=== PATIENT | male | born 1940 | race Caucasian/White ===

== ENCOUNTER 2024-01-03 07:26 | Inpatient (IN) | payer MEDICARE, OTHER, SELFPAY ==
[2024-01-02] VITALS (15 sets, daily range): BP systolic 120–155; BP diastolic 79–99; BMI 30.2; BMI 29.8
[2024-01-02 05:42] LABS: Hematocrit 48.1 % (39.0-52.0); Hemoglobin 16.1 g/dL (13.0-18.0); Mean Corp Hgb Conc. 33.5 g/dL (33.0-37.0); Mean Corpuscular Hgb 28.3 pg (27.0-31.0); Mean Corpuscular Volume 84.5 fL (80.0-94.0); Mean Platelet Volume 10.2 fL (7.4-10.4); Platelet Count 222 10^3/uL (130-400); Red Blood Cell Count 5.69 10^6/uL (4.70-6.10); Red Cell Dist. Width 14.3 % (11.5-14.5); White Blood Cell Count 17.3 10^3/uL (4.8-10.8)
[2024-01-02 06:02] LABS: ALT (SGPT) 19 U/L (0-50); AST (SGOT) 22 U/L (17-59); Albumin 3.6 g/dl (3.5-5.0); Alkaline Phosphatase 69 U/L (38-126); Blood Urea Nitrogen 47 mg/dl (9-20); Calcium 9.1 mg/dl (8.4-10.2); Carbon Dioxide 27 mmol/L (22-30); Chloride 101 mmol/L (98-107); Estimated Creatinine Clearance 63 ml/min; Glucose 153 mg/dl (70-99); Sodium 137 mmol/L (135-145); Total Bilirubin 1.1 mg/dl (0.2-1.3); eGFR > 60.00
--- NOTE | 2024-01-02 06:26 | ED.GENMED ---
History of Present Illness
General
Chief Complaint: Vomiting Blood
Source: patient and records
Exam Limitations: none
Time Seen by Provider: 01/02/24 06:01
Nursing documentation reviewed up to this point in time: agreed with
Travel History
Have you had any contact with someone who has COVID-19?: No
Do you have any symptoms of coronavirus? Fever > 100 degrees, chills, cough, shortness of breath, sore throat, loss of taste or smell, muscle aches, or headache?: No
History of Present Illness
History of Present Illness:
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 Patient states for the last 4 to 5 days he has not been feeling well and has had digestive issues. Patient has mild nausea
with decreased appetite and has noted black stools. Patient denies feeling weak or lightheaded. Patient denies chest pain or shortness of breath. Patient denies any palpitations. Patient denies any abdominal pain. Patient denies any leg
swelling or edema. Patient denies any history of peptic ulcer disease or previous GI bleeds.
Past History
Past History
ED Past Medical History: Cancer (Renal clear-cell, CLL), Hypercholesterolemia and LA
Social History
Tobacco: Former smoker
Review of Systems
Review of Systems
All Other Systems: ROS reviewed and negative except as documented in HPI and ROS
Constitutional: Reports fatigue; Denies fever or chills
EENT: Reports no symptoms
Respiratory: Reports no symptoms
Cardiac: Reports no symptoms
ABD/GI: Reports nausea, vomiting, black stools and anorexia; Denies abdominal pain, diarrhea or constipated
: Reports no symptoms
Musculoskeletal: Reports no symptoms
Skin: Reports no symptoms
Neurological: Reports no symptoms
Hematologic/Lymphatic: Denies bruising
Phy Exam
Physical Exam
Physical Exam:
Physical Exam
General: No apparent distress, alert and appropriate, well nourished, well hydrated
HENT: Normocephalic, supple with no lymphadenopathy, no thyromegaly
Eyes: Clear sclera, conjuctiva without injection
Heart: Regular rhythm and rate. No S3, S4. No murmur. No NVD
Lungs: No respiratory distress, no stridor, lung sounds clear and equal bilaterally
Abdomen: Soft, nontender, no organomegaly, no CVA tenderness, BS good. Rectal shows good sphincter tone and no prostatic hypertrophy. Stool is brown and Hemoccult negative
Neuro: Alert and usual mental status, CN II - XII intact, no motor focality
Skin: no rash
Psychiatric: well kept. interactive and cooperative
Extremities: No edema, cyanosis, tenderness, Good and equal peripheral pulses.
Scores
Heart Failure Risk
Heart Failure Risk Score: Not Applicable
Heart Score for Chest Pain Patients
STEMI patient?: Not applicable
Withdrawal Assessment of Alcohol
Withdrawal Assessment Completed?: Not applicable
Course
Orders/Labs/Results
Orders:
Orders
01/02/24 05:34
Type+Screen Urgent
Complete Blood Count/With Diff Urgent
Comprehensive Metabolic Panel Urgent
Manual Differential Urgent
01/02/24 06:24
0.9% Sodium Chloride 500 ml [Nss] 500 ml IV BOLUS
Ondansetron Injectable [Zofran] 4 mg IV NOW STA
Pantoprazole 80 mg/100 ml Nss [Protonix] 80 mg in 100 ml IV NOW
Pantoprazole [Protonix IV] 80 mg IV NOW STA
01/02/24 06:25
Electrocardiogram (*1) Urgent
Reason for Study: Tachycardia
EKG- Treatment ONCE
01/02/24 07:18
PTT Urgent
Prothrombin Time Urgent
Abnormal Lab Results
01/02/24
05:34
WBC 17.3 H 10^3/uL
(4.8-10.8)
Abs Neuts (Manual) 10.7 H 10^3/uL
(1.4-6.5)
Band Neutrophils 10 H %
(0-3)
Lymphocytes (Manual) 8 L %
(20-51)
BUN 47 H mg/dl
(9-20)
Glucose 153 H mg/dl
(70-99)
Total Protein 6.0 L g/dl
(6.3-8.2)
01/02/24 05:34
01/02/24 05:34
Vital Signs
Initial and Last Documented VS:
Initial Vital Signs
Temp Pulse Resp Pulse Ox
98.4 F 103 24 95
01/02/24 05:21 01/02/24 05:21 01/02/24 05:21 01/02/24 05:21
Last Documented Vital Signs
Temp Pulse Resp BP Pulse Ox
98.4 F 93 22 138/85 94
01/02/24 05:21 01/02/24 07:00 01/02/24 07:00 01/02/24 07:00 01/02/24 07:00
*Radiology
Radiology exam reviewed: other (na)
*Pulse Oximetry
Patient hypoxic: no
*EKG
Interpreted by ED Provider?: Yes
EKG Intrepretation Date: 01/02/24
EKG Intrepretation Time: 07:23
Interpretation: abnormal
Comparison EKG: no comparison EKG present
Heart Rate: 90
Rate: normal
Rhythm: sinus
[place]: left axis deviation
Interval: normal interval
QRS Pattern: normal QRS (old Q inferiorly)
Ischemia: no ischemia
*Online Merchandising Manager Interpretation
Rate: tachycardiac
Interpretation: abnormal
Heart Rate: 110
Rhythm: sinus
*Critical Care Note
Total Time (30-74mins, 75-104mins- exclusive of procedures): Not Applicable
Update Note
Update Note:
Patient's hemoglobin is stable. However patient's BUN in the span of 8 months is gone from 18 or 19 to 47 with a normal creatinine. From all description patient appears to have an upper GI bleed. Patient has a mild tachycardia of just over 100.
Patient does probably require upper endoscopy but will discuss with GI given the patient's history and findings and whether they will do an outpatient workup or inpatient. Given the patient's age and underlying medical issues I am leaning towards
inpatient.
ED Attending Note
-
Portions of this chart may have been created with voice recognition software.� Occasional wrong word or��sound alike� substitutions may have occurred due to the inherent limitations of voice recognition software.
Discharge Plan
Departure
Patient Disposition: Admit
Date of Disposition: 01/02/24
Time of Disposition: 07:43
Admit to: Telemetry
Admit to doctor: Hospitalist
Presentation/result/management discussed w/ accepting MD/DO: Hospitalist
Patient with high blood pressure during this ER visit?: No
Condition: Fair
Covid-19: Not Applicable
Discharge Problem:
Upper gastrointestinal bleed
Prescriptions:
No Action
ibuprofen 200 MG tablet
400 mg PO PRN (Reason: pain)
doxazosin 4 MG tablet
8 mg PO HS
finasteride 5 MG tablet
5 mg PO HS
rusyydma-lbw-DF-lycopen-lutein [Centrum Silver] 1 EACH tablet
1 ea PO DAILY
cholecalciferol (vitamin D3) 2,000 UNIT tablet
2,000 unit PO DAILY
Referrals:
Leticia Ortega DO [Family Provider] -
Interventions
Interventions:
*Risk Screen - Suicide Last Done: 01/02/24 05:21
*General Assessment Last Done: 01/02/24 05:21
*Neglect/Abuse Screening Last Done: 01/02/24 05:21
ED- Fall Risk Assessment Last Done: 01/02/24 05:21
*ED COVID-19 Vaccine History Last Done: 01/02/24 05:21
WI-Qsgsyt-Hxlldnboxb Assessment Last Done: 01/02/24 05:45
ED- Cardiac Assessment Last Done: 01/02/24 05:45
ED- Pulmonary Assessment Last Done: 01/02/24 05:45
[2024-01-02] MEDS: PROTONIX 100 IV (07:01)
[2024-01-02] MEDS: PROTONIX IV 80 MG IV (07:01)
[2024-01-02] MEDS: ZOFRAN 4 MG IV ×2 (07:02→12:34)
[2024-01-02 07:07] LABS: Absolute Neutrophils -Man Diff 10.7 10^3/uL (1.4-6.5); Atypical Lymphocytes 24 %; Band Neutrophils 10 % (0-3); Lymphocytes 8 % (20-51); Metamyelocytes 1 % (-); Monocytes 5 % (2-9); Normal RBC Morphology Yes; Platelets Checked Yes; Segmented Neutrophils 52 % (42-75); Total Cells Counted 100
[2024-01-02] MEDS: NSS 500 IV (07:08)
[2024-01-02 08:13] LABS: APTT 27.8 Sec (23.4-35.0); INR 1.09; PT 14.1 Sec (11.4-14.6)
--- NOTE | 2024-01-02 08:27 | CON.GI ---
Addendum entered and electronically signed by Sherry Ozuna Do, MD 01/02/24 15:44:
I saw and examined the patient.
The SHEAR TENDER's note was reviewed and I agree with the note.
Comment: Rajeev is an 83yo M with h/o RCC, HTN and CAD s/p stent 2012 who was admitted with dark emesis and abd distension. He denies prior h/o bowel obstruction but recently more constipated. Denies new meds. He does have chronic LBP on ASA but
no opioids. No abd surgeries. Vitals stable. AF. obese distended abd hypoactive bowel sounds Labs reviewed WBC of 17 Hbg 16. LFTs normal. Imaging: AXR with high grade SBO. CTAP with 1. � High-grade small bowel obstruction within the
distal ileum with more proximal bowel loops measuring up to 4 cm in diameter. Significant gastric distention. Transition point identified within the right lower quadrant.
Impression
- High grade SBO
No prior abd surgeries
No diarrhea preceding
- Gastric distension with N/V
- h/o RCC
- HTN
- CAD s/p stent
- BPH
- Spinal stenosis
Recommendations
- Appreciate surgical recommendations
- NPO, diet per surgery
- NGT pending placement
- Monitor stool output
- PPI IV BID
- IVF
- Given normal H/H and bowel obstruction, EGD is not indicated at this juncture
Will follow with you
Addendum entered and electronically signed by Jennifer Tobar NP 01/02/24 10:39:
XR imaging suggestive of high grade SBO. Surgery consult pending.
Original Note:
Consultation
-
Date/Time Consultation Requested: 01/02/24 @07:35
Date/Time Consultation Performed: 01/02/24 @ 08:30
Requesting Provider: Dr. Frederick
Performing Provider: MILES Giron; Dr. Sherry Degroot
Reason for Consultation: GI bleed
Medical History
Chief Complaint / HPI
Chief Complaint: vomiting blood
History of Present Illness:
The pt is an 83 yo male with a PMH significant for ?CLL, RCC (2008 per outpatient records), HLD, HTN, CAD with prior cardiac stenting in 2012, BPH, spinal stenosis, who presented to ER with complaints of dark emesis and black stool. We are being
asked to evaluate for the presenting symptoms. The patient reports that he started noticing some of dark stool on Sunday. He notes there was a small amount of bright red blood as well but had been having normal BM prior to this. He denies any
significant constipation or diarrhea, and his typically bowel pattern is daily to every other day of formed/semi-formed stool. He notes that he progressively started feeling unwell on Sunday with a decreased appetite and subsequent nausea and
vomiting. He reports 6 episodes of vomiting since the weekend which appeared very dark in color. He denies any bright red blood with vomiting. He does admit also to increased heartburn symptoms with burning and some regurgitation into his throat
over the past few days as well. He does not take any antacids on a regular basis. He denies any chest pain, lightheadedness, dizziness, fevers, chills, syncope, abdominal pain, lower extremity edema, dysphagia, odynophagia, or unintentional weight
loss. He denies any history of GI bleeding or peptic ulcer disease. He denies any recent steroids, antibiotics, surgeries, or hospitalizations. He has remote history of colonoscopy and endoscopy but does not recall the results. He admits to
infrequent alcohol use with 3-4 drinks monthly. He does admit to daily use of Excedrin for chronic arthritic/back pain. He denies use of blood thinners aside from 81 mg of aspirin. He denies any family history of colon cancer, stomach cancer, or
other GI cancers or disorders. Of note his 's states that he is seeing oncology for workup of CLL. upon emergency room evaluation, he was noted to have brown heme-negative stool per ER workup. Pertinent lab findings clued WBC 17.3, hemoglobin
16.1, platelets 222,000, 10% bands, INR 1.09, BUN 47, creatinine 0.9, sodium 137, potassium 4.0. No imaging for review. He was made n.p.o., started on IV fluids, PPI drip, admitted for further evaluation by GI.
Past Medical History
Past Medical History: CAD
Past Surgical History: Cardiac (Cardiac stent x 2 in 2013) and Orthopedic (Hip replacement)
Social History
Tobacco: Former Smoker (Quit in the 1960s)
Alcohol: Occasional (Very infrequent 3-4 drinks monthly)
Drug: None
Personal:
Living: With Family
Family History
Family History: Reviewed & Not Pertinent
Allergies / Home Medications
Allergy/AdvReac Type Severity Reaction Status Date / Time
walnuts Allergy Itching Uncoded 01/02/24 05:20
Medication Instructions Recorded
cholecalciferol (vitamin D3) 50 2,000 unit PO DAILY 09/01/12
mcg (2,000 unit) tablet
doxazosin 4 mg tablet 8 mg PO HS 09/01/12
finasteride 5 mg tablet 5 mg PO HS 09/01/12
ibuprofen 200 mg tablet 400 mg PO PRN pain 09/01/12
lkktmpon-zem-skrrk acid 0.4 1 ea PO DAILY 09/01/12
mg-lycopene 300 mcg-lutein 250 mcg
tablet (Centrum Silver)
Review of Systems
-
History Source: Patient and Family
Constitutional: Reports No Symptoms
EENT: Reports No Symptoms
Respiratory: Reports No Symptoms
Cardiac: Reports No Symptoms
Abdomen/GI: Reports Nausea, Vomiting and Black Stools
: Reports No Symptoms
Musculoskeletal: Reports Other (Chronic back pain)
Skin: Reports No Symptoms
Neurological: Reports No Symptoms
Vital Signs
Temp Pulse Resp BP Pulse Ox
98.4 F 93 22 138/85 94
01/02/24 05:21 01/02/24 07:00 01/02/24 07:00 01/02/24 07:00 01/02/24 07:00
Physical Exam
Exam
General: Well Developed, Well Nourished, No Apparent Distress and Other (elderly appearing male)
HEENT: Normocephalic, Anicteric and Atraumatic
Respiratory: Clear (diminished bibasilarly)
Cardiac: S1/S2 and Regular Rhythm
Breast: Deferred by me
GI: Soft, Tender, Distended and Other (hypoactive bowel sounds, +tymphany upon percussion)
Rectal: Other (brown heme negative per ER)
Musculoskeletal: No Edema
Skin: Warm and Dry
Neuro: Awake, Alert and Oriented
Psych: Calm
Results
WBC 17.3 10^3/uL (4.8-10.8) H 01/02/24 05:34
Hgb 16.1 g/dL (13.0-18.0) 01/02/24 05:34
Hct 48.1 % (39.0-52.0) 01/02/24 05:34
MCV 84.5 fL (80.0-94.0) 01/02/24 05:34
Plt Count 222 10^3/uL (130-400) 01/02/24 05:34
PT 14.1 Sec (11.4-14.6) 01/02/24 07:18
INR 1.09 01/02/24 07:18
APTT 27.8 Sec (23.4-35.0) 01/02/24 07:18
Sodium 137 mmol/L (135-145) 01/02/24 05:34
Potassium 4.0 mmol/L (3.5-5.1) 01/02/24 05:34
Chloride 101 mmol/L (98-107) 01/02/24 05:34
Carbon Dioxide 27 mmol/L (22-30) 01/02/24 05:34
BUN 47 mg/dl (9-20) H 01/02/24 05:34
Creatinine 0.9 mg/dL (0.7-1.3) 01/02/24 05:34
Calcium 9.1 mg/dl (8.4-10.2) 01/02/24 05:34
Total Bilirubin 1.1 mg/dl (0.2-1.3) 01/02/24 05:34
AST 22 U/L (17-59) 01/02/24 05:34
ALT 19 U/L (0-50) 01/02/24 05:34
Alkaline Phosphatase 69 U/L (38-126) 01/02/24 05:34
Prior GI Procedures:
EGD: remote hx with no abnormal findings per pt (record not available for review)
Colonoscopy: remote hx with no abnormal findings per pt (record not available for review)
Assessment / Plan
-
The pt is an 83 yo male with a PMH significant for ?CLL, RCC (2008 per outpatient records), HLD, HTN, CAD with prior cardiac stenting in 2012, BPH, spinal stenosis, who presented to ER with complaints of dark emesis and black stool. We are being
asked to evaluate for the presenting symptoms. He notes acute onset of dark stool Sunday with subsequent nausea, vomiting of dark emesis (no bright red blood). He has had loss of appetite along with abdominal bloating/distention. No significant
anemia hgb 16.1 but elevated BUN 47 with a normal Cr and previously normal BUN. Daily Excedrin use reported for spinal stenosis. No blood thinners. No alcohol use. No hx GI bleed or anemia, but undergoing work-up for CLL per the pt's .
Problem list:
-coffee ground emesis
-elevated BUN
-?CLL (undergoing work-up)
-leukocytosis with bandemia
-piotr Excedrin use
Other pertinent medical hx:
-CAD with prior stenting 2012
-HLD
-HTN
-Hx RCC 2008
-spinal stenosis
-BPH
Recommendations:
-Etiology of current symptoms possibly 2/2 obstructive process v constipation v gastroenteritis v UGI bleed with daily Excedrin use (PUD v AVM v other) v other. Currently with stable hgb with heme negative stool per ER but concern with elevated BUN
and coffee ground emesis.
-Will check an XR of the abdomen to rule out obstructive process v constipation which could be contributing
-To consider EGD today pending above with concern for possible ulcer with daily Excedrin use. The pt is agreeable. Risks of the procedure reviewed with him.
-Keep NPO
-PPI gtt
-Trend H/H
-IV fluids per hospitalist
-PRN antiemetics
-No obvious signs of infection, leukocytosis possibly 2/2 hemoconcentration v CLL but also with bandemia (undergoing work-up per pt's ). Defer to hosptialist
-Will follow
-
-
Thank you for consultation and allowing me to participate in the patient's care. Please call the caisson worker GI physician during the after hours with any questions or concerns.
--- NOTE | 2024-01-02 09:06 | HPS.HSE ---
Addendum entered and electronically signed by Rohith Alicea DO 01/02/24 14:00:
Abdominal x-ray reviewed, suspicious for high-grade distal SBO. Await CT of abdomen & pelvis. General surgery consulted. Continue NPO.
Original Note:
Family Physician
-
Family Physician: Leticia Ortega
Chief Complaint
-
Vomiting, anorexia, melena
History of Present Illness
83-year-old male here with complaints of anorexia, melena, nausea and vomiting for the past 4 days. Had hematochezia on Sunday night but since then has had some melena. Denies similar occurrences in the past. Does have a history of hemorrhoids.
Uses Excedrin on a daily basis. Denies history of peptic ulcer disease. Last colonoscopy was 18 years ago. Not on anticoagulation.
Medical History
Past Medical History
Past Medical History: Reports Other
Additional Past Medical History:
CAD/stenting 2011
BPH
CLL
Hyperlipidemia
Spinal stenosis
Essential hypertension
Renal cell cancer -2008
Past Surgical History: Reports Orthopedic
Additional Past Surgical History:
Lumbar laminectomy
Cervical laminectomy
Hip replacement
Social History
Tobacco: Former Smoker
Alcohol: Occasional
Drug: None
Personal:
Living: With Family
Family History
Family History: Not pertinent
Allergies / Home Medications
Allergies reflects when Allergies were last updated in [facility].
Home Medications with original date entered in [facility]
Allergy/Medication List:
Allergies
Allergy/AdvReac Type Severity Reaction Status Date / Time
walnuts Allergy Itching Uncoded 01/02/24 05:20
Home Medications
finasteride 5 mg tablet 5 mg PO HS 09/01/12
gisyfyji-evs-rdqkk acid 0.4 mg-lycopene 300 mcg-lutein 250 mcg tablet (Centrum Silver) 1 ea PO DAILY 09/01/12
aspirin 81 mg tablet,delayed release 162 mg PO QPM 01/02/24
kykclks-vunqscywdbbzp-zhnzrhzr 250 mg-250 mg-65 mg tablet (Excedrin Extra Strength) 2 tab PO DAILY 01/02/24
doxazosin 8 mg tablet 8 mg PO HS 01/02/24
turmeric 400 mg capsule 400 mg PO DAILY 01/02/24
Review of Systems
-
History Source: Patient and Family
A 12 point ROS was completed and negative except as noted: Yes
Abdomen/GI: Reports Nausea, Vomiting, Black Stools and Anorexia
Physical Exam
Vital Signs
Vital Signs
Temp Pulse Resp BP Pulse Ox
98.4 F 88 20 145/90 93
01/02/24 05:21 01/02/24 08:30 01/02/24 08:30 01/02/24 08:30 01/02/24 08:30
Physical Exam
General: Well Developed, Well Nourished, No Apparent Distress and Comfortable
HEENT: NormoCephalic, Anicteric and Moist mucous membranes
Respiratory: Clear
Cardiac: S1/S2 and Regular Rhythm
GI: Soft, Non Tender and Distended
Genito-urinary: Deferred by me
Musculoskeletal: No Clubbing, No Cyanosis and No Edema
Skin: Warm and Dry
Neuro: AO x 3
Hematologic/Lymphatic: No Lymphadenopathy
Psych: Calm
Laboratory Results
-
01/02/24 05:34
01/02/24 05:34
Laboratory Results
PT 14.1 Sec (11.4-14.6) 01/02/24 07:18
INR 1.09 01/02/24 07:18
APTT 27.8 Sec (23.4-35.0) 01/02/24 07:18
Total Bilirubin 1.1 mg/dl (0.2-1.3) 02/21/24 05:34
AST 22 U/L (17-59) 01/02/24 05:34
ALT 19 U/L (0-50) 01/02/24 05:34
Alkaline Phosphatase 69 U/L (38-126) 01/02/24 05:34
Impression/Plan
-
Intractable vomiting -with associated melena, high BUN. Rule out GI bleed. Admit to telemetry. Consult GI. N.p.o., IV Protonix, antiemetics. IV fluids. Stop NSAIDs.
Hemoglobin normal, will monitor. Heme-negative stool in the emergency room.
CAD -history of stenting. Continue low-dose aspirin.
Essential hypertension -stable.
BPH
Spinal stenosis
History of renal cell cancer
Obesity due to excess calories
DNR -confirmed with patient.
[2024-01-02] MEDS: OMNIPAQUE 50 ML PO ×2 (10:55)
[2024-01-02] MEDS: 0.45%NACL 1000 IV (12:16)
--- NOTE | 2024-01-02 13:00 | PTCARENOTE ---
Pt admitted to rm 317-1. AAOx3, forgetful? Tele box #7 placed, SR on monitor. Protonix gtt infusing, fluids started as ordered. Orietned to room and call prabhakar. POC explained to patient and , verbalized understanding.
--- NOTE | 2024-01-02 14:35 | CON.GS ---
Consultation
-
Requesting Provider: aileen
Performing Provider: neli
Reason for Consultation: sbo
Medical History
-
Chief Complaint: vomiting
History of Present Illness:
83M with 3 days of n/v that caleb after eating brunch at a restaurant. Reportedly emesis has been dark black and possibly bloody as well. Had a BM with blood about 4 days ago per his . The patient is a poor historian and talks about difficulty
walking when asked why he is here. He does endorse passing flatus throughout this episode. He denies abd pain at any point during this episode. Denies prior abd surgery. Per his , he is not current on c-scopes.
Past Medical History
Past Medical History: Hypercholesterolemia, MT and Other (RCC, CLL)
Past Surgical History: None
Social History
Tobacco: Former Smoker
Drug: None
Personal:
Living: With Family
Family History
Family History: Reviewed & Noncontributory
Allergies / Home Medications
Allergy/AdvReac Type Severity Reaction Status Date / Time
walnuts Allergy Itching Uncoded 01/02/24 05:20
Medication Instructions Recorded Confirmed Type
finasteride 5 mg tablet 5 mg PO HS Urinary Issue 09/01/12 01/02/24 History
mrkgkeqj-nao-kpneu acid 0.4 1 ea PO DAILY Supplement 09/01/12 01/02/24 History
mg-lycopene 300 mcg-lutein 250 mcg
tablet (Centrum Silver)
aspirin 81 mg tablet,delayed 162 mg PO QPM Blood Clot 01/02/24 01/02/24 History
release Prevention/Tx
vuazymd-yxgqhkpfmoohp-argrzbjo 250 2 tab PO DAILY headache 01/02/24 01/02/24 History
mg-250 mg-65 mg tablet (Excedrin
Extra Strength)
doxazosin 8 mg tablet 8 mg PO HS Urinary Issue 01/02/24 01/02/24 History
turmeric 400 mg capsule 400 mg PO DAILY Supplement 01/02/24 01/02/24 History
Review of Systems
-
A 10 point review of systems was completed, and was negative except as per HPI.
Physical Exam
Vital Signs
Temp Pulse Resp BP Pulse Ox
98.2 F 92 18 132/79 94
01/02/24 11:00 01/02/24 11:00 01/02/24 11:00 01/02/24 11:00 01/02/24 11:00
01/01/24 01/02/24 01/03/24
06:59 06:59 06:59
Actual Weight 86.2 kg 85.003 kg
Body Mass Index (BMI) 29.8
Lab Results
01/02/24 05:34
01/02/24 05:34
WBC 17.3 10^3/uL (4.8-10.8) H 01/02/24 05:34
Hgb 16.1 g/dL (13.0-18.0) 01/02/24 05:34
Hct 48.1 % (39.0-52.0) 01/02/24 05:34
Plt Count 222 10^3/uL (130-400) 01/02/24 05:34
Physical Exam
General: No Apparent Distress
HEENT: Normocephalic and Anicteric
GI: Soft, Non Tender and Distended (moderate soft gaseous distention with tympany)
Skin: Warm and Dry
Neuro: AO x 3
Psych: Calm
Data Reviewed
-
Radiology: Image Personally Visualized and interpreted, Report Reviewed by me, Discussed with Physician, Discussed with Patient and Discussed with Family
CT Scan: Image Personally Visualized and interpreted, Report Reviewed by me, Discussed with Physician, Discussed with Patient and Discussed with Family
Labs: Labs Reviewed by me, Discussed with Patient and Discussed with Family
Assessment / Plan
-
83M with concern for SBO
AFVSS, no abd pain, exam with distention but soft and otherwise benign, endorses flatus though hx not reliable
WBC 17K, BUN 47
KUB with diffusely dilated sb loops
CT A/P with dilated stomach and proximal sb, apparent transition point in RUQ with distal ileum decompressed. Colon decompressed though there is some stool/gas present in the lumen; oral contrast is dilute and not adding much to diagnostic picture
at this time
Plan:
Place NGT to LIWS
IVF/NPO
F/U KUB tomorrow am
PRN anti-emetics
Ambulate
DVT ppx
[2024-01-02] MEDS: TYLENOL 650 MG PO (19:20)
[2024-01-02] MEDS: CHLORASEPTIC/SORE THROAT SPRAY 1 SPRAY PO (19:21)
--- NOTE | 2024-01-03 00:37 | PTCARENOTE ---
Addendum entered by Pilar Perea RN 01/03/24 03:00:
senior energy consultant GI doctor Do notified at time of event
Original Note:
pt c/o pain in his throat and nose d/t NGT placed 01/02 for SBO, putting out coffee ground emesis. MILES Foster notified and IV tylenol ordered. upon entering pts room approx. 0031 found pt with NGT out of his nose. pt is aaox3. RN asked why pt did
that and when. pt stated 'just right now, i couldn't take it anymore. i couldn't take it. my nose and throat'. pt was ordered throat spray earlier in shift and has been using it. RN educated pt on the importance of needing NGT. pt refusing, stating
'maybe later, i just can't right now'. will continue to monitor.
[2024-01-03] MEDS: OFIRMEV 100 IV (01:06)
[2024-01-03] MEDS: 0.45%NACL 1000 IV (01:06)
[2024-01-03 03:00] VITALS: BP 130/94
[2024-01-03 06:52] LABS: % Basophils 0.2 % (0-2); % Eosinophils 0.4 % (0-6); % Immature Granulocytes 0.2 % (0-0.5); % Lymphocytes 54.4 % (20.5-51.1); % Monocytes 5.9 % (1.7-9.3); % Neutrophils 38.9 % (42.2-75.2); Absolute Eosinophils 0.1 10^3/uL (0-0.7); Absolute Lymphocytes 6.9 10^3/uL (1.2-3.4); Absolute Monocytes 0.8 10^3/uL (0.1-0.6); Absolute Neutrophils 4.9 10^3/uL (1.4-6.5); Hematocrit 47.4 % (39.0-52.0); Hemoglobin 15.6 g/dL (13.0-18.0); Mean Corp Hgb Conc. 32.9 g/dL (33.0-37.0); Mean Corpuscular Volume 88.1 fL (80.0-94.0); Mean Platelet Volume 10.4 fL (7.4-10.4); Nucleated Red Blood Cells % 0 % (-); Platelet Count 214 10^3/uL (130-400); Red Blood Cell Count 5.38 10^6/uL (4.70-6.10); Red Cell Dist. Width 14.2 % (11.5-14.5); White Blood Cell Count 12.6 10^3/uL (4.8-10.8)
[2024-01-03 07:00] VITALS: BP 127/84
[2024-01-03 07:15] LABS: Blood Urea Nitrogen 40 mg/dl (9-20); Calcium 8.1 mg/dl (8.4-10.2); Carbon Dioxide 24 mmol/L (22-30); Chloride 100 mmol/L (98-107); Estimated Creatinine Clearance 63 ml/min; Glucose 111 mg/dl (70-99); Potassium 4.2 mmol/L (3.5-5.1); Sodium 133 mmol/L (135-145); eGFR > 60.00
[2024-01-03] MEDS: ZOFRAN 4 MG IV ×2 (08:17→21:51)
[2024-01-03] MEDS: PROTONIX IV 40 MG IV (08:17)
[2024-01-03] MEDS: NSS (PRESERVATIVE FREE) 10 ML IV (08:17)
[2024-01-03] MEDS: LOW STRENGTH ASPIRIN 81 MG PO (08:18)
--- NOTE | 2024-01-03 10:04 | W.PN.GS2 ---
Addendum entered and electronically signed by Live Fitzgerald MD 01/03/24 10:33:
pt now agreeable - NGT placed with 500mL feculent output
son now at bedside. reviewed tx and impression as outlined below. any of his questions addressed
Original Note:
Today's Communication / Plan
-
`
Assessment / Plan
-
Assessment: 83 y/o male with persistent high grade SBO - uncertain cause, no prior abdominal surgeries, no mass seen on CT imaging
AFVSS
pt states he is unsure if he wants treatment for his SBO - meaning no NGT or surgery at the moment; he was talking about allowing himself to pass away from the obstruction rather than tx
spoke with patients as well with a phone call. she will be coming in to talk over with him
Plan: NGT decompression if patient is agree able
IVF hydration
supportive care
probable need for OR but taking first steps with decompression as there is no clinical signs of immediate bowel threat or compromise already and pt unsure of treatment wishes
Subjective Data
-
Date of Service: January 03, 2024
pt seen and examined
NGT was removed overnight
nausea with active vomiting, worsening distention, no pain however
he is refusing NGT placement or intervention
Objective Data
-
Intake and Output
01/02/24 01/03/24 01/04/24
06:59 06:59 06:59
Intake Total 0 / 0
Balance 0 / 0
Intake:
Oral fluids 0 / 0
IV fluids (Total) 0 / 0
IV piggybacks 0 / 0
Other:
How many times incontinent 1
SATURATED amount urine
Vital Signs
Temp Pulse Resp BP Pulse Ox
98.5 F 90 18 127/84 95
01/03/24 07:00 01/03/24 07:00 01/03/24 07:00 01/03/24 07:00 01/03/24 07:00
Lab Results
01/03/24 06:24
01/03/24 06:24
Calcium 8.1 mg/dl (8.4-10.2) L 01/03/24 06:24
Total Bilirubin 1.1 mg/dl (0.2-1.3) 01/02/24 05:34
AST 22 U/L (17-59) 01/02/24 05:34
ALT 19 U/L (0-50) 01/02/24 05:34
Alkaline Phosphatase 69 U/L (38-126) 01/02/24 05:34
Total Protein 6.0 g/dl (6.3-8.2) L 01/02/24 05:34
Albumin 3.6 g/dl (3.5-5.0) 01/02/24 05:34
Physical Exam
-
uncomfortable appearing, vomited on gown
abd distended, nontender
--- NOTE | 2024-01-03 10:16 | W.PN.HOSP.TC ---
Today's Communication/Plan
-
Reinsert NG tube
Psychiatry consult
Assessment / Plan
Assessment / Plan
Gen-AAOx3, NAD
HEENT-NC, AT, anicteric, clear oral mm
Neck-supple
CV-reg, no M, +S1/S2
Lungs-clear B/L
Abd-soft, distended, tender
Ext-no edema
Musculoskeletal-no cyanosis, clubbing
Skin-warm and dry
Neuro-grossly non-focal
Psych-calm, cooperative
Small bowel obstruction -noted on CT scan as a high-grade obstruction within the distal ileum. Continue NPO. Reinsert NG tube. Patient agreeable. Discussed with Dr. Fitzgerald.
Depression - consult psychiatry. Patient told surgical team that he just wants to .
Hyponatremia -133. Suspect due to hypovolemia. Continue normal saline.
CAD/stenting 2011
BPH
CLL -followed by hematology. Not on treatment.
Hyperlipidemia
Spinal stenosis
Essential hypertension
Renal cell cancer -2008
Obesity due to excess calories
DNR
Anticipated Discharge: > 48 hours
Subjective/Interval History
-
Date of Service: January 03, 2024
Patient seen and examined. He pulled out his NG tube last night. Complaining of nausea and vomiting. Feeling depressed.
Objective Data
-
Labs:
Laboratory Results
01/03/24
06:24
WBC 12.6 H
Hgb 15.6
Hct 47.4
Plt Count 214
Sodium 133 L
Potassium 4.2
Chloride 100
Carbon Dioxide 24
BUN 40 H
Creatinine 0.9
Glucose 111 H
Calcium 8.1 L
Vital Signs:
Vital Signs
Temp Pulse Resp BP Pulse Ox
98.5 F 90 18 127/84 95
01/03/24 07:00 01/03/24 07:00 01/03/24 07:00 01/03/24 07:00 01/03/24 07:00
I&O
01/02/24 01/03/24 01/04/24
06:59 06:59 06:59
Intake Total 0 / 0
Balance 0 / 0
Review of Systems
-
History Source: Patient
All other systems: Reviewed and negative
[2024-01-03] MEDS: NSS 1000 IV ×4 (10:42→23:25)
[2024-01-03 11:00] VITALS: BP 143/89
[2024-01-03] MEDS: DILAUDID 0.25 MG IV ×4 (11:26→21:51)
--- NOTE | 2024-01-03 12:03 | CON.MD ---
Consultation - Medical
-
patient seen chart reviewed. son at bedside. spoke with nursing. 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 he has had a host of serious medical issues over the years most recently he is here for small bowel obstruction. he is in a
significant amount of pain currently. he reports that his health has declined in the past several years and with this decline came depression. he apparently told a staff member here that he wishes he were . he does not deny that currently. he
has had thoughts of stopping eating as a way to achieve his demise but has not any other plan or intent at this time. he reports prior to this illness he was sleeping okay. appetite has been down. there is nothing to suggest psychosis. he could
still enjoy some aspects of life although illness has cut into his ability to concentrate on his hobbies...studying the [employer] and learning japanese. energy level poor
past psych hx denied son interjected here that he has felt for a long time that his father was depressed and could benefit from antidep but mr wolf refused
medical hx here for small bowel obstruction ascvd w hx mi and stent placement hld lumbar and cervical stenosis clear cell carcinoma kidney htn cll bph qtc 455 very mild hyponatremia (was normal yesterday and thought secondary to
dehydration patient currently is npo)
fh patient initially denied but son reports his sister now suffered from depression and received mh rx. son reports whole family is on the depressive side
substance abuse denied
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
mse alert ox3 cooperative clearly in some pain but offered a few humorous comments. speech soft and rather labored at times. goal oriented no psychosis mood is depressed affect normal. some si but no intent or plan at this point above aver
intelligence memory seems adequate insight judgment okay
dx unspecified depression
plan discussed w patient use of an antidepressant. serum sodium was normal yesterday will need to be monitored. remeron and wellbutrin might be a little less likely to cause dec sodium but remeron can cause weight gain and sedation and he seems a
bit lacking in energy. wellbutrin could be a consideration but some concern it may increase anxiety. would try zoloft initially in small doses 25 mg to start. if sodium falls would resort to one of the aforementioned antidepressants . check tsh
b12 folate vit d which can contribute to depression if not done will follow
--- NOTE | 2024-01-03 12:19 | W.PN.GI.CBS2 ---
Today's Communication / Plan
-
NGT
Diet per surgery
No further GI recs will sign off please call for questions
Assessment / Plan
-
The pt is an 83 yo male with a PMH significant for ?CLL, RCC (2008 per outpatient records), HLD, HTN, CAD with prior cardiac stenting in 2012, BPH, spinal stenosis, who presented to ER with complaints of dark emesis and black stool. We are being
asked to evaluate for the presenting symptoms. He notes acute onset of dark stool Sunday with subsequent nausea, vomiting of dark emesis (no bright red blood). He has had loss of appetite along with abdominal bloating/distention. No significant
anemia hgb 16.1 but elevated BUN 47 with a normal Cr and previously normal BUN. Daily Excedrin use reported for spinal stenosis. No blood thinners. No alcohol use. No hx GI bleed or anemia, but undergoing work-up for CLL per the pt's .
Impression
- High grade SBO
No prior abd surgeries
No diarrhea preceding
- Gastric distension with N/V
- h/o RCC
- HTN
- CAD s/p stent
- BPH
- Spinal stenosis
Recommendations
- Appreciate surgical recommendations
- NGT placed again today with copious output
- NPO, diet per surgery
- Monitor stool output
- PPI IV BID
- IVF
- Given normal H/H and bowel obstruction, EGD is not indicated at this juncture
GI will sign off please call for questions
Subjective
Subjective
Date of Service: January 03, 2024
Expressed some depressed thoughts. Son bedside. NGT put back in this AM. Copious output to wall suction. Hbg stable
Objective
Data Reviewed
Laboratory Data:
Laboratory Results
01/03/24 06:24
01/03/24 06:24
Laboratory Results
PT 14.1 Sec (11.4-14.6) 01/02/24 07:18
INR 1.09 01/02/24 07:18
APTT 27.8 Sec (23.4-35.0) 01/02/24 07:18
Total Bilirubin 1.1 mg/dl (0.2-1.3) 01/02/24 05:34
AST 22 U/L (17-59) 01/02/24 05:34
ALT 19 U/L (0-50) 01/02/24 05:34
Alkaline Phosphatase 69 U/L (38-126) 01/02/24 05:34
Vital Signs and I&O:
Vital Signs
Temp Pulse Resp BP Pulse Ox
98.6 F 89 18 143/89 96
01/03/24 11:00 01/03/24 11:00 01/03/24 11:00 01/03/24 11:00 01/03/24 11:00
I&O
01/02/24 01/03/24 01/04/24
06:59 06:59 06:59
Intake Total 0 / 0
Balance 0 / 0
Physical Exam
Physical Exam
GEN: No acute distress, conversant, pleasant
HEENT: anicteric, extraocular movements intact, clear oropharynx without exudates, NGT with bilious output
GI: soft, distended, hypoactive BS, tender to palpation, normal active bowel sounds, no hepatosplenomegaly
EXT: warm, well perfused, no edema bilaterally
NEURO: AAOx3, non-focal
--- NOTE | 2024-01-03 15:39 | W.PN.SURGUPD ---
Surgical Update
Surgical Update
pt seen in followup. at bedside
NGT with >1L output today; remains dark/bilious
abd softer but still distended, nontender but recently got dilaudid
d/w patient and his
advised of probable recommendation for surgery tomorrow if persistent obstructive symptoms
alternatively if some improvement could consider SBFT but on CT this appears to be a fairly high grade SBO with transition point
increase IVF rate given NGT loses
record i/o's
follow Abd xray in AM
possible OR tomorrow if persistent obstruction
[2024-01-03 16:18] VITALS: BP 149/90
[2024-01-03] MEDS: CHLORASEPTIC/SORE THROAT SPRAY 1 SPRAY PO ×2 (18:25→21:52)
[2024-01-03 19:50] VITALS: BP 121/87
[2024-01-03] MEDS: FLUSH (NSS) 2 FLUSH IV (21:52)
[2024-01-03 23:47] VITALS: BP 121/78
[2024-01-04] VITALS (15 sets, daily range): BP systolic 109–142; BP diastolic 63–87
[2024-01-04] MEDS: DILAUDID 0.25 MG IV ×2 (01:34→05:24)
--- NOTE | 2024-01-04 01:50 | PTCARENOTE ---
Upon hourly rounds, pt removed NG tube from L nare. [place] sump reinserted with additional RN at bedside. DIE TURNER made aware. Medsitter will be obtained and initiated.
--- NOTE | 2024-01-04 02:30 | PTCARENOTE ---
SEED LABORATORY ASSISTANT instructed this RN to connect NG tube to low intermittent suction as ordered.
--- NOTE | 2024-01-04 02:33 | PTCARENOTE ---
In anticipation of possible OR today, gown and linens changed, CHG wipes provided, and complete bed bath provided.
[2024-01-04] MEDS: CHLORASEPTIC/SORE THROAT SPRAY 1 SPRAY PO ×2 (05:22→09:26)
[2024-01-04] MEDS: ZOFRAN 4 MG IV (05:24)
[2024-01-04 06:50] LABS: % Basophils 0.1 % (0-2); % Eosinophils 1.1 % (0-6); % Immature Granulocytes 0.3 % (0-0.5); % Lymphocytes 56.4 % (20.5-51.1); % Monocytes 5.9 % (1.7-9.3); % Neutrophils 36.2 % (42.2-75.2); Absolute Eosinophils 0.1 10^3/uL (0-0.7); Absolute Lymphocytes 5.9 10^3/uL (1.2-3.4); Absolute Monocytes 0.6 10^3/uL (0.1-0.6); Absolute Neutrophils 3.8 10^3/uL (1.4-6.5); Hemoglobin 14.9 g/dL (13.0-18.0); Mean Corp Hgb Conc. 33.1 g/dL (33.0-37.0); Mean Corpuscular Hgb 28.9 pg (27.0-31.0); Mean Corpuscular Volume 87.4 fL (80.0-94.0); Mean Platelet Volume 10.4 fL (7.4-10.4); Nucleated Red Blood Cells % 0 % (-); Platelet Count 202 10^3/uL (130-400); Red Blood Cell Count 5.15 10^6/uL (4.70-6.10); Red Cell Dist. Width 14.2 % (11.5-14.5); White Blood Cell Count 10.4 10^3/uL (4.8-10.8)
[2024-01-04 07:13] LABS: Blood Urea Nitrogen 29 mg/dl (9-20); Calcium 7.5 mg/dl (8.4-10.2); Carbon Dioxide 24 mmol/L (22-30); Chloride 105 mmol/L (98-107); Estimated Creatinine Clearance 63 ml/min; Glucose 90 mg/dl (70-99); Potassium 4.2 mmol/L (3.5-5.1); Sodium 134 mmol/L (135-145); eGFR > 60.00
--- NOTE | 2024-01-04 07:19 | W.PN.GS2 ---
Today's Communication / Plan
-
OR today dx lap, possible open, SUSIE possible bowel resection
Assessment / Plan
-
Assessment: 83 y/o male with persistent high grade SBO - uncertain cause, no prior abdominal surgeries, no mass seen on CT imaging
AFVSS
NGT with >3L since placement yesterday and 2L overnight - remains bilious
Plan: Reviewed with patient and phone call with his this a.m. Recommended surgical intervention due to persistent high-grade small bowel obstruction. They were both in agreement to proceed with surgery.
Laparoscopic lysis of adhesions, possible laparotomy, possible bowel resection was reviewed in detail including the operative technique, potential operative findings and their management, benefits and risks such as but not limited to bleeding
requiring transfusion, infectious or wound related complications, iatrogenic injury to surrounding viscera, anastomotic related complications if bowel resection or enterotomy. We discussed the typical postoperative recovery pending operative
findings and procedure. Any of the patient's or his 's questions were fully addressed.
Patient is on the OR schedule today for the above procedure
Continue aggressive IV fluid hydration
Continue NG tube decompression
Invanz on-call to the OR
Protonix for GI prophylaxis
Subjective Data
-
Date of Service: January 04, 2024
pt seen and examined
no new abdominal pain
no fl/BMs
NGT remains in place
Objective Data
-
Intake and Output
01/03/24 01/04/24 01/05/24
06:59 06:59 06:59
Intake Total 0 / 0 1670 / 1670
Output Total 3350 / 3350
Balance 0 / 0 -1680 / -1680
Intake:
Oral fluids 0 / 0 50 / 50
IV fluids (Total) 0 / 0 1500 / 1500
IV piggybacks 0 / 0
Amount instilled into GI Tube ( 120 / 120
Total)
[place] Sump 120 / 120
Output:
Gastrointestinal tube output ( 3350 / 3350
Total)
[place] Sump 3350 / 3350
Other:
How many times incontinent 1
MODERATE amount urine
How many times incontinent 1 1
SATURATED amount urine
Vital Signs
Temp Pulse Resp BP Pulse Ox
98.3 F 87 20 141/85 94
01/04/24 03:06 01/04/24 03:06 01/04/24 03:06 01/04/24 03:06 01/04/24 03:06
Lab Results
01/04/24 06:20
01/04/24 06:20
Calcium 7.5 mg/dl (8.4-10.2) L 01/04/24 06:20
Total Bilirubin 1.1 mg/dl (0.2-1.3) 01/02/24 05:34
AST 22 U/L (17-59) 01/02/24 05:34
ALT 19 U/L (0-50) 01/02/24 05:34
Alkaline Phosphatase 69 U/L (38-126) 01/02/24 05:34
Total Protein 6.0 g/dl (6.3-8.2) L 01/02/24 05:34
Albumin 3.6 g/dl (3.5-5.0) 01/02/24 05:34
Physical Exam
-
NAD AAOx3
ABD: much less distended with NGT decompression, no tenderness, no R/R/G
[2024-01-04 07:32] LABS: Vitamin D, 25-OH*** 26.3 ng/mL (30-80)
[2024-01-04 07:49] LABS: TSH Reflex To Free T4 1.41 uIU/ml (0.47-4.68)
[2024-01-04] MEDS: NSS (PRESERVATIVE FREE) 10 ML IV (08:00)
[2024-01-04] MEDS: PROTONIX IV 40 MG IV (08:00)
[2024-01-04] MEDS: NSS 1000 IV ×2 (08:00→17:31)
[2024-01-04 08:21] LABS: Folate > 20.0 ng/ml (2.76-20); Vitamin B12 459 pg/ml (239-931)
--- NOTE | 2024-01-04 09:05 | W.PN.UPDATE ---
Update Note
Progress Note Update
patient seen chart reviewed. dr wolf is waiting for possible surgery for bowel obstruction later today. he i am told pulled out ng tube. not clear if at that time he was in a delirious state but at the present time he is with it cognitively and
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 he was started on
antidepressants this am....of course too soon for a response....will follow
[2024-01-04] MEDS: ZOLOFT PO (10:30)
--- NOTE | 2024-01-04 11:10 | W.PN.HOSP.TC ---
Addendum entered and electronically signed by Rohith Alicea DO 01/04/24 14:11:
SIRS due to small bowel obstruction -present on admission.
Original Note:
Today's Communication/Plan
-
Await OR today
Assessment / Plan
Assessment / Plan
Gen-AAOx3, NAD
HEENT-NC, AT, anicteric, clear oral mm, NG tube in place
Neck-supple
CV-reg, no M, +S1/S2
Lungs-clear B/L
Abd-soft, distended, tender
Ext-no edema
Musculoskeletal-no cyanosis, clubbing
Skin-warm and dry
Neuro-grossly non-focal
Psych-calm, cooperative
Small bowel obstruction -noted on CT scan as a high-grade obstruction within the distal ileum. Continue NPO, NG tube. Awaiting surgery today.
Depression -appreciate psychiatry input. To begin antidepressants when able.
Hyponatremia -134. Suspect due to hypovolemia. Continue normal saline.
CAD/stenting 2011
BPH
CLL -followed by hematology. Not on treatment.
Hyperlipidemia
Spinal stenosis
Essential hypertension
Renal cell cancer -2008
Obesity due to excess calories
DNR
Anticipated Discharge: > 48 hours
Subjective/Interval History
-
Date of Service: January 04, 2024
Patient seen and examined. No new complaints today.
Objective Data
-
Labs:
Laboratory Results
01/04/24
06:20
WBC 10.4
Hgb 14.9
Hct 45.0
Plt Count 202
Sodium 134 L
Potassium 4.2
Chloride 105
Carbon Dioxide 24
BUN 29 H
Creatinine 0.9
Glucose 90
Calcium 7.5 L
Vital Signs:
Vital Signs
Temp Pulse Resp BP Pulse Ox
98.0 F 89 19 132/80 98
01/04/24 11:06 01/04/24 11:06 01/04/24 11:06 01/04/24 11:06 01/04/24 11:06
I&O
01/03/24 01/04/24 01/05/24
06:59 06:59 06:59
Intake Total 0 / 0 1670 / 1670
Output Total 3350 / 3350
Balance 0 / 0 -1680 / -1680
Review of Systems
-
History Source: Patient
All other systems: Reviewed and negative
--- NOTE | 2024-01-04 12:44 | CM ---
Reviewed chart, met with patient to obtain information for assessment. Patient stated that he lives at [facility] with his . He described himself as independent with his ADLs, personal care, dressing and bathing. 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 He uses a walker to assist with his ambulation.
Patient has a prescription plan and PCP. He goes to [facility] on [address] for all of his medications. His PCP is Dr. Leticia Ortega.
Patient is for the OR this afternoon. He is unable to predict how he will feel. Rehab was discussed and if need, patient would like to go to the [facility]. Will know more after sx.
He has never had VN services in the past. He has not been to a SNF.
Plan: Case management will continue to follow and assist with discharge planning. SNF Vrs. Home.
--- NOTE | 2024-01-04 13:44 | PN.CDI ---
CDI
- -
CDI:
Physician Documentation Request
Admit Date: 01/03/24 07:26
Dear Doctor Deanne,
Please review the following and provide your response in the progress notes.
Clinical Indicators:
ER, 01/02
#Patient has a mild tachycardia of just over 100.
H+P, 01/02
#Intractable vomiting -with associated melena, high BUN.
#...Rule out GI bleed.
PN, 01/03
#Small bowel obstruction
#...-noted on CT scan as a high-grade obstruction within the distal ileum.
Initial VS, 01/02
98.4 103 24 138/85 94%
Laboratory Tests
01/02/24 01/03/24 01/04/24
05:34 06:24 06:20
WBC 17.3 H 12.6 H 10.4
Band Neutrophils 10 H
Based on the above and your clinical assessment, please clarify which of the following most accurately describes the condition/diagnosis, POA:
Sepsis
- Systemic manifestations of infection, with 2 or more SIRS criteria which include:
- Fever >100.4 degrees F or hypothermia < 96.8 degrees F
- Leukocytosis - WBC > 12,000 or leukopenia - WBC < 4,000 or > 10% bands
- Tachycardia > 90 beats per minute
- Tachypnea - RR > 20 breaths per minute or PaCO2 , 32mmHg
Source: Merck Manual 2013
- Indicate the known or suspected underlying infection, such as UTI, pneumonia or cellulitis
- Indicate if a suspected bacterial infection of unknown source
SIRS due to a non-infectious source
-Indicate the known or suspected etiology
-Indicate if there is associated organ dysfunction, such as renal or respiratory failure
Localized Infection Only, Without Systemic Illness
- indicate the site/source, such as UTI, pneumonia etc.
Other (please specify)
Use of terms such as suspected, likely, concern for, or probable (associated with a specific diagnosis that is being evaluated, monitored, or treated as if it exists) are acceptable and can be coded in the inpatient setting, when documented at the
time of discharge.
Thank you,
Cassidy Lyles RN BSN CCDS
CDI Specialist
please contact via tiger text
Please use your independent medical judgment in providing your response.
--- NOTE | 2024-01-04 14:03 | PN.CDI ---
CDI
- -
CDI:
Physician Documentation Request
Admit Date: 01/03/24 07:26
Dear Doctor Deanne,
Please review the following and provide your response in the progress notes.
Clinical Indicators:
ER, 01/02
#Patient has a mild tachycardia of just over 100.
H+P, 01/02
#Intractable vomiting -with associated melena, high BUN.
#...Rule out GI bleed.
GI consult, 01/02
#-Etiology of current symptoms possibly 2/2 obstructive process v constipation v gastroenteritis v UGI bleed with daily Excedrin use (PUD v AVM v other) v other.
#-No obvious signs of infection, leukocytosis possibly 2/2 hemoconcentration v CLL
#...but also with bandemia (undergoing work-up per pt's ).
#Defer to hosptialist
PN, 01/03
#Small bowel obstruction
#...-noted on CT scan as a high-grade obstruction within the distal ileum.
Initial VS, 01/02
98.4 103 24 138/85 94%
Laboratory Tests
01/02/24 01/03/24 01/04/24
05:34 06:24 06:20
WBC 17.3 H 12.6 H 10.4
Band Neutrophils 10 H
Based on the above and your clinical assessment, please clarify which of the following most accurately describes the appropriate diagnosis, that supports the above abnormalities and additional evaluation, monitoring and/or treatment rendered:
Sepsis
- Systemic manifestations of infection, with 2 or more SIRS criteria which include:
- Fever >100.4 degrees F or hypothermia < 96.8 degrees F
- Leukocytosis - WBC > 12,000 or leukopenia - WBC < 4,000 or > 10% bands
- Tachycardia > 90 beats per minute
- Tachypnea - RR > 20 breaths per minute or PaCO2 , 32mmHg
Source: Merck Manual 2013
- Indicate the known or suspected underlying infection, such as UTI, pneumonia or cellulitis
- Indicate if a suspected bacterial infection of unknown source
SIRS due to a non-infectious source
-Indicate the known or suspected etiology
-Indicate if there is associated organ dysfunction, such as renal or respiratory failure
Localized Infection Only, Without Systemic Illness
- indicate the site/source, such as UTI, pneumonia etc.
Other (please specify)
Use of terms such as suspected, likely, concern for, or probable (associated with a specific diagnosis that is being evaluated, monitored, or treated as if it exists) are acceptable and can be coded in the inpatient setting, when documented at the
time of discharge.
Thank you,
Cassidy Lyles RN BSN CCDS
CDI Specialist
please contact via tiger text
Please use your independent medical judgment in providing your response.
--- NOTE | 2024-01-04 14:22 | W.SUR.PREOP ---
Pre-Operative Surgical Note
-
I have examined this patient prior to the performance of the scheduled procedure.
The patient's condition is unchanged from the time of the current History and
Physical and the patient is able to undergo the scheduled procedure.
[2024-01-04] MEDS: INVANZ 60 MG IV (14:59)
--- NOTE | 2024-01-04 15:38 | W.IMMPOSTOP ---
Addendum entered and electronically signed by Live Fitzgerald MD 01/04/24 16:45:
#[id number]
Original Note:
Surgical Immed Post Op Note
-
Primary Surgeon: Lia
Assisting Surgeon: Melvin MURDOCK
Pre-op Diagnosis: SBO
Post-op Diagnosis: high grade SBO
Procedure Performed: Laparoscopic Lysis of adhesions
Anesthesia Type: GETA + 0.25% Marcaine
Specimen / Cultures: none
Estimated Blood Loss: 2mL
Complications: none immediate
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 SB reduced - viable, no strictures, no enterotomy or serosal injury. b/l inguinal hernias, incidental, no contents.
Plan: NGT decompression overnight but optimistic bowel function may return promptly given minimal lysis needed although has been obstructed for a few days. Toto post op to follow i/o's. okay to removed POD1 if pain controlled, ambulating and AM
labs stable.
--- NOTE | 2024-01-04 18:15 | PTCARENOTE ---
Pt received from the PACU via bed. Transport was w/o incident. Pt with NGT to Left Nare draining clear brown fluid. Pt denies pain or nausea at this time. Pt with 3 Lap sites to abd well approximated with surgi glue. Otto cath intact draining sada
urine. VSS, Pt is afebrile. NSR on Monitor. Pt and family instructed on plan of care. Pt and family verbalized understanding of instructions. Call prabhakar is within reach.
[2024-01-05] VITALS (7 sets, daily range): BP systolic 117–136; BP diastolic 58–78; PULSE 83; O2SAT 98
[2024-01-05] MEDS: NSS 1000 IV ×4 (01:08→21:49)
[2024-01-05 06:46] LABS: Hematocrit 41.2 % (39.0-52.0); Hemoglobin 13.5 g/dL (13.0-18.0); Mean Corp Hgb Conc. 32.8 g/dL (33.0-37.0); Mean Corpuscular Hgb 29.2 pg (27.0-31.0); Mean Corpuscular Volume 89.2 fL (80.0-94.0); Platelet Count 220 10^3/uL (130-400); Red Blood Cell Count 4.62 10^6/uL (4.70-6.10); Red Cell Dist. Width 14.2 % (11.5-14.5); White Blood Cell Count 11.3 10^3/uL (4.8-10.8)
[2024-01-05 07:16] LABS: Blood Urea Nitrogen 25 mg/dl (9-20); Calcium 7.2 mg/dl (8.4-10.2); Carbon Dioxide 23 mmol/L (22-30); Chloride 106 mmol/L (98-107); Estimated Creatinine Clearance 81 ml/min; Glucose 92 mg/dl (70-99); Sodium 138 mmol/L (135-145); eGFR > 60.00
[2024-01-05] MEDS: ZOLOFT PO (08:15)
[2024-01-05] MEDS: NSS (PRESERVATIVE FREE) 10 ML IV (08:16)
[2024-01-05] MEDS: PROTONIX IV 40 MG IV (08:16)
--- NOTE | 2024-01-05 10:30 | W.PN.GS2 ---
Today's Communication / Plan
-
NGT clamp trial
OOB/Ambulate
Assessment / Plan
-
Assessment: 83 y/o male presenting with high grade SBO with no h/o of prior abdominal surgeries. 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 Bowel viable without stricture or injury.
AFVSS
Labs stable
Now passing flatus post op
NGT watery from ice chip/po intake
Plan:
NGT clamp trial today, clear liquid diet if low residual
OOB/Ambulate
Pain management
Continue IVF
Otto out today vs tomorrow pending patient course
IS while awake, wean O2 as able
VTE ppx with SCD's and Lovenox
medical care as per primary team
Subjective Data
-
Date of Service: January 05, 2024
Patient seen and examined at bedside. Notes he is passing flatus. Denies n/v. Pain to abdomen with movement.
Objective Data
-
Intake and Output
01/04/24 01/05/24 01/06/24
06:59 06:59 06:59
Intake Total 1670 / 1670 510 / 510
Output Total 3350 / 3350 1225 / 1225
Balance -1680 / -1680 -715 / -715
Intake:
Oral fluids 50 / 50
IV fluids (Total) 1500 / 1500 300 / 300
Normosal 300 / 300
Amount instilled into GI Tube ( 120 / 120 210 / 210
Total)
[place] Sump 120 / 120 210 / 210
Output:
Gastrointestinal tube output ( 3350 / 3350 600 / 600
Total)
[place] Sump 3350 / 3350 600 / 600
Urine, Otto 625 / 625
Other:
How many times incontinent 1
MODERATE amount urine
How many times incontinent 1
SATURATED amount urine
Vital Signs
Temp Pulse Resp BP Pulse Ox
99.2 F 75 18 117/58 98
01/05/24 07:00 01/05/24 07:00 01/05/24 07:00 01/05/24 07:00 01/05/24 07:00
Lab Results
01/05/24 05:58
01/05/24 05:58
Calcium 7.2 mg/dl (8.4-10.2) L 01/05/24 05:58
Total Bilirubin 1.1 mg/dl (0.2-1.3) 01/02/24 05:34
AST 22 U/L (17-59) 01/02/24 05:34
ALT 19 U/L (0-50) 01/02/24 05:34
Alkaline Phosphatase 69 U/L (38-126) 01/02/24 05:34
Total Protein 6.0 g/dl (6.3-8.2) L 01/02/24 05:34
Albumin 3.6 g/dl (3.5-5.0) 01/02/24 05:34
Physical Exam
-
NAD AAOx3
ABD: NT, incisional tenderness, no R/R/G
--- NOTE | 2024-01-05 10:55 | W.PN.HOSP.TC ---
Today's Communication/Plan
-
Out of bed to chair
PT consult
Assessment / Plan
Assessment / Plan
Gen-AAOx3, NAD
HEENT-NC, AT, anicteric, clear oral mm, NG tube in place
Neck-supple
CV-reg, no M, +S1/S2
Lungs-clear B/L
Abd-soft, distended, tender
Ext-no edema
Musculoskeletal-no cyanosis, clubbing
Skin-warm and dry
Neuro-grossly non-focal
Psych-calm, cooperative
Small bowel obstruction -noted on CT scan as a high-grade obstruction within the distal ileum. Continue NPO, NG tube. Underwent successful laparoscopic lysis of adhesions on 01/04. NG tube clamping per surgery.
Out of bed to chair today. Discussed with nursing.
Depression -appreciate psychiatry input. To begin antidepressants when able.
Hyponatremia - resolved.
CAD/stenting 2011
BPH
CLL -followed by hematology. Not on treatment.
Hyperlipidemia
Spinal stenosis
Essential hypertension
Renal cell cancer -2008
Obesity due to excess calories
DNR
PT consult
Anticipated Discharge: > 48 hours
Subjective/Interval History
-
Date of Service: January 05, 2024
Patient seen and examined. Complaining of lower back pain from the bed. Dry mouth. Denies abdominal pain or nausea.
Objective Data
-
Labs:
Laboratory Results
01/05/24
05:58
WBC 11.3 H
Hgb 13.5
Hct 41.2
Plt Count 220
Sodium 138
Potassium 4.0
Chloride 106
Carbon Dioxide 23
BUN 25 H
Creatinine 0.7
Glucose 92
Calcium 7.2 L
Vital Signs:
Vital Signs
Temp Pulse Resp BP Pulse Ox
99.2 F 75 18 117/58 98
01/05/24 07:00 01/05/24 07:00 01/05/24 07:00 01/05/24 07:00 01/05/24 07:00
I&O
01/04/24 01/05/24 01/06/24
06:59 06:59 06:59
Intake Total 1670 / 1670 510 / 510
Output Total 3350 / 3350 1225 / 1225
Balance -1680 / -1680 -715 / -715
Review of Systems
-
History Source: Patient
All other systems: Reviewed and negative
--- NOTE | 2024-01-05 11:21 | W.PN.UPDATE ---
Update Note
Progress Note Update
Pt seen, chart reviewed. Pt resting in bed after surgery yesterday for SBO. No acute distress, states he is not having significant pain. Pt was not able to start trial of Zoloft yet due to being npo. Pt alert, oriented, making good eye contact,
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 Pt appears to enjoy social contact. Affect/mood mildly dysphoric, related to his medical problems. Pt does not express
any SI. Speech/thought coherent/clear- no signs of psychosis.
Imp: Unspecified depressive d/o, situational, mild
Rec: could continue with plan to try Zoloft, starting when pt able to take po med; will take several weeks to see clinical benefit
will follow
[2024-01-05] MEDS: DILAUDID 0.5 MG IV (14:56)
[2024-01-05] MEDS: LOVENOX 40 MG SC (17:07)
--- NOTE | 2024-01-05 17:49 | PTCARENOTE ---
NG tube clamped per MD order for 6 hrs. reconnected to low suction. output reported to GIS ANALYST DEVELOPER and was <200 ml. NG tube discontinued. patient started on clears. currently awake, drinking. denies N/V/abd pain. earlier was OOB in a recliner with 2+ assist.
medicated with PRN Dilaudid for severe back pain.
[2024-01-05] MEDS: DILAUDID 0.25 MG IV (19:13)
[2024-01-05] MEDS: CARDURA 8 MG PO (21:54)
[2024-01-06] VITALS (8 sets, daily range): BP systolic 109–134; BP diastolic 63–84; PULSE 83; O2SAT 98
[2024-01-06] MEDS: DILAUDID 0.5 MG IV (01:17)
[2024-01-06 05:36] LABS: Blood Urea Nitrogen 17 mg/dl (9-20); Calcium 7.3 mg/dl (8.4-10.2); Carbon Dioxide 27 mmol/L (22-30); Chloride 103 mmol/L (98-107); Estimated Creatinine Clearance 71 ml/min; Glucose 105 mg/dl (70-99); Potassium 3.5 mmol/L (3.5-5.1); Sodium 135 mmol/L (135-145); eGFR > 60.00
[2024-01-06] MEDS: ZOLOFT 25 MG PO (07:57)
[2024-01-06] MEDS: NSS 1000 IV (08:03)
[2024-01-06] MEDS: PROTONIX IV 40 MG IV (08:04)
[2024-01-06] MEDS: NSS (PRESERVATIVE FREE) 10 ML IV (08:04)
--- NOTE | 2024-01-06 09:14 | W.PN.GS2 ---
Addendum entered and electronically signed by Cuauhtemoc Banuelos MD 01/06/24 17:18:
I saw and examined the patient.
The SEO ASSISTANT's note was reviewed and I agree with the note.
Comment:
No overnight events, tolerating clears, passing some flatus
AFVSS, abdomen soft,mildly distended, appropriately tender
� Advance to full liquids
� Follow-up void trial
�Okay for DVT PPx with Lovenox
� Pain control with Tylenol, Toradol and Dilaudid as needed
� Appreciate hospitalist, continue home meds
Original Note:
Today's Communication / Plan
-
OOB/Ambulate
Void trial
FLD
Assessment / Plan
-
Assessment: 83 y/o male presenting with high grade SBO with no h/o of prior abdominal surgeries. 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 Bowel viable without stricture or injury.
AFVSS
Labs stable
+flatus, no n/v. ABD pain resolved.
NGT out and tolerating clears
Otto out today for voiding trial
Back pain/Scrotal edema today
Plan:
start full liquids
OOB/Ambulate/PT consult placed
Pain management; minimize narcotics. Tylenol/Toradol/Dilaudid
IVF as per medicine team
IS while awake, wean O2 as able
VTE ppx with SCD's and Lovenox
medical care as per primary team
Subjective Data
-
Date of Service: January 06, 2024
Patient seen and examined at bedside. Sleepy s/p IV dilaudid. Notes that he is no longer having any abdominal pain and that all the pain he is having is now in his low back. Denies n/v. Poor appetite. Passed a lot of flatus yesterday but notes it
has slowed down today although he is still passing gas. No BM as of yet.
Objective Data
-
Intake and Output
01/05/24 01/06/24 01/07/24
06:59 06:59 06:59
Intake Total 510 / 510 400 / 400
Output Total 1225 / 1225 1150 / 1150
Balance -715 / -715 -750 / -750
Intake:
Oral fluids 400 / 400
IV fluids (Total) 300 / 300
Normosal 300 / 300
Amount instilled into GI Tube ( 210 / 210
Total)
[place] Sump 210 / 210
Output:
Gastrointestinal tube output ( 600 / 600
Total)
[place] Sump 600 / 600
Urine, Otto 625 / 625 1150 / 1150
Vital Signs
Temp Pulse Resp BP Pulse Ox
98.3 F 83 14 123/73 99
01/06/24 07:09 01/06/24 07:09 01/06/24 07:09 01/06/24 07:09 01/06/24 07:09
Lab Results
01/05/24 05:58
01/06/24 04:31
Calcium 7.3 mg/dl (8.4-10.2) L 01/06/24 04:31
Total Bilirubin 1.1 mg/dl (0.2-1.3) 01/02/24 05:34
AST 22 U/L (17-59) 01/02/24 05:34
ALT 19 U/L (0-50) 01/02/24 05:34
Alkaline Phosphatase 69 U/L (38-126) 01/02/24 05:34
Total Protein 6.0 g/dl (6.3-8.2) L 01/02/24 05:34
Albumin 3.6 g/dl (3.5-5.0) 01/02/24 05:34
Physical Exam
-
NAD AAOx3
ABD: NT, mild distention, no R/R/G
4+ scrotal edema
[2024-01-06] MEDS: TORADOL 10 MG IV ×2 (10:21→22:46)
--- NOTE | 2024-01-06 12:22 | W.PN.HOSP.TC ---
Today's Communication/Plan
-
Continue current care
Assessment / Plan
Assessment / Plan
Gen-AAOx3, NAD
HEENT-NC, AT, anicteric, clear oral mm, NG tube in place
Neck-supple
CV-reg, no M, +S1/S2
Lungs-clear B/L
Abd-soft, distended, tender
Ext-no edema
Musculoskeletal-no cyanosis, clubbing
Skin-warm and dry
Neuro-grossly non-focal
Psych-calm, cooperative
Small bowel obstruction -noted on CT scan as a high-grade obstruction within the distal ileum. Underwent successful laparoscopic lysis of adhesions on 01/04. Diet advanced to full liquids.
Depression -appreciate psychiatry input. Sertraline started.
Hyponatremia - resolved.
CAD/stenting 2011
BPH
CLL -followed by hematology. Not on treatment.
Hyperlipidemia
Spinal stenosis/chronic lower back pain
Essential hypertension
Renal cell cancer -2008
Obesity due to excess calories
DNR
Dispo -anticipate discharge to SNF when stable.
Anticipated Discharge: 24 - 48 hours
Subjective/Interval History
-
Date of Service: January 06, 2024
Patient seen and examined. Denies abdominal pain or symptoms. Complaining of chronic lower back pain.
Objective Data
-
Labs:
Laboratory Results
01/06/24
04:31
Sodium 135
Potassium 3.5
Chloride 103
Carbon Dioxide 27
BUN 17
Creatinine 0.8
Glucose 105 H
Calcium 7.3 L
Vital Signs:
Vital Signs
Temp Pulse Resp BP Pulse Ox
99.1 F 87 14 118/74 95
01/06/24 12:01 01/06/24 12:01 01/06/24 12:01 01/06/24 12:01 01/06/24 12:01
I&O
01/05/24 01/06/24 01/07/24
06:59 06:59 06:59
Intake Total 510 / 510 400 / 400
Output Total 1225 / 1225 1150 / 1150
Balance -715 / -715 -750 / -750
Review of Systems
-
History Source: Patient
All other systems: Reviewed and negative
[2024-01-06] MEDS: DILAUDID 0.25 MG IV (12:54)
[2024-01-06] MEDS: TYLENOL 650 MG PO ×3 (12:56→21:19)
--- NOTE | 2024-01-06 16:22 | PTCARENOTE ---
Due to void by 12:20 s/p pringle removal. No void, bladder scanned @ ~13:00, okotid=[id number]. Encouraged intake per bladder scan algorithm. Reassessed bladder scan @ ~16:00, still had not voided, result='>225ml.' Dr. Alicea aware. Additionally, patient
has continued complaints of severe back pain, crying out at times. Medicated w/ PRN tylenol, toradol, Dilaudid, see MAR for details. Relief acheived w/ Dilaudid. Dr. Alicea aware.
[2024-01-06] MEDS: LOVENOX 40 MG SC (16:45)
[2024-01-06] MEDS: CARDURA 8 MG PO (21:19)
[2024-01-06] MEDS: TYLENOL PO (23:05)
[2024-01-07] VITALS (7 sets, daily range): BP systolic 111–134; BP diastolic 58–79; PULSE 84; O2SAT 98
[2024-01-07 05:17] LABS: Hematocrit 35.8 % (39.0-52.0); Hemoglobin 11.8 g/dL (13.0-18.0); Mean Corpuscular Hgb 28.9 pg (27.0-31.0); Mean Corpuscular Volume 87.5 fL (80.0-94.0); Mean Platelet Volume 10.7 fL (7.4-10.4); Platelet Count 197 10^3/uL (130-400); Red Blood Cell Count 4.09 10^6/uL (4.70-6.10); Red Cell Dist. Width 13.7 % (11.5-14.5); White Blood Cell Count 15.6 10^3/uL (4.8-10.8)
[2024-01-07] MEDS: TYLENOL PO ×2 (05:19→18:10)
[2024-01-07 05:23] LABS: Blood Urea Nitrogen 15 mg/dl (9-20); Calcium 7.4 mg/dl (8.4-10.2); Carbon Dioxide 26 mmol/L (22-30); Chloride 102 mmol/L (98-107); Estimated Creatinine Clearance 95 ml/min; Glucose 115 mg/dl (70-99); Potassium 3.7 mmol/L (3.5-5.1); Sodium 132 mmol/L (135-145); eGFR > 60.00
[2024-01-07] MEDS: PROTONIX IV 40 MG IV (08:00)
[2024-01-07] MEDS: NSS (PRESERVATIVE FREE) 10 ML IV (08:00)
[2024-01-07] MEDS: TYLENOL 650 MG PO ×3 (08:00→21:10)
[2024-01-07] MEDS: ZOLOFT 25 MG PO (08:00)
--- NOTE | 2024-01-07 08:41 | W.PN.GS2 ---
Today's Communication / Plan
-
Check UA and CXR
Follow voiding pattern
Increase activity
Assessment / Plan
-
Assessment: 83 y/o male presenting with high grade SBO with no h/o of prior abdominal surgeries. 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 Bowel viable without stricture or injury.
AFVSS
Rising wbc counts
+flatus, no n/v. ABD pain resolved.
Tolerating FLD
Incontinent of urine since pringle removed. Bladder scans have been 200-380ml
Back pain/Scrotal edema
Plan:
Advance to LRD
Check UA/Cx, may need pringle. Continue finasteride/doxazosin
Check CXR
OOB/Ambulate. PT evaluated and may need skilled rehab. OT consulted to follow as well
Pain management; minimize narcotics. Tylenol/Toradol/Tramadol
IVF as per medicine team
IS while awake
VTE ppx with SCD's and Lovenox
medical care as per primary team/psych following with initiation of zoloft
Subjective Data
-
Date of Service: January 07, 2024
Patient seen and examined at bedside. Notes he has been incontinent of urine since pringle removed, has not voided with any control. Passing flatus. No BM as of yet. Low back pain has made ambulating difficult for him.
Objective Data
-
Intake and Output
01/06/24 01/07/24 01/08/24
06:59 06:59 06:59
Intake Total 400 / 400 990 / 990
Output Total 1150 / 1150
Balance -750 / -750 990 / 990
Intake:
Oral fluids 400 / 400 990 / 990
Output:
Urine, P[place]le 1150 / 1150
Other:
How many times incontinent 1
MODERATE amount urine
How many times incontinent 1
SATURATED amount urine
Vital Signs
Temp Pulse Resp BP Pulse Ox
98 F 79 24 115/75 95
01/07/24 07:56 01/07/24 07:56 01/07/24 07:56 01/07/24 07:56 01/07/24 07:56
Lab Results
01/07/24 04:36
01/07/24 04:36
Calcium 7.4 mg/dl (8.4-10.2) L 01/07/24 04:36
Total Bilirubin 1.1 mg/dl (0.2-1.3) 01/02/24 05:34
AST 22 U/L (17-59) 01/02/24 05:34
ALT 19 U/L (0-50) 01/02/24 05:34
Alkaline Phosphatase 69 U/L (38-126) 01/02/24 05:34
Total Protein 6.0 g/dl (6.3-8.2) L 01/02/24 05:34
Albumin 3.6 g/dl (3.5-5.0) 01/02/24 05:34
Physical Exam
-
NAD AAOx3, a little forgetful
ABD: NT, mild distention, no R/R/G
Skin: Incisions well approximated, intact glue, no erythema
--- NOTE | 2024-01-07 09:44 | CM ---
Reviewed the chart notes. PT recommending SNF prior to transitioning back to home. Referral sent to [facility]. Patient lives in [facility] independent apartment. CM continues to be available to patient/family and is monitoring medical plan
for needs at discharge.
Plan: Discharge to SNF when bed found. No precert required.
--- NOTE | 2024-01-07 11:01 | W.PN.HOSP.TC ---
Today's Communication/Plan
-
trend cbc
await UA
GS recs
start dispo placement efforts
OOB/PT/OT
Assessment / Plan
Assessment / Plan
Gen-AAOx3, NAD
HEENT-NC, AT, anicteric, clear oral mm, NG tube in place
Neck-supple
CV-reg, no M, +S1/S2
Lungs-clear B/L
Abd-soft, mild distention, nontender
Ext-no edema
Musculoskeletal-no cyanosis, clubbing
Skin-warm and dry
Neuro-grossly non-focal
Psych-calm, cooperative
Small bowel obstruction -noted on CT scan as a high-grade obstruction within the distal ileum. Underwent successful laparoscopic lysis of adhesions on 01/04. Diet advanced to LR.
Leukocytosis likely /2 post op reactive-No cough. Afebrile. Otto was removed. CXR noted. Trend cbc for now.
Depression -appreciate psychiatry input. Sertraline started.
Hyponatremia - resolved.
CAD/stenting 2011
BPH-cont doxazosin.
CLL -followed by hematology. Not on treatment.
Hyperlipidemia
Spinal stenosis/chronic lower back pain-PT/OT-
Essential hypertension
Renal cell cancer -2008
Obesity due to excess calories
DNR
Dispo -anticipate discharge to SNF when stable.
Anticipated Discharge: > 48 hours
Subjective/Interval History
-
Date of Service: January 07, 2024
Eating breakfast/toast
Passing flatulence
Denies abdominal pain or nausea or vomiting
Denies cough
Denies dysuria
Remains afebrile
On room air
Objective Data
-
Labs:
Laboratory Results
01/07/24
04:36
WBC 15.6 H
Hgb 11.8 L
Hct 35.8 L
Plt Count 197
Sodium 132 L
Potassium 3.7
Chloride 102
Carbon Dioxide 26
BUN 15
Creatinine 0.6 L
Glucose 115 H
Calcium 7.4 L
Vital Signs:
Vital Signs
Temp Pulse Resp BP Pulse Ox
98 F 79 24 115/75 95
01/07/24 07:56 01/07/24 07:56 01/07/24 07:56 01/07/24 07:56 01/07/24 07:56
I&O
01/06/24 01/07/24 01/08/24
06:59 06:59 06:59
Intake Total 400 / 400 990 / 990
Output Total 1150 / 1150
Balance -750 / -750 990 / 990
[2024-01-07 11:40] LABS: Urine Albumin 1+ (Neg - Trace); Urine Bilirubin 1+ (Negative); Urine Character Slightly Cloudy (Clear); Urine Color Yellow; Urine Glucose Negative (Negative); Urine Ketone Trace (Negative); Urine Leukocyte Trace (Negative); Urine Nitrite Negative (Negative); Urine Occult Blood 4+ (Negative); Urine Specific Gravity 1.015 (<1.030); Urine Urobilinogen 1+ (Neg - 1+)
[2024-01-07 11:58] LABS: Urine Mucus Many
[2024-01-07 11:59] LABS: Urine Amorphous Seen; Urine Squamous Cell >30 /LPF (Few)
[2024-01-07 12:00] LABS: Urine Bacteria Few (Negative); Urine Red Blood Cell >100 /HPF (0-2)
[2024-01-07] MEDS: ULTRAM 25 MG PO (18:36)
[2024-01-07] MEDS: LOVENOX 40 MG SC (18:37)
[2024-01-07] MEDS: CARDURA 8 MG PO (21:11)
[2024-01-08] VITALS (8 sets, daily range): BP systolic 118–150; BP diastolic 70–84; PULSE 80–81; O2SAT 97–98
[2024-01-08] MEDS: TYLENOL PO (01:04)
[2024-01-08] MEDS: TYLENOL 650 MG PO ×5 (04:00→21:23)
[2024-01-08 06:44] LABS: Hematocrit 34.6 % (39.0-52.0); Hemoglobin 11.5 g/dL (13.0-18.0); Mean Corp Hgb Conc. 33.2 g/dL (33.0-37.0); Mean Corpuscular Hgb 28.8 pg (27.0-31.0); Mean Corpuscular Volume 86.5 fL (80.0-94.0); Mean Platelet Volume 10.9 fL (7.4-10.4); Platelet Count 218 10^3/uL (130-400); White Blood Cell Count 18.2 10^3/uL (4.8-10.8)
[2024-01-08 07:14] LABS: Blood Urea Nitrogen 14 mg/dl (9-20); Calcium 7.4 mg/dl (8.4-10.2); Carbon Dioxide 28 mmol/L (22-30); Chloride 100 mmol/L (98-107); Estimated Creatinine Clearance 81 ml/min; Glucose 95 mg/dl (70-99); Potassium 3.7 mmol/L (3.5-5.1); Sodium 130 mmol/L (135-145); eGFR > 60.00
--- NOTE | 2024-01-08 07:34 | W.PN.GS2 ---
Today's Communication / Plan
-
`
Assessment / Plan
-
Assessment: 83 y/o male presenting with high grade SBO with no h/o of prior abdominal surgeries. 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 Bowel viable without stricture or injury.
AFVSS
+BM and higinio diet advacement
leukocytosis- afebrile, UA negative, CXR unremarkable, abdominal exam benign with returning GI function make abd source unlikely
hyponatremia
Plan: LR diet
colace for bowel regiment
requested differential on the AM CBC from lab
continue PT/ OOBTC and increasing activity levels as tolerated
Subjective Data
-
Date of Service: January 08, 2024
pt seen and examined
denies abdominal pain
offers no additional complaints
higinio LR diet
BM x 2 over last 24hrs
Objective Data
-
Intake and Output
01/07/24 01/08/24 01/09/24
06:59 06:59 06:59
Intake Total 990 / 990 360 / 360 480 / 480
Balance 990 / 990 360 / 360 480 / 480
Intake:
Oral fluids 990 / 990 360 / 360 480 / 480
Other:
Number of approximated MODERATE 3
amounts of urine
How many times incontinent 1
SMALL amount urine
How many times incontinent 1
MODERATE amount urine
How many times incontinent 1 2
SATURATED amount urine
Vital Signs
Temp Pulse Resp BP Pulse Ox
97.8 F 76 18 138/80 98
01/08/24 03:55 01/08/24 03:55 01/08/24 03:55 01/08/24 03:55 01/08/24 03:55
Lab Results
01/08/24 05:28
02/27/24 05:28
Calcium 7.4 mg/dl (8.4-10.2) L 01/08/24 05:28
Total Bilirubin 1.1 mg/dl (0.2-1.3) 01/02/24 05:34
AST 22 U/L (17-59) 01/02/24 05:34
ALT 19 U/L (0-50) 01/02/24 05:34
Alkaline Phosphatase 69 U/L (38-126) 01/02/24 05:34
Total Protein 6.0 g/dl (6.3-8.2) L 01/02/24 05:34
Albumin 3.6 g/dl (3.5-5.0) 01/02/24 05:34
Physical Exam
-
NAD AAOx3, forgetful bur resting comfortably
ABD: soft, obese, nondistended, and no tenderness on palpation, no R/R/G
incisions with glue dressing
[2024-01-08 08:14] LABS: Osmolality Serum 278 mOsm/kg (275-300)
[2024-01-08] MEDS: NSS (PRESERVATIVE FREE) 10 ML IV (08:19)
[2024-01-08] MEDS: VITAMIN D3 (cholecalciferol) 125 MCG PO (08:19)
[2024-01-08] MEDS: COLACE 100 MG PO ×2 (08:19→21:23)
[2024-01-08] MEDS: PROTONIX IV 40 MG IV (08:20)
[2024-01-08] MEDS: FLUSH (NSS) 2 FLUSH IV ×2 (08:22→15:53)
[2024-01-08 08:25] LABS: Segmented Neutrophils 44 % (42-75)
[2024-01-08 08:26] LABS: Absolute Neutrophils -Man Diff 8.3 10^3/uL (1.4-6.5); Band Neutrophils 2 % (0-3); Eosinophils 1 % (0-6); Lymphocytes 48 % (20-51); Metamyelocytes 2 % (-); Monocytes 3 % (2-9); Platelets Checked Yes
[2024-01-08 08:27] LABS: Normal RBC Morphology Yes; Total Cells Counted 100
--- NOTE | 2024-01-08 10:36 | W.PN.HOSP.TC ---
Today's Communication/Plan
-
trend cbc
OOB
Hold zoloft
check urine studies
Assessment / Plan
Assessment / Plan
Gen-AAOx3, NAD
HEENT-NC, AT, anicteric, clear oral mm,
Neck-supple
CV-reg, no M, +S1/S2
Lungs-clear B/L
Abd-soft, mild distention, nontender
Ext-no edema
Musculoskeletal-no cyanosis, clubbing
Skin-warm and dry
Neuro-grossly non-focal
Psych-calm, cooperative
Small bowel obstruction -noted on CT scan as a high-grade obstruction within the distal ileum. Underwent successful laparoscopic lysis of adhesions on 01/04. Diet advanced to LR.
Leukocytosis likely 2/2 post op reactive-No cough. Afebrile. Otto was removed. CXR noted. Trend cbc for now. If persistent uptrending will need repeat imaging.
Depression -appreciate psychiatry input. Sertraline started but hold with low sodium.
Hyponatremia -worsening. Hold SSRI. Check urine studies and serum osm. ?SIADH due to chronic low back pain.
CAD/stenting 2011
BPH with urge incontinence-cont doxazosin.
Hyperlipidemia
Spinal stenosis/chronic lower back pain-PT/OT-
Essential hypertension
Renal cell cancer -2008
Obesity due to excess calories
DNR
Dispo -anticipate discharge to SNF when stable.
Anticipated Discharge: > 48 hours
Subjective/Interval History
-
Date of Service: January 08, 2024
tolerating diet
no nausea or vomiting
passing flatulence
states of lower back pain-chronic
Objective Data
-
Labs:
Laboratory Results
01/07/24 01/08/24
04:36 05:28
WBC 15.6 H 18.2 H
Hgb 11.8 L 11.5 L
Hct 35.8 L 34.6 L
Plt Count 197 218
Sodium 130 L
Potassium 3.7
Chloride 100
Carbon Dioxide 28
BUN 14
Creatinine 0.7
Glucose 95
Calcium 7.4 L
Vital Signs:
Vital Signs
Temp Pulse Resp BP Pulse Ox
97.5 F 78 14 128/84 98
01/08/24 07:36 01/08/24 07:36 01/08/24 07:36 01/08/24 07:36 01/08/24 07:36
I&O
01/07/24 01/08/24 01/09/24
06:59 06:59 06:59
Intake Total 990 / 990 360 / 360 480 / 480
Balance 990 / 990 360 / 360 480 / 480
Data Reviewed
-
Total Time Spent with Patient (in minutes): 54
--- NOTE | 2024-01-08 10:38 | CM ---
Addendum entered by Lexy Childers 01/08/24 14:39:
Per [facility], [facility] can accept patient, [facility] can accept for . Patient and seen bedside, discussed no bed availability at [facility], patient and upset. requesting a facility closest to [place], patient
and would like to think about facilities before accepting. CM will continue to follow for discharge planning needs.
Plan; SNF pending patient choosing facility, accepting facilities include [facility] and [facility].
Original Note:
CM reviewed chart. Per Hospitalist, likely discharge tomorrow. CM spoke with Leslye from [facility], no bed availability at [facility], shared facilities including [facility], [place], [facility], [facility], and [facility]. Referrals sent
in [facility]. CM will discuss with patient, will continue to follow for discharge planning needs.
Plan; SNF pending bed availability.
--- NOTE | 2024-01-08 10:55 | W.PN.UPDATE ---
Update Note
Progress Note Update
Patient seen at bedside, chart reviewed, discussed with staff. Mr. Baxter tells me he is doing well today. His son joins us. We talk about the initiation of Zoloft and the fact his sodium is now low and it will be held. He tells me he does not want
to take it any further. While he admits he is down, he states 'you would be down too if you had to deal with all this stuff and be in the hospital'. We spend a good deal of time discussing the state of the world, politics, and climate change and his
worries for the world. 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 He denies any feelings of hopelessness or helplessness. He admits to worry, generalized for the most part but particular worry for his health
and the well being of his family. I have suggested a therapist may be helpful and gave him information for [facility].
Impression/Plan:� Unspecified depressive disorder, situational, mild - stop Zoloft with noted hyponatremia and patient does not feel this is what he needs. Therapy recommended as OP.
Psych will sign off, call or reconsult with any new or immediate needs.
--- NOTE | 2024-01-08 12:06 | PTCARENOTE ---
I attempted to straight cath the patient to obtain the urine specimens needed but I was barely into the urinary meatus and the patient began to have bleeding so I immediately stopped.Even though the patient is grossly incontinent will continue to
try to obtain a specimen if he can tell me when he has to void.
[2024-01-08 15:37] LABS: Osmolality Urine 296 mOsm/kg (300-900)
[2024-01-08 15:46] LABS: Urine Sodium 42 mmol/L (30-90)
[2024-01-08] MEDS: TORADOL 10 MG IV (15:52)
[2024-01-08] MEDS: LOVENOX 40 MG SC (17:39)
[2024-01-08] MEDS: CARDURA 8 MG PO (21:23)
[2024-01-08] MEDS: ULTRAM 25 MG PO (23:46)
[2024-01-09] MEDS: TYLENOL 650 MG PO ×5 (01:28→21:09)
[2024-01-09] MEDS: TYLENOL PO (05:26)
[2024-01-09 05:31] LABS: Blood Urea Nitrogen 16 mg/dl (9-20); Calcium 7.5 mg/dl (8.4-10.2); Carbon Dioxide 28 mmol/L (22-30); Chloride 103 mmol/L (98-107); Estimated Creatinine Clearance 44 ml/min; Glucose 95 mg/dl (70-99); Sodium 131 mmol/L (135-145); eGFR 54.17
--- NOTE | 2024-01-09 07:30 | W.PN.GS2 ---
Today's Communication / Plan
-
`
Assessment / Plan
-
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
AFVSS
+BM and higinio diet advacement
leukocytosis- afebrile, UA negative, CXR unremarkable, abdominal exam benign with returning GI function make abd source unlikely
hyponatremia
Plan: LR diet
colace for bowel regiment
AM CBC pending, if stable or improved okay for d/c from surgical standpoint
Subjective Data
-
Date of Service: January 09, 2024
pt seen and examined
higinio low residue diet
no abd pain, no nausea/vomiting
+fl and BMs
Objective Data
-
Intake and Output
01/08/24 01/09/24 01/10/24
06:59 06:59 06:59
Intake Total 360 / 360 1200 / 1200
Output Total 750 / 750
Balance 360 / 360 450 / 450
Intake:
Oral fluids 360 / 360 1200 / 1200
Output:
Straight cath output 750 / 750
Other:
Number of approximated MODERATE 3
amounts of urine
How many times incontinent 1
SMALL amount urine
How many times incontinent 4
SATURATED amount urine
Vital Signs
Temp Pulse Resp BP Pulse Ox
98.2 F 84 20 131/79 96
01/08/24 23:54 01/08/24 23:54 01/08/24 23:54 01/08/24 23:54 01/08/24 23:54
Lab Results
01/09/24 04:34
Calcium 7.5 mg/dl (8.4-10.2) L 01/09/24 04:34
Total Bilirubin 1.1 mg/dl (0.2-1.3) 01/02/24 05:34
AST 22 U/L (17-59) 01/02/24 05:34
ALT 19 U/L (0-50) 01/02/24 05:34
Alkaline Phosphatase 69 U/L (38-126) 01/02/24 05:34
Total Protein 6.0 g/dl (6.3-8.2) L 01/02/24 05:34
Albumin 3.6 g/dl (3.5-5.0) 01/02/24 05:34
Physical Exam
-
NAD AAOx3
ABD: soft, ND, no tenderness on palpation
[2024-01-09 08:05] VITALS: BP 131/77
[2024-01-09 08:31] LABS: Mean Corp Hgb Conc. 33.3 g/dL (33.0-37.0); Mean Corpuscular Hgb 28.3 pg (27.0-31.0); Mean Corpuscular Volume 84.9 fL (80.0-94.0); Mean Platelet Volume 10.6 fL (7.4-10.4); Platelet Count 261 10^3/uL (130-400); Red Blood Cell Count 4.24 10^6/uL (4.70-6.10); White Blood Cell Count 17.6 10^3/uL (4.8-10.8)
[2024-01-09] MEDS: PROTONIX IV 40 MG IV (08:33)
[2024-01-09] MEDS: NSS (PRESERVATIVE FREE) 10 ML IV (08:33)
[2024-01-09] MEDS: PROSCAR 5 MG PO (08:34)
[2024-01-09] MEDS: COLACE 100 MG PO ×2 (08:34→21:09)
[2024-01-09] MEDS: VITAMIN D3 (cholecalciferol) 125 MCG PO (08:35)
--- NOTE | 2024-01-09 10:15 | W.PN.HOSP.TC ---
Today's Communication/Plan
-
await SNF placement
WBC downtrending
tolerating LR
OOB
Assessment / Plan
Assessment / Plan
Gen-AAOx3, NAD
HEENT-NC, AT, anicteric, clear oral mm,
Neck-supple
CV-reg, no M, +S1/S2
Lungs-clear B/L
Abd-soft, mild distention, nontender
Ext-no edema
Musculoskeletal-no cyanosis, clubbing
Skin-warm and dry
Neuro-grossly non-focal
Psych-calm, cooperative
Small bowel obstruction -noted on CT scan as a high-grade obstruction within the distal ileum. Underwent successful laparoscopic lysis of adhesions on 01/04. Diet advanced to LR.
Leukocytosis likely 12/14 post op reactive-No cough. Afebrile. Otto was removed. CXR noted. CBC downtrending.
Depression -appreciate psychiatry input. Sertraline started but hold with low sodium. Pt wants to hold off on restarting it.
Hyponatremia -improved. Na at 131. ?SIADH due to chronic low back pain. Fluid restrict.
CAD/stenting 2011
BPH with urge incontinence-cont doxazosin.
Hyperlipidemia
Spinal stenosis/chronic lower back pain-PT/OT-
Essential hypertension
Renal cell cancer -2008
Obesity due to excess calories
DNR
Dispo -anticipate discharge to SNF when stable.
Anticipated Discharge: Within 24 hours
Subjective/Interval History
-
Date of Service: January 09, 2024
Remains afebrile
states didnt get much sleep
Objective Data
-
Labs:
Laboratory Results
01/09/24 01/09/24
04:34 07:50
WBC 17.6 H
Hgb 12.0 L
Hct 36.0 L
Plt Count 261
Sodium 131 L
Potassium 4.0
Chloride 103
Carbon Dioxide 28
BUN 16
Creatinine 1.3
Glucose 95
Calcium 7.5 L
Vital Signs:
Vital Signs
Temp Pulse Resp BP Pulse Ox
97.7 F 71 18 131/77 97
01/09/24 08:05 01/09/24 08:05 01/09/24 08:05 01/09/24 08:05 01/09/24 08:05
I&O
01/08/24 01/09/24 01/10/24
06:59 06:59 06:59
Intake Total 360 / 360 1200 / 1200
Output Total 750 / 750
Balance 360 / 360 450 / 450
Data Reviewed
-
Total Time Spent with Patient (in minutes): 54
[2024-01-09 10:40] VITALS: BP 118/75; PULSE 78; O2SAT 96
[2024-01-09 10:50] VITALS: BP 118/75; PULSE 75; O2SAT 98
[2024-01-09 15:10] VITALS: BP 120/71
--- NOTE | 2024-01-09 15:15 | CM ---
Discharge plan of care remains SNF at [facility] on 01/10/24.
[2024-01-09] MEDS: LOVENOX 40 MG SC (17:00)
[2024-01-09 17:29] LABS: COVID-19 Antigen Negative (Negative)
[2024-01-09] MEDS: CARDURA 8 MG PO (21:09)
[2024-01-09 22:43] VITALS: BP 136/92
[2024-01-10] MEDS: TYLENOL PO ×3 (04:00→23:52)
[2024-01-10 06:37] LABS: Blood Urea Nitrogen 13 mg/dl (9-20); Calcium 7.6 mg/dl (8.4-10.2); Carbon Dioxide 29 mmol/L (22-30); Chloride 102 mmol/L (98-107); Estimated Creatinine Clearance 71 ml/min; Glucose 77 mg/dl (70-99); Potassium 4.2 mmol/L (3.5-5.1); Sodium 132 mmol/L (135-145); eGFR > 60.00
[2024-01-10 07:00] VITALS: BP 138/83
--- NOTE | 2024-01-10 07:52 | W.PN.GS2 ---
Today's Communication / Plan
-
`
Assessment / Plan
-
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
AFVSS
leukocytosis- stable improved a bit yesterday - infectious work up negative
hyponatremia
worsening urinary retention symptoms
Plan: check bladder scan, if residual >500mL place pringle for retention and would likely need to maintain until more mobile
LR diet
colace/miralax for bowel regiment
Subjective Data
-
Date of Service: January 10, 2024
pt seen and examined
only complaint is difficulty voiding, no dysuria but complains unable to empty and start stream
no abdominal/incisional pains
no nausea
last BM 01/08
Objective Data
-
Intake and Output
01/09/24 01/10/24 01/11/24
06:59 06:59 06:59
Intake Total 1200 / 1200 960 / 960
Output Total 750 / 750
Balance 450 / 450 960 / 960
Intake:
Oral fluids 1200 / 1200 960 / 960
Output:
Straight cath output 750 / 750
Other:
Number of approximated MODERATE 2
amounts of urine
How many times incontinent 1
SMALL amount urine
How many times incontinent 4 4
SATURATED amount urine
Vital Signs
Temp Pulse Resp BP Pulse Ox
98.1 F 73 20 136/92 97
01/09/24 22:43 01/09/24 22:43 01/09/24 22:43 01/09/24 22:43 01/09/24 22:43
Lab Results
01/09/24 07:50
01/10/24 04:10
Calcium 7.6 mg/dl (8.4-10.2) L 01/10/24 04:10
Total Bilirubin 1.1 mg/dl (0.2-1.3) 01/02/24 05:34
AST 22 U/L (17-59) 01/02/24 05:34
ALT 19 U/L (0-50) 01/02/24 05:34
Alkaline Phosphatase 69 U/L (38-126) 01/02/24 05:34
Total Protein 6.0 g/dl (6.3-8.2) L 01/02/24 05:34
Albumin 3.6 g/dl (3.5-5.0) 01/02/24 05:34
Physical Exam
-
NAD AAOx3 lying in bed
ABD: soft, ND, NTTP
incisions with glue
suprapubic fullness on palpation
[2024-01-10] MEDS: PROSCAR 5 MG PO (08:10)
[2024-01-10] MEDS: NSS (PRESERVATIVE FREE) 10 ML IV (08:10)
[2024-01-10] MEDS: VITAMIN D3 (cholecalciferol) 125 MCG PO (08:10)
[2024-01-10] MEDS: COLACE 100 MG PO ×2 (08:10→21:00)
[2024-01-10] MEDS: TYLENOL 650 MG PO ×4 (08:10→21:00)
[2024-01-10] MEDS: FLUSH (NSS) 1 FLUSH IV (08:11)
[2024-01-10] MEDS: PROTONIX IV 40 MG IV (08:11)
[2024-01-10] MEDS: MIRALAX 17 GRAMS PO (08:16)
--- NOTE | 2024-01-10 10:32 | W.PN.HOSP.TC ---
Today's Communication/Plan
-
await placement
Assessment / Plan
Assessment / Plan
Gen-AAOx3, NAD
HEENT-NC, AT, anicteric, clear oral mm,
Neck-supple
CV-reg, no M, +S1/S2
Lungs-clear B/L
Abd-soft, mild distention, nontender
Ext-no edema
Musculoskeletal-no cyanosis, clubbing
Skin-warm and dry
Neuro-grossly non-focal
Psych-calm, cooperative
Small bowel obstruction -noted on CT scan as a high-grade obstruction within the distal ileum. Underwent successful laparoscopic lysis of adhesions on 01/04. Diet advanced to LR.
Leukocytosis likely 2/ post op reactive-No cough. Afebrile. Otto was removed. CXR noted. CBC downtrending.
Depression -appreciate psychiatry input. Sertraline started but hold with low sodium. Pt wants to hold off on restarting it. Na 132
Hyponatremia -improved. Na at 131. ?SIADH due to chronic low back pain. Fluid restrict.
CAD/stenting 2011
BPH with urge incontinence-cont doxazosin.
Hyperlipidemia
Spinal stenosis/chronic lower back pain-PT/OT-
Essential hypertension
Renal cell cancer -2008
Obesity due to excess calories
DNR
Dispo -anticipate discharge to SNF when stable. Per CM PASSR triggered Level II assessment. Await clearance.
Anticipated Discharge: > 48 hours
Subjective/Interval History
-
Date of Service: January 10, 2024
States feeling better
awaiting breakfast
Objective Data
-
Labs:
Laboratory Results
01/10/24
04:10
Sodium 132 L
Potassium 4.2
Chloride 102
Carbon Dioxide 29
BUN 13
Creatinine 0.8
Glucose 77
Calcium 7.6 L
Vital Signs:
Vital Signs
Temp Pulse Resp BP Pulse Ox
98.1 F 78 17 138/83 97
01/10/24 07:00 01/10/24 07:00 01/10/24 07:00 01/10/24 07:00 01/10/24 07:00
I&O
01/09/24 01/10/24 01/11/24
06:59 06:59 06:59
Intake Total 1200 / 1200 960 / 960
Output Total 750 / 750
Balance 450 / 450 960 / 960
[2024-01-10 15:21] VITALS: BP 127/84
--- NOTE | 2024-01-10 17:04 | CM ---
Patient is a resident of [facility] independent living. He was scheduled to discharge today to [facility] for senior care and rehab services. Early this AM, this case folder received calll from Leslye Bautista "Stacey"who put a hold on the discharge. Facility SW reviewed PASRR level I which was forwarded with referral in [facility]. Based on the information, the level I did not trigger a level II. Unbeknownst to DH team, patient had a suicide attempt with Scotch
and Oxy in January of 2023. This would trigger a level II and require review by Department of Aging. Liaison forwarded [employer]FETER[employer] TABLE ATTENDANT report summarizing the event and treatment rendered in January 2023, which was only psychotherapy. PASRR level II initiated.
KESHIA, [id number], Consent to Release Information, Consent for Functional Eligibility Determination (FED) and required documentation have been completed and signed by patient. MD will sign in AM on 01/11/24. Documents will be faxed to [facility] Agency
on Aging in AM.
This BERNICE spoke with patient and son and explained process. Leslye spoke with patient's . MD and team notified.
[2024-01-10] MEDS: LOVENOX 40 MG SC (17:10)
[2024-01-10] MEDS: CARDURA 8 MG PO (21:19)
[2024-01-10 21:34] VITALS: BP 137/77
[2024-01-10 22:53] VITALS: BP 152/80
[2024-01-11] MEDS: TYLENOL PO ×3 (04:42→23:34)
[2024-01-11 06:43] LABS: Blood Urea Nitrogen 10 mg/dl (9-20); Calcium 7.9 mg/dl (8.4-10.2); Carbon Dioxide 29 mmol/L (22-30); Chloride 103 mmol/L (98-107); Estimated Creatinine Clearance 81 ml/min; Glucose 94 mg/dl (70-99); Potassium 4.2 mmol/L (3.5-5.1); Sodium 132 mmol/L (135-145); eGFR > 60.00
[2024-01-11 07:44] VITALS: BP 154/98
[2024-01-11] MEDS: NSS (PRESERVATIVE FREE) 10 ML IV (09:02)
[2024-01-11] MEDS: TYLENOL 650 MG PO ×3 (09:02→21:12)
[2024-01-11] MEDS: MIRALAX 17 GRAMS PO (09:02)
[2024-01-11] MEDS: VITAMIN D3 (cholecalciferol) 125 MCG PO (09:03)
[2024-01-11] MEDS: PROTONIX IV 40 MG IV (09:03)
[2024-01-11] MEDS: COLACE 100 MG PO (09:03)
[2024-01-11] MEDS: PROSCAR 5 MG PO (09:03)
--- NOTE | 2024-01-11 11:25 | W.PN.HOSP.TC ---
Today's Communication/Plan
-
await level II
OOB
Assessment / Plan
Assessment / Plan
Gen-AAOx3, NAD
HEENT-NC, AT, anicteric, clear oral mm,
Neck-supple
CV-reg, no M, +S1/S2
Lungs-clear B/L
Abd-soft, mild distention, nontender
Ext-no edema
Musculoskeletal-no cyanosis, clubbing
Skin-warm and dry
Neuro-grossly non-focal
Psych-calm, cooperative
Small bowel obstruction -noted on CT scan as a high-grade obstruction within the distal ileum. Underwent successful laparoscopic lysis of adhesions on 01/04. Diet advanced to LR.
Leukocytosis likely 2/2 post op reactive-No cough. Remains Afebrile. Otto was removed. CXR noted. CBC downtrended.
Depression -appreciate psychiatry input. Sertraline started but hold with low sodium. Pt wants to hold off on restarting it. Na 132
Hyponatremia -improved. Na at 132. ?SIADH due to chronic low back pain. Fluid restrict.
CAD/stenting 2011
BPH with urge incontinence-cont doxazosin.
Hyperlipidemia
Spinal stenosis/chronic lower back pain-PT/OT- SNF.
Essential hypertension
Renal cell cancer -2008
Obesity due to excess calories
DNR
Dispo -anticipate discharge to SNF when stable. Per CM PASSR triggered Level II assessment. Await clearance.
Anticipated Discharge: > 48 hours
Subjective/Interval History
-
Date of Service: January 11, 2024
states wants to get OOB
Objective Data
-
Labs:
Laboratory Results
01/11/24
05:41
Sodium 132 L
Potassium 4.2
Chloride 103
Carbon Dioxide 29
BUN 10
Creatinine 0.7
Glucose 94
Calcium 7.9 L
Vital Signs:
Vital Signs
Temp Pulse Resp BP Pulse Ox
98 F 78 7 154/98 97
01/11/24 07:44 01/11/24 07:44 01/11/24 07:44 01/11/24 07:44 01/11/24 07:44
I&O
01/10/24 01/11/24 01/12/24
06:59 06:59 06:59
Intake Total 960 / 960 1680 / 1680
Balance 960 / 960 1680 / 1680
--- NOTE | 2024-01-11 14:28 | CM ---
[facility] level II faxed to [facility] Agency on Aging for review. Patient accepted at [facility]. Son's phone # [phone].
[2024-01-11 15:09] VITALS: BP 125/74
[2024-01-11] MEDS: LOVENOX 40 MG SC (17:42)
[2024-01-11] MEDS: COLACE PO (21:12)
[2024-01-11] MEDS: CARDURA 8 MG PO (21:12)
[2024-01-11 23:23] VITALS: BP 140/91
[2024-01-12] MEDS: TYLENOL 650 MG PO ×5 (03:13→19:48)
[2024-01-12 07:00] VITALS: BP 134/88
[2024-01-12 07:52] LABS: Blood Urea Nitrogen 12 mg/dl (9-20); Calcium 7.9 mg/dl (8.4-10.2); Carbon Dioxide 31 mmol/L (22-30); Chloride 99 mmol/L (98-107); Estimated Creatinine Clearance 95 ml/min; Glucose 95 mg/dl (70-99); Potassium 4.3 mmol/L (3.5-5.1); Sodium 133 mmol/L (135-145); eGFR > 60.00
[2024-01-12] MEDS: VITAMIN D3 (cholecalciferol) 125 MCG PO (08:13)
[2024-01-12] MEDS: PROTONIX IV 40 MG IV (08:13)
[2024-01-12] MEDS: PROSCAR 5 MG PO (08:13)
[2024-01-12] MEDS: NSS (PRESERVATIVE FREE) 10 ML IV (08:13)
[2024-01-12] MEDS: MIRALAX PO (08:16)
[2024-01-12] MEDS: COLACE PO (08:16)
--- NOTE | 2024-01-12 10:49 | W.PN.HOSP.TC ---
Today's Communication/Plan
-
await Level II clearance
CM aware
cont with OOB/PT
monitor diet tolerance
Assessment / Plan
Assessment / Plan
Gen-AAOx3, NAD
HEENT-NC, AT, anicteric, clear oral mm,
Neck-supple
CV-reg, no M, +S1/S2
Lungs-clear B/L
Abd-soft, mild distention, nontender
Ext-no edema
Musculoskeletal-no cyanosis, clubbing
Skin-warm and dry
Neuro-grossly non-focal
Psych-calm, cooperative
Small bowel obstruction -noted on CT scan as a high-grade obstruction within the distal ileum. Underwent successful laparoscopic lysis of adhesions on 01/04. Diet advanced to LR.
Leukocytosis likely / post op reactive-No cough. Remains Afebrile. Otto was removed. CXR noted. CBC downtrended.
Depression -appreciate psychiatry input. Sertraline started but hold with low sodium. Pt wants to hold off on restarting it.
Hyponatremia -improved. Na at 133. ?SIADH due to chronic low back pain. Fluid restrict.
CAD/stenting 2011
BPH with urge incontinence-cont doxazosin.
Hyperlipidemia
Spinal stenosis/chronic lower back pain-PT/OT- SNF.
Essential hypertension
Renal cell cancer -2008
Obesity due to excess calories
DNR
Dispo -anticipate discharge to SNF when stable. Per CM PASSR triggered Level II assessment. Await clearance.
Anticipated Discharge: > 48 hours
Subjective/Interval History
-
Date of Service: January 12, 2024
eating breakfast
states back pain improved
Objective Data
-
Labs:
Laboratory Results
01/12/24
06:03
Sodium 133 L
Potassium 4.3
Chloride 99
Carbon Dioxide 31 H
BUN 12
Creatinine 0.6 L
Glucose 95
Calcium 7.9 L
Vital Signs:
Vital Signs
Temp Pulse Resp BP Pulse Ox
97.7 F 73 16 134/88 97
01/12/24 07:00 01/12/24 07:00 01/12/24 07:00 01/12/24 07:00 01/12/24 08:00
I&O
01/11/24 01/12/24 01/13/24
06:59 06:59 06:59
Intake Total 1680 / 1680 1060 / 1060
Balance 1680 / 1680 1060 / 1060
[2024-01-12 15:00] VITALS: BP 120/78
--- NOTE | 2024-01-12 16:14 | CM ---
CM spoke with Kathi Kurtz healthcare coordinator at [facility] [phone]
Advised level II faxed to [facility] and waiting on assessment appointment
Also discussed possibility of pt being admitted as a 30 day exception
She will speak with the medical team on Sunday about 30 day possibility
Discharge Disposition- [facility] 30 day exception vs level II
[2024-01-12] MEDS: LOVENOX 40 MG SC (17:11)
[2024-01-12] MEDS: COLACE 100 MG PO (19:48)
[2024-01-12] MEDS: CARDURA 8 MG PO (22:31)
[2024-01-12 23:08] VITALS: BP 141/78
[2024-01-13] MEDS: TYLENOL PO ×3 (00:44→23:32)
[2024-01-13 07:00] VITALS: BP 151/91
[2024-01-13] MEDS: VITAMIN D3 (cholecalciferol) 125 MCG PO (08:26)
[2024-01-13] MEDS: MIRALAX 17 GRAMS PO (08:26)
[2024-01-13] MEDS: TYLENOL 650 MG PO ×5 (08:26→23:55)
[2024-01-13] MEDS: PROSCAR 5 MG PO (08:26)
[2024-01-13] MEDS: COLACE 100 MG PO ×2 (08:26→19:47)
[2024-01-13] MEDS: PROTONIX IV 40 MG IV (08:26)
[2024-01-13] MEDS: NSS (PRESERVATIVE FREE) 10 ML IV (08:26)
--- NOTE | 2024-01-13 11:06 | W.PN.HOSP.TC ---
Today's Communication/Plan
-
await Level II clearance
PT/OT
monitor diet tolerance
Assessment / Plan
Assessment / Plan
Gen-AAOx3, NAD
HEENT-NC, AT, anicteric, clear oral mm,
Neck-supple
CV-reg, no M, +S1/S2
Lungs-clear B/L
Abd-soft, mild distention, nontender
Ext-no edema
Musculoskeletal-no cyanosis, clubbing
Skin-warm and dry
Neuro-grossly non-focal
Psych-calm, cooperative
Small bowel obstruction -noted on CT scan as a high-grade obstruction within the distal ileum. Underwent successful laparoscopic lysis of adhesions on 01/04. Diet advanced to LR. Tolerating it. Having BM.
Leukocytosis likely 2/2 post op reactive-No cough. Remains Afebrile. Otto was removed. CXR noted. CBC downtrended.
Depression -appreciate psychiatry input. Sertraline started but hold with low sodium. Pt wants to hold off on restarting it.
Hyponatremia -improved. Na at 133. ?SIADH due to chronic low back pain. Fluid restrict.
CAD/stenting 2011
BPH with urge incontinence-cont doxazosin/finasteride
Hyperlipidemia
Spinal stenosis/chronic lower back pain-PT/OT- SNF.
Essential hypertension
Renal cell cancer -2008
Obesity due to excess calories
DNR
Dispo -anticipate discharge to SNF when stable. Per CM PASSR triggered Level II assessment. Await clearance.
Anticipated Discharge: > 48 hours
Subjective/Interval History
-
Date of Service: January 13, 2024
Tolerating diet
afebrile
had bm yesterday
Objective Data
-
Vital Signs:
Vital Signs
Temp Pulse Resp BP Pulse Ox
97.3 F 72 16 151/91 98
01/13/24 07:00 01/13/24 07:00 01/13/24 07:00 01/13/24 07:00 01/13/24 08:00
I&O
01/12/24 01/13/24 01/14/24
06:59 06:59 06:59
Intake Total 1060 / 1060 1260 / 1260
Balance 1060 / 1060 1260 / 1260
[2024-01-13 15:00] VITALS: BP 120/73
[2024-01-13] MEDS: ULTRAM 25 MG PO ×2 (17:28→23:56)
[2024-01-13] MEDS: LOVENOX 40 MG SC (17:28)
[2024-01-13] MEDS: CARDURA 8 MG PO (22:09)
[2024-01-13 23:40] VITALS: BP 130/79
[2024-01-14] MEDS: TYLENOL PO (03:43)
[2024-01-14 06:12] LABS: % Basophils 0.4 % (0-2); % Eosinophils 1.4 % (0-6); % Immature Granulocytes 0.5 % (0-0.5); % Lymphocytes 58.7 % (20.5-51.1); % Monocytes 2.1 % (1.7-9.3); % Neutrophils 36.9 % (42.2-75.2); Absolute Basophils 0.1 10^3/uL (0-0.2); Absolute Eosinophils 0.3 10^3/uL (0-0.7); Absolute Immature Granulocytes 0.1 10^3/uL (0-0.05); Absolute Monocytes 0.4 10^3/uL (0.1-0.6); Absolute Neutrophils 7.5 10^3/uL (1.4-6.5); Hematocrit 36.9 % (39.0-52.0); Mean Corp Hgb Conc. 32.5 g/dL (33.0-37.0); Mean Corpuscular Hgb 28.2 pg (27.0-31.0); Mean Corpuscular Volume 86.8 fL (80.0-94.0); Nucleated Red Blood Cells % 0 % (-); Platelet Count 235 10^3/uL (130-400); Red Blood Cell Count 4.25 10^6/uL (4.70-6.10); Red Cell Dist. Width 13.9 % (11.5-14.5); White Blood Cell Count 20.4 10^3/uL (4.8-10.8)
[2024-01-14 06:43] LABS: Blood Urea Nitrogen 16 mg/dl (9-20); Calcium 7.9 mg/dl (8.4-10.2); Carbon Dioxide 27 mmol/L (22-30); Chloride 103 mmol/L (98-107); Estimated Creatinine Clearance 81 ml/min; Glucose 90 mg/dl (70-99); Potassium 4.4 mmol/L (3.5-5.1); Sodium 132 mmol/L (135-145); eGFR > 60.00
[2024-01-14 07:00] VITALS: BP 125/81
[2024-01-14] MEDS: COLACE 100 MG PO ×2 (08:06→19:42)
[2024-01-14] MEDS: PROTONIX IV 40 MG IV (08:06)
[2024-01-14] MEDS: TYLENOL 650 MG PO ×4 (08:06→19:43)
[2024-01-14] MEDS: VITAMIN D3 (cholecalciferol) 125 MCG PO (08:06)
[2024-01-14] MEDS: NSS (PRESERVATIVE FREE) 10 ML IV (08:06)
[2024-01-14] MEDS: MIRALAX 17 GRAMS PO (08:06)
[2024-01-14] MEDS: PROSCAR 5 MG PO (08:06)
--- NOTE | 2024-01-14 08:35 | W.PN.HOSP.TC ---
Today's Communication/Plan
-
Basically stable medically for discharge to rehab once level 2 assessment clarified for placement
Obtain urinalysis with reflex to culture given leukocytosis this should not hold up his discharge
Assessment / Plan
Assessment / Plan
Gen-AAOx3, NAD
HEENT-NC, AT, anicteric, clear oral mm,
Neck-supple
CV-reg, no M, +S1/S2
Lungs-clear B/L
Abd-soft, mild distention, nontender
Ext-no edema
Musculoskeletal-no cyanosis, clubbing
Skin-warm and dry
Neuro-grossly non-focal
Psych-calm, cooperative
Small bowel obstruction -noted on CT scan as a high-grade obstruction within the distal ileum. Underwent successful laparoscopic lysis of adhesions on 01/04. Diet advanced to LR. Tolerating it. Having BM.
Leukocytosis likely 2/2 post op reactive-No cough. Remains Afebrile. Otto was removed. CXR noted. Up to 20.4 today? Unclear etiology.
-Obtain urinalysis with reflex to culture
Depression -appreciate psychiatry input. Sertraline started but hold with low sodium. Pt wants to hold off on restarting it.
Hyponatremia -improved. Na at 133. ?SIADH due to chronic low back pain. Fluid restrict.
CAD/stenting 2011
BPH with urge incontinence-cont doxazosin/finasteride
Hyperlipidemia
Spinal stenosis/chronic lower back pain-PT/OT- SNF.
Essential hypertension
Renal cell cancer -2008
Obesity due to excess calories
DNR
Dispo -anticipate discharge to SNF when stable. Per CM PASSR triggered Level II assessment. Await clearance.
Anticipated Discharge: Within 24 hours
Subjective/Interval History
-
Date of Service: January 14, 2024
Patient without new complaint has looseness of stools and occasional incontinent of urine/tolerating diet well denies abdominal pain
Objective Data
-
Labs:
Laboratory Results
01/14/24
05:54
WBC 20.4 H
Hgb 12.0 L
Hct 36.9 L
Plt Count 235
Sodium 132 L
Potassium 4.4
Chloride 103
Carbon Dioxide 27
BUN 16
Creatinine 0.7
Glucose 90
Calcium 7.9 L
Vital Signs:
Vital Signs
Temp Pulse Resp BP Pulse Ox
97.8 F 77 16 125/81 98
01/14/24 07:00 01/14/24 07:00 01/14/24 07:00 01/14/24 07:00 01/14/24 08:00
I&O
01/13/24 01/14/24 01/15/24
06:59 06:59 06:59
Intake Total 1260 / 1260 960 / 960
Balance 1260 / 1260 960 / 960
Review of Systems
-
All other systems: Not reviewed unless documented
Physical Exam
-
General: Well Developed
HEENT: Normocephalic
Respiratory: Clear to Auscultation
Cardiac: Regular Rhythm
GI: Soft, Nontender and Nondistended
Neuro: Awake, Alert, Oriented, AO x 3 and No Motor Deficits
Psych: Calm
Data Reviewed
-
Labs: Labs Reviewed by me (White count elevation to 20.4?)
--- NOTE | 2024-01-14 13:39 | CM ---
Addendum entered by Randal Sharma 01/15/24 08:08:
cue worker Shannen Arvizu from [facility] will be out on 01/16 between 11-11:30am to complete the Level II PASRR assessment.
Addendum entered by Randal Sharma 01/14/24 14:36:
After providing detailed information regarding pt's suicide attempt in January of 2023. [facility] has denied a referral. John Sauer and Chris [facility]OSS requested level II PASRR evaluation and declined an offer to accept the pt with
exceptional admissions PASRR.
CM spoke to [facility] nurse outreach case manager Ricarda [phone] and she will assign a nurse outreach case manager start the process of Level II PASRR evaluations.
CM met with pt. Pt's spouse and pt's son Clint at bedside. CM explained the situation, they expressed understanding and they stated they preferred [facility] when level II PASRR evaluation completed.
D/C plan: [facility]. Awaiting for determination on level II PASRR evaluation.
CM will follow to assist pt with discharge to [facility].
Original Note:
CM following re: discharge planning.
Reviewed pt's elva, met with pt and spoke to pt's son Clint a few times today to update on discharge plan progress.
Per CM note, level II PASRR evaluation requested. CM corrected PASRR and with additional pt's clinical faxed to [facility].
BERNICE spoke to [facility] memory care director and she made it very clear that level II PASRR evaluation must be done due to pt's suicidal attempt in January 2023. BERNICE asked memory care director to discuss with [facility] elementary school social worker and asked
to rich out to [facility] to talk to an assigned worker regarding a possibility to accept the pt with exceptional admissions PASRR. BERNICE called later and was told that [facility] sent an E:mail to their career services representative at
[place] and awaiting for tyhe response.
BERNICE spoke to pt's son Clint and he stated he wants to get his father out of the hospital as soon as possible and he requested to send a referral to any SNF closer to [place]. Referrals sent to [facility], [facility], [facility] and
[facility] SNF.
CM spoke to pt's son again and son is aware that [facility] might have a bed available tomorrow, [facility] SNF and [facility] SNF have a bed available today. Pt's son stated he is in patient;s room right now and he will discussed it
with his father.
BERNICE will meet with the pt and his son shortly to confirm a preferred SNF.
D/C plan: preferred SNF.
[2024-01-14 15:00] VITALS: BP 99/63
[2024-01-14] MEDS: LOVENOX 40 MG SC (17:28)
[2024-01-14] MEDS: CARDURA 8 MG PO (21:09)
[2024-01-14 23:00] VITALS: BP 151/80
[2024-01-15] MEDS: TYLENOL PO ×2 (01:00→04:26)
[2024-01-15 04:31] LABS: Urine Albumin Negative (Neg - Trace); Urine Bilirubin Negative (Negative); Urine Character Clear (Clear); Urine Color Yellow; Urine Glucose Negative (Negative); Urine Ketone Negative (Negative); Urine Leukocyte Negative (Negative); Urine Nitrite Negative (Negative); Urine Occult Blood Negative (Negative); Urine Specific Gravity 1.005 (<1.030); Urine Urobilinogen Negative (Neg - 1+)
--- NOTE | 2024-01-15 07:50 | W.PN.HOSP.TC ---
Today's Communication/Plan
-
Medically stable for discharge
Recheck CBC and chemistry intermittently
Awaiting disposition to SNF per case management
Assessment / Plan
Assessment / Plan
Gen-AAOx3, NAD
HEENT-NC, AT, anicteric, clear oral mm,
Neck-supple
CV-reg, no M, +S1/S2
Lungs-clear B/L
Abd-soft, mild distention, nontender
Ext-no edema
Musculoskeletal-no cyanosis, clubbing
Skin-warm and dry
Neuro-grossly non-focal
Psych-calm, cooperative
Small bowel obstruction -noted on CT scan as a high-grade obstruction within the distal ileum. Underwent successful laparoscopic lysis of adhesions on 01/04. Diet advanced to LR. Tolerating it. Having BM.
Leukocytosis likely 2/2 post op reactive-No cough. Remains Afebrile. Otto was removed. CXR noted. Up to 20.4 ? Unclear etiology. Urinalysis yesterday was completely clear
-Recheck CBC
-
Depression -appreciate psychiatry input. Sertraline started but hold with low sodium. Pt wants to hold off on restarting it.
Hyponatremia -improved. Na at 133. ?SIADH due to chronic low back pain. Fluid restrict.
CAD/stenting 2011
BPH with urge incontinence-cont doxazosin/finasteride
Hyperlipidemia
Spinal stenosis/chronic lower back pain-PT/OT- SNF.
Essential hypertension
Renal cell cancer -2008
Obesity due to excess calories
DNR
Dispo -anticipate discharge to SNF when stable. Per CM PASSR triggered Level II assessment. Await clearance.
Anticipated Discharge: 24 - 48 hours
Subjective/Interval History
-
Date of Service: January 15, 2024
Patient without new complaints moves his bowels urinating
Objective Data
-
Vital Signs:
Vital Signs
Temp Pulse Resp BP Pulse Ox
97.7 F 78 18 151/80 98
01/14/24 23:00 01/14/24 23:00 01/14/24 23:00 01/14/24 23:00 01/14/24 23:00
I&O
01/14/24 01/15/24 01/16/24
06:59 06:59 06:59
Intake Total 960 / 960 1320 / 1320
Balance 960 / 960 1320 / 1320
Review of Systems
-
History Source: Patient
All other systems: Reviewed and negative
Physical Exam
-
General: No Apparent Distress
HEENT: Normocephalic
Respiratory: Clear to Auscultation
Cardiac: Regular Rhythm
GI: Soft, Nontender and Nondistended
Data Reviewed
-
Total Time Spent with Patient (in minutes): 45
Labs: Labs Reviewed by me
[2024-01-15 07:59] VITALS: BP 142/87
[2024-01-15] MEDS: COLACE PO ×2 (08:23→21:23)
[2024-01-15] MEDS: MIRALAX PO (08:23)
[2024-01-15] MEDS: FLUSH (NSS) 2 FLUSH IV (09:34)
[2024-01-15] MEDS: NSS (PRESERVATIVE FREE) 10 ML IV (09:34)
[2024-01-15] MEDS: PROTONIX IV 40 MG IV (09:34)
[2024-01-15] MEDS: PROSCAR 5 MG PO (09:35)
[2024-01-15] MEDS: TYLENOL 650 MG PO ×4 (09:36→21:00)
[2024-01-15] MEDS: VITAMIN D3 (cholecalciferol) 125 MCG PO (09:36)
--- NOTE | 2024-01-15 13:49 | CM ---
Patient triggered PASRR level II. Accepted at [facility]. Interview with [facility] is scheduled for , 01/17/24 between 11:00-11:30am. , Son and Leslye, liaison for [facility], have been notified.
[2024-01-15 15:26] VITALS: BP 111/59
[2024-01-15] MEDS: LOVENOX 40 MG SC (17:42)
[2024-01-15] MEDS: CARDURA 8 MG PO (21:27)
--- NOTE | 2024-01-15 21:55 | PTCARENOTE ---
Encouraged pt to ambulate from chair to bed w assist x2 and RW. Pt made poor efforts, stated he felt too weak to get up. X2 staff assist w transfer device to assist pt back to bed. Assessment ongoing.
[2024-01-15 23:35] VITALS: BP 136/79
[2024-01-16] MEDS: TYLENOL PO ×3 (00:24→23:42)
[2024-01-16 07:00] VITALS: BP 141/84
--- NOTE | 2024-01-16 08:02 | W.PN.HOSP.TC ---
Today's Communication/Plan
-
Medically stable for discharge
Await case management and family meeting on and interview with [facility] agency of [facility] and [facility] facility
Assessment / Plan
Assessment / Plan
Gen-AAOx3, NAD
HEENT-NC, AT, anicteric, clear oral mm,
Neck-supple
CV-reg, no M, +S1/S2
Lungs-clear B/L
Abd-soft, mild distention, nontender
Ext-no edema
Musculoskeletal-no cyanosis, clubbing
Skin-warm and dry
Neuro-grossly non-focal
Psych-calm, cooperative
Small bowel obstruction -noted on CT scan as a high-grade obstruction within the distal ileum. Underwent successful laparoscopic lysis of adhesions on 01/04. Diet advanced to LR. Tolerating it. Having BM.
Leukocytosis likely 2/2 post op reactive-No cough. Remains Afebrile. Otto was removed. CXR noted. Up to 20.4 ? Unclear etiology. Urinalysis yesterday was completely clear
-Recheck CBC
-
Depression -appreciate psychiatry input. Sertraline started but hold with low sodium. Pt wants to hold off on restarting it.
Hyponatremia -improved. Na at 133. ?SIADH due to chronic low back pain. Fluid restrict.
CAD/stenting 2011
BPH with urge incontinence-cont doxazosin/finasteride
Hyperlipidemia
Spinal stenosis/chronic lower back pain-PT/OT- SNF.
Essential hypertension
Renal cell cancer -2008
Obesity due to excess calories
DNR
Dispo -anticipate discharge to SNF when stable. Per CM PASSR triggered Level II assessment. Await clearance.
Anticipated Discharge: Within 24 hours
Subjective/Interval History
-
Date of Service: January 16, 2024
No new symptoms or complaints other than being frustrated from still being here awaiting disposition to [facility] and aware of need for meeting with family and case management on
Objective Data
-
Labs:
Laboratory Results
01/16/24
06:28
WBC Pending
Hgb Pending
Hct Pending
Plt Count Pending
Vital Signs:
Vital Signs
Temp Pulse Resp BP Pulse Ox
98 F 82 16 136/79 99
01/15/24 23:35 01/15/24 23:35 01/15/24 23:35 01/15/24 23:35 01/15/24 23:35
I&O
01/15/24 01/16/24 01/17/24
06:59 06:59 06:59
Intake Total 1320 / 1320 600 / 600
Balance 1320 / 1320 600 / 600
Physical Exam
-
General: Well Developed
HEENT: Normocephalic
Respiratory: Clear to Auscultation
Cardiac: Regular Rhythm
GI: Soft, Nontender and Nondistended
Musculoskeletal: No Clubbing and No Edema
Psych: Calm
Data Reviewed
-
Total Time Spent with Patient (in minutes): 45
Labs: Labs Reviewed by me (Await today's labs and CBC)
[2024-01-16] MEDS: MIRALAX PO (08:42)
[2024-01-16] MEDS: COLACE PO ×2 (08:42→21:59)
[2024-01-16] MEDS: PROSCAR 5 MG PO (08:43)
[2024-01-16] MEDS: PROTONIX IV 40 MG IV (08:43)
[2024-01-16] MEDS: NSS (PRESERVATIVE FREE) 10 ML IV (08:43)
[2024-01-16] MEDS: VITAMIN D3 (cholecalciferol) 125 MCG PO (08:43)
[2024-01-16] MEDS: TYLENOL 650 MG PO ×4 (08:43→21:59)
[2024-01-16 08:49] LABS: Hematocrit 37.5 % (39.0-52.0); Hemoglobin 12.5 g/dL (13.0-18.0); Mean Corp Hgb Conc. 33.3 g/dL (33.0-37.0); Mean Corpuscular Hgb 28.7 pg (27.0-31.0); Mean Corpuscular Volume 86.2 fL (80.0-94.0); Mean Platelet Volume 10.3 fL (7.4-10.4); Platelet Count 273 10^3/uL (130-400); Red Blood Cell Count 4.35 10^6/uL (4.70-6.10); Red Cell Dist. Width 14.2 % (11.5-14.5); White Blood Cell Count 18.2 10^3/uL (4.8-10.8)
[2024-01-16 11:00] VITALS: BP 118/69
[2024-01-16 15:00] VITALS: BP 129/81
[2024-01-16] MEDS: LOVENOX 40 MG SC (17:04)
[2024-01-16] MEDS: CARDURA 8 MG PO (22:00)
[2024-01-16 23:00] VITALS: BP 118/69
[2024-01-17] MEDS: TYLENOL PO ×3 (04:13→12:00)
[2024-01-17] MEDS: TYLENOL 650 MG PO ×3 (06:23→21:57)
[2024-01-17 08:00] VITALS: BP 114/63
--- NOTE | 2024-01-17 08:15 | W.PN.HOSP.TC ---
Today's Communication/Plan
-
Awaiting meeting with [facility] nursing facility and case management family this morning
Medically stable for discharge once disposition outlined
Assessment / Plan
Assessment / Plan
Gen-AAOx3, NAD
HEENT-NC, AT, anicteric, clear oral mm,
Neck-supple
CV-reg, no M, +S1/S2
Lungs-clear B/L
Abd-soft, mild distention, nontender
Ext-no edema
Musculoskeletal-no cyanosis, clubbing
Skin-warm and dry
Neuro-grossly non-focal
Psych-calm, cooperative
Small bowel obstruction -noted on CT scan as a high-grade obstruction within the distal ileum. Underwent successful laparoscopic lysis of adhesions on 01/04. Diet advanced to LR. Tolerating it. Having BM.
Leukocytosis likely 2/2 post op reactive-No cough. Remains Afebrile. Otto was removed. CXR noted. Up to 20.4 ? Unclear etiology. Urinalysis yesterday was completely clear
-Recheck CBC
-
Depression -appreciate psychiatry input. Sertraline started but hold with low sodium. Pt wants to hold off on restarting it.
Hyponatremia -improved. Na at 133. ?SIADH due to chronic low back pain. Fluid restrict.
CAD/stenting 2011
BPH with urge incontinence-cont doxazosin/finasteride
Hyperlipidemia
Spinal stenosis/chronic lower back pain-PT/OT- SNF.
Essential hypertension
Renal cell cancer -2008
Obesity due to excess calories
DNR
Dispo -anticipate discharge to SNF when stable. Per CM PASSR triggered Level II assessment. Await clearance. He has never expressed any suicidal ideation to me does not seem to be depressed he is optimistic over the prospects of pursuing rehab and
its potential for him.
Anticipated Discharge: Within 24 hours
Subjective/Interval History
-
Date of Service: January 17, 2024
Couple loose stools and will be holding laxatives as meeting later today with [facility] nursing facility
Objective Data
-
Vital Signs:
Vital Signs
Temp Pulse Resp BP Pulse Ox
97.8 F 87 16 118/69 96
01/16/24 23:00 01/16/24 23:00 01/16/24 23:00 01/16/24 23:00 01/16/24 23:00
I&O
01/16/24 01/17/24 01/18/24
06:59 06:59 06:59
Intake Total 600 / 600 840 / 840
Balance 600 / 600 840 / 840
Review of Systems
-
History Source: Patient
Constitutional: Reports No Symptoms
EENT: Reports No Symptoms Reported
Respiratory: Reports No Symptoms
Cardiac: Reports No Symptoms
Musculoskeletal: Reports Muscle Weakness (Both lower extremity)
Neuro: Reports No Symptoms
Endocrine: Reports No Symptoms
Physical Exam
-
General: Well Developed
HEENT: Normocephalic
Respiratory: Clear to Auscultation
Cardiac: Regular Rhythm
GI: Soft and Nontender
Musculoskeletal: Negative Normal Gait & Station (Does not ambulate)
Psych: Calm; Negative Suicidal (Has never expressed any suicidal ideation to me/not depressed/and seems optimistic to pursue rehab and its potential)
[2024-01-17] MEDS: COLACE PO ×2 (08:48→21:56)
[2024-01-17] MEDS: MIRALAX PO (08:48)
[2024-01-17] MEDS: NSS (PRESERVATIVE FREE) 10 ML IV (08:49)
[2024-01-17] MEDS: PROTONIX IV 40 MG IV (08:49)
[2024-01-17] MEDS: PROSCAR 5 MG PO (08:49)
[2024-01-17] MEDS: VITAMIN D3 (cholecalciferol) 125 MCG PO (08:49)
--- NOTE | 2024-01-17 12:19 | CM ---
Interview with Shannen Arvizu RN from [facility] visited patient and conducted interview on this date. She will complete her report today and submit to the State for review on 01/18/24. Once submitted to [facility] their review may take
several days. and son were in attendance during the interview and are aware of time frames. Upon approval, [facility] notified.
[2024-01-17 15:30] VITALS: BP 134/74
[2024-01-17] MEDS: LOVENOX 40 MG SC (18:29)
[2024-01-17] MEDS: CARDURA 8 MG PO (21:56)
[2024-01-17 23:11] VITALS: BP 124/82
[2024-01-18] MEDS: TYLENOL PO ×2 (00:15→04:56)
[2024-01-18 07:37] VITALS: BP 146/93
--- NOTE | 2024-01-18 07:41 | W.PN.HOSP.TC ---
Today's Communication/Plan
-
Still awaiting disposition through case management and [facility] agency for attempt to get into [facility] hopefully next week
Continue to monitor leukocytosis and chemistries are minimally
Continue to encourage PT progress
Have started on Cymbalta to try to improve his motivation and also address pain
Assessment / Plan
Assessment / Plan
Gen-AAOx3, NAD
HEENT-NC, AT, anicteric, clear oral mm,
Neck-supple
CV-reg, no M, +S1/S2
Lungs-clear B/L
Abd-soft, mild distention, nontender
Ext-no edema
Musculoskeletal-no cyanosis, clubbing
Skin-warm and dry
Neuro-grossly non-focal
Psych-calm, cooperative
Small bowel obstruction -noted on CT scan as a high-grade obstruction within the distal ileum. Underwent successful laparoscopic lysis of adhesions on 01/04. Diet advanced to LR. Tolerating it. Having BM.
Leukocytosis likely 2/2 post op reactive-No cough. Remains Afebrile. Otto was removed. CXR noted. Up to 20.4 >>18 will continue to trend unclear etiology. Urinalysis yesterday was completely clear
-Recheck CBC
-
Depression -appreciate psychiatry input. Sertraline started but hold with low sodium. Restarted yesterday after discussion and wants to think about it further alternative may be better to use something like Cymbalta for his chronic pain however/.
Hyponatremia -improved. Na at 133. ?SIADH due to chronic low back pain. Fluid restrict.
CAD/stenting 2011
BPH with urge incontinence-cont doxazosin/finasteride
Hyperlipidemia
Spinal stenosis/chronic lower back pain-PT/OT- SNF.
Essential hypertension
Renal cell cancer -2008
Obesity due to excess calories
DNR
Dispo -anticipate discharge to SNF when stable. Per CM PASSR triggered Level II assessment. Await clearance. He has never expressed any suicidal ideation /may be some underlying depression/awaiting disposition to extended-care facility after
eating on January 16/report been submitted to [facility] for review/for hopeful discharge to [facility] residential and rehab next week
Anticipated Discharge: 24 - 48 hours
Subjective/Interval History
-
Date of Service: January 18, 2024
No issues or complaints admitting with AA and case management
Objective Data
-
Vital Signs:
Vital Signs
Temp Pulse Resp BP Pulse Ox
98 F 89 16 146/93 97
01/18/24 07:37 01/18/24 07:37 01/18/24 07:37 01/18/24 07:37 01/18/24 07:37
I&O
01/17/24 01/18/24 01/19/24
06:59 06:59 06:59
Intake Total 840 / 840 720 / 720
Balance 840 / 840 720 / 720
Review of Systems
-
History Source: Patient and Family
EENT: Reports No Symptoms Reported
Respiratory: Reports No Symptoms
Cardiac: Reports No Symptoms
Abdomen/GI: Reports Diarrhea
Psych: Reports Depressed (According to nursing not very motivated and is PT performance)
Physical Exam
-
General: Well Developed
HEENT: Normocephalic and PERRLA
Respiratory: Clear to Auscultation
Cardiac: Regular Rhythm
GI: Soft, Nontender and Nondistended
Musculoskeletal: No Edema
Neuro: Awake
Psych: Calm
Data Reviewed
-
Total Time Spent with Patient (in minutes): 45
Labs: Labs Reviewed by me
[2024-01-18] MEDS: TYLENOL 650 MG PO (08:21)
[2024-01-18] MEDS: VITAMIN D3 (cholecalciferol) 125 MCG PO (08:21)
[2024-01-18] MEDS: PROSCAR 5 MG PO (08:21)
[2024-01-18] MEDS: MIRALAX PO (08:23)
[2024-01-18] MEDS: COLACE PO (08:23)
[2024-01-18] MEDS: NSS (PRESERVATIVE FREE) IV (09:19)
[2024-01-18] MEDS: PROTONIX IV IV (09:19)
--- NOTE | 2024-01-18 09:40 | W.DS.TRANS ---
DC Summary - Application Penetration Tester
-
Discharge Instructions:
Discharge Diagnosis/Procedures small bowel obstruction status post laparoscopic
lysis of adhesions
Leukocytosis
Depression
Hyponatremia
Diet As tolerated,Low Residue
Additional Diets Low residue diet 1-2 weeks post op then okay to
resume regular diet as tolerated if no no
abdominal bloating/distention or nausea
Activity No strenuous activity
Additional Activity Do not lift more than 15 pounds for the next 3-4
weeks
Bathing Restrictions OK to Shower
Blood Work CBC and BMP in 1 week with primary doctor
Wound Care glue at surgical sites typically peels off in 2-
3 weeks
Instructions:
Stand-Alone Forms:
Changes to Home Medications: Yes
Discharge Medications:
DC Medications w/original date entered in [employer]
finasteride 5 mg tablet 5 mg PO HS Urinary Issue 09/01/12
mhxnzylx-pmb-zymao acid 0.4 mg-lycopene 300 mcg-lutein 250 mcg tablet (Centrum Silver) 1 ea PO DAILY Supplement 09/01/12
aspirin 81 mg tablet,delayed release 162 mg PO QPM Blood Clot Prevention/Tx 01/02/24
zqritxb-ucsjoftyvfkeb-qvvasqas 250 mg-250 mg-65 mg tablet (Excedrin Extra Strength) 2 tab PO DAILY headache 01/02/24
doxazosin 8 mg tablet 8 mg PO HS Urinary Issue 01/02/24
turmeric 400 mg capsule 400 mg PO DAILY Supplement 01/02/24
pantoprazole 40 mg tablet,delayed release 40 mg PO DAILY #30 tabs 01/18/24
polyethylene glycol 3350 17 gram oral powder packet (HealthyLax) 17 g PO DAILY #30 ea 01/18/24
tramadol 50 mg tablet 25 mg PO Q6HPRN PRN severe pain #20 tabs 01/18/24
Home Medication Changes
pantoprazole 40 mg tablet,delayed release 40 mg PO DAILY #30 tabs 01/18/24
polyethylene glycol 3350 17 gram oral powder packet (HealthyLax) 17 g PO DAILY #30 ea 01/18/24
tramadol 50 mg tablet 25 mg PO Q6HPRN PRN severe pain #20 tabs 01/18/24
Pending Results: No
Total time spent discharging patient (in min): 38
[2024-01-18 10:15] LABS: COVID-19 Antigen Negative (Negative)
--- NOTE | 2024-01-18 10:34 | CM ---
Received notification from the [facility] with OBRA determination letter that patient does not meet mental health criteria warranting a State review.
Patient has been medically cleared for discharge to [facility] for nursing home and rehab services. Transport to be scheduled. [facility] liaison, patient, son, , team notified.
NURSE TO NURSE REPORT # [phone]
FAX # [phone]
--- NOTE | 2024-01-18 12:35 | W.DCSUMMARY ---
Discharge Summary
Discharge Data
Date of Admission: 01/03/24
Date of Discharge: 01/18/24
Total time spent discharging patient (in min): 45
-
Pending Results: No
Hospital Course
83-year-old male here with complaints of anorexia, melena, nausea and vomiting for the past 4 days.� Had hematochezia on Sunday night but since then has had some melena.� Denies similar occurrences in the past.� Does have a history of
hemorrhoids.� Uses Excedrin on a daily basis.� Denies history of peptic ulcer disease.� Last colonoscopy was 18 years ago.� Not on anticoagulation. Additional medical history included CAD with stenting BPH, CLL, hyperlipidemia, spinal stenosis of
which he is basically almost wheelchair-bound at this point all with essential hypertension and renal cell carcinoma. Had prior lumbar laminectomy cervical laminectomy and hip replacement.
Subsequent workup in the ED included imaging that pointed toward abdominal x-ray suspicious for high-grade distal small bowel obstruction/NG tube was placed/CT imaging consistent with a high-grade small bowel obstruction secondary to internal hernia.
Patient underwent after surgical consultation a laparoscopic lysis of adhesions on 04 January 2024 subsequent NG tube suction until unable to take liquids and proper bowel function with increased activity ordered
Initial course of hyponatremia had resolved possibly felt to be in relation to SSRI usage/of note the patient does have a history of suicidal ideation back last year and consultation was placed with the psychiatry service to assess his present
status and felt no longer suicidal with only mild underlying depression thoughts were to instigate SSRI therapy when he was able to take orals but the patient continued to refuse due to fears of recurrence of his hyponatremia
Finally started moving his bowels as of 09 January NG tube removed he was placed on bowel regime and a low residue diet which has been tolerated he was deemed stable for discharge after initiating physical therapy and Occupational Therapy
modalities that were slow and progress as the patient does have significant infirmities from his spinal stenosis and requires to presents this for change in position and will require rehab course at the least. His stay was further complicated and
lengthened due to his considered to be level 2/ PASSR and a meeting with family with [facility] was undertaken on 16 January and he was cleared for discharge to [facility] on 17 January
Discharge Plan
-
Patient Disposition: Long Term/SNF
Discharge Diagnosis/Procedures: small bowel obstruction status post laparoscopic lysis of adhesions
Leukocytosis
Depression
Hyponatremia
Condition: Good
Diet: As tolerated and Low Residue
Additional Diets: Low residue diet 1-2 weeks post op then okay to resume regular diet as tolerated if no no abdominal bloating/distention or nausea
Activity: No strenuous activity
Additional Activity: Do not lift more than 15 pounds for the next 3-4 weeks
Bathing Restrictions: OK to Shower
Blood Work: CBC and BMP in 1 week with primary doctor
Wound Care: glue at surgical sites typically peels off in 2-3 weeks
Referrals:
Leticia Ortega DO [Family Provider] -
Live Fitzgerald MD [Active] - in two to four weeks
Prescriptions:
New
polyethylene glycol 3350 [HealthyLax] 17 gram Powder In Packet
17 g PO DAILY Qty: 30 0RF
tramadol 50 mg Tablet
25 mg PO Q6HPRN PRN (Reason: severe pain) Qty: 20 0RF
pantoprazole 40 mg Tablet,Delayed Release (Dr/Ec)
40 mg PO DAILY Qty: 30 0RF
Continued
finasteride 5 MG tablet
5 mg PO HS
Centrum Silver 1 EACH tablet
1 ea PO DAILY
aspirin 81 mg Tablet,Delayed Release (Dr/Ec)
162 mg PO QPM
doxazosin 8 mg Tablet
8 mg PO HS
Excedrin Extra Strength 250-250-65 mg Tablet
2 tab PO DAILY
turmeric 400 mg Capsule
400 mg PO DAILY
Discharge Orders:
Discharge Patient (As Directed); Ordered 01/18/24
Ordered By: Jesus Simpson
Discharge Date and Time
Discharge Date/Time: 01/18/24 11:37
== END 2024-01-18 11:37 | DRG 336 ==
LOC: 2 SOUTH 07:26
PROVIDERS: Emergency Medicine; Hospitalist; Registered Nurse; Surgery; ADMITTING PHYSICIAN Hospitalist; ATTENDING PHYSICIAN Internal Medicine; CONSULT PHYSICIAN Internal Medicine Gastroenterology; CONSULT PHYSICIAN Surgery; EMERGENCY PHYSICIAN Emergency Medicine; FAMILY PHYSICIAN Internal Medicine; OTHER PHYSICIAN Psychiatry & Neurology Psychiatry
PROC: 0DNW4ZZ Release Peritoneum, Percutaneous Endoscopic Approach (ICD-10-PCS; 2024-01-04)
DX: K45.0 Other specified abdominal hernia with obstruction, without gangrene (principal); C91.10 Chronic lymphocytic leukemia of B-cell type not having achieved remission; E87.1 Hypo-osmolality and hyponatremia; K56.51 Intestinal adhesions [bands], with partial obstruction; K92.1 Melena; R65.10 Systemic inflammatory response syndrome (SIRS) of non-infectious origin without acute organ dysfunction; I25.10 Atherosclerotic heart disease of native coronary artery without angina pectoris; I10 Essential (primary) hypertension; Z66 Do not resuscitate; M48.00 Spinal stenosis, site unspecified; E66.09 Other obesity due to excess calories; E78.00 Pure hypercholesterolemia, unspecified; F32.A Depression, unspecified; K40.20 Bilateral inguinal hernia, without obstruction or gangrene, not specified as recurrent; G89.29 Other chronic pain; M54.50 Low back pain, unspecified; N39.41 Urge incontinence; N40.1 Benign prostatic hyperplasia with lower urinary tract symptoms; I25.2 Old myocardial infarction; Z11.52 Encounter for screening for COVID-19; Z68.29 Body mass index [BMI] 29.0-29.9, adult; Z79.82 Long term (current) use of aspirin; Z79.899 Other long term (current) drug therapy; Z85.528 Personal history of other malignant neoplasm of kidney; Z87.891 Personal history of nicotine dependence; Z95.5 Presence of coronary angioplasty implant and graft; Z99.3 Dependence on wheelchair
CPT/HCPCS: 71046; 74018; 74177; 80048; 80053; 81003; 81015; 82306; 82607; 82746; 83930; 83935; 84300; 84443; 85025; 85027; 85610; 85730; 86850; 86900; 86901; 87811; 93005; 96365; 96366; 96375; 97116; 97163; 97167; 97530; 97535; 99285; J1335; Q9967

== ENCOUNTER 2024-01-21 09:53 | Emergency (ER) | payer MEDICARE, OTHER, SELFPAY ==
[2024-01-21 09:55] VITALS: BP 112/74; BMI 32.8
[2024-01-21 10:00] VITALS: BP 120/72
[2024-01-21 10:32] LABS: Hematocrit 39.6 % (39.0-52.0); Hemoglobin 12.7 g/dL (13.0-18.0); Mean Corp Hgb Conc. 32.1 g/dL (33.0-37.0); Mean Corpuscular Hgb 28.2 pg (27.0-31.0); Mean Corpuscular Volume 87.8 fL (80.0-94.0); Mean Platelet Volume 10.1 fL (7.4-10.4); Platelet Count 396 10^3/uL (130-400); Red Blood Cell Count 4.51 10^6/uL (4.70-6.10); White Blood Cell Count 15.7 10^3/uL (4.8-10.8)
[2024-01-21 10:47] LABS: ALT (SGPT) 46 U/L (0-50); AST (SGOT) 30 U/L (17-59); Albumin 2.9 g/dl (3.5-5.0); Alkaline Phosphatase 266 U/L (38-126); Blood Urea Nitrogen 22 mg/dl (9-20); Calcium 8.6 mg/dl (8.4-10.2); Carbon Dioxide 28 mmol/L (22-30); Chloride 103 mmol/L (98-107); Estimated Creatinine Clearance 61 ml/min; Glucose 100 mg/dl (70-99); Potassium 4.8 mmol/L (3.5-5.1); Sodium 134 mmol/L (135-145); Total Bilirubin 0.8 mg/dl (0.2-1.3); Total Protein 5.6 g/dl (6.3-8.2); eGFR > 60.00
[2024-01-21 11:00] VITALS: BP 98/81
[2024-01-21 11:02] LABS: Troponin I 0.257 ng/ml
[2024-01-21 11:32] LABS: Absolute Neutrophils -Man Diff 9.8 10^3/uL (1.4-6.5); Atypical Lymphocytes 3 %; Band Neutrophils 1 % (0-3); Eosinophils 1 % (0-6); Lymphocytes 27 % (20-51); Monocytes 6 % (2-9); Platelets Checked Yes; Segmented Neutrophils 62 % (42-75)
[2024-01-21 11:33] LABS: Normal RBC Morphology Yes; Total Cells Counted 100
--- NOTE | 2024-01-21 11:49 | CON.NEURO4 ---
Consultation - Neurology 4
-
CONSULTING PHYSICIAN: Antonia Moses
REFERRING PHYSICIAN: ER
DICTATED BY: Antonia Moses
DATE/TIME OF REQUEST: 01/21/24
DATE/TIME OF CONSULTATION: 01/21/24
Reason for Consultation: Facial droop
History of Present Illness:
Patient is a right-handed 83-year-old male with a past medical history of recent GI bleed, coronary artery disease, CLL, renal carcinoma, spinal stenosis who presents to the hospital with right facial weakness observed over the past couple of days.
Patient does state that he has been compliant with aspirin since recent discharge from the hospital. He noticed within about the past 2 to 3 days that he had right facial asymmetry and family and friends had noted this. Patient does not have any
dysphagia, vision change or eye pain, no headache, he does not notice any new weakness of the arms or limbs but notes chronic weakness in the legs bilaterally along with left hand which he attributes to spinal stenosis. No previous history of
stroke. He generally ambulates with a wheelchair at home.
Past Medical History: Renal cell carcinoma, CLL, BPH, hyperlipidemia, spinal stenosis with chronic ambulatory function
Surgical History: Coronary stent 2011, lysis of adhesions December 2023
Family History: Non-contributory
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
Review of Symptoms:
Patient denies any fever, headache, chest pain, shortness of breath, GI or symptoms.
Physical Exam:
Elderly man, no head trauma oropharynx is clear eyes are clear neck with no masses mildly restricted range of motion of the neck, heart rate regular breathing unlabored abdomen soft nontender no lower extremity edema is seen
Neurologic Examination:
Patient is awake and alert, he is mildly depressed, no aphasia, no neglect, praxis is normal, obeys multistep commands.
Cranial nerve shows right lower facial weakness there is no weakness of right eye closure or right forehead raising. Tongue is midline, minimal dysarthria is appreciated. Hearing grossly intact, extraocular movements are full with no ptosis,
visual patel intact confrontation bilaterally.
Motor examination shows 2/5 strength of hip movement in the plane of the bed. Arm flexion is 5/5 bilaterally. Muscle atrophy of the thenar eminence as well as interphalangeal muscles noted.
Sensory examination decreased in a distal symmetric manner light touch pinprick vibration.
Unable to obtain reflexes throughout.
Normal finger-nose testing bilaterally.
Gait exam deferred
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
Impressions
1. Most likely a left-sided acute stroke producing right facial weakness in the past couple of days, risk factors are age hyperlipidemia and history of coronary artery disease.
2. History of spinal stenosis with significant ambulatory dysfunction at baseline
3. Situational depression appears to recent stressors
4. Recent GI bleeding with hematochezia and melena subsequent workup found small bowel obstruction treated with NG tube as well as lysis of adhesions.
5. Coronary artery disease status post stent
6. BPH
7. History of renal cell carcinoma
8. CLL
Patient has the following risk factors for their symptoms: Hyperlipidemia, age, CAD
Recommendations:
1. Goal normotension
2. Neurologic checks and NIH scales
3. Speech, physical, occupational therapy evaluations
4. Check MRI of brain and MRA of the head without contrast, MRA of the neck with contrast
5. Check TTE and monitor on cardiac telemetry
6. Check lipid panel and HbA1c
7. Start Atorvastatin 40 mg daily
8. Continue aspirin at 81 mg daily dose
9. Follow tropinin, monitor for cardiac symptoms
Will follow
Discussed patient care with: Patient, ED
[2024-01-21 12:22] VITALS: BP 121/83
--- NOTE | 2024-01-21 12:22 | ED.CVA ---
History of Present Illness
General
Chief Complaint: CVA/TIA Symptoms
Source: patient
Time Seen by Provider: 01/21/24 10:01
Onset of Stroke Symptoms
Onset of symptoms known: No
Time pt last seen normal is known: Yes
Date last time pt seen normal: 01/20/24
Travel History
Have you had any contact with someone who has COVID-19?: No
Do you have any symptoms of coronavirus? Fever > 100 degrees, chills, cough, shortness of breath, sore throat, loss of taste or smell, muscle aches, or headache?: No
History of Present Illness
History of Present Illness:
73-year-old male from [facility] who presents after it was noticed that he had a right facial droop. The patient actually feels well but did notice that it did not look normal. The patient denies headache or vision changes. Denies any new
symptoms in his extremities. He does have some chronic extremity symptoms such as left upper extremity weakness and arthritic joints. The patient has recently been nonambulatory. Patient denies rash. No chest pain or shortness of breath
Past History
Past History
ED Past Medical History: CAD, Cancer (Renal clear-cell, CLL), Hypercholesterolemia, [place] and Other (BPH, GI bleed, intra-abdominal adhesions with small bowel obstruction)
Social History
Tobacco: Former smoker
Phy Exam
Physical Exam
Physical Exam:
CONSTITUTIONAL Patient alert and oriented to person, place and time. Well-appearing. Vital signs reviewed.
HEAD atraumatic, normocephalic.
EYES eyelids normal to inspection, Extraocular muscles intact, Conjunctiva normal, Sclera normal.
NECK normal range of motion, Trachea midline, no jugular venous distention.
RESPIRATORY CHEST No respiratory distress noted, Chest expansion equal, Bilateral breath sounds clear.
CARDIOVASCULAR regular rate and rhythm
UPPER EXTREMITY no cyanosis, no edema.
LOWER EXTREMITY no cyanosis, no edema.
NEURO question very slight left pronator drift but difficult to assess due to nerve issues in that upper extremity. Unable to lift legs bed related to his chronic joint issues. Memory normal, right facial droop noted that spares the forehead
SKIN skin warm, dry, and normal in color.
Course
Orders/Labs/Results
Orders:
Orders
01/21/24 10:22
CT Head W/o Iv Contrast Urgent
Comment:
Reason For Exam: R facial droop
01/21/24 10:25
Complete Blood Count/With Diff Urgent
Comprehensive Metabolic Panel Urgent
Manual Differential Urgent
Troponin I Urgent
01/21/24 11:04
EKG [Electrocardiogram (*1)] Urgent
Reason for Study: Other
Other Reason for Exam: elevated troponin
EKG- Treatment ONCE
01/21/24 12:33
Code Status As Directed
Resuscitation Status: Do not resuscitate
Reached after discussion with pt or family/Healthcare POA: Yes
01/21/24 12:34
DNR Bracelet Application ONCE
01/21/24 12:37
Echo 2D MMode Color/Doppler Routine
Reason for Study: Thrombotic source for stroke-like sxs
MA [place] Routine
Comment:
Reason For Exam: intracranial stenosis
Recent pill cam endoscopy?: No
MA Neck With & W/o Contrast Routine
Comment:
Reason For Exam: stenosis
Recent pill cam endoscopy?: No
MR Brain Without Contrast Routine
Comment:
Reason For Exam: Right facial droop, likely left sided new stroke
Recent pill cam endoscopy?: No
NIH Stroke Scale As Directed
Directions: Per protocol
Neurological Checks As Directed
Frequency: Per unit guidelines
01/21/24 13:00
Aspirin Chewable [Low Strength Aspirin] 81 mg PO DAILY
01/21/24 13:13
CARDIOLOGY CONSULT Routine
Consulting Provider: Jose Corbin
Was physician already notified: Yes
01/21/24 14:30
Troponin I Q6H
01/21/24 18:00
Atorvastatin [Lipitor] 40 mg PO QPM
01/21/24 20:30
Troponin I Q6H
01/22/24 02:30
Troponin I Q6H
01/24/24 11:00
DC Protocol for Telemetry ONCE
Abnormal Lab Results
01/21/24
10:25
WBC 15.7 H 10^3/uL
(4.8-10.8)
RBC 4.51 L 10^6/uL
(4.70-6.10)
Hgb 12.7 L g/dL
(13.0-18.0)
MCHC 32.1 L g/dL
(33.0-37.0)
Abs Neuts (Manual) 9.8 H 10^3/uL
(1.4-6.5)
Sodium 134 L mmol/L
(135-145)
BUN 22 H mg/dl
(9-20)
Glucose 100 H mg/dl
(70-99)
Alkaline Phosphatase 266 H U/L
(38-126)
Troponin I 0.257 H* ng/ml
Total Protein 5.6 L g/dl
(6.3-8.2)
Albumin 2.9 L g/dl
(3.5-5.0)
01/21/24 10:25
01/21/24 10:25
Vital Signs
Initial and Last Documented VS:
Initial Vital Signs
Temp Pulse Resp BP Pulse Ox
98.5 F 86 17 112/74 95
01/21/24 09:55 01/21/24 09:55 01/21/24 09:55 01/21/24 09:55 01/21/24 09:55
Last Documented Vital Signs
Temp Pulse Resp BP Pulse Ox
98.5 F 85 19 119/76 95
01/21/24 09:55 01/21/24 13:45 01/21/24 13:45 01/21/24 13:00 01/21/24 11:45
MDM/Problems Addressed
MDM/Problems Addressed:
CVA, elevated troponin
*Radiology
Radiology exam reviewed: preliminary read by ED provider (No obvious intracranial hemorrhage) and radiology read reviewed
*Pulse Oximetry
Patient hypoxic: no
*EKG
Interpreted by ED Provider?: Yes
Interpretation: normal
Rate: normal
[place]: left axis deviation
QRS Pattern: normal QRS
Ischemia: non-specific ST changes
*Wireless Field Technician Interpretation
Rate: normal
Interpretation: normal
Rhythm: sinus
*Critical Care Note
Total Time (30-74mins, 75-104mins- exclusive of procedures): 35 minutes
Data Reviewed
Source: patient
Prescriptions/Medications Considered But Not Given:
Consider tPA but patient awoke with symptoms and symptoms are mild
Patient Management
Discussion with other providers: Hospitalist and Manager Culinary (Patient care was discussed with neurologist. Agrees. Advised admission for MRI)
Escalation/DeEscalation of care consider admission/obs:
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 Patient likely had a stroke. Seen by neurology. Patient was seen by hospitalist for admission. Cardiology was to see the patient as well the patient does not want admission. He does
not want any further testing. He wants to go back. I did talk to him about his risks including related to stroke and elevated troponin. Patient understands these risks and fact I did discuss this case with his stepson who is a physician. The
patient again is requesting to go back. He did recently have a GI bleed making [place] a little bit complicated. Continue aspirin. The patient has refused statins...
ED Attending Note
-
Portions of this chart may have been created with voice recognition software.� Occasional wrong word or��sound alike� substitutions may have occurred due to the inherent limitations of voice recognition software.
Discharge Plan
Departure
Patient Disposition: Against Medical Advice
Date of Disposition: 01/21/24
Time of Disposition: 12:22
Admit to: Telemetry
Patient with high blood pressure during this ER visit?: No
Discharge Problem:
Acute CVA (cerebrovascular accident), Elevated troponin
Interventions
Interventions:
*Risk Screen - Suicide Last Done: 01/21/24 09:55
*General Assessment Last Done: 01/21/24 09:55
*Neglect/Abuse Screening Last Done: 01/21/24 09:55
ED- Fall Risk Assessment Last Done: 01/21/24 09:55
*ED COVID-19 Vaccine History Last Done: 01/21/24 09:55
ED- Pulmonary Assessment Last Done: 01/21/24 11:54
ED- Neurological Assessment Last Done: 01/21/24 12:41
ED- Cardiac Assessment Last Done: 01/21/24 09:55
[2024-01-21 13:00] VITALS: BP 119/76
--- NOTE | 2024-01-21 13:28 | CON.HOSP ---
Addendum entered and electronically signed by Cassidy Gibson MD 01/21/24 13:49:
spoke with patient as was called to admit
Pt insistent on NOT staying in the hospital--explained that he would be leaving AMA
Did not examine patient as he is adamantly refusing to stay
pt also disputes the medical information on his medical history
Right Facial Droop, suspect left sided stroke--Recommend resuming aspirin and starting statin
Elevated Troponin - Patient with known CAD s/p prior LAD and RCA stent in 2011--Resume aspirin--Encourage follow-up with Cardiology as outpatient
It is our recommendation to stay in the hospital and do his workup--he refuses to do so
Original Note:
Consultation
-
Date/Time Consultation Requested: January 21, 2024 ar 12:01 PM
Date/Time Consultation Performed: January 21, 2024 at 12:20 PM
Requesting Provider: Dr. Naldo Trujillo
Performing Provider: Chelsie Everett PA-C / Dr. Cassidy Gibson
Reason for Consultation: Right facial droop
Family Physician
-
Family Physician: Leticia Ortega
Chief Complaint
-
Right Facial Droop
History of Present Illness
Patient is an 83 y/o male with PMH of CAD w/ 2 stents, hyperlipidemia, BPH, and recent hospitalization for small bowel obstruction s/p lysis of adhesions presented to the ED today complaining of right-sided facial droop x 2-3 days. Patient
reliability is questionable based on history inconsistency w/ prior documentation. He says he woke up 2-3 days ago and noticed that the right side of his lip felt numb, he then looked in a mirror and noticed the right side of his face did not look
right. He denies dysarthria, vision changes, changes in weakness, dizziness, paresthesia, chest pain, SOB, dyspnea, and fever. Patient is noted to have a new Otto catheter which was placed yesterday at [facility] due to urinary retention. Patient
was previously prescribed aspirin as noted on his discharge instructions from January 17. However no aspirin is listed on his current medication list from [facility].
Medical History
Past Medical History
Additional Past Medical History:
Coronary Artery Disease s/p Stent
Essential Hypertension
Hyperlipidemia
BPH
CLL
Right Renal Cell Cancer
Spinal Stenosis
Additional Past Surgical History:
Right Hip Replacement
Left Hip Surgery
Cervical Spine Laminectomy
Lumbar Laminectomy
Partial Right Nephrectomy
Social History
Tobacco: Former Smoker
Alcohol: Occasional
Personal:
Family History
Family History: Reviewed & Not Pertinent
Allergies / Home Medications
Allergies reflects when Allergies were last updated in [facility].
Home Medications with original date entered in [facility]
Allergy/Medication List:
Allergies
Allergy/AdvReac Type Severity Reaction Status Date / Time
walnut Allergy throat Verified 01/02/24 18:40
itching
Home Medications
finasteride 5 mg tablet 5 mg PO HS Urinary Issue 09/01/12
txicwimy-msh-lnjay acid 0.4 mg-lycopene 300 mcg-lutein 250 mcg tablet (Centrum Silver) 1 ea PO DAILY Supplement 09/01/12
doxazosin 8 mg tablet 8 mg PO QPM Urinary Issue 01/02/24
pantoprazole 40 mg tablet,delayed release 40 mg PO DAILY #30 tabs 01/18/24
polyethylene glycol 3350 17 gram oral powder packet (HealthyLax) 17 g PO DAILY #30 ea 01/18/24
tramadol 50 mg tablet 25 mg PO Q6HPRN PRN severe pain #20 tabs 01/18/24
acetaminophen 500 mg tablet (Tylenol Extra Strength) 1,000 mg PO TID 01/21/24
docusate sodium 100 mg capsule (Colace) 100 mg PO DAILYPRN PRN constipation 01/21/24
sennosides 8.6 mg tablet (senna) 8.6 mg PO DAILY PRN constipation 01/21/24
tramadol 25 mg tablet 25 mg PO NOON 01/21/24
Review of Systems
-
A 12 point Review of Systems was completed except as noted: Yes
Constitutional: Denies Fever or Chills
Respiratory: Denies Cough or Trouble Breathing
Cardiac: Denies Chest Pain or Palpitations
Physical Exam
Vital Signs
Vital Signs
Temp Pulse Resp BP Pulse Ox
98.5 F 83 20 121/83 95
01/21/24 09:55 01/21/24 12:30 01/21/24 12:30 01/21/24 12:22 01/21/24 11:45
Physical Exam
General: Well Developed and Well Nourished
HEENT: Anicteric and Moist Mucous Membranes
Respiratory: Clear and Non Labored Respirations
Cardiac: S1/S2 and Regular Rhythm
GI: Soft and Non Tender
Rectal: Deferred by Provider
Genito-urinary: Otto Catheter
Musculoskeletal: No Clubbing, No Cyanosis and No Edema
Skin: Warm and Dry
Neuro: Awake, Alert, No Motor Deficits and Facial Droop (Right)
Laboratory Results
-
Laboratory Results
01/21/24 10:25
01/21/24 10:25
Total Bilirubin 0.8 mg/dl (0.2-1.3) 01/21/24 10:25
AST 30 U/L (17-59) 01/21/24 10:25
ALT 46 U/L (0-50) 01/21/24 10:25
Alkaline Phosphatase 266 U/L (38-126) H 01/21/24 10:25
Troponin I 0.257 ng/ml H* 01/21/24 10:25
Data Reviewed
-
CT Scan: Report Reviewed by Me
Lab Data: Labs Reviewed
Impression / Plan
-
Patient is insistent that he does not want any further testing or interventions. He does not want to stay in the hospital, and wants to return home as soon as possible. I reviewed with patient the risks of leaving the hospital which include
worsening neurologic symptoms, recurrent stroke, heart attack and . He acknowledges my recommendation to stay in the hospital for additional work-up, and accepts the risks of returning home.
Right Facial Droop, suspect left sided stroke
-Recommend resuming aspirin and starting statin
Elevated Troponin - Patient with known CAD s/p prior LAD and RCA stent in 2012
-Resume aspirin
-Encourage follow-up with Cardiology as outpatient
[2024-01-21] MEDS: LOW STRENGTH ASPIRIN 81 MG PO (13:58)
[2024-01-21 15:37] VITALS: BP 116/71
--- NOTE | 2024-01-21 15:46 | EDRN ---
attempted to call report to ck rodriguez, no answer. medical office gave this rn phone number [phone] to call for report as that is the nurses number for assisted living. this rn attempted and was sent directly to voicemail.
--- NOTE | 2024-01-21 15:48 | EDRN ---
no answer at [facility] x[facility]. [phone] was given to this RN. sent straight to [email or web address].
== END 2024-01-21 15:55 | disposition left against medical advice (07) ==
LOC: EMR 09:53
PROVIDERS: EMERGENCY PHYSICIAN Emergency Medicine; FAMILY PHYSICIAN Internal Medicine; OTHER PHYSICIAN Internal Medicine; OTHER PHYSICIAN Student in an Organized Health Care Education/Training Program
DX: I63.9 Cerebral infarction, unspecified (principal); R79.89 Other specified abnormal findings of blood chemistry; Z53.29 Procedure and treatment not carried out because of patient's decision for other reasons
CPT/HCPCS: 99291; 70450; 80053; 84484; 85025; 93005

== ENCOUNTER 2024-01-23 11:55 | Inpatient (IN) | payer MEDICARE, OTHER, SELFPAY ==
[2024-01-23] VITALS (46 sets, daily range): BP systolic 81–142; BP diastolic 41–109; BMI 30.9
--- NOTE | 2024-01-23 07:34 | ED.GENMED ---
History of Present Illness
<Tawanda Dela Cruz PA-C - Last Filed: 01/23/24 09:14>
General
Chief Complaint: Male Genito-Urinary Symptoms
Source: patient
Exam Limitations: none
Time Seen by Provider: 01/23/24 07:03
Travel History
Have you had any contact with someone who has COVID-19?: No
Do you have any symptoms of coronavirus? Fever > 100 degrees, chills, cough, shortness of breath, sore throat, loss of taste or smell, muscle aches, or headache?: No
History of Present Illness
History of Present Illness:
83-year-old male presents complaining of ongoing left-sided lower back pain with new onset hematuria. Report was that the patient had no alpha at the facility through his catheter so they discontinued his Otto catheter. Since then he has been
bleeding from his urethra. Patient notes lower back pain and lower abdominal pain. He denies nausea. No fevers. He is not anticoagulated. No other complaints at this time
Past History
<Tawanda Dela Cruz PA-C - Last Filed: 01/23/24 09:14>
Past History
ED Past Medical History: CAD, Cancer (Renal clear-cell, CLL), Hypercholesterolemia, [place] and Other (BPH, GI bleed, intra-abdominal adhesions with small bowel obstruction)
Social History
Tobacco: Former smoker
Phy Exam
<Tawanda Dela Cruz PA-C - Last Filed: 01/23/24 09:14>
Physical Exam
Physical Exam:
General: Uncomfortable appearing male no acute respiratory distress
HEENT: Normocephalic atraumatic
Heart: Regular rate and rhythm no murmurs
Lungs: Clear to auscultation bilaterally no wheezing
Abdomen is soft mild suprapubic tenderness nondistended no guarding or rebound normal bowel sounds
exam: Large blood clot noted at the urethra.
Extremities: No cyanosis
Course
<Tawanda Dela Cruz PA-C - Last Filed: 01/23/24 09:14>
Orders/Labs/Results
Orders:
Orders
01/23/24 07:06
Lidocaine 2% [Lidocaine Uro-Jet 2%] 1 syringe .ROUTE .STK-MED ONE
01/23/24 07:15
Complete Blood Count/With Diff Urgent
Comprehensive Metabolic Panel Urgent
01/23/24 07:32
CT Abd/pel Without Iv Or Oral Urgent
Comment:
Reason For Exam: left back pain and hematuria
HYDROmorphone [Dilaudid] 0.5 mg IV NOW STA
01/23/24 07:38
Ondansetron Injectable [Zofran] 4 mg .ROUTE .STK-MED ONE
Ondansetron Injectable [Zofran] 4 mg IV NOW STA
01/23/24 08:14
CBI- Treatment PRN
Solution: saline
Irrigate to Clear?: Yes
01/23/24 08:17
Acetaminophen [Tylenol] 1,000 mg .ROUTE .STK-MED ONE
01/23/24 08:26
CR Chest Portable - 1 View Urgent
Comment:
Reason For Exam: rigors
Reason Study Needs to be Portable: Patient Unstable
01/23/24 08:41
Lactic Acid Q4H
Comment: CANCEL 2nd LACTIC ACID IF 1st LACTIC ACID IS LESS THAN 2
Urinalysis Reflex To Culture Urgent
Date Specimen was Collected: 01/23/24
Time Specimen was Collected: 08:37
Urine Microscopic Reflex Cult Urgent
Blood Culture Q30M
[facility] Source: Blood/Venous
Specimen Description:
Influenza A+B Rapid Molecular Urgent
[facility] Source: Nasal Swab
Specimen Description:
Urine Culture Urgent
[facility] Source: U
Specimen Description:
Date Specimen was Collected: 01/23/24
Time Specimen was Collected: 08:37
01/23/24 08:55
COVID-19 Antigen Urgent
Source: Nasal Swab
Blood Culture Q30M
[facility] Source: Blood/Venous
Specimen Description:
01/23/24 09:08
0.9% Sodium Chloride 1000 ml [Nss] 1,000 ml IV BOLUS
CefTRIAXone [Rocephin] 1,000 mg IV NOW STA
01/23/24 09:24
0.9% Sodium Chloride 1000 ml [Nss] 2,500 ml IV NOW STA
01/23/24 09:30
NORepinephrine INF (STD CONC) CONTINUOUS NORepinephrine 4 MG/250 ML [Levophed] 4 mg in 250 ml IV PER PROTOCOL
Initial dose in mcg/min, then titrate:: 2
Titrate to keep:: SBP > 90 mmHg
Titrate by mcg/min:: 1-2 mcg/min
Frequency of titrations (minutes):: 5
Maximum dose in ICU in mcg/min:: 30
Maximum dose in IMU in mcg/min:: 8
Maximum dose in IVU in mcg/min:: 4
Begin to taper infusion when:: Remained at goal for 4hrs
Taper by mcg/min:: 1-2 mcg/min
Frequency of taper (minutes) if patient maintains goal:: 30
Taper to off?: Yes
If infusion off & no longer maintaining goal:: Contact Provider
01/23/24 12:30
Lactic Acid Q4H
Comment: CANCEL 2nd LACTIC ACID IF 1st LACTIC ACID IS LESS THAN 2
Abnormal Lab Results
01/23/24 01/23/24
07:15 08:41
WBC 15.2 H 10^3/uL
(4.8-10.8)
RBC 4.10 L 10^6/uL
(4.70-6.10)
Hgb 11.5 L g/dL
(13.0-18.0)
Hct 35.2 L %
(39.0-52.0)
MCHC 32.7 L g/dL
(33.0-37.0)
Plt Count 419 H 10^3/uL
(130-400)
Abs Immat Gran (auto) 0.1 H 10^3/uL
(0-0.05)
Absolute Neuts (auto) 7.4 H 10^3/uL
(1.4-6.5)
Absolute Lymphs (auto) 6.8 H 10^3/uL
(1.2-3.4)
Sodium 133 L mmol/L
(135-145)
Glucose 112 H mg/dl
(70-99)
Lactic Acid 6.6 H* mmol/L
(0.7-2.0)
Calcium 8.3 L mg/dl
(8.4-10.2)
Alkaline Phosphatase 242 H U/L
(38-126)
Total Protein 5.3 L g/dl
(6.3-8.2)
Albumin 2.8 L g/dl
(3.5-5.0)
Urine Ketones 1+ A
(Negative)
Ur Occult Blood Reflex 4+ A
(Negative)
Leukocyte Esterase Rfl 1+ A
(Negative)
Urine RBC >100 A /HPF
(0-2)
Urine Bacteria (Reflex) Many A
(Negative)
Urine Albumin (Reflex) 3+ A
(Neg - Trace)
01/23/24 07:15
01/23/24 07:15
Vital Signs
Initial and Last Documented VS:
Initial Vital Signs
Temp Pulse Resp BP Pulse Ox
97.9 F 90 16 122/71 97
01/23/24 07:00 01/23/24 07:00 01/23/24 07:00 01/23/24 07:00 01/23/24 07:00
Last Documented Vital Signs
Temp Pulse Resp BP Pulse Ox
99.7 F 90 16 122/71 97
01/23/24 08:37 01/23/24 07:00 01/23/24 07:00 01/23/24 07:00 01/23/24 07:00
<Stephon Gaston, DO - Last Filed: 01/23/24 09:25>
Orders/Labs/Results
Orders:
Orders
01/23/24 07:06
Lidocaine 2% [Lidocaine Uro-Jet 2%] 1 syringe .ROUTE .STK-MED ONE
01/23/24 07:15
Complete Blood Count/With Diff Urgent
Comprehensive Metabolic Panel Urgent
01/23/24 07:32
CT Abd/pel Without Iv Or Oral Urgent
Comment:
Reason For Exam: left back pain and hematuria
HYDROmorphone [Dilaudid] 0.5 mg IV NOW STA
01/23/24 07:38
Ondansetron Injectable [Zofran] 4 mg .ROUTE .STK-MED ONE
Ondansetron Injectable [Zofran] 4 mg IV NOW STA
01/23/24 08:14
CBI- Treatment PRN
Solution: saline
Irrigate to Clear?: Yes
01/23/24 08:17
Acetaminophen [Tylenol] 1,000 mg .ROUTE .STK-MED ONE
01/23/24 08:26
CR Chest Portable - 1 View Urgent
Comment:
Reason For Exam: rigors
Reason Study Needs to be Portable: Patient Unstable
01/23/24 08:41
Lactic Acid Q4H
Comment: CANCEL 2nd LACTIC ACID IF 1st LACTIC ACID IS LESS THAN 2
Urinalysis Reflex To Culture Urgent
Date Specimen was Collected: 01/23/24
Time Specimen was Collected: 08:37
Urine Microscopic Reflex Cult Urgent
Blood Culture Q30M
[facility] Source: Blood/Venous
Specimen Description:
Influenza A+B Rapid Molecular Urgent
[facility] Source: Nasal Swab
Specimen Description:
Urine Culture Urgent
[facility] Source: U
Specimen Description:
Date Specimen was Collected: 01/23/24
Time Specimen was Collected: 08:37
01/23/24 08:55
COVID-19 Antigen Urgent
Source: Nasal Swab
Blood Culture Q30M
[facility] Source: Blood/Venous
Specimen Description:
01/23/24 09:08
0.9% Sodium Chloride 1000 ml [Nss] 1,000 ml IV BOLUS
CefTRIAXone [Rocephin] 1,000 mg IV NOW STA
01/23/24 09:24
0.9% Sodium Chloride 1000 ml [Nss] 2,500 ml IV NOW STA
01/23/24 09:30
NORepinephrine INF (STD CONC) CONTINUOUS NORepinephrine 4 MG/250 ML [Levophed] 4 mg in 250 ml IV PER PROTOCOL
Initial dose in mcg/min, then titrate:: 2
Titrate to keep:: SBP > 90 mmHg
Titrate by mcg/min:: 1-2 mcg/min
Frequency of titrations (minutes):: 5
Maximum dose in ICU in mcg/min:: 30
Maximum dose in IMU in mcg/min:: 8
Maximum dose in IVU in mcg/min:: 4
Begin to taper infusion when:: Remained at goal for 4hrs
Taper by mcg/min:: 1-2 mcg/min
Frequency of taper (minutes) if patient maintains goal:: 30
Taper to off?: Yes
If infusion off & no longer maintaining goal:: Contact Provider
01/23/24 12:30
Lactic Acid Q4H
Comment: CANCEL 2nd LACTIC ACID IF 1st LACTIC ACID IS LESS THAN 2
Abnormal Lab Results
01/23/24 01/23/24
07:15 08:41
WBC 15.2 H 10^3/uL
(4.8-10.8)
RBC 4.10 L 10^6/uL
(4.70-6.10)
Hgb 11.5 L g/dL
(13.0-18.0)
Hct 35.2 L %
(39.0-52.0)
MCHC 32.7 L g/dL
(33.0-37.0)
Plt Count 419 H 10^3/uL
(130-400)
Abs Immat Gran (auto) 0.1 H 10^3/uL
(0-0.05)
Absolute Neuts (auto) 7.4 H 10^3/uL
(1.4-6.5)
Absolute Lymphs (auto) 6.8 H 10^3/uL
(1.2-3.4)
Sodium 133 L mmol/L
(135-145)
Glucose 112 H mg/dl
(70-99)
Lactic Acid 6.6 H* mmol/L
(0.7-2.0)
Calcium 8.3 L mg/dl
(8.4-10.2)
Alkaline Phosphatase 242 H U/L
(38-126)
Total Protein 5.3 L g/dl
(6.3-8.2)
Albumin 2.8 L g/dl
(3.5-5.0)
Urine Ketones 1+ A
(Negative)
Ur Occult Blood Reflex 4+ A
(Negative)
Leukocyte Esterase Rfl 1+ A
(Negative)
Urine RBC >100 A /HPF
(0-2)
Urine Bacteria (Reflex) Many A
(Negative)
Urine Albumin (Reflex) 3+ A
(Neg - Trace)
01/23/24 07:15
01/23/24 07:15
Vital Signs
Initial and Last Documented VS:
Initial Vital Signs
Temp Pulse Resp BP Pulse Ox
97.9 F 90 16 122/71 97
01/23/24 07:00 01/23/24 07:00 01/23/24 07:00 01/23/24 07:00 01/23/24 07:00
Last Documented Vital Signs
Temp Pulse Resp BP Pulse Ox
99.7 F 90 16 122/71 97
01/23/24 08:37 01/23/24 07:00 01/23/24 07:00 01/23/24 07:00 01/23/24 07:00
<Tawanda Dela Cruz PA-C - Last Filed: 01/23/24 09:14>
MDM/Problems Addressed
Differential Diagnosis Includes:
Hematuria with left lower back pain. Question UTI versus kidney stone versus traumatic Otto catheter removal
Bedside bladder scan shows minimal amount less than 20 mL of urine in the bladder.
<Stephon Gaston DO - Last Filed: 01/23/24 09:25>
MDM/Problems Addressed
Chronic conditions affecting care: Neurological disorder
Acute Exacerbation and/or Progression of Chronic Illness: Neurological disorder
<Stephon Gaston DO - Last Filed: 01/23/24 09:25>
*Radiology
Radiology exam reviewed: radiology read reviewed
*Pulse Oximetry
Patient hypoxic: no
*Pasteurizer Interpretation
Rate: tachycardiac
Interpretation: abnormal
Heart Rate: 110
Rhythm: sinus
*Critical Care Note
Total Time (30-74mins, 75-104mins- exclusive of procedures): 30
<Tawanda Dela Cruz PA-C - Last Filed: 01/23/24 09:14>
Update Note
Update Note:
CT demonstrates significantly distended bladder with blood products and bilateral perinephric stranding to suggest possible UTI. Patient came back from CT with rigors. Rectal temp at that time was 99.4 lactic is over 6 and white blood cell count
is 15 2. Blood pressure has remained stable. We placed 22 [place] three-way Otto catheter initiated CBI. He was given IV fluids and Rocephin. Blood cultures pending. Will admit for sepsis and urinary tract infection
<Stephon Gaston DO - Last Filed: 01/23/24 09:25>
Update Note
Update Note:
CT demonstrates significantly distended bladder with blood products and bilateral perinephric stranding to suggest possible UTI. Patient came back from CT with rigors. Rectal temp at that time was 99.4 lactic is over 6 and white blood cell count
is 15 2. Blood pressure has remained stable. We placed 22 [place] three-way Otto catheter initiated CBI. He was given IV fluids and Rocephin. Blood cultures pending. Will admit for sepsis and urinary tract infection
9:20 AM, lactic acid noted, blood pressure soft will give full 30 cc/kg bolus normal saline bolus consideration for pressors,
ED Attending Note
<Tawanda Dela Cruz PA-C - Last Filed: 01/23/24 09:14>
-
Portions of this chart may have been created with voice recognition software.� Occasional wrong word or��sound alike� substitutions may have occurred due to the inherent limitations of voice recognition software.
<Stephon Gaston DO - Last Filed: 01/23/24 09:25>
ED Attending Note
Patient seen and examined by attending physician: Yes
I performed the substantive portion of visit, reviewed & personally made and approve the management plan that is documented in note by myself or SUNITA.: Yes
ED Attending Note:
Seen with PA examined independently 83-year-old male seen in the ER recently with possible stroke suggested admission apparently has had some issues with his catheter making urine was removed now with hematuria looks like he is in clot retention,
with rigors, CBI will be started, volume resuscitation was started antibiotics was started concern for developing bacteremia
Discharge Plan
Departure
Patient Disposition: Admit
Date of Disposition: 01/23/24
Time of Disposition: 09:13
Admit to: ICU
Presentation/result/management discussed w/ accepting MD/DO: Hospitalist
Condition: Serious
Covid-19: Not Applicable
Discharge Problem:
Sepsis, Acute UTI
Prescriptions:
No Action
finasteride 5 MG tablet
5 mg PO HS
Centrum Silver 1 EACH tablet
1 ea PO DAILY
doxazosin 8 mg Tablet
8 mg PO QPM
polyethylene glycol 3350 [HealthyLax] 17 gram Powder In Packet
17 g PO DAILY Qty: 30 0RF
tramadol 50 mg Tablet
25 mg PO Q6HPRN PRN (Reason: severe pain) Qty: 20 0RF
pantoprazole 40 mg Tablet,Delayed Release (Dr/Ec)
40 mg PO DAILY Qty: 30 0RF
sennosides [senna] 8.6 mg Tablet
8.6 mg PO DAILY PRN (Reason: constipation)
acetaminophen [Tylenol Extra Strength] 500 mg Tablet
1,000 mg PO TID
docusate sodium [Colace] 100 mg Capsule
100 mg PO DAILYPRN PRN (Reason: constipation)
tramadol 25 mg Tablet
25 mg PO NOON
Referrals:
Leticia Ortega DO [Family Provider] -
Interventions
Interventions:
*General Assessment Last Done: 01/23/24 07:45
*ED COVID-19 Vaccine History Last Done: 01/23/24 07:02
ED-Male Genitourinary Assessment Last Done: 01/23/24 07:03
[2024-01-23] MEDS: DILAUDID 0.5 MG IV ×2 (07:37→20:29)
[2024-01-23] MEDS: ZOFRAN 4 MG IV (07:41)
[2024-01-23 07:51] LABS: % Basophils 0.4 % (0-2); % Eosinophils 2.1 % (0-6); % Immature Granulocytes 0.4 % (0-0.5); % Lymphocytes 44.6 % (20.5-51.1); % Neutrophils 48.5 % (42.2-75.2); Absolute Basophils 0.1 10^3/uL (0-0.2); Absolute Eosinophils 0.3 10^3/uL (0-0.7); Absolute Immature Granulocytes 0.1 10^3/uL (0-0.05); Absolute Lymphocytes 6.8 10^3/uL (1.2-3.4); Absolute Monocytes 0.6 10^3/uL (0.1-0.6); Absolute Neutrophils 7.4 10^3/uL (1.4-6.5); Hematocrit 35.2 % (39.0-52.0); Hemoglobin 11.5 g/dL (13.0-18.0); Mean Corp Hgb Conc. 32.7 g/dL (33.0-37.0); Mean Corpuscular Volume 85.9 fL (80.0-94.0); Nucleated Red Blood Cells % 0 % (-); Platelet Count 419 10^3/uL (130-400); Red Cell Dist. Width 13.8 % (11.5-14.5); White Blood Cell Count 15.2 10^3/uL (4.8-10.8)
[2024-01-23 08:03] LABS: ALT (SGPT) 42 U/L (0-50); AST (SGOT) 34 U/L (17-59); Albumin 2.8 g/dl (3.5-5.0); Alkaline Phosphatase 242 U/L (38-126); Blood Urea Nitrogen 20 mg/dl (9-20); Calcium 8.3 mg/dl (8.4-10.2); Carbon Dioxide 26 mmol/L (22-30); Chloride 102 mmol/L (98-107); Glucose 112 mg/dl (70-99); Potassium 4.6 mmol/L (3.5-5.1); Sodium 133 mmol/L (135-145); Total Bilirubin 0.6 mg/dl (0.2-1.3); Total Protein 5.3 g/dl (6.3-8.2); eGFR > 60.00
[2024-01-23 09:01] LABS: Urine Albumin 3+ (Neg - Trace); Urine Bilirubin Negative (Negative); Urine Character Very Cloudy (Clear); Urine Color Red; Urine Glucose Negative (Negative); Urine Ketone 1+ (Negative); Urine Leukocyte 1+ (Negative); Urine Nitrite Negative (Negative); Urine Occult Blood 4+ (Negative); Urine Specific Gravity 1.015 (<1.030); Urine Urobilinogen Negative (Neg - 1+)
[2024-01-23 09:08] LABS: Lactic Acid 6.6 mmol/L (0.7-2.0)
[2024-01-23 09:10] LABS: Urine Bacteria Many (Negative); Urine Red Blood Cell >100 /HPF (0-2)
[2024-01-23] MEDS: ROCEPHIN 1000 MG IV (09:18)
[2024-01-23] MEDS: NSS 1000 IV ×2 (09:18→13:52)
[2024-01-23 09:21] LABS: COVID-19 Antigen Negative (Negative)
[2024-01-23] MEDS: NSS 1500 IV (09:48)
[2024-01-23] MEDS: LEVOPHED 250 IV (11:06)
--- NOTE | 2024-01-23 11:25 | HPS.HSE ---
Family Physician
-
Family Physician: Leticia Ortega
Chief Complaint
-
Hematuria
History of Present Illness
83-year-old male with past medical history of CAD, hyperlipidemia, BPH, GI bleed, bowel obstruction with intra-abdominal adhesions status post recent surgery, spinal stenosis/chronic lower back pain, hypertension, renal cell carcinoma came to the
hospital with left-sided lower back pain with new onset hematuria. The patient facility he had Otto catheter and there was no output yesterday so his catheter was taken out. Patient started noticing bleeding from his urethra along with lower back
pain and lower abdominal pain which prompted him to come to the ED for evaluation. He denies any fever/chills. Denies any chest pain, shortness of breath. In the ED CT scan was consistent with hydronephrosis and blood clots. Otto catheter was
placed and patient was started on CBI.
Medical History
Past Medical History
Past Medical History: Reports CAD, Cancer (Renal cell), HTN, Hypercholesterolemia and Other (BPH, spinal stenosis, CLL)
Past Surgical History: Reports Bowel Resection (Lysis of intra-abdominal adhesions) and Orthopedic (Lumbar laminectomy, cervical laminectomy, hip replacement)
Social History
Tobacco: Former Smoker
Alcohol: Occasional
Drug: None
Family History
Family History: Not pertinent
Allergies / Home Medications
Allergies reflects when Allergies were last updated in [employer].
Home Medications with original date entered in [employer]
Allergy/Medication List:
Allergies
Allergy/AdvReac Type Severity Reaction Status Date / Time
walnut Allergy throat Verified 01/02/24 18:40
itching
Home Medications
finasteride 5 mg tablet 5 mg PO DAILY@1999 Urinary Issue 09/01/12
doxazosin 8 mg tablet 8 mg PO DAILY@1999 Urinary Issue 01/02/24
polyethylene glycol 3350 17 gram oral powder packet (HealthyLax) 17 g PO DAILY #30 ea 01/18/24
tramadol 50 mg tablet 25 mg PO Q6HPRN PRN severe pain #20 tabs 01/18/24
acetaminophen 500 mg tablet (Tylenol Extra Strength) 1,000 mg PO TID@0600,1400,2200 01/21/24
docusate sodium 100 mg capsule (Colace) 100 mg PO DAILYPRN PRN constipation 01/21/24
aspirin 81 mg chewable tablet 81 mg PO DAILY 01/23/24
atorvastatin 10 mg tablet 10 mg PO DAILY@199901/23/24
coenzyme Q10 100 mg capsule (CoQ-10) 200 mg PO DAILY 01/23/24
oavrsbiv-psn-lokcc acid 0.4 mg-lycopene 300 mcg-lutein 250 mcg tablet (Centrum Silver) 1 tab PO DAILY 01/23/24
pantoprazole 40 mg tablet,delayed release 40 mg PO BID@0800,199901/23/24
sennosides 8.6 mg tablet (Senokot) 8.6 mg PO DAILY PRN constipation 01/23/24
Review of Systems
-
History Source: Patient
A 12 point ROS was completed and negative except as noted: Yes
Musculoskeletal: Reports Joint Pain
Physical Exam
Vital Signs
Vital Signs
Temp Pulse Resp BP Pulse Ox
98.6 F 99 14 107/70 98
01/23/24 10:13 01/23/24 10:00 01/23/24 10:00 01/23/24 10:00 01/23/24 10:00
Physical Exam
General: Well Nourished and No Apparent Distress
HEENT: Anicteric and Moist mucous membranes
Respiratory: Clear; No Wheezes
Cardiac: S1/S2 and Regular Rhythm
Breast: Deferred by me
GI: Soft, Non Tender and Non Distended
Rectal: Deferred by Provider
Genito-urinary: Bloody Urine and Otto
Musculoskeletal: No Edema
Neuro: Awake, Alert and Oriented
Psych: Calm
Laboratory Results
-
01/23/24 07:15
01/23/24 07:15
Laboratory Results
Lactic Acid 6.6 mmol/L (0.7-2.0) H* 01/23/24 08:41
Total Bilirubin 0.6 mg/dl (0.2-1.3) 01/23/24 07:15
AST 34 U/L (17-59) 01/23/24 07:15
ALT 42 U/L (0-50) 01/23/24 07:15
Alkaline Phosphatase 242 U/L (38-126) H 01/23/24 07:15
Data Reviewed
-
CT Scan: Report Reviewed by me, Discussed with Patient and Discussed with Family
Lab Data: Labs Reviewed by me, Discussed with Patient and Discussed with Family
Impression/Plan
-
Septic shock secondary to urinary tract infection/cystitis/pyelonephritis
Hematuria secondary to above
Follow urine culture, blood culture
Fluids given in the ED, blood pressure still low so started on Levophed
Lactic acidosis on admission, trend lactate
Continue with fluids
CT scan with mild bilateral hydronephrosis. Urology consulted. No surgery planned at this time per urology
Status post Otto in the ED, started on CBI.
Follows up with Dr. Todd as outpatient
admit to ICU; manager plan notified
Recent ER visit with suspicion of CVA
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 Patient instructed to be admitted however patient refused and left AMA
will restart baby aspirin once ok with urology
currently on o2 however no hypoxia noted
CXR with suspected atelectasis
monitor
wean o2 as tolerated
Mild hyponatremia
Monitor
Recent small bowel obstruction status post laparoscopic lysis of adhesion on 01/04
History of GI bleed
Depression
History of CAD status post stenting in 2011
Hold aspirin at this time, restart if okay with urology
Hyperlipidemia
History of BPH
Continue doxazosin/finasteride
History of spinal stenosis/chronic lower back pain
Lidocaine patch, once blood pressure improved then can start more aggressive pain medication if required
Essential hypertension
Not on any home meds, currently blood pressure low
History of renal cell cancer, 2008
Monitor
DVTppx
SCD's
DNR, discussed with patient and family at bedside
Total Critical Care Time__48___ minutes. I was immediately available to the patient and staff. I personally examined, reviewed labs, diagnostic images/reports, interpretations, treatment plans, discussed patient care with other providers and
family or caregivers (if patient is unable to make decisions), entered orders as appropriate and documented the medical record.
--- NOTE | 2024-01-23 13:33 | CON.INTV ---
Consultation
Consultation Request
Date/Time Consultation Requested: 01/23/2024
Date/Time Consultation Performed: 01/23/2024
Requesting Provider: Dr. Curiel
Performing Provider: Dr. Mauro Henley
Reason for Consultation: Septic shock
Medical History
-
History of Present Illness:
83-year-old male with past medical history significant for coronary artery disease, hyperlipidemia, BPH, prior bowel obstruction with intra-abdominal adhesions recent surgery performed, spinal stenosis with chronic back pain, hypertension, renal
cell carcinoma came to the hospital with hematuria and back pain. Apparently at his facility Otto catheter was removed since there was no output. He reported some hematuria and lower abdominal pain what prompted emergency room evaluation.
Denies any fevers or chills.
He denies any cough, wheezing, shortness of breath or chest pain.
CT of the abdomen in the emergency room showed bilateral hydronephrosis with possible bladder clots.
He was hypotensive not responsive to IV fluids and he was placed on IV antibiotics and pressors were required.
A Otto was placed and continuous bladder irrigation was started.
He was transferred to the critical care unit for vasopressor support.
Past Medical History
Past Medical History: Other (See assessment and plan section)
Social History
Tobacco: Former Smoker
Alcohol: Occasional
Drug: None
Living: [facility]
Family History
Family History: Reviewed & Not Pertinent
Allergies / Home Medications
Allergies
Allergy/AdvReac Type Severity Reaction Status Date / Time
walnut Allergy throat Verified 01/02/24 18:40
itching
Home Medications
Medication Instructions Recorded Confirmed Last Taken Type
finasteride 5 mg tablet 5 mg PO DAILY@1999 Urinary Issue 09/01/12 01/23/24 01/01/24 History
doxazosin 8 mg tablet 8 mg PO DAILY@1999 Urinary Issue 01/02/24 01/23/24 01/01/24 History
polyethylene glycol 3350 17 gram 17 g PO DAILY #30 ea 01/18/24 01/23/24 Unknown Rx
oral powder packet (HealthyLax)
tramadol 50 mg tablet 25 mg PO Q6HPRN PRN severe pain 01/18/24 01/23/24 Unknown Rx
#20 tabs
acetaminophen 500 mg tablet 1,000 mg PO TID@0600,1400,2200 01/21/24 01/23/24 Unknown History
(Tylenol Extra Strength)
docusate sodium 100 mg capsule 100 mg PO DAILYPRN PRN constipation 01/21/24 01/23/24 Unknown History
(Colace)
aspirin 81 mg chewable tablet 81 mg PO DAILY 01/23/24 01/23/24 Unknown History
atorvastatin 10 mg tablet 10 mg PO DAILY@199901/23/24 01/23/24 Unknown History
coenzyme Q10 100 mg capsule 200 mg PO DAILY 01/23/24 01/23/24 Unknown History
(CoQ-10)
iggjwgiw-fsz-spwdh acid 0.4 1 tab PO DAILY 01/23/24 01/23/24 Unknown History
mg-lycopene 300 mcg-lutein 250 mcg
tablet (Centrum Silver)
pantoprazole 40 mg tablet,delayed 40 mg PO BID@0800,199901/23/24 01/23/24 Unknown History
release
sennosides 8.6 mg tablet (Senokot) 8.6 mg PO DAILY PRN constipation 01/23/24 01/23/24 Unknown History
Review of Systems
-
History Source: Patient
All other systems: Negative unless noted
Vitals / Labs / Diagnostic Testing
Vital Signs
Temp Pulse Resp BP Pulse Ox
98.6 F 93 17 87/61 97
01/23/24 10:13 01/23/24 13:00 01/23/24 13:00 01/23/24 13:00 01/23/24 13:00
Lab Data
01/23/24 07:15
01/23/24 07:15
Microbiology
01/23/24 08:41 Nasal Swab Influenza Types A & B (KOFI) - Final
Negative for Influenza A & B, NAAT
Negative results must be combined with clinical observations
and patient history.
Nucleic Acid Amplification test (NAAT)performed on the
[employer] platform.
Diagnostic Testing:
Physical Exam
-
HEENT: Normocephalic
Cardiovascular: S1/S2
Respiratory: Clear and Non-Labored Respirations
GI: Soft, Tender (Lower abdomen, mild) and Other (Otto in place.)
Neurology: Awake, Alert, No Motor Deficits and Other (Currently eating food independently.)
Skin: Warm
General: Respiratory Distress (n)
Assessment
-
83-year-old man with multiple comorbidities, recently was seen in the hospital for possible stroke, he left AMA. Comes back after his Otto catheter was discontinued at his facility due to no output. Subsequently developed hypotension,
unresponsive to IV fluid. Requiring Levophed. Patient was transferred to the critical care unit for further care.
Septic shock
Complicated urinary tract infection/possible pyelonephritis and cystitis.
CT abdomen pelvis reviewed 01/23/2024:
1.� Mild bilateral hydroureteronephrosis, new from prior and likely secondary to relative obstruction at the ureterovesical junctions bilaterally due to large amount of layering blood products/blood clot within the urinary bladder. The left ureter
also partially extends into a left inguinal hernia and there may be an additional component of partial obstruction at this site. Evaluation of the urinary bladder is limited due to streak artifact in the region.
2. Small amount of gas within the urinary bladder may reflect recent instrumentation. There is also bilateral perinephric stranding present and superimposed cystitis/urinary tract infection is not excluded.
Leukocytosis secondary to above
Lactic acidosis
Hematuria: Possibly due to infection/
Bilateral hydronephrosis
Recent ER visit on 01/21/2024 for possible acute CVA: CT shows right cerebellar infarct. Patient left AGAINST MEDICAL ADVICE.
Conditions present prior admission:
Renal cell cancer
Hypertension
Hypercholesterolemia
BPH
Spinal stenosis
CLL
Bowel resection as status post lysis of additions 12/2022
Lumbar laminectomy.
Cervical laminectomy
Prior hip replacement
Former smoker
Plan recommendations:
Patient critically ill, hypotensive not responsive to IV fluids. Not requiring vasopressors.
Severe urinary infection, possible pyelonephritis with subsequent hematuria.
Abnormal urinalysis
-
Patient states that he is feeling better.
-
Continue maintenance IV fluids with close observation of volume status.
Status post IV fluid resuscitation at least 2 L of normal saline
-
Continue vasopressor support with Levophed, maintain mean arterial blood pressure 65 mmHg. Hopefully can wean off in the next few hours.
If not we will need central access, PICC line or central line.
Lactic acid is clearing
Renal function so far normal
-
Otto in place with CBI with pink urine. No clots observed.
Otto urinary output and hematuria clearance
Follow H&H
Avoid pharmacological DVT prophylaxis until hematuria is clear
Urology following the patient. No plans for any intervention at this point
-
Continue antibiotics ceftriaxone
Follow fever curve and leukocytosis
Follow cultures
-
Monitor for stroke symptoms given recent admission to the emergency room, patient left AMA.
On aspirin.
-
Blood sugar monitoring
Insulin sliding scale as necessary
-
DVT prophylaxis-SCDs. No pharmacological prophylaxis until hematuria clears.
-
Critical care statement: A total of 31 minutes of critical care time was provided for this patient today. This includes management of unstable vital signs, evaluation of the patient at bedside, reviewing the patient's pertinent medical records
radiographs, microbiology, laboratory evaluations and discussion with primary team, critical care nursing, and respiratory therapy.
[2024-01-23 13:44] LABS: Lactic Acid 1.2 mmol/L (0.7-2.0)
[2024-01-23] MEDS: LIDOCAINE 4% PATCH 1 PATCH TOPICAL (14:14)
[2024-01-23] MEDS: TYLENOL 1000 MG PO ×2 (14:14→20:28)
[2024-01-23 14:53] LABS: INR 1.21; PT 15.4 Sec (11.4-14.6)
[2024-01-23 14:54] LABS: APTT 33.3 Sec (23.4-35.0)
[2024-01-23 14:57] LABS: Lactic Acid 1.6 mmol/L (0.7-2.0)
--- NOTE | 2024-01-23 15:00 | PTCARENOTE ---
Rec'd pt at 1345 from the ED via stretcher. Rec'd pt awake alert, oriented and talkative. Admits to chronic lower back pain and needs assistance with turning. RIVERO but legs move weakly and has some chronic numbness of his legs. Very sl R facial droop
noted- in ED 01/20 for similar. Speech is clear. Denies dizziness or headache. Skin is pale pink wm and dry. Respirs are unlabored. Initially on 2l- now on RA with sats of 95%. BS are sl decreased at the bases otherwise clear. Monitor SR. + pulses.
DP pulses are sl weak but palp. No edema. VS as documented. Rec'd pt on IV Levophed at 6 mcg. Currently at 5 mcg. Will titrate keeping syst BP >90. Denies chest pain. ABd is round and soft with + BS. Denies nausea and at diet without difficulty in
swallowing since arrival. Pt with 3 abd stab wounds that are approximated and open to air. Pt with 3 way pringle and CBI infusing- draining bloody punch colored drainage. Scrotum is large and swollen. IV Levophed and NSS infusing via L wrist IV site.
Capped int inact R AC. Labs sent as ordered. Will do ECG. Complete CHG bath given. Repositioned. Call prabhakar in reach. Family at the bedside and updated. Will monitor closely
--- NOTE | 2024-01-23 15:30 | PTCARENOTE ---
ECG done. Ate all of lunch. No c/o nausea. Does c/o lower back pain and repositioned. Levophed currently at 4 mcg. VS as documented. Otto draining red punch colored urine.
--- NOTE | 2024-01-23 18:00 | PTCARENOTE ---
Remains resting. Lower back gets uncomfortable at times but eases with repositioning. Weaning Levophed as bP permits- currently at 1 mcg. CBR draining red punch colored urine. Currently ready to eat dinner. at the bedside. Urology updated
earlier on pt. Call prabhakar in reach.
[2024-01-23] MEDS: LIPITOR 10 MG PO (20:28)
[2024-01-23] MEDS: PROSCAR 5 MG PO (20:29)
[2024-01-23] MEDS: PROTONIX 40 MG PO (20:29)
[2024-01-23] MEDS: CARDURA 8 MG PO (20:29)
[2024-01-23] MEDS: VALIUM INJECTION 5 MG IV (21:19)
--- NOTE | 2024-01-23 21:43 | PTCARENOTE ---
Pt received at 19:00. C/O pain 8/10 mid/lower back pain. Dilaudid PRN ordered and given. CBI began running clear and leaking around catheter, manually irrigated for large amount of clots. Changed catheter as per urology--replaced with 24Fr 3way
catheter. At this time catheter draining clear pink to fruit punch colored urine with small blood clots. Pt called son on his cell phone, and asked that I update him--update provided. Pt given x1 order valium, resting comfortably at this time.
--- NOTE | 2024-01-23 21:50 | W.PN.UPDATE ---
Update Note
Progress Note Update
Updated Dr. Goldman, urologist, about CBI clotting and increased difficulty irrigating it. Recommendation were received and Pringle 24 F was replaced and CBI was given generous flushes with pink tinged urine. Valium 5mg IV push given for bladder
spasms and patient's comfort. Dr. Goldman ordered tranexamic acid IVPB now. Plan of care is CBI and IV antibiotics. Continued CBI irrigation 60cc water irrigation q 3-4 hrs thought the drainage port on pringle.
[2024-01-23] MEDS: TRANEXAMIC ACID 110 MG IV (22:36)
[2024-01-24] VITALS (47 sets, daily range): BP systolic 88–141; BP diastolic 49–98; PULSE 92–99; O2SAT 100; BMI 31.0
[2024-01-24] MEDS: NSS 1000 IV ×2 (00:13→08:36)
--- NOTE | 2024-01-24 03:34 | PTCARENOTE ---
Tolerating CBI. BP stable, levophed ordered to keep MAP > 65, MAP goal maintained with levophed gtt off. Pt resting comfortably.
[2024-01-24 04:28] LABS: % Basophils 0.3 % (0-2); % Eosinophils 1.1 % (0-6); % Immature Granulocytes 0.4 % (0-0.5); % Neutrophils 61.2 % (42.2-75.2); Absolute Basophils 0.1 10^3/uL (0-0.2); Absolute Eosinophils 0.2 10^3/uL (0-0.7); Absolute Immature Granulocytes 0.1 10^3/uL (0-0.05); Absolute Lymphocytes 5.8 10^3/uL (1.2-3.4); Absolute Monocytes 0.7 10^3/uL (0.1-0.6); Absolute Neutrophils 10.8 10^3/uL (1.4-6.5); Hematocrit 27.8 % (39.0-52.0); Mean Corpuscular Volume 87.4 fL (80.0-94.0); Mean Platelet Volume 9.8 fL (7.4-10.4); Nucleated Red Blood Cells % 0 % (-); Platelet Count 324 10^3/uL (130-400); Red Blood Cell Count 3.18 10^6/uL (4.70-6.10); Red Cell Dist. Width 13.7 % (11.5-14.5); White Blood Cell Count 17.6 10^3/uL (4.8-10.8)
[2024-01-24 04:50] LABS: ALT (SGPT) 41 U/L (0-50); AST (SGOT) 38 U/L (17-59); Albumin 2.3 g/dl (3.5-5.0); Alkaline Phosphatase 214 U/L (38-126); Blood Urea Nitrogen 22 mg/dl (9-20); Calcium 7.6 mg/dl (8.4-10.2); Carbon Dioxide 25 mmol/L (22-30); Chloride 107 mmol/L (98-107); Estimated Creatinine Clearance 81 ml/min; Glucose 109 mg/dl (70-99); Potassium 4.6 mmol/L (3.5-5.1); Sodium 133 mmol/L (135-145); Total Bilirubin 0.4 mg/dl (0.2-1.3); Total Protein 4.6 g/dl (6.3-8.2); eGFR > 60.00
[2024-01-24 05:28] LABS: Hemoglobin 8.9 g/dL (13.0-18.0)
[2024-01-24] MEDS: TYLENOL PO (06:35)
--- NOTE | 2024-01-24 07:35 | W.PN.URO.CBU ---
Today's Communication / Plan
-
Wean CBI as tolerated through day
Plan to d/c CBI w/n 24 hrs
Maintain Otto catheter on discharge to SNF/rehab
Consider resuming aspirin in 24-48 hrs if urine remains relatively clear
Discussed plan of care w/ patient.
D/w RN.
Assessment / Plan
-
Urosepsis
Urinary retention
Hematuria w/ clot retention - secondary to distended bladder, decompression hematuria, and hemorrhagic cystitis
Mild bilateral hydroureteronephrosis
WBC 17 (from 15)
Cr wnl
UCx pending
BCx x2 - positive
Clinically improving from septic state on admission.
HDS.
Diagnosis
-
Date of Service: January 24, 2024
-
Patient Diagnosis:
Urosepsis
Urinary retention
Hematuria w/ clot retention - secondary to distended bladder, decompression hematuria, and hemorrhagic cystitis
Mild bilateral hydroureteronephrosis
Subjective
-
Sleeping comfortably this AM - awoke for exam.
Denies suprapubic pressure or pain.
Urine clear in outflow on medium drip.
Objective
-
Vital Signs
Temp Pulse Resp BP Pulse Ox
98.9 F 80 17 95/68 95
01/24/24 03:42 01/24/24 07:15 01/24/24 07:15 01/24/24 07:00 01/24/24 07:00
Intake and Output
01/23/24 01/24/24 01/25/24
06:59 06:59 06:59
Intake Total 2620.1 / 2620.1
Output Total 3900 / 3900
Balance -1279.9 / -1279.9
Intake:
Oral fluids 750 / 750
IV fluids (Total) 1770.1 / 1770.1
Levophed 70.1 / 70.1
Nss 1,000 ml @ 100 mls/hr IV . 1700 / 1700
Q10H AGNES Rx#:[id number]
IV piggybacks 100 / 100
Output:
True Urine Output from CBI 3900 / 3900
Laboratory Results
01/24/24 04:19
01/24/24 04:19
Physical Exam
-
General - well developed, well nourished, no acute distress
Abdomen - soft, non-tender
Genitalia - normal, 24Fr 3-way catheter draining clear outflow
Skin - warm & dry with no rash
Neuro - AOx3, mild facial droop (recent CVA 01/2024)
Extremities - no clubbing, no cyanosis, no edema
Care Review
Data Reviewed
Discussed with: Hospitalist and Nursing
CT Scan: Report Pers Reviewed and Image Pers Reviewed
Total Time Spent with Patient (in minutes): 35
--- NOTE | 2024-01-24 08:02 | PTCARENOTE ---
Received pt awake and alert.Speech is appropriate.+RIVERO.Assists with repositioning.SR noted.INF infusing.Appetite good.No BM.# way Otto with CBI is ongoing.Urine is yellow pink.Skin intact.Plan of care discussed.
[2024-01-24] MEDS: MIRALAX 17 GRAMS PO (08:05)
[2024-01-24] MEDS: LIDOCAINE 4% PATCH 1 PATCH TOPICAL (08:05)
[2024-01-24] MEDS: STERILE WATER FOR INJECTION 10 ML IV (08:05)
[2024-01-24] MEDS: THERAGRAN 1 TABLET PO (08:06)
[2024-01-24] MEDS: ROCEPHIN 1000 MG IV (08:06)
[2024-01-24] MEDS: PROTONIX 40 MG PO ×2 (08:06→20:59)
--- NOTE | 2024-01-24 08:49 | CON.ID ---
Consultation
-
Date/Time Consultation Requested: 01/24/24 8:08
Date/Time Consultation Performed: 01/24/24 8:49
Requesting Provider: Dr Curiel
Performing Provider: Dr Steiner
Reason for Consultation: sepsis, UTI
Chief Complaint / Past History
Chief Complaint
hematuria
History of Present Illness
Mr Baxter is an 83 year old male with history of RCC, CLL, BPH with chronic pringle who presented her yesterday for L sided flank pain, new onset hematuria. Symptoms began yesterday when there was no output from the pringle - the device was removed,
he then noticed bleeding from the urethra, new lower back/abdominal pain and presented to the ER. No fevers, chills, chest pain, shortness of breath.
Since arrival here he has been afebril, BP intermittently hypotensive (currently hypotensive) with a pressor requirement, intermittent tachycardia (HR currently normal), wbc 15 then 17, hgb 8.9 down from 11.5, plt initally 419 now 324, eos present
in normal amounts, cr 0.7, lactic acid initially 6.6 now 1.6, t bili 0.4, ast 38, alt 41, alk phos 214, UA with gross hematuria which obsecured evaluation of WBCs, CT scan showed hydronephrosis and blood clots, bilateral perinephric stranding and
cystitis, three way pringle placed and he was started on CBI. Urine culture with 100K E coli, blood cultures x2 also suggestive of E coli, patient is currently on ceftriaxone, he is not known to be colonized with MDROs at this institution,
Past History
Additional Past Medical History:
CAD, Cancer (Renal cell), HTN, Hypercholesterolemia and Other (BPH, spinal stenosis, CLL)
Additional Past Surgical History:
Bowel Resection (Lysis of intra-abdominal adhesions) and Orthopedic (Lumbar laminectomy, cervical laminectomy, hip replacement)
Allergy History:
walnut Allergy (Verified 01/02/24 18:40)
throat itching
Medications Reviewed: Yes
Social History
Tobacco: Former Smoker
Alcohol: Occasional
Drug: None
Review of Systems
Review of Systems
General: Negative Fever or Chills
All systems: All other systems were reviewed and were negative
Vital Signs
Temp Pulse Resp BP Pulse Ox
98.0 F 80 17 95/68 95
01/24/24 07:57 01/24/24 07:15 01/24/24 07:15 01/24/24 07:00 01/24/24 07:00
Physical Exam
Physical Exam
Constitutional: No Acute Distress
Cardiovascular: Regular Rate and S1/S2; Negative Murmur or Rub
Pulmonary: Clear and Symmetric; Negative Wheezes, Rales or Rhonchi
Gastrointestinal: Soft, Non Tender, Non Distended and Normal Bowel Sounds
Genito-Urinary: Negative Suprapubic Tenderness or CVA Tenderness
Skin: Warm and Dry; Negative Rash or Jaundice
Lab / Diagnostic Study Results
01/24/24 04:19
01/24/24 04:19
Abs Immat Gran (auto) 0.1 10^3/uL (0-0.05) H 01/24/24 04:19
Absolute Neuts (auto) 10.8 10^3/uL (1.4-6.5) H 01/24/24 04:19
Absolute Lymphs (auto) 5.8 10^3/uL (1.2-3.4) H 01/24/24 04:19
Absolute Monos (auto) 0.7 10^3/uL (0.1-0.6) H 01/24/24 04:19
Absolute Basos (auto) 0.1 10^3/uL (0-0.2) 01/24/24 04:19
Immature Gran % 0.4 % (0-0.5) 01/24/24 04:19
Neutrophils % 61.2 % (42.2-75.2) 01/24/24 04:19
Lymphocytes % 33.0 % (20.5-51.1) 01/24/24 04:19
Monocytes % 4.0 % (1.7-9.3) 01/24/24 04:19
Eosinophils % 1.1 % (0-6) 01/24/24 04:19
Basophils % 0.3 % (0-2) 01/24/24 04:19
PT 15.4 Sec (11.4-14.6) H 01/23/24 14:32
INR 1.21 01/23/24 14:32
Lactic Acid 1.6 mmol/L (0.7-2.0) 01/23/24 14:32
Microbiology Results
Micro:
01/23/24 08:41 Urine Culture - Preliminary
Urine Escherichia coli
01/23/24 08:55 Blood Culture - Preliminary
Blood/Venous Positive culture in progress
Gram Stain - Final
01/23/24 08:41 Blood Culture - Preliminary
Blood/Venous Positive culture in progress
Gram Stain - Final
01/23/24 14:32 MRSA Screen - Pending
Nose
01/23/24 08:41 Influenza Types A & B (KOFI) - Final
Nasal Swab Negative for Influenza A & B, NAAT
Negative results must be combined with clinical observations
and patient history.
Nucleic Acid Amplification test (NAAT)performed on the
[employer] platform.
Assessment / Plan
Pyelonephritis
Bacteremia
Hematuria
BPH - chronic pringle
CLL
- blood cultures suggestive of E coli
- urine culture 100K E coli
- three way pringle is new this admission
- has responded well to ceftriaxone - would continue for present - deescalation pending sensitivities
- follow clinically
--- NOTE | 2024-01-24 11:12 | CM ---
CM following re: discharge planning.
Discussed in Rounds, reviewed pt's chart, met with pt.
Pt is an 83 year old male, admitted with primary dx of E-coli.
Pt is well known to this CM from previous admission. Pt reports he lives at [facility] with his . He described himself as independent with his ADLs, personal care, dressing and bathing. 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
clean and do laundry. He uses a walker to assist with his ambulation.
Pt is admitted from [facility] om 01/18/24. had ER visit on 01/21/24 and requested to leave and pt returned back to [facility]. CM spoke to [facility] liaison and she stated that as of today, pt is not bed hold and pt will be accepted
back when medically stable based on bed availability on the day of discharge. Per Leslye, she will reach out to pt's spouse regarding bed hold situation.
Pt has completed Level II PASRR evaluation in the beginning of this month.
A referral to [facility] made.
D/C plan: return back to [facility] to continue on a short term rehabilitation treatment.
CM will follow with discharge plan updates as hospitalization progresses
--- NOTE | 2024-01-24 11:44 | W.PN.INTV ---
Today's Communication / Plan
Recommendations
Continue antibiotics
Follow blood cultures
Hopefully can discontinue CBI
Increase activity as able
Monitor renal function
Transfer to [facility]
Sign off
Assessment
-
83-year-old man with multiple comorbidities, recently was seen in the hospital for possible stroke, he left AMA. Comes back after his Otto catheter was discontinued at his facility due to no output. Subsequently developed hypotension,
unresponsive to IV fluid. Requiring Levophed. Patient was transferred to the critical care unit for further care.
Septic shock
Complicated urinary tract infection/possible pyelonephritis and cystitis.
E. coli in the urine and bacteremia.
CT abdomen pelvis reviewed 01/23/2024:
1.� Mild bilateral hydroureteronephrosis, new from prior and likely secondary to relative obstruction at the ureterovesical junctions bilaterally due to large amount of layering blood products/blood clot within the urinary bladder. The left ureter
also partially extends into a left inguinal hernia and there may be an additional component of partial obstruction at this site. Evaluation of the urinary bladder is limited due to streak artifact in the region.
2. Small amount of gas within the urinary bladder may reflect recent instrumentation. There is also bilateral perinephric stranding present and superimposed cystitis/urinary tract infection is not excluded.
Leukocytosis secondary to above
Lactic acidosis
Hematuria: Possibly due to infection/
Bilateral hydronephrosis
Recent ER visit on 01/21/2024 for possible acute CVA: CT shows right cerebellar infarct. Patient left AGAINST MEDICAL ADVICE.
Conditions present prior admission:
Renal cell cancer
Hypertension
Hypercholesterolemia
BPH
Spinal stenosis
CLL
Bowel resection as status post lysis of additions 12/2022
Lumbar laminectomy.
Cervical laminectomy
Prior hip replacement
Former smoker
Plan recommendations:
Clinically improved, vasopressor has been discontinued.
Patient states that he is feeling better.
-
Discontinue maintenance IV fluids.
Encourage oral intake.
-
Otto in place with CBI with clear urine. Per urology. Hopefully can be discontinued later today.
Acute blood loss anemia. Monitor. Transfuse for hemoglobin less than 7.
-
Avoid pharmacological DVT prophylaxis until hematuria is clear
-
E. coli UTI/pyelonephritis. Bacteremia.
Follow blood cultures.
Continue antibiotics ceftriaxone, infectious disease has been consulted.
Follow fever curve and leukocytosis
-
Monitor for stroke symptoms given recent admission to the emergency room, patient left AMA.
On aspirin.
Neurological exam today stable 01/24/2024.
-
Blood sugar monitoring
Insulin sliding scale as necessary
-
DVT prophylaxis-SCDs. No pharmacological prophylaxis until hematuria clears.
-
Okay to transfer to [facility]. Critical care team will sign off.
Please call pulmonary if any respiratory issues arise.
Subjective Dataa
Subjective Data
Date of Service:
Date of Service: January 24, 2024
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
Subjective:
Patient states that he feels better
Denies abdominal pain nausea or vomiting.
Denies shortness of breath
Otto in place with CBI.
Review of Systems
General: Fever (n)
Cardiopulmonary: Dyspnea (none at rest), Cough (n), Sputum Production (n) and Lower Extremity Pain (n)
GI: Abdominal Pain (n) and Nausea (n)
Objective Data
Data Reviewed
Vital Signs / I&O / Oxygen:
Vital Signs
Temp Pulse Resp BP Pulse Ox
98.2 F 94 23 96/64 100
01/24/24 11:30 01/24/24 11:15 01/24/24 11:15 01/24/24 11:00 01/24/24 11:15
Intake and Output
01/23/24 01/24/24 01/25/24
06:59 06:59 06:59
Intake Total 2620.1 / 2720.1 860 / 860
Output Total 3900 / 3900 3000 / 3000
Balance -1279.9 / -1179.9 -2140 / -2140
SaO2 100
Physical Exam
General: Respiratory Distress (n) and Comfortable
HEENT: Normocephalic
Cardiovascular: S1-S2 and Regular Rhythm
Respiratory: Clear and Non-Labored Respirations
GI: Soft and Other (Otto in place with CBI, clear urine.)
Neurology: Awake, Alert and Oriented
Skin: Warm
Labs/Micro/Reports
Lab Data
01/24/24 04:19
01/24/24 04:19
Laboratory Results
01/23/24
14:32
PT 15.4 H
INR 1.21
APTT 33.3
Microbiology
01/23/24 08:55 Blood/Venous Blood Culture - Preliminary
Escherichia coli
01/23/24 08:55 Blood/Venous Gram Stain - Final
01/23/24 08:41 Blood/Venous Blood Culture - Preliminary
Escherichia coli
01/23/24 08:41 Blood/Venous Gram Stain - Final
01/23/24 08:41 Urine Urine Culture - Preliminary
Escherichia coli
01/23/24 08:41 Nasal Swab Influenza Types A & B (KOFI) - Final
Negative for Influenza A & B, NAAT
Negative results must be combined with clinical observations
and patient history.
Nucleic Acid Amplification test (NAAT)performed on the
[employer] platform.
--- NOTE | 2024-01-24 12:35 | W.PN.HOSP.TC ---
Today's Communication/Plan
-
Monitor vital signs and see plan
Continue with antibiotics
Check new sets of blood culture
PT/OT, speech therapy
Okay to transfer to the floors if blood pressure stable
Now off pressors
Son updated at bedside
Aspirin and DVT prophylaxis when okay with urology
Continue with CBI per urology
monitor hgb
Assessment / Plan
Assessment / Plan
General: Well Nourished and No Apparent Distress
HEENT: Anicteric and Moist mucous membranes
Respiratory: Clear; No Wheezes
Cardiac: S1/S2 and Regular Rhythm
Breast: Deferred by me
GI: Soft, Non Tender and Non Distended
Rectal: Deferred by Provider
Genito-urinary: Bloody Urine and Otto
Musculoskeletal: No Edema
Neuro: Awake, Alert and Oriented
Psych: Calm
Septic shock secondary to urinary tract infection/cystitis/pyelonephritis
Mild TME on admission secondary to above, now improving
Hematuria secondary to above
Follow urine culture, blood culture. Blood culture and urine culture both positive for E. coli. ID consulted. Continue with ceftriaxone. Check new set of blood culture /
now off levophed
Lactic acidosis on admission, resolved
CT scan with mild bilateral hydronephrosis.� Urology following.� No surgery planned at this time per urology
Status post Otto in the ED, started on CBI. hopeful to wean CBI
Follows up with Dr. Todd as outpatient
Recent ER visit with suspicion of CVA
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
will restart baby aspirin once ok with urology
speech to see
PT/OT
Acute blood loss anemia likely secondary to hematuria
some is also hemodilutional
Monitor
Transfuse hemoglobin less than 7
currently on o2 however no hypoxia noted
CXR with suspected atelectasis
monitor
wean o2 as tolerated
Mild hyponatremia
Monitor
Recent small bowel obstruction status post laparoscopic lysis of adhesion on 01/04
History of GI bleed
Depression
History of CAD status post stenting in 2011
Hold aspirin at this time, restart if okay with urology
Hyperlipidemia
History of BPH
Continue doxazosin/finasteride
History of spinal stenosis/chronic lower back pain
Lidocaine patch
Dilaudid as needed, hold for sedation
Essential hypertension
Not on any home meds, currently blood pressure low
History of renal cell cancer, 2008
Monitor
DVTppx
SCD's; heparin or lovenox when ok with urology
DNR, discussed with patient and family at bedside on admission
I spent a total of 53 minutes with the patient or on the floor. More than 50% of this time involved counseling and coordination of care.
Anticipated Discharge: > 48 hours
Subjective/Interval History
-
Date of Service: January 24, 2024
denies pain
Objective Data
-
Labs:
Laboratory Results
01/24/24
04:19
WBC 17.6 H
Hgb 8.9 L D
Hct 27.8 L
Plt Count 324 D
Sodium 133 L
Potassium 4.6
Chloride 107
Carbon Dioxide 25
BUN 22 H
Creatinine 0.7
Glucose 109 H
Calcium 7.6 L
Total Bilirubin 0.4
AST 38
ALT 41
Alkaline Phosphatase 214 H
Vital Signs:
Vital Signs
Temp Pulse Resp BP Pulse Ox
98.2 F 94 23 96/64 100
01/24/24 11:30 01/24/24 11:15 01/24/24 11:15 01/24/24 11:00 01/24/24 11:15
I&O
01/23/24 01/24/24 01/25/24
06:59 06:59 06:59
Intake Total 2620.1 / 2720.1 860 / 860
Output Total 3900 / 3900 3000 / 3000
Balance -1279.9 / -1179.9 -2140 / -2140
--- NOTE | 2024-01-24 12:49 | PTCARENOTE ---
Pt assessed.No change in assessment noted.Pt's son at bedside.PT/OT at bedside.
--- NOTE | 2024-01-24 13:44 | PTCARENOTE ---
Pt OOB to chair via lift device.
[2024-01-24] MEDS: TYLENOL 1000 MG PO ×2 (16:12→21:56)
--- NOTE | 2024-01-24 16:18 | PTOTSP ---
Dysphagia Evaluation
Oral and pharyngeal stages of swallowing suspected to be grossly WFL. No overt s/s of aspiration observed. Patient with right sided facial weakness and should place utensil/PO on left side of oral cavity when eating/drinking. Continue regular,
thin liquid diet. No dysphagia therapy warranted.
Patient reported acute on chronic cognitive linguistic changes. He is admitted with UTI which can acutely impact cognition but also was recently found to have a right sided stroke per CT of Head 01/21/2024. Consider cognitive linguistic screener
if/when acute medical issues and TME have resolved. Per chart review, plan is for D/C back to SNF for rehab.
--- NOTE | 2024-01-24 16:34 | PTCARENOTE ---
Pt assessed.No change in assessment.[id number] to chair via Yuniel lift.
[2024-01-24] MEDS: LIPITOR 10 MG PO (20:59)
[2024-01-24] MEDS: CARDURA 8 MG PO (20:59)
[2024-01-24] MEDS: PROSCAR 5 MG PO (20:59)
[2024-01-24] MEDS: FLUSH (NSS) 1 FLUSH IV ×2 (21:01→21:02)
[2024-01-24 21:44] LABS: Hemoglobin 9.7 g/dL (13.0-18.0)
[2024-01-25] VITALS (18 sets, daily range): BP systolic 99–153; BP diastolic 69–90; BMI 30.6
[2024-01-25 04:22] LABS: % Basophils 0.4 % (0-2); % Eosinophils 1.6 % (0-6); % Immature Granulocytes 0.5 % (0-0.5); % Lymphocytes 38.8 % (20.5-51.1); % Monocytes 4.4 % (1.7-9.3); % Neutrophils 54.3 % (42.2-75.2); Absolute Basophils 0.1 10^3/uL (0-0.2); Absolute Eosinophils 0.3 10^3/uL (0-0.7); Absolute Immature Granulocytes 0.1 10^3/uL (0-0.05); Absolute Lymphocytes 6.5 10^3/uL (1.2-3.4); Absolute Monocytes 0.7 10^3/uL (0.1-0.6); Absolute Neutrophils 9.2 10^3/uL (1.4-6.5); Hematocrit 27.4 % (39.0-52.0); Hemoglobin 8.9 g/dL (13.0-18.0); Mean Corp Hgb Conc. 32.5 g/dL (33.0-37.0); Mean Corpuscular Hgb 28.1 pg (27.0-31.0); Mean Corpuscular Volume 86.4 fL (80.0-94.0); Mean Platelet Volume 9.8 fL (7.4-10.4); Nucleated Red Blood Cells % 0 % (-); Platelet Count 315 10^3/uL (130-400); Red Blood Cell Count 3.17 10^6/uL (4.70-6.10); Red Cell Dist. Width 13.7 % (11.5-14.5); White Blood Cell Count 16.9 10^3/uL (4.8-10.8)
[2024-01-25 04:43] LABS: ALT (SGPT) 33 U/L (0-50); AST (SGOT) 27 U/L (17-59); Albumin 2.4 g/dl (3.5-5.0); Alkaline Phosphatase 270 U/L (38-126); Blood Urea Nitrogen 16 mg/dl (9-20); Calcium 7.7 mg/dl (8.4-10.2); Carbon Dioxide 25 mmol/L (22-30); Chloride 106 mmol/L (98-107); Estimated Creatinine Clearance 95 ml/min; Glucose 106 mg/dl (70-99); Potassium 4.1 mmol/L (3.5-5.1); Sodium 133 mmol/L (135-145); Total Bilirubin 0.3 mg/dl (0.2-1.3); Total Protein 4.7 g/dl (6.3-8.2); eGFR > 60.00
[2024-01-25] MEDS: TYLENOL 1000 MG PO ×3 (05:53→21:51)
--- NOTE | 2024-01-25 09:13 | W.PN.ID1 ---
Date of Service
Date of Service: January 25, 2024
Today's Communication
- start keflex after am dose of ceftriaxone; to complete 14 days of therapy through 02/04
Assessment / Plan
Pyelonephritis
Bacteremia
Hematuria
BPH - chronic pringle
CLL
- blood cultures E coli, repeat cultures in progress no growth to date
- urine culture 100K E coli
- three way pringle is new this admission
- start keflex after am dose of ceftriaxone; to complete 14 days of therapy through 02/04
- follow clinically
Chief Complaint
-: Bacteremia and Other (pyelonephritis)
Subjective / Review of Systems
afebrile
bp stable
stable leukocytosis
no left shift
repeat blood cultures no growth to date
no suprapubic tenderness
doesnt like anns choice
Vital Signs / Physical Exam
Vital Signs
Vital Signs
Temp Pulse Resp BP Pulse Ox
99.3 F 78 24 130/81 98
01/25/24 08:32 01/25/24 06:15 01/25/24 06:15 01/25/24 06:00 01/25/24 04:11
Physical Exam
Constitutional: No Acute Distress
Cardiovascular: Regular Rate and S1/S2; Negative Murmur or Rub
Pulmonary: Clear and Symmetric; Negative Wheezes or Rales
Gastrointestinal: Soft, Non Tender, Non Distended and Normal Bowel Sounds
Genito-Urinary: Negative Suprapubic Tenderness
Skin: Warm and Dry; Negative Rash or Jaundice
Neurological: Awake
Objective Data
Lab Data
Lab Results
01/25/24 04:01
01/25/24 04:01
PT 15.4 Sec (11.4-14.6) H 01/23/24 14:32
INR 1.21 01/23/24 14:32
APTT 33.3 Sec (23.4-35.0) 01/23/24 14:32
Estimated Creat Clear 95 ml/min 01/25/24 04:01
Lactic Acid 1.6 mmol/L (0.7-2.0) 01/23/24 14:32
Total Bilirubin 0.3 mg/dl (0.2-1.3) 01/25/24 04:01
AST 27 U/L (17-59) 01/25/24 04:01
ALT 33 U/L (0-50) 01/25/24 04:01
Alkaline Phosphatase 270 U/L (38-126) H 01/25/24 04:01
Most recent labs reviewed.
Micro Results:
01/23/24 08:41 Urine Culture - Final
Urine Escherichia coli
01/23/24 08:41 Blood Culture - Preliminary
Blood/Venous Escherichia coli
Gram Stain - Final
01/23/24 14:32 MRSA Screen - Final
Nose No Methicillin Resistant Staphylococcus aureus isolated.
01/23/24 08:55 Blood Culture - Preliminary
Blood/Venous Escherichia coli
Gram Stain - Final
01/24/24 10:22 Blood Culture - Pending
Blood/Venous
01/24/24 09:28 Blood Culture - Pending
Blood/Venous
01/23/24 08:41 Influenza Types A & B (KOFI) - Final
Nasal Swab Negative for Influenza A & B, NAAT
Negative results must be combined with clinical observations
and patient history.
Nucleic Acid Amplification test (NAAT)performed on the
[employer] platform.
[2024-01-25] MEDS: LIDOCAINE 4% PATCH 1 PATCH TOPICAL (09:42)
[2024-01-25] MEDS: PROTONIX 40 MG PO ×2 (09:43→20:24)
[2024-01-25] MEDS: ROCEPHIN 1000 MG IV (09:43)
[2024-01-25] MEDS: THERAGRAN 1 TABLET PO (09:43)
[2024-01-25] MEDS: MIRALAX 17 GRAMS PO (09:43)
[2024-01-25] MEDS: STERILE WATER FOR INJECTION 10 ML IV (09:44)
--- NOTE | 2024-01-25 10:31 | W.PN.UPDATE ---
Update Note
Progress Note Update
E. Coli urosepsis and bacteremia
Hematuria with clot retention
Acute urinary retention w/ expansion and rapid decompression hematuria
Significant hematuria w/ clot retention improved dramatically after CBI x24 hrs.
UCx => >100k E. Coli
Repeat BCx 01/23 => NG
Recommendation:
- D/c CBI
- Maintain 3-way Otto catheter on discharge (exchange due in 4 weeks)
- Keflex course through 02/04 per ID
- OK to resume aspirin in 24 hrs
- Continue outpatient F/U with Dr. Todd
--- NOTE | 2024-01-25 10:40 | PN.CDI ---
CDI
- -
CDI:
Physician Documentation Request
Admit Date: 01/23/24 11:55
Dear Doctor Moisés,
Clinical Indicators:
Patient admitted with septic shock due urinary tract infection/cystitis/pyelonephritis.
01/22 H &P, 'The patient facility he had Pringle catheter and there was no output yesterday so his catheter was taken out'
01/22 ID consult, 'BPH with chronic pringle...'
01/23 Urology PN, 'Urinary retention Hematuria w/ clot retention...'
Please clarify if there is a relationship between the UTI and chronic pringle catheter:
Yes, UTI is related to/associated with/due to pringle catheter.
No, UTI is not related to/associated with/due to pringle catheter but it is due to ___. (Please specify)
Unable to determine
Use of terms such as suspected, likely, concern for, or probable (associated with a specific diagnosis that is being evaluated, monitored, or treated as if it exists) are acceptable and can be coded in the inpatient setting, when documented at the
time of discharge.
Thank you,
GEOFFREY Yarbrough RN
CDI Specialist
available via tiger text
Please use your independent medical judgment in providing your response.
--- NOTE | 2024-01-25 11:27 | W.PN.HOSP.TC ---
Today's Communication/Plan
-
Monitor vital signs see plan
Follow blood culture
Continue with antibiotics
Maintain Otto
PT/OT
Monitor hemoglobin, leukocytosis
Assessment / Plan
Assessment / Plan
General: Well Nourished and No Apparent Distress
HEENT: Anicteric and Moist mucous membranes
Respiratory: Clear; No Wheezes
Cardiac: S1/S2 and Regular Rhythm
Breast: Deferred by me
GI: Soft, Non Tender and Non Distended
Rectal: Deferred by Provider
Genito-urinary: Bloody Urine and Otto
Musculoskeletal: No Edema
Neuro: Awake, Alert and Oriented
Psych: Calm
Septic shock secondary to urinary tract infection/cystitis/pyelonephritis
It is not clear that patient UTI was related to Otto catheter
Mild TME on admission secondary to above, now improving
Hematuria secondary to above
Follow urine culture, blood culture. Blood culture and urine culture both positive for E. coli. ID following. Continue with ceftriaxone. Check new set of blood culture 01/23 NGTD
now off levophed
Lactic acidosis on admission, resolved
CT scan with mild bilateral hydronephrosis.� Urology following.� No surgery planned at this time per urology
Status post Otto in the ED, started on CBI; CBI per urology; wean CBI; will maintain Otto per urology recommendation
Follows up with Dr. Todd as outpatient
Recent ER visit with suspicion of CVA
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
will restart baby aspirin once ok with urology; per urology restart 01/24
speech evaluated, regular with thin
PT/OT rec SNF; patient and family does not want to previous SNF
Acute blood loss anemia likely secondary to hematuria
some is also hemodilutional
Monitor
Transfuse hemoglobin less than 7
currently on o2 however no hypoxia noted
CXR with suspected atelectasis
monitor
wean o2 as tolerated
Mild hyponatremia
Monitor
Recent small bowel obstruction status post laparoscopic lysis of adhesion on 01/04
History of GI bleed
Depression
History of CAD status post stenting in 2011
Hold aspirin at this time, restart if okay with urology
Hyperlipidemia
History of BPH
Continue doxazosin/finasteride
History of spinal stenosis/chronic lower back pain
Lidocaine patch
Dilaudid as needed, hold for sedation
Essential hypertension
Not on any home meds, currently blood pressure low
History of renal cell cancer, 2008
Monitor
DVTppx
SCD's; heparin or lovenox when ok with urology
DNR, discussed with patient and family at bedside on admission
I spent a total of 52 minutes with the patient or on the floor. More than 50% of this time involved counseling and coordination of care.
Anticipated Discharge: > 48 hours
Subjective/Interval History
-
Date of Service: January 25, 2024
denies pain
Objective Data
-
Labs:
Laboratory Results
01/25/24
04:01
WBC 16.9 H
Hgb 8.9 L
Hct 27.4 L
Plt Count 315
Sodium 133 L
Potassium 4.1
Chloride 106
Carbon Dioxide 25
BUN 16
Creatinine 0.6 L
Glucose 106 H
Calcium 7.7 L
Total Bilirubin 0.3
AST 27
ALT 33
Alkaline Phosphatase 270 H
Vital Signs:
Vital Signs
Temp Pulse Resp BP Pulse Ox
99.3 F 80 23 114/78 96
01/25/24 08:32 01/25/24 10:45 01/25/24 10:45 01/25/24 08:00 01/25/24 10:46
I&O
01/24/24 01/25/24 01/26/24
06:59 06:59 06:59
Intake Total 2620.1 / 2720.1 1060 / 1060
Output Total 3900 / 3900 4950 / 4950
Balance -1279.9 / -1179.9 -3890 / -3890
--- NOTE | 2024-01-25 14:36 | CM ---
CM following re: discharge planning.
Reviewed pt's chart, met with pt.
Pt expressed his desire to return back to [facility] when medically stable.
A referral to [facility] made yesterday.
D/C plan: [facility] when medically stable.
CM will follow with discharge plan updates as hospitalization progresses
--- NOTE | 2024-01-25 16:07 | W.PN.UPDATE ---
Update Note
Progress Note Update
s/p ex-lap SUSIE for SB incarceration in 12/2023 by [place]
s/p CVA event w/ right facial droop 01/20 - patient requested discharge AMA
Clear urine output this AM after CBI weaned from >24 hrs ago until mid-day.
While moving to chair, significant punch-colored output w/ mobilization of clots.
Hand irrigation by RN proved difficult - 3-way catheter exchange recommended by me.
New 24Fr 3-way in place draining well - improving hematuria.
Given new hematuria w/ ambulation (ASA held), suspect transient bleeding from clot mobilization (noted on initial CT imaging).
- Continue CBI and wean overnight as tolerated
- Continue holding ASA
- CBI clamp trial potentially tomorrow AM
- Maintain catheter on discharge
D/w RN.
[2024-01-25] MEDS: CARDURA 8 MG PO (20:13)
[2024-01-25] MEDS: PROSCAR 5 MG PO (20:24)
[2024-01-25] MEDS: LIPITOR 10 MG PO (20:24)
[2024-01-25] MEDS: DILAUDID 0.5 MG IV (20:45)
[2024-01-26] MEDS: KEFLEX 500 MG PO ×5 (05:56→20:31)
[2024-01-26] MEDS: TYLENOL 1000 MG PO ×3 (05:56→20:26)
[2024-01-26 06:00] VITALS: BMI 31.1
[2024-01-26 06:50] LABS: % Basophils 0.2 % (0-2); % Eosinophils 1.3 % (0-6); % Immature Granulocytes 0.9 % (0-0.5); % Lymphocytes 39.7 % (20.5-51.1); % Monocytes 4.5 % (1.7-9.3); % Neutrophils 53.4 % (42.2-75.2); Absolute Eosinophils 0.3 10^3/uL (0-0.7); Absolute Immature Granulocytes 0.2 10^3/uL (0-0.05); Absolute Lymphocytes 7.4 10^3/uL (1.2-3.4); Absolute Monocytes 0.8 10^3/uL (0.1-0.6); Hematocrit 24.3 % (39.0-52.0); Mean Corp Hgb Conc. 32.9 g/dL (33.0-37.0); Mean Corpuscular Hgb 28.2 pg (27.0-31.0); Mean Corpuscular Volume 85.6 fL (80.0-94.0); Mean Platelet Volume 10.3 fL (7.4-10.4); Nucleated Red Blood Cells % 0 % (-); Platelet Count 343 10^3/uL (130-400); Red Blood Cell Count 2.84 10^6/uL (4.70-6.10); Red Cell Dist. Width 13.5 % (11.5-14.5); White Blood Cell Count 18.6 10^3/uL (4.8-10.8)
[2024-01-26 07:00] VITALS: BP 91/61
[2024-01-26 07:40] LABS: ALT (SGPT) 27 U/L (0-50); AST (SGOT) 22 U/L (17-59); Albumin 2.3 g/dl (3.5-5.0); Alkaline Phosphatase 273 U/L (38-126); Blood Urea Nitrogen 15 mg/dl (9-20); Calcium 7.6 mg/dl (8.4-10.2); Carbon Dioxide 27 mmol/L (22-30); Chloride 102 mmol/L (98-107); Estimated Creatinine Clearance 81 ml/min; Glucose 102 mg/dl (70-99); Potassium 4.3 mmol/L (3.5-5.1); Sodium 131 mmol/L (135-145); Total Bilirubin 0.4 mg/dl (0.2-1.3); Total Protein 4.6 g/dl (6.3-8.2); eGFR > 60.00
[2024-01-26] MEDS: MIRALAX 17 GRAMS PO (08:58)
[2024-01-26] MEDS: LIDOCAINE 4% PATCH 1 PATCH TOPICAL (08:58)
[2024-01-26] MEDS: PROTONIX 40 MG PO ×2 (08:59→20:27)
[2024-01-26] MEDS: THERAGRAN 1 TABLET PO (08:59)
[2024-01-26 10:13] LABS: Iron 22 ug/dl (49-181)
[2024-01-26 10:23] LABS: Percent Saturation 12 % (20-50); Total Iron Binding Capacity 173 ug/dl (261-462)
--- NOTE | 2024-01-26 10:41 | W.PN.URO.CBU ---
Today's Communication / Plan
-
Continue antibiotics
Stop CBI at midnight tonight
Keep Otto
Assessment / Plan
-
Urosepsis: petty-sensitive E. coli
Urinary retention
Hematuria w/ clot retention - secondary to distended bladder, decompression hematuria, and hemorrhagic cystitis
Mild bilateral hydroureteronephrosis
WBC 17 (from 15)
Cr wnl
BCx x2 - positive
Clinically improving from septic state on admission.
HDS.
Diagnosis
-
Date of Service: January 26, 2024
-
Patient Diagnosis:
Urosepsis
Urinary retention
Hematuria w/ clot retention - secondary to distended bladder, decompression hematuria, and hemorrhagic cystitis
Mild bilateral hydroureteronephrosis
Subjective
-
No catheter bother
No bladder spasms
Objective
-
Vital Signs
Temp Pulse Resp BP Pulse Ox
98.2 F 94 18 91/61 95
01/26/24 07:00 01/26/24 07:00 01/26/24 07:00 01/26/24 07:00 01/26/24 07:00
Intake and Output
01/25/24 01/26/24 01/27/24
06:59 06:59 06:59
Intake Total 1060 / 1060 240 / 240
Output Total 4950 / 4950 600 / 600 2700 / 2700
Balance -3890 / -3890 -360 / -360 -2700 / -2700
Intake:
Oral fluids 560 / 560 240 / 240
IV fluids (Total) 500 / 500
Nss 1,000 ml @ 100 mls/hr IV . 500 / 500
Q10H AGNES Rx#:[id number]
Output:
True Urine Output from CBI 4950 / 4950 600 / 600 2700 / 2700
Laboratory Results
01/26/24 05:45
01/26/24 05:45
Review of Systems
-
Constitutional: Fatigue
Respiratory: No Symptoms
Cardiac: No Symptoms
Abdomen/GI: No Symptoms
Physical Exam
-
General - well developed, well nourished, no acute distress
Abdomen - soft, non-tender
Genitalia - Chronic scrotal edema, concealed penis, Otto draining clear urine on rapid drip CBI
[2024-01-26] MEDS: DILAUDID 0.5 MG IV (10:44)
--- NOTE | 2024-01-26 12:18 | W.PN.HOSP.TC ---
Today's Communication/Plan
-
Monitor vital signs and see plan
Still with mild hematuria, continue with CBI today
Maintain Otto per urology
Continue with antibiotics
PT/OT
Follow leukocytosis
monitor hgb
Assessment / Plan
Assessment / Plan
General: Well Nourished and No Apparent Distress
HEENT: Anicteric and Moist mucous membranes
Respiratory: Clear; No Wheezes
Cardiac: S1/S2 and Regular Rhythm
Breast: Deferred by me
GI: Soft, Non Tender and Non Distended
Rectal: Deferred by Provider
Genito-urinary: Bloody Urine and Otto
Musculoskeletal: No Edema
Neuro: Awake, Alert and Oriented
Psych: Calm
Septic shock secondary to urinary tract infection/cystitis/pyelonephritis
It is not clear that patient UTI was related to Otto catheter
Mild TME on admission secondary to above, now improving
Hematuria secondary to above
Follow urine culture, blood culture. Blood culture and urine culture both positive for E. coli. ID following. Now on Keflex. new set of blood culture 01/23 NGTD
now off levophed
Lactic acidosis on admission, resolved
CT scan with mild bilateral hydronephrosis.� Urology following.� No surgery planned at this time per urology
Status post Otto in the ED, started on CBI; CBI per urology; wean CBI; will maintain Otto per urology recommendation
Follows up with Dr. Todd as outpatient
Recent ER visit with suspicion of CVA
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
will restart baby aspirin once ok with urology; per urology restart 01/24
speech evaluated, regular with thin
PT/OT rec SNF; patient and family does not want to previous SNF
Acute blood loss anemia likely secondary to hematuria
hgb 8
Monitor
Transfuse hemoglobin less than 7
currently on o2 however no hypoxia noted
CXR with suspected atelectasis
monitor
wean o2 as tolerated
Mild hyponatremia
Monitor
Recent small bowel obstruction status post laparoscopic lysis of adhesion on 01/04
History of GI bleed
Depression
History of CAD status post stenting in 2011
Hold aspirin at this time, restart if okay with urology
Hyperlipidemia
History of BPH
Continue doxazosin/finasteride
History of spinal stenosis/chronic lower back pain
Lidocaine patch
Dilaudid as needed, hold for sedation
Essential hypertension
Not on any home meds, currently blood pressure low
History of renal cell cancer, 2008
Monitor
DVTppx
SCD's; heparin or lovenox when ok with urology
DNR, discussed with patient and family at bedside on admission
I spent a total of 53 minutes with the patient or on the floor. More than 50% of this time involved counseling and coordination of care.
Anticipated Discharge: 24 - 48 hours
Subjective/Interval History
-
Date of Service: January 26, 2024
Denies pain
Objective Data
-
Labs:
Laboratory Results
01/26/24
05:45
WBC 18.6 H
Hgb 8.0 L
Hct 24.3 L
Plt Count 343
Sodium 131 L
Potassium 4.3
Chloride 102
Carbon Dioxide 27
BUN 15
Creatinine 0.7
Glucose 102 H
Calcium 7.6 L
Total Bilirubin 0.4
AST 22
ALT 27
Alkaline Phosphatase 273 H
Vital Signs:
Vital Signs
Temp Pulse Resp BP Pulse Ox
98.2 F 94 18 91/61 95
01/26/24 07:00 01/26/24 07:00 01/26/24 07:00 01/26/24 07:00 01/26/24 07:00
I&O
01/25/24 01/26/24 01/27/24
06:59 06:59 06:59
Intake Total 1060 / 1060 240 / 240
Output Total 4950 / 4950 600 / 600 2700 / 2700
Balance -3890 / -3890 -360 / -360 -2700 / -2700
[2024-01-26 12:22] LABS: Folate 16.3 ng/ml (2.76-20); Vitamin B12 363 pg/ml (239-931)
[2024-01-26 15:00] VITALS: BP 106/68
[2024-01-26 17:02] VITALS: BP 106/68; PULSE 89
[2024-01-26] MEDS: CARDURA 8 MG PO (20:24)
[2024-01-26] MEDS: PROSCAR 5 MG PO (20:24)
[2024-01-26] MEDS: LIPITOR 10 MG PO (20:32)
[2024-01-26 23:06] VITALS: BP 99/64
[2024-01-27] VITALS (7 sets, daily range): BP systolic 104–130; BP diastolic 64–70; BMI 29.4
--- NOTE | 2024-01-27 01:54 | W.PN.UPDATE ---
Update Note
Progress Note Update
RN reports pt still with blood urine with clots. Pt on CBI and urology wrote to clamp CBI at midnight. but with ongoing bloody urine and clots will hold off on clamping at this time.
Attempt was made by dayshift to slow CBI rate which resulted in return on hematuria and clots.
[2024-01-27] MEDS: TYLENOL PO (06:21)
[2024-01-27] MEDS: TYLENOL 1000 MG PO ×3 (06:29→21:55)
[2024-01-27 07:42] LABS: % Basophils 0.3 % (0-2); % Immature Granulocytes 0.8 % (0-0.5); % Lymphocytes 47.6 % (20.5-51.1); % Monocytes 5.5 % (1.7-9.3); % Neutrophils 43.8 % (42.2-75.2); Absolute Basophils 0.1 10^3/uL (0-0.2); Absolute Eosinophils 0.4 10^3/uL (0-0.7); Absolute Immature Granulocytes 0.1 10^3/uL (0-0.05); Absolute Lymphocytes 8.5 10^3/uL (1.2-3.4); Absolute Neutrophils 7.8 10^3/uL (1.4-6.5); Hematocrit 22.8 % (39.0-52.0); Hemoglobin 7.6 g/dL (13.0-18.0); Mean Corp Hgb Conc. 33.3 g/dL (33.0-37.0); Mean Corpuscular Hgb 28.4 pg (27.0-31.0); Mean Corpuscular Volume 85.1 fL (80.0-94.0); Mean Platelet Volume 10.2 fL (7.4-10.4); Nucleated Red Blood Cells % 0 % (-); Platelet Count 358 10^3/uL (130-400); Red Blood Cell Count 2.68 10^6/uL (4.70-6.10); Red Cell Dist. Width 13.4 % (11.5-14.5); White Blood Cell Count 17.8 10^3/uL (4.8-10.8)
[2024-01-27] MEDS: LIDOCAINE 4% PATCH 1 PATCH TOPICAL (07:45)
[2024-01-27] MEDS: PROTONIX 40 MG PO ×2 (07:45→20:41)
[2024-01-27] MEDS: THERAGRAN 1 TABLET PO (07:46)
[2024-01-27] MEDS: KEFLEX 500 MG PO ×4 (07:46→21:55)
[2024-01-27] MEDS: MIRALAX 17 GRAMS PO (07:46)
[2024-01-27 08:06] LABS: ALT (SGPT) 25 U/L (0-50); AST (SGOT) 25 U/L (17-59); Albumin 2.4 g/dl (3.5-5.0); Alkaline Phosphatase 234 U/L (38-126); Blood Urea Nitrogen 14 mg/dl (9-20); Calcium 7.7 mg/dl (8.4-10.2); Carbon Dioxide 26 mmol/L (22-30); Chloride 104 mmol/L (98-107); Estimated Creatinine Clearance 71 ml/min; Glucose 95 mg/dl (70-99); Potassium 4.4 mmol/L (3.5-5.1); Sodium 133 mmol/L (135-145); Total Bilirubin 0.3 mg/dl (0.2-1.3); Total Protein 4.7 g/dl (6.3-8.2); eGFR > 60.00
--- NOTE | 2024-01-27 11:29 | W.PN.HOSP.TC ---
Today's Communication/Plan
-
Monitor vital signs and see plan
Continue with antibiotics
Still with ongoing hematuria, CBI ongoing. Management per urology
PT/OT
Monitor leukocytosis
Transfuse 1 unit blood today
Assessment / Plan
Assessment / Plan
General: Well Nourished and No Apparent Distress
HEENT: Anicteric and Moist mucous membranes
Respiratory: Clear; No Wheezes
Cardiac: S1/S2 and Regular Rhythm
Breast: Deferred by me
GI: Soft, Non Tender and Non Distended
Rectal: Deferred by Provider
Genito-urinary: Bloody Urine and Otto
Musculoskeletal: No Edema
Neuro: Awake, Alert
Psych: Calm
Septic shock secondary to urinary tract infection/cystitis/pyelonephritis
It is not clear that patient UTI was related to Otto catheter
Mild TME on admission secondary to above, now improving
Hematuria secondary to above
Follow urine culture, blood culture. Blood culture and urine culture both positive for E. coli. ID following. Now on Keflex. new set of blood culture 01/23 NGTD
now off levophed
Lactic acidosis on admission, resolved
CT scan with mild bilateral hydronephrosis.� Urology following.� No surgery planned at this time per urology
Status post Otto in the ED, started on CBI; CBI per urology; wean CBI; will maintain Otto per urology recommendation; overnight still bleeding, continue with CBI
Follows up with Dr. Todd as outpatient
Monitor leukocytosis
Recent ER visit with suspicion of CVA
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 I asked patient regarding MRI and he refused
will restart baby aspirin once ok with urology
speech evaluated, regular with thin
PT/OT rec SNF; patient and family does not want to previous SNF
Acute blood loss anemia likely secondary to hematuria
hgb 7.6 today; given still has hematuria we will transfuse 1 unit blood
Monitor
Transfuse hemoglobin less than 7
currently on o2 however no hypoxia noted
CXR with suspected atelectasis
monitor
resolved
Mild hyponatremia
Monitor
Recent small bowel obstruction status post laparoscopic lysis of adhesion on 01/04
History of GI bleed
Depression
History of CAD status post stenting in 2011
Hold aspirin at this time, restart if okay with urology
Hyperlipidemia
History of BPH
Continue doxazosin/finasteride
History of spinal stenosis/chronic lower back pain
Lidocaine patch
Dilaudid as needed, hold for sedation
Suspect some cognitive impairment
Monitor
Essential hypertension
Not on any home meds, currently blood pressure low
History of renal cell cancer, 2008
Monitor
DVTppx
SCD's; heparin or lovenox when ok with urology
DNR, discussed with patient and family at bedside on admission
I spent a total of 52 minutes with the patient or on the floor. More than 50% of this time involved counseling and coordination of care.
Anticipated Discharge: > 48 hours
Subjective/Interval History
-
Date of Service: January 27, 2024
Still continues to have hematuria
Objective Data
-
Labs:
Laboratory Results
01/27/24
06:33
WBC 17.8 H
Hgb 7.6 L
Hct 22.8 L
Plt Count 358
Sodium 133 L
Potassium 4.4
Chloride 104
Carbon Dioxide 26
BUN 14
Creatinine 0.7
Glucose 95
Calcium 7.7 L
Total Bilirubin 0.3
AST 25
ALT 25
Alkaline Phosphatase 234 H
Vital Signs:
Vital Signs
Temp Pulse Resp BP Pulse Ox
98.4 F 88 18 112/66 96
01/27/24 07:00 01/27/24 07:00 01/27/24 07:00 01/27/24 07:00 01/27/24 07:00
I&O
01/26/24 01/27/24 01/28/24
06:59 06:59 06:59
Intake Total 240 / 240 1140 / 1140
Output Total 600 / 600 3750 / 3750 550 / 550
Balance -360 / -360 -2610 / -2610 -550 / -550
--- NOTE | 2024-01-27 12:05 | W.PN.URO.CBU ---
Today's Communication / Plan
-
Continue CBI
May require transfusion should Hgb drop further
Assessment / Plan
-
Urosepsis: petty-sensitive E. coli
Persistent leukocytosis
Urinary retention; normal renal function
Hematuria w/ clot retention - secondary to distended bladder, decompression hematuria, and hemorrhagic cystitis
Mild bilateral hydroureteronephrosis, low set kidneys and a pelvic calification adjacent to the left UO which appears extra-vesical
BCx x2 - positive
Clinically improving from septic state on admission.
HDS.
Diagnosis
-
Date of Service: January 27, 2024
-
Patient Diagnosis:
Urosepsis
Urinary retention
Hematuria w/ clot retention - secondary to distended bladder, decompression hematuria, and hemorrhagic cystitis
Mild bilateral hydroureteronephrosis with near-pelvic kidneys bilaterally and a looping left ureter that appears to partially enter LIH. Ca++ at left UVJ appears extra-ureteral
Subjective
-
Comfortable
No catheter bother
Objective
-
Vital Signs
Temp Pulse Resp BP Pulse Ox
98.4 F 88 18 112/66 96
01/27/24 07:00 01/27/24 07:00 01/27/24 07:00 01/27/24 07:00 01/27/24 07:00
Intake and Output
01/26/24 01/27/24 01/28/24
06:59 06:59 06:59
Intake Total 240 / 240 1140 / 1140
Output Total 600 / 600 3750 / 3750 550 / 550
Balance -360 / -360 -2610 / -2610 -550 / -550
Intake:
Oral fluids 240 / 240 1140 / 1140
Output:
True Urine Output from CBI 600 / 600 3750 / 3750 550 / 550
Laboratory Results
01/27/24 06:33
01/27/24 06:33
Review of Systems
-
Constitutional: No Symptoms
Respiratory: No Symptoms
Cardiac: No Symptoms
Abdomen/GI: No Symptoms
: Difficulty Voiding and Bleeding
Physical Exam
-
Abdomen - soft, non-tender
Genitalia - normal with Otto draining light punch colored urine on moderate drip CBI
Neuro - AOx3, no motor deficits
Counseling
-
Follow Hgb: transfuse as needed (discussed with Hospitalist)
[2024-01-27] MEDS: LIPITOR 10 MG PO (20:41)
[2024-01-27] MEDS: CARDURA 8 MG PO (20:41)
[2024-01-27] MEDS: PROSCAR 5 MG PO (20:41)
[2024-01-27 22:46] LABS: Transferrin 115 mg/dL (200-360)
[2024-01-28 06:00] VITALS: BMI 30.2
[2024-01-28] MEDS: TYLENOL 1000 MG PO ×3 (06:13→20:24)
[2024-01-28 07:00] VITALS: BP 102/68
[2024-01-28 07:19] LABS: % Basophils 0.4 % (0-2); % Eosinophils 2.4 % (0-6); % Immature Granulocytes 1.5 % (0-0.5); % Lymphocytes 51.8 % (20.5-51.1); % Monocytes 4.2 % (1.7-9.3); % Neutrophils 39.7 % (42.2-75.2); Absolute Basophils 0.1 10^3/uL (0-0.2); Absolute Eosinophils 0.5 10^3/uL (0-0.7); Absolute Immature Granulocytes 0.3 10^3/uL (0-0.05); Absolute Lymphocytes 9.8 10^3/uL (1.2-3.4); Absolute Monocytes 0.8 10^3/uL (0.1-0.6); Absolute Neutrophils 7.5 10^3/uL (1.4-6.5); Hematocrit 27.2 % (39.0-52.0); Mean Corp Hgb Conc. 32.4 g/dL (33.0-37.0); Mean Corpuscular Volume 86.6 fL (80.0-94.0); Mean Platelet Volume 10.1 fL (7.4-10.4); Nucleated Red Blood Cells % 0 % (-); Platelet Count 377 10^3/uL (130-400); Red Blood Cell Count 3.14 10^6/uL (4.70-6.10); Red Cell Dist. Width 13.7 % (11.5-14.5)
[2024-01-28] MEDS: LIDOCAINE 4% PATCH 1 PATCH TOPICAL (07:42)
[2024-01-28] MEDS: THERAGRAN 1 TABLET PO (07:42)
[2024-01-28] MEDS: KEFLEX 500 MG PO ×4 (07:42→21:34)
[2024-01-28] MEDS: PROTONIX 40 MG PO ×2 (07:42→20:25)
[2024-01-28] MEDS: MIRALAX 17 GRAMS PO (07:42)
[2024-01-28 07:43] LABS: ALT (SGPT) 32 U/L (0-50); AST (SGOT) 31 U/L (17-59); Albumin 2.4 g/dl (3.5-5.0); Alkaline Phosphatase 225 U/L (38-126); Blood Urea Nitrogen 14 mg/dl (9-20); Calcium 7.9 mg/dl (8.4-10.2); Carbon Dioxide 27 mmol/L (22-30); Chloride 100 mmol/L (98-107); Estimated Creatinine Clearance 94 ml/min; Glucose 105 mg/dl (70-99); Potassium 4.3 mmol/L (3.5-5.1); Sodium 132 mmol/L (135-145); Total Bilirubin 0.4 mg/dl (0.2-1.3); Total Protein 4.8 g/dl (6.3-8.2); eGFR > 60.00
[2024-01-28 07:48] LABS: Hemoglobin 8.8 g/dL (13.0-18.0)
--- NOTE | 2024-01-28 08:52 | W.PN.URO.CBU ---
Today's Communication / Plan
-
Continue CBI and antibiotics
Assessment / Plan
-
Urosepsis: petty-sensitive E. coli
Persistent leukocytosis
Urinary retention; normal renal function
Hematuria w/ clot retention - secondary to distended bladder, decompression hematuria, and hemorrhagic cystitis
Mild bilateral hydroureteronephrosis, low set kidneys and a pelvic calification adjacent to the left UO which appears extra-vesical
BCx x2 - positive
Clinically improving from septic state on admission.
Hematuria slowly clearing
Diagnosis
-
Date of Service: January 28, 2024
-
Patient Diagnosis:
Urosepsis
Urinary retention
Hematuria w/ clot retention - secondary to distended bladder, decompression hematuria, and hemorrhagic cystitis
Mild bilateral hydroureteronephrosis with near-pelvic kidneys bilaterally and a looping left ureter that appears to partially enter LIH. Ca++ at left UVJ appears extra-ureteral
Subjective
-
Resting comfortably
No catheter bother
Objective
-
Vital Signs
Temp Pulse Resp BP Pulse Ox
98.2 F 85 18 102/68 96
01/28/24 07:00 01/28/24 07:00 01/28/24 07:00 01/28/24 07:00 01/28/24 07:00
Intake and Output
01/27/24 01/28/24 01/29/24
06:59 06:59 06:59
Intake Total 1140 / 1140 1330 / 1330
Output Total 3750 / 3750 3250 / 3250
Balance -2610 / -2610 -1920 / -1920
Intake:
Oral fluids 1140 / 1140 1080 / 1080
Blood Product Amount Infused ( 250 / 250
mL)
Packed Rbc Leukoreduced Unit 250 / 250
[id number]
Output:
True Urine Output from CBI 3750 / 3750 3250 / 3250
Laboratory Results
01/28/24 06:44
01/28/24 06:44
Review of Systems
-
Constitutional: Fatigue
Respiratory: No Symptoms
Cardiac: No Symptoms
Abdomen/GI: No Symptoms
: Bleeding
Neurological: No Symptoms
Physical Exam
-
General - well nourished, no acute distress
Abdomen - soft, non-tender
Genitalia - normal wit Otto draining light punch on slow drip CBI
Skin - warm & dry with no rash
--- NOTE | 2024-01-28 09:02 | PTCARENOTE ---
pt aaox3. states no pain. pt one person assist turn. [employer] of . [address] p[address]le in place with cbi running. urine bloody no clots noted.
--- NOTE | 2024-01-28 10:13 | W.PN.HOSP.TC ---
Today's Communication/Plan
-
see bold
Assessment / Plan
Assessment / Plan
Gen: NAD, Awake and alert
Eyes: EOMI, PERRLA, no scleral icterus.
Neck: supple.
CV: RRR, +S1/S2, no m/r/g.
Resp: CTAB, no rales, wheezes, or rhonchi.
Abd: +BS, soft, NT, ND
Skin: No rashes.
: Otto bag with punch colored urine
Neuro: CN 2-12 intact, non-focal.
Psych: Normal mood and affect.
01/24/24 09:28 Blood/Venous Blood Culture - Preliminary
No Growth in 4 days- Final report to follow
01/24/24 10:22 Blood/Venous Blood Culture - Preliminary
No Growth in 72 hours- Final report to follow
01/23/24 08:55 Blood/Venous Blood Culture - Final
Escherichia coli
01/23/24 08:55 Blood/Venous Gram Stain - Final
01/23/24 08:41 Blood/Venous Blood Culture - Final
Escherichia coli
01/23/24 08:41 Blood/Venous Gram Stain - Final
01/23/24 08:41 Urine Urine Culture - Final
Escherichia coli
01/23/24 14:32 Nose MRSA Screen - Final
No Methicillin Resistant Staphylococcus aureus isolated.
01/23/24 08:41 Nasal Swab Influenza Types A & B (KOFI) - Final
Negative for Influenza A & B, NAAT
Negative results must be combined with clinical observations
and patient history.
Nucleic Acid Amplification test (NAAT)performed on the
[employer] platform.
Septic shock secondary to urinary tract infection/cystitis/pyelonephritis
It is not clear that patient UTI was related to Otto catheter
Mild TME on admission secondary to above, now improving
Hematuria secondary to above
Follow urine culture, blood culture. Blood culture and urine culture both positive for E. coli. ID following. Now on Keflex. new set of blood culture 01/23 NGTD
now off levophed
Lactic acidosis on admission, resolved
CT scan with mild bilateral hydronephrosis.� Urology following.� No surgery planned at this time per urology
Status post Otto in the ED, started on CBI; CBI per urology; wean CBI; will maintain Otto per urology recommendation; continue with CBI
Follows up with Dr. Todd as outpatient
Monitor leukocytosis (slightly higher than last few days)
Recent ER visit with suspicion of CVA
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 I asked patient regarding MRI and he refused
will restart baby aspirin once ok with urology. cont statin.
speech evaluated, regular with thin
PT/OT rec SNF; patient and family does not want to previous SNF
Acute blood loss anemia likely secondary to hematuria
s/p 1U pRBCs on 01/27/24
Monitor
Transfuse hemoglobin less than 7
Mild hyponatremia
Monitor
Recent small bowel obstruction status post laparoscopic lysis of adhesion on 01/04
History of GI bleed
Depression
History of CAD status post stenting in 2011
Hold aspirin at this time, restart when okay with urology
Hyperlipidemia
History of BPH
Continue doxazosin/finasteride
History of spinal stenosis/chronic lower back pain
Lidocaine patch
Dilaudid as needed, hold for sedation
Suspect some cognitive impairment
Monitor
Essential hypertension
Not on any home meds, currently blood pressure low
History of renal cell cancer, 2008
Monitor
DVTppx
SCD's; heparin or lovenox when ok with urology
DNR, discussed with patient and family at bedside on admission
Pt's son updated at bedside.
Anticipated Discharge: 24 - 48 hours
Subjective/Interval History
-
Date of Service: January 28, 2024
Denies CP/SOB/abd pain.
Objective Data
-
Labs:
Laboratory Results
01/28/24
06:44
WBC 19.0 H
Hgb 8.8 L
Hct 27.2 L
Plt Count 377
Sodium 132 L
Potassium 4.3
Chloride 100
Carbon Dioxide 27
BUN 14
Creatinine 0.6 L
Glucose 105 H
Calcium 7.9 L
Total Bilirubin 0.4
AST 31
ALT 32
Alkaline Phosphatase 225 H
Vital Signs:
Vital Signs
Temp Pulse Resp BP Pulse Ox
98.2 F 85 18 102/68 96
01/28/24 07:00 01/28/24 07:00 01/28/24 07:00 01/28/24 07:00 01/28/24 07:00
I&O
01/27/24 01/28/24 01/29/24
06:59 06:59 06:59
Intake Total 1140 / 1140 1330 / 1330
Output Total 3750 / 3750 3250 / 3250 650 / 650
Balance -2610 / -2610 -1920 / -1920 -650 / -650
[2024-01-28 11:20] VITALS: BP 104/67; PULSE 80; O2SAT 97
[2024-01-28 11:25] VITALS: BP 104/67; PULSE 78; O2SAT 97
--- NOTE | 2024-01-28 11:37 | WOUNDNOTE ---
SAIRA RN note: Patient admitted with sepsis and UTI/hematuria.
See H&P for complete history. From [facility].
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
Wound Location and type/assessment: Patient admitted with: Non blanchable purple area to L buttock, suspect DTI vs evolving stage 2 PI. Has scattered MASD to remainder of buttocks. CBI in use via pringle. Chronic discolored skin on buttocks, patient
confirmed he sits allot where he lives, does not recall using a cushion. Turned patient with assist from nurse Kyle, patient attempted to assist. Heels are blanchable and intact.
Appetite: Good. Encourage protein in diet.
Pressure redistribution devices in place: On air overlay, easy to turn, repositioned onto R semi side lying position. Pillow placed under calves. Air chair cushion when sitting, can take upon discharge.
Plan: Silicone foam applied to L buttock, remainder of buttocks applied barrier cream. Instructed nurse Kyle can stay on air overlay, palm check done with adequate inflation. Reviewed with nurse how to do palm check and importance of strict turning
schedule. If patient refuses to turn recommend getting air mattress from [employer].
Will confirm orders with hospitalist and updated nurse.
Updated care plan and will follow as needed.
Note to case management of equipment requested for discharge: Air mattress.
Recommend follow up at wound care center upon discharge if needed.
[2024-01-28 13:17] VITALS: BMI 30.2
[2024-01-28 15:00] VITALS: BP 112/63
[2024-01-28] MEDS: DILAUDID 0.5 MG IV (15:26)
[2024-01-28] MEDS: CARDURA 8 MG PO (20:25)
[2024-01-28] MEDS: PROSCAR 5 MG PO (20:25)
[2024-01-28] MEDS: LIPITOR 10 MG PO (20:25)
[2024-01-29 00:10] VITALS: BP 105/71
[2024-01-29] MEDS: TYLENOL 1000 MG PO ×3 (05:50→20:24)
[2024-01-29 06:00] VITALS: BMI 29.6
[2024-01-29 07:01] VITALS: BP 108/66
[2024-01-29 07:17] LABS: % Basophils 0.4 % (0-2); % Eosinophils 2.7 % (0-6); % Immature Granulocytes 1.6 % (0-0.5); % Lymphocytes 53.3 % (20.5-51.1); % Monocytes 3.7 % (1.7-9.3); % Neutrophils 38.3 % (42.2-75.2); Absolute Basophils 0.1 10^3/uL (0-0.2); Absolute Eosinophils 0.6 10^3/uL (0-0.7); Absolute Immature Granulocytes 0.3 10^3/uL (0-0.05); Absolute Lymphocytes 11.3 10^3/uL (1.2-3.4); Absolute Monocytes 0.8 10^3/uL (0.1-0.6); Absolute Neutrophils 8.1 10^3/uL (1.4-6.5); Hematocrit 27.6 % (39.0-52.0); Hemoglobin 8.8 g/dL (13.0-18.0); Mean Corp Hgb Conc. 31.9 g/dL (33.0-37.0); Mean Corpuscular Hgb 27.8 pg (27.0-31.0); Mean Corpuscular Volume 87.1 fL (80.0-94.0); Mean Platelet Volume 10.1 fL (7.4-10.4); Nucleated Red Blood Cells % 0 % (-); Platelet Count 386 10^3/uL (130-400); Red Blood Cell Count 3.17 10^6/uL (4.70-6.10); Red Cell Dist. Width 13.7 % (11.5-14.5); White Blood Cell Count 21.2 10^3/uL (4.8-10.8)
[2024-01-29 07:39] LABS: ALT (SGPT) 38 U/L (0-50); AST (SGOT) 33 U/L (17-59); Albumin 2.5 g/dl (3.5-5.0); Alkaline Phosphatase 222 U/L (38-126); Blood Urea Nitrogen 11 mg/dl (9-20); Carbon Dioxide 26 mmol/L (22-30); Chloride 103 mmol/L (98-107); Estimated Creatinine Clearance 79 ml/min; Glucose 99 mg/dl (70-99); Potassium 4.5 mmol/L (3.5-5.1); Sodium 132 mmol/L (135-145); Total Bilirubin 0.4 mg/dl (0.2-1.3); Total Protein 4.9 g/dl (6.3-8.2); eGFR > 60.00
[2024-01-29] MEDS: PROTONIX 40 MG PO ×2 (08:40→20:28)
[2024-01-29] MEDS: KEFLEX 500 MG PO ×4 (08:40→21:55)
[2024-01-29] MEDS: LIDOCAINE 4% PATCH 1 PATCH TOPICAL (08:41)
[2024-01-29] MEDS: MIRALAX 17 GRAMS PO (08:41)
[2024-01-29] MEDS: THERAGRAN 1 TABLET PO (08:41)
--- NOTE | 2024-01-29 09:54 | CM ---
Reviewed chart, plan remains for patient to transfer to the [facility] when medically cleared for discharge.
Plan: Case management will continue to follow and assist with discharge planning/[facility] when stable for discharge.
--- NOTE | 2024-01-29 11:04 | W.PN.HOSP.TC ---
Today's Communication/Plan
-
Monitor vitals
See plan
Monitor leukocytosis
Still with hematuria, CBI per urology
Continue antibiotics
Assessment / Plan
Assessment / Plan
Gen: NAD, Awake and alert
Eyes: EOMI, PERRLA, no scleral icterus.
Neck: supple.
CV: RRR, +S1/S2, no m/r/g.
Resp: CTAB, no rales, wheezes, or rhonchi.
Abd: +BS, soft, NT, ND
Skin: No rashes.
: Otto bag with punch colored urine
Neuro: CN 2-12 intact, non-focal.
Psych: Normal mood and affect.
01/24/24 09:28 Blood/Venous Blood Culture - Preliminary
No Growth in 4 days- Final report to follow
01/24/24 10:22 Blood/Venous Blood Culture - Preliminary
No Growth in 72 hours- Final report to follow
01/23/24 08:55 Blood/Venous Blood Culture - Final
Escherichia coli
01/23/24 08:55 Blood/Venous Gram Stain - Final
01/23/24 08:41 Blood/Venous Blood Culture - Final
Escherichia coli
01/23/24 08:41 Blood/Venous Gram Stain - Final
01/23/24 08:41 Urine Urine Culture - Final
Escherichia coli
01/23/24 14:32 Nose MRSA Screen - Final
No Methicillin Resistant Staphylococcus aureus isolated.
01/23/24 08:41 Nasal Swab Influenza Types A & B (KOFI) - Final
Negative for Influenza A & B, NAAT
Negative results must be combined with clinical observations
and patient history.
Nucleic Acid Amplification test (NAAT)performed on the
[employer] platform.
Septic shock secondary to urinary tract infection/cystitis/pyelonephritis
It is not clear that patient UTI was related to Otto catheter
Mild TME on admission secondary to above, now improving
Hematuria secondary to above
Follow urine culture, blood culture. Blood culture and urine culture both positive for E. coli. ID following. Now on Keflex. new set of blood culture 01/23 NGTD
now off levophed
Lactic acidosis on admission, resolved
CT scan with mild bilateral hydronephrosis.� Urology following.� No surgery planned at this time per urology
Status post Otto in the ED, started on CBI; CBI per urology; wean CBI; will maintain Otto per urology recommendation; continue with CBI
Follows up with Dr. Todd as outpatient
Monitor leukocytosis (slightly higher than last few days)
Recent ER visit with suspicion of CVA
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 I asked patient regarding MRI and he refused
will restart baby aspirin once ok with urology. cont statin.
speech evaluated, regular with thin
PT/OT rec SNF; patient and family does not want to previous SNF
Acute blood loss anemia likely secondary to hematuria
s/p 1U pRBCs on 01/27/24
Monitor
Transfuse hemoglobin less than 7
Mild hyponatremia
Monitor
Recent small bowel obstruction status post laparoscopic lysis of adhesion on 01/04
History of GI bleed
Depression
History of CAD status post stenting in 2011
Hold aspirin at this time, restart when okay with urology
Hyperlipidemia
History of BPH
Continue doxazosin/finasteride
History of spinal stenosis/chronic lower back pain
Lidocaine patch
Dilaudid as needed, hold for sedation
Suspect some cognitive impairment
Monitor
Essential hypertension
Not on any home meds, currently blood pressure low
History of renal cell cancer, 2008
Monitor
DVTppx
SCD's; heparin or lovenox when ok with urology
DNR, discussed with patient and family at bedside on admission
I spent a total of 52 minutes with the patient or on the floor. More than 50% of this time involved counseling and coordination of care.
Anticipated Discharge: 24 - 48 hours
Subjective/Interval History
-
Date of Service: January 29, 2024
Still has hematuria
Objective Data
-
Labs:
Laboratory Results
01/29/24
06:32
WBC 21.2 H
Hgb 8.8 L
Hct 27.6 L
Plt Count 386
Sodium 132 L
Potassium 4.5
Chloride 103
Carbon Dioxide 26
BUN 11
Creatinine 0.7
Glucose 99
Calcium 8.0 L
Total Bilirubin 0.4
AST 33
ALT 38
Alkaline Phosphatase 222 H
Vital Signs:
Vital Signs
Temp Pulse Resp BP Pulse Ox
97.9 F 84 18 108/66 95
01/29/24 07:01 01/29/24 07:01 01/29/24 07:01 01/29/24 07:01 01/29/24 07:01
I&O
01/28/24 01/29/24 01/30/24
06:59 06:59 06:59
Intake Total 1330 / 1330 720 / 720
Output Total 3250 / 3250 3050 / 3050
Balance -1920 / -1920 -2330 / -2330
--- NOTE | 2024-01-29 12:15 | W.PN.URO.CBU ---
Today's Communication / Plan
-
Continue CBI
Would consider repeat cultures as leukocytosis persists
Assessment / Plan
-
Urosepsis: petty-sensitive E. coli
Persistent leukocytosis
Urinary retention; normal renal function
Hematuria w/ clot retention - secondary to distended bladder, decompression hematuria, and hemorrhagic cystitis
Mild bilateral hydroureteronephrosis, low set kidneys and a pelvic calcification adjacent to the left UO which appears extra-vesical
BCx x2 - positive
Clinically improving from septic state on admission but has persistent leukocytosis
Hematuria slowly clearing: catheter hand irrigated 01/29/24 with recovery of lysing clot
Diagnosis
-
Date of Service: January 29, 2024
-
Patient Diagnosis:
Urosepsis
Urinary retention
Hematuria w/ clot retention - secondary to distended bladder, decompression hematuria, and hemorrhagic cystitis
Mild bilateral hydroureteronephrosis with near-pelvic kidneys bilaterally and a looping left ureter that appears to partially enter LIH. Ca++ at left UVJ appears extra-ureteral
Subjective
-
Comfortable
No SP pain
No catheter bother
Objective
-
Vital Signs
Temp Pulse Resp BP Pulse Ox
97.9 F 84 18 108/66 95
01/29/24 07:01 01/29/24 07:01 01/29/24 07:01 01/29/24 07:01 01/29/24 07:01
Intake and Output
01/28/24 01/29/24 01/30/24
06:59 06:59 06:59
Intake Total 1330 / 1330 720 / 720
Output Total 3250 / 3250 3050 / 3050
Balance -1920 / -1920 -2330 / -2330
Intake:
Oral fluids 1080 / 1080 720 / 720
Blood Product Amount Infused ( 250 / 250
mL)
Packed Rbc Leukoreduced Unit 250 / 250
[id number]
Output:
True Urine Output from CBI 3250 / 3250 3050 / 3050
Laboratory Results
01/29/24 06:32
01/29/24 06:32
Review of Systems
-
Constitutional: Fatigue
Respiratory: No Symptoms
Cardiac: No Symptoms
Abdomen/GI: No Symptoms
: Bleeding
Physical Exam
-
General - no acute distress
Abdomen - soft, non-tender
Genitalia - normal with Otto draining light punch urine of slow drip CBI
[2024-01-29 15:05] VITALS: BP 102/62
--- NOTE | 2024-01-29 15:41 | PN.CDI ---
CDI
- -
CDI:
Physician Documentation Request
Admit Date: 01/23/24 11:55
Dear Doctor Moisés,
Clinical Indicators:
Patient admitted with septic shock due urinary tract infection/cystitis/pyelonephritis.
01/27 WOC RN Skin/wound assessment: Left Gluteal Cleft, Deep Tissue Injury
Treatment: Silicone Border Foam dressing
Physician documentation of the type and location of wounds is required for compliant documentation. Based on the above clinical findings and your assessment, please provide the following in your progress note:
1. Location of the ulcer/wound, including laterality.
2. Type (etiology) of ulcer/wound:
- Pressure (decubitus) ulcer
- Other, please specify
- Unable to determine
3. If a pressure ulcer, please also include the stage* of the ulcer:
- Stage 1 - Skin intact, non-blanchable redness
- Stage 2 - Partial thickness loss of dermis, includes intact or open blister
- Stage 3 - Full thickness tissue not including bone, tendon or muscle
- Stage 4 - Full thickness tissue loss, including exposed bone, tendon or muscle
- Unstageable - Full thickness loss in which the base of the ulcer is covered by slough (yellow, rodriguez, capone, green or brown) and/or eschar (rodriguez, brown or black) in the wound bed.
- Unable to determine
Use of terms such as suspected, likely, concern for, or probable (associated with a specific diagnosis that is being evaluated, monitored, or treated as if it exists) are acceptable and can be coded in the inpatient setting, when documented at the
time of discharge.
Thank you,
GEOFFREY Yarbrough RN
CDI Specialist
available via tiger text
Please use your independent medical judgment in providing your response.
*Source: National Pressure Ulcer Advisory Panel (NPUAP)
[2024-01-29 15:42] VITALS: BP 102/62; PULSE 96; O2SAT 96
[2024-01-29] MEDS: PROSCAR 5 MG PO (20:25)
[2024-01-29] MEDS: CARDURA 8 MG PO (20:25)
[2024-01-29] MEDS: LIPITOR 10 MG PO (20:28)
[2024-01-29] MEDS: ULTRAM 25 MG PO (22:28)
[2024-01-29 23:15] VITALS: BP 120/72
[2024-01-30] MEDS: TYLENOL 1000 MG PO ×3 (06:19→21:33)
[2024-01-30 06:57] LABS: % Basophils 0.3 % (0-2); % Eosinophils 2.5 % (0-6); % Immature Granulocytes 1.6 % (0-0.5); % Lymphocytes 56.1 % (20.5-51.1); % Monocytes 2.4 % (1.7-9.3); % Neutrophils 37.1 % (42.2-75.2); Absolute Basophils 0.1 10^3/uL (0-0.2); Absolute Eosinophils 0.6 10^3/uL (0-0.7); Absolute Immature Granulocytes 0.4 10^3/uL (0-0.05); Absolute Monocytes 0.6 10^3/uL (0.1-0.6); Absolute Neutrophils 8.6 10^3/uL (1.4-6.5); Hematocrit 28.7 % (39.0-52.0); Mean Corp Hgb Conc. 31.4 g/dL (33.0-37.0); Mean Corpuscular Hgb 27.7 pg (27.0-31.0); Mean Corpuscular Volume 88.3 fL (80.0-94.0); Mean Platelet Volume 9.8 fL (7.4-10.4); Nucleated Red Blood Cells % 0 % (-); Platelet Count 390 10^3/uL (130-400); Red Blood Cell Count 3.25 10^6/uL (4.70-6.10); White Blood Cell Count 23.2 10^3/uL (4.8-10.8)
[2024-01-30 07:00] VITALS: BP 94/55
[2024-01-30 07:30] LABS: ALT (SGPT) 29 U/L (0-50); AST (SGOT) 21 U/L (17-59); Albumin 2.5 g/dl (3.5-5.0); Alkaline Phosphatase 187 U/L (38-126); Blood Urea Nitrogen 15 mg/dl (9-20); Calcium 8.2 mg/dl (8.4-10.2); Carbon Dioxide 29 mmol/L (22-30); Chloride 99 mmol/L (98-107); Estimated Creatinine Clearance 80 ml/min; Glucose 105 mg/dl (70-99); Potassium 4.1 mmol/L (3.5-5.1); Sodium 133 mmol/L (135-145); Total Bilirubin 0.3 mg/dl (0.2-1.3); eGFR > 60.00
[2024-01-30] MEDS: THERAGRAN 1 TABLET PO (08:30)
[2024-01-30] MEDS: KEFLEX 500 MG PO ×4 (08:30→21:33)
[2024-01-30] MEDS: PROTONIX 40 MG PO ×2 (08:31→21:33)
[2024-01-30] MEDS: MIRALAX 17 GRAMS PO (08:31)
[2024-01-30] MEDS: LIDOCAINE 4% PATCH 1 PATCH TOPICAL (08:31)
--- NOTE | 2024-01-30 09:55 | W.PN.URO.CBU ---
Today's Communication / Plan
-
Continue CBI
Assessment / Plan
-
Urosepsis: petty-sensitive E. coli
Persistent leukocytosis: slowly rising despite absence of fever
Urinary retention; normal renal function
Hematuria w/ clot retention - secondary to distended bladder, decompression hematuria, and hemorrhagic cystitis: Hgb stable
Mild bilateral hydroureteronephrosis, low set kidneys and a pelvic calcification adjacent to the left UO which appears extra-vesical
Clinically improving from septic state on admission but has persistent leukocytosis
Hematuria slowly clearing: catheter hand irrigated 01/29/24 with recovery of lysing clot: Hgb stable
Diagnosis
-
Date of Service: January 30, 2024
-
Patient Diagnosis:
Urosepsis
Urinary retention
Hematuria w/ clot retention - secondary to distended bladder, decompression hematuria, and hemorrhagic cystitis
Mild bilateral hydroureteronephrosis with near-pelvic kidneys bilaterally and a looping left ureter that appears to partially enter LIH. Ca++ at left UVJ appears extra-ureteral
Subjective
-
Comfortable
Fatigued
Concerned about LE weakness
Objective
-
Vital Signs
Temp Pulse Resp BP Pulse Ox
97.9 F 82 16 94/55 96
01/30/24 07:00 01/30/24 07:00 01/30/24 07:00 01/30/24 07:00 01/30/24 07:00
Intake and Output
01/29/24 01/30/24 01/31/24
06:59 06:59 06:59
Intake Total 720 / 720 960 / 960
Output Total 3050 / 3050 1725 / 1725
Balance -2330 / -2330 -765 / -765
Intake:
Oral fluids 720 / 720 960 / 960
Output:
True Urine Output from CBI 3050 / 3050 1725 / 1725
Laboratory Results
01/30/24 06:36
01/30/24 06:36
Review of Systems
-
Constitutional: Fatigue
Respiratory: No Symptoms
Cardiac: No Symptoms
Abdomen/GI: No Symptoms
: Bleeding
Physical Exam
-
General - no acute distress
Abdomen - soft, non-tender
Genitalia - normal with Otto draining minimally bloody urine on slow drip CBI
--- NOTE | 2024-01-30 11:03 | W.PN.HOSP.TC ---
Today's Communication/Plan
-
Monitor vital sign closely plan
If worsening leukocytosis then will reconsult ID
No diarrhea
CBI per urology
Continue with antibiotics
PT/OT
Assessment / Plan
Assessment / Plan
Gen: NAD, Awake and alert
Eyes: EOMI, PERRLA, no scleral icterus.
Neck: supple.
CV: RRR, +S1/S2, no m/r/g.
Resp: CTAB, no rales, wheezes, or rhonchi.
Abd: +BS, soft, NT, ND
Skin: No rashes.
: Otto bag with punch colored urine
Neuro: CN 2-12 intact, non-focal.
Psych: Normal mood and affect.
01/24/24 09:28 Blood/Venous Blood Culture - Preliminary
No Growth in 4 days- Final report to follow
01/24/24 10:22 Blood/Venous Blood Culture - Preliminary
No Growth in 72 hours- Final report to follow
01/23/24 08:55 Blood/Venous Blood Culture - Final
Escherichia coli
01/23/24 08:55 Blood/Venous Gram Stain - Final
01/23/24 08:41 Blood/Venous Blood Culture - Final
Escherichia coli
01/23/24 08:41 Blood/Venous Gram Stain - Final
01/23/24 08:41 Urine Urine Culture - Final
Escherichia coli
01/23/24 14:32 Nose MRSA Screen - Final
No Methicillin Resistant Staphylococcus aureus isolated.
01/23/24 08:41 Nasal Swab Influenza Types A & B (KOFI) - Final
Negative for Influenza A & B, NAAT
Negative results must be combined with clinical observations
and patient history.
Nucleic Acid Amplification test (NAAT)performed on the
[employer] platform.
Septic shock secondary to urinary tract infection/cystitis/pyelonephritis
It is not clear that patient UTI was related to Otto catheter
Mild TME on admission secondary to above, now improving
Hematuria secondary to above
Follow urine culture, blood culture. Blood culture and urine culture both positive for E. coli. ID following. Now on Keflex. new set of blood culture 01/23 NGTD
now off levophed
Lactic acidosis on admission, resolved
CT scan with mild bilateral hydronephrosis.� Urology following.� No surgery planned at this time per urology
Status post Otto in the ED, started on CBI; CBI per urology; wean CBI; will maintain Otto per urology recommendation; continue with CBI per urology 12/14 persistent hematuria
Follows up with Dr. Todd as outpatient
Monitor leukocytosis; if continues to increase then reconsult ID
no diarrhea
Recent ER visit with suspicion of CVA
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 I asked patient regarding MRI and he refused
will restart baby aspirin once ok with urology. cont statin.
speech evaluated, regular with thin
PT/OT rec SNF; patient and family does not want to previous SNF
Acute blood loss anemia likely secondary to hematuria
s/p 1U pRBCs on 01/27/24
Monitor
Transfuse hemoglobin less than 7
hgb 9
Mild hyponatremia
Monitor
Recent small bowel obstruction status post laparoscopic lysis of adhesion on 01/04
History of GI bleed
Depression
History of CAD status post stenting in 2011
Hold aspirin at this time, restart when okay with urology
Hyperlipidemia
Left Gluteal Cleft, Deep Tissue pressure Injury
History of BPH
Continue doxazosin/finasteride
History of spinal stenosis/chronic lower back pain
Lidocaine patch
Dilaudid as needed, hold for sedation
Suspect some cognitive impairment
Monitor
Essential hypertension
Not on any home meds, currently blood pressure low
History of renal cell cancer, 2008
Monitor
DVTppx
SCD's; heparin or lovenox when ok with urology
DNR, discussed with patient and family at bedside on admission
I spent a total of 53 minutes with the patient or on the floor. More than 50% of this time involved counseling and coordination of care.
Anticipated Discharge: > 48 hours
Subjective/Interval History
-
Date of Service: January 30, 2024
denies pain
Objective Data
-
Labs:
Laboratory Results
01/30/24
06:36
WBC 23.2 H
Hgb 9.0 L
Hct 28.7 L
Plt Count 390
Sodium 133 L
Potassium 4.1
Chloride 99
Carbon Dioxide 29
BUN 15
Creatinine 0.7
Glucose 105 H
Calcium 8.2 L
Total Bilirubin 0.3
AST 21
ALT 29
Alkaline Phosphatase 187 H
Vital Signs:
Vital Signs
Temp Pulse Resp BP Pulse Ox
97.9 F 82 16 94/55 96
01/30/24 07:00 01/30/24 07:00 01/30/24 07:00 01/30/24 07:00 01/30/24 07:00
I&O
01/29/24 01/30/24 01/31/24
06:59 06:59 06:59
Intake Total 720 / 720 960 / 960
Output Total 3050 / 3050 1725 / 1725
Balance -2330 / -2330 -765 / -765
[2024-01-30 15:00] VITALS: BP 114/67
[2024-01-30] MEDS: CARDURA 8 MG PO (21:33)
[2024-01-30] MEDS: PROSCAR 5 MG PO (21:33)
[2024-01-30] MEDS: LIPITOR 10 MG PO (21:33)
[2024-01-30 23:00] VITALS: BP 107/64
[2024-01-31 06:00] VITALS: BMI 29.7
[2024-01-31] MEDS: TYLENOL 1000 MG PO ×3 (06:19→21:50)
[2024-01-31 06:55] LABS: % Basophils 0.5 % (0-2); % Eosinophils 2.5 % (0-6); % Immature Granulocytes 1.2 % (0-0.5); % Lymphocytes 51.2 % (20.5-51.1); % Monocytes 2.7 % (1.7-9.3); % Neutrophils 41.9 % (42.2-75.2); Absolute Basophils 0.1 10^3/uL (0-0.2); Absolute Eosinophils 0.6 10^3/uL (0-0.7); Absolute Immature Granulocytes 0.3 10^3/uL (0-0.05); Absolute Lymphocytes 11.4 10^3/uL (1.2-3.4); Absolute Monocytes 0.6 10^3/uL (0.1-0.6); Absolute Neutrophils 9.4 10^3/uL (1.4-6.5); Hematocrit 29.7 % (39.0-52.0); Hemoglobin 9.4 g/dL (13.0-18.0); Mean Corp Hgb Conc. 31.6 g/dL (33.0-37.0); Mean Corpuscular Hgb 27.8 pg (27.0-31.0); Mean Corpuscular Volume 87.9 fL (80.0-94.0); Mean Platelet Volume 9.8 fL (7.4-10.4); Nucleated Red Blood Cells % 0 % (-); Platelet Count 405 10^3/uL (130-400); Red Blood Cell Count 3.38 10^6/uL (4.70-6.10); White Blood Cell Count 22.3 10^3/uL (4.8-10.8)
[2024-01-31 07:00] VITALS: BP 98/60
[2024-01-31 07:24] LABS: ALT (SGPT) 31 U/L (0-50); AST (SGOT) 27 U/L (17-59); Albumin 2.6 g/dl (3.5-5.0); Alkaline Phosphatase 182 U/L (38-126); Blood Urea Nitrogen 15 mg/dl (9-20); Carbon Dioxide 27 mmol/L (22-30); Chloride 102 mmol/L (98-107); Estimated Creatinine Clearance 80 ml/min; Glucose 99 mg/dl (70-99); Potassium 4.7 mmol/L (3.5-5.1); Sodium 132 mmol/L (135-145); Total Bilirubin 0.3 mg/dl (0.2-1.3); eGFR > 60.00
[2024-01-31] MEDS: THERAGRAN 1 TABLET PO (07:55)
[2024-01-31] MEDS: LIDOCAINE 4% PATCH 1 PATCH TOPICAL (07:55)
[2024-01-31] MEDS: KEFLEX 500 MG PO ×4 (07:55→21:50)
[2024-01-31] MEDS: PROTONIX 40 MG PO ×2 (07:55→21:51)
[2024-01-31] MEDS: MIRALAX 17 GRAMS PO (07:56)
--- NOTE | 2024-01-31 09:29 | W.PN.URO.CBU ---
Today's Communication / Plan
-
Will stop CBI at midnight and assess degree of residual hematuria in morning
Plan to discharge patient home with Otto
Assessment / Plan
-
Urosepsis: petty-sensitive E. coli
Persistent leukocytosis: perhaps due to suspected CLL
Urinary retention: normal renal function
Hematuria w/ clot retention - secondary to distended bladder, decompression hematuria, and hemorrhagic cystitis: Hgb stable
Mild bilateral hydroureteronephrosis, low set kidneys and a pelvic calcification adjacent to the left UO which appears extra-vesical
Hematuria slowly clearing: catheter hand irrigated 01/29/24 with recovery of lysing clot: Hgb stable
Diagnosis
-
Date of Service: January 31, 2024
-
Patient Diagnosis:
Urosepsis
Urinary retention
Hematuria w/ clot retention - secondary to distended bladder, decompression hematuria, and hemorrhagic cystitis
Mild bilateral hydroureteronephrosis with near-pelvic kidneys bilaterally and a looping left ureter that appears to partially enter LIH. Ca++ at left UVJ appears extra-ureteral
Persistent leukocytosis perhaps due to pending diagnosis of CLL according to
Subjective
-
Fatigued
o/w stable and comfortable
Objective
-
Vital Signs
Temp Pulse Resp BP Pulse Ox
98.0 F 82 17 98/60 96
01/31/24 07:00 01/31/24 07:00 01/31/24 07:00 01/31/24 07:00 01/31/24 07:00
Intake and Output
01/30/24 01/31/24 02/01/24
06:59 06:59 06:59
Intake Total 960 / 960 540 / 540
Output Total 1725 / 1725 1300 / 1300 1450 / 1450
Balance -765 / -765 -760 / -760 -1450 / -1450
Intake:
Oral fluids 960 / 960 540 / 540
Output:
True Urine Output from CBI 1725 / 1725 1300 / 1300 1450 / 1450
Laboratory Results
01/31/24 06:36
01/31/24 06:36
Review of Systems
-
Constitutional: Fatigue
Respiratory: No Symptoms
Cardiac: No Symptoms
Abdomen/GI: No Symptoms
: Bleeding
Physical Exam
-
General - no acute distress
Abdomen - soft, non-tender, no CVAT, no incisional pain
Genitalia - normal with Otto draining punch urine on slow drip CBI
--- NOTE | 2024-01-31 11:10 | W.PN.HOSP.TC ---
Today's Communication/Plan
-
see bold
Assessment / Plan
Assessment / Plan
Gen: NAD, Awake and alert
Eyes: EOMI, PERRLA, no scleral icterus.
Neck: supple.
CV: RRR, +S1/S2, no m/r/g.
Resp: CTAB, no rales, wheezes, or rhonchi.
Abd: +BS, soft, NT, ND
Skin: No rashes.
: punch colored urine
Neuro: CN 2-12 intact, non-focal.
Psych: Normal mood and affect.
01/24/24 10:22 Blood/Venous Blood Culture - Final
No Growth - Final Report
01/24/24 09:28 Blood/Venous Blood Culture - Final
No Growth - Final Report
01/23/24 08:55 Blood/Venous Blood Culture - Final
Escherichia coli
01/23/24 08:55 Blood/Venous Gram Stain - Final
01/23/24 08:41 Blood/Venous Blood Culture - Final
Escherichia coli
01/23/24 08:41 Blood/Venous Gram Stain - Final
01/23/24 08:41 Urine Urine Culture - Final
Escherichia coli
01/23/24 14:32 Nose MRSA Screen - Final
No Methicillin Resistant Staphylococcus aureus isolated.
01/23/24 08:41 Nasal Swab Influenza Types A & B (KOFI) - Final
Negative for Influenza A & B, NAAT
Negative results must be combined with clinical observations
and patient history.
Nucleic Acid Amplification test (NAAT)performed on the
[employer] platform.
CT A/P:
1. Mild bilateral hydroureteronephrosis, new from prior and likely secondary to relative obstruction at the ureterovesical junctions bilaterally due to large amount of layering blood products/blood clot within the urinary bladder. The left ureter
also partially extends into a left inguinal hernia and there may be an additional component of partial obstruction at this site. Evaluation of the urinary bladder is limited due to streak artifact in the region.
2. Small amount of gas within the urinary bladder may reflect recent instrumentation. There is also bilateral perinephric stranding present and superimposed cystitis/urinary tract infection is not excluded.
Septic shock and hematuria (with acute blood loss anemia) due to acute UTI/cystitis/pyelonephritis:
-on admission the pt's UTI was likely relate to/due to Otto catheter that was POA (CAUTI)
-was on Levophed, now off
-Acute metabolic encephalopathy, POA, improving
-culture data above, currently on Keflex as per ID through 02/05/24. With persistent leukocytosis I've asked ID to see in follow up today.
-currently on CBI (started on admission in ED). Plan to stop CBI at midnight as per urology.
-Lactic acidosis, resolved
-s/p 1U pRBCs on 01/27/24, Hb stable
Recent ER visit with suspicion of CVA:
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 Pt refused MRI brain.
-restart baby aspirin once OK with urology. cont statin.
-PT/OT rec SNF; patient and family does not want to previous SNF
Other problems:
Mild hyponatremia
Recent SBO s/p laparoscopic SUSIE on 01/04/24
h/o GI bleed
Depression
CAD s/p stenting 2011: restart ASA once OK with urology
Hyperlipidemia: cont statin
Left Gluteal Cleft, Deep Tissue pressure Injury
BPH: cont doxazosin/finasteride
Spinal stenosis/chronic lower back pain: cont Lidocaine patch, Dilaudid PRN
Likely mild cognitive impairment
h/o RCC 2008
DNR, discussed with patient and family at bedside on admission
SCDs
Anticipated Discharge: 24 - 48 hours
Subjective/Interval History
-
Date of Service: January 31, 2024
No new complaints.
Objective Data
-
Labs:
Laboratory Results
01/31/24
06:36
WBC 22.3 H
Hgb 9.4 L
Hct 29.7 L
Plt Count 405 H
Sodium 132 L
Potassium 4.7
Chloride 102
Carbon Dioxide 27
BUN 15
Creatinine 0.7
Glucose 99
Calcium 8.0 L
Total Bilirubin 0.3
AST 27
ALT 31
Alkaline Phosphatase 182 H
Vital Signs:
Vital Signs
Temp Pulse Resp BP Pulse Ox
98.0 F 82 17 98/60 96
01/31/24 07:00 01/31/24 07:00 01/31/24 07:00 01/31/24 07:00 01/31/24 07:00
I&O
01/30/24 01/31/24 02/01/24
06:59 06:59 06:59
Intake Total 960 / 960 540 / 540
Output Total 1725 / 1725 1300 / 1300 1450 / 1450
Balance -765 / -765 -760 / -760 -1450 / -1450
--- NOTE | 2024-01-31 13:01 | PTOTSP ---
ST Acute Cognitive Linguistic Exam
Pt currently presents with moderate cognitive linguistic deficits. Highly suspect that pt's cognitive linguistic deficits are a combination of progressive nature due to aging as well as to subacute from recent CVA and acute from metabolic
encephalopathy. Pt would benefit from ongoing cognitive linguistic tx minimally targeting mental flexibility and short term recall/memory.
--- NOTE | 2024-01-31 13:39 | CM ---
Reviewed chart, spoke with Kathi in admissions to provide update. She confirmed that he can return upon medical clearance.
Plan: Case management will continue to follow and assist with discharge planning. Back to [facility] when stable.
[2024-01-31] MEDS: DILAUDID 0.5 MG IV ×2 (15:26→21:49)
--- NOTE | 2024-01-31 15:46 | W.PN.ID1 ---
Date of Service
Date of Service: January 31, 2024
Today's Communication
reports patient undergoing workup for CLL with Dr Obrien - message sent to confirm
- continue keflex through 02/04
Assessment / Plan
Persistent Lymphocytosis
Persistent Leukocytosis
- CLL being considered per , workup with Dr Obrien; left message to confirm
- no new symptoms; if further specific symptoms will pursue additional cultures
Pyelonephritis - resolving
Bacteremia -resolved
Hematuria
BPH - chronic pringle
CLL
- blood cultures E coli, cleared on repeat
- urine culture 100K E coli
- three way pringle is new this admission
- continue keflex through 02/04
- follow clinically
Chief Complaint
-: Bacteremia and Other (pyelonephritis)
Subjective / Review of Systems
afebrile
bp intermittent, mild hypotension - has not been rechecked since this AM
HR normal
persistent leukocytosis noted since patient was last evaluated
there is no left shift; there has been borderline lymphocytosis
No eosinophilia
cr stable
lfts normal
saw patient along with his
they deny: sinus tenderness, sore throat, cough, sputum production, nausea, vomiting, diarrhea, constipation, dysuria, suprapubic tenderness, new rashes, new joint tenderness, extremity swelling, pain over the PIVs
'I feel the same' no complaints
states patient has been undergoing workup for CLL
Vital Signs / Physical Exam
Vital Signs
Vital Signs
Temp Pulse Resp BP Pulse Ox
98.0 F 82 17 98/60 96
01/31/24 07:00 01/31/24 07:00 01/31/24 07:00 01/31/24 07:00 01/31/24 07:00
Physical Exam
Constitutional: No Acute Distress
Cardiovascular: Regular Rate and S1/S2; Negative Murmur or Rub
Pulmonary: Clear and Symmetric; Negative Wheezes or Rales
Gastrointestinal: Soft, Non Tender, Non Distended and Normal Bowel Sounds
Genito-Urinary: Hematuria (mild, in pringle); Negative Suprapubic Tenderness
Skin: Warm and Dry; Negative Rash or Jaundice
Neurological: Awake
Lines: PIV (no tenderness)
Objective Data
Lab Data
Lab Results
01/31/24 06:36
01/31/24 06:36
PT 15.4 Sec (11.4-14.6) H 01/23/24 14:32
INR 1.21 01/23/24 14:32
APTT 33.3 Sec (23.4-35.0) 01/23/24 14:32
Estimated Creat Clear 80 ml/min 01/31/24 06:36
Lactic Acid 1.6 mmol/L (0.7-2.0) 01/23/24 14:32
Total Bilirubin 0.3 mg/dl (0.2-1.3) 01/31/24 06:36
AST 27 U/L (17-59) 01/31/24 06:36
ALT 31 U/L (0-50) 01/31/24 06:36
Alkaline Phosphatase 182 U/L (38-126) H 01/31/24 06:36
Most recent labs reviewed.
Micro Results:
01/24/24 10:22 Blood Culture - Final
Blood/Venous No Growth - Final Report
01/24/24 09:28 Blood Culture - Final
Blood/Venous No Growth - Final Report
01/23/24 08:55 Blood Culture - Final
Blood/Venous Escherichia coli
Gram Stain - Final
01/23/24 08:41 Blood Culture - Final
Blood/Venous Escherichia coli
Gram Stain - Final
01/23/24 08:41 Urine Culture - Final
Urine Escherichia coli
01/23/24 14:32 MRSA Screen - Final
Nose No Methicillin Resistant Staphylococcus aureus isolated.
01/23/24 08:41 Influenza Types A & B (KOFI) - Final
Nasal Swab Negative for Influenza A & B, NAAT
Negative results must be combined with clinical observations
and patient history.
Nucleic Acid Amplification test (NAAT)performed on the
[employer] platform.
[2024-01-31 16:00] VITALS: BP 100/61
[2024-01-31] MEDS: PROSCAR 5 MG PO (21:50)
[2024-01-31] MEDS: CARDURA 8 MG PO (21:50)
[2024-01-31] MEDS: LIPITOR 10 MG PO (21:51)
[2024-01-31] MEDS: FLUSH (NSS) 2 FLUSH IV (21:51)
[2024-01-31 23:05] VITALS: BP 108/77
--- NOTE | 2024-02-01 | PTCARENOTE ---
MEDICAL EXAMINER informed of urology note stating 'Will stop CBI at midnight and assess degree of residual hematuria in morning'. MEDICAL EXAMINER placed order to cancel CBI. CBI stopped.
[2024-02-01] MEDS: TYLENOL 1000 MG PO ×3 (05:46→21:22)
[2024-02-01 06:00] VITALS: BMI 28.8
[2024-02-01 07:00] VITALS: BP 108/64
--- NOTE | 2024-02-01 07:50 | W.PN.HOSP.TC ---
Today's Communication/Plan
-
Case discussed with Dr. Todd. Likely discharge tomorrow.
Assessment / Plan
Assessment / Plan
Gen: NAD, Awake and alert
Eyes: EOMI, PERRLA, no scleral icterus.
Neck: supple.
CV: Remains RRR, +S1/S2, no m/r/g.
Resp: Remains CTAB, no rales, wheezes, or rhonchi.
Abd: +BS, soft, NT, ND
Skin: No rashes.
: remains punch colored urine
Neuro: CN 2-12 intact, non-focal.
Psych: Normal mood and affect.
01/24/24 10:22 Blood/Venous Blood Culture - Final
No Growth - Final Report
01/24/24 09:28 Blood/Venous Blood Culture - Final
No Growth - Final Report
01/23/24 08:55 Blood/Venous Blood Culture - Final
Escherichia coli
01/23/24 08:55 Blood/Venous Gram Stain - Final
01/23/24 08:41 Blood/Venous Blood Culture - Final
Escherichia coli
01/23/24 08:41 Blood/Venous Gram Stain - Final
01/23/24 08:41 Urine Urine Culture - Final
Escherichia coli
01/23/24 14:32 Nose MRSA Screen - Final
No Methicillin Resistant Staphylococcus aureus isolated.
01/23/24 08:41 Nasal Swab Influenza Types A & B (KOFI) - Final
Negative for Influenza A & B, NAAT
Negative results must be combined with clinical observations
and patient history.
Nucleic Acid Amplification test (NAAT)performed on the
[employer] platform.
CT A/P:
1. Mild bilateral hydroureteronephrosis, new from prior and likely secondary to relative obstruction at the ureterovesical junctions bilaterally due to large amount of layering blood products/blood clot within the urinary bladder. The left ureter
also partially extends into a left inguinal hernia and there may be an additional component of partial obstruction at this site. Evaluation of the urinary bladder is limited due to streak artifact in the region.
2. Small amount of gas within the urinary bladder may reflect recent instrumentation. There is also bilateral perinephric stranding present and superimposed cystitis/urinary tract infection is not excluded.
Septic shock and hematuria (with acute blood loss anemia) due to acute UTI/cystitis/pyelonephritis:
-on admission the pt's UTI was likely relate to/due to Otto catheter that was POA (CAUTI)
-was on Levophed, now off
-Acute metabolic encephalopathy, POA, improving
-culture data above, currently on Keflex as per ID through 02/05/24. 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
-was on CBI, now off
-Lactic acidosis, resolved
-s/p 1U pRBCs on 01/27/24, Hb stable
Recent ER visit with suspicion of CVA:
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 Pt refused MRI brain.
-restart baby aspirin once OK with urology (won't be for a while). cont statin.
-PT/OT rec SNF; patient and family does not want to previous SNF
Other problems:
Mild hyponatremia
Recent SBO s/p laparoscopic SUSIE on 01/04/24
h/o GI bleed
Depression
CAD s/p stenting 2011: restart ASA once OK with urology
Hyperlipidemia: cont statin
Left Gluteal Cleft, Deep Tissue pressure Injury
BPH: cont doxazosin/finasteride
Spinal stenosis/chronic lower back pain: cont Lidocaine patch, Dilaudid PRN
Likely mild cognitive impairment
h/o RCC 2008
DNR, discussed with patient and family at bedside on admission
SCDs
Anticipated Discharge: Within 24 hours
Subjective/Interval History
-
Date of Service: February 01, 2024
Denies chest pain or shortness of breath.
Objective Data
-
Vital Signs:
Vital Signs
Temp Pulse Resp BP Pulse Ox
98 F 85 19 108/77 97
01/31/24 23:05 01/31/24 23:05 01/31/24 23:05 01/31/24 23:05 01/31/24 23:05
I&O
01/31/24 02/01/24 02/02/24
06:59 06:59 06:59
Intake Total 540 / 540 1020 / 1020
Output Total 1300 / 1300 80632 / 40215
Balance -760 / -760 -84641 / -97366
[2024-02-01] MEDS: LIDOCAINE 4% PATCH 1 PATCH TOPICAL (08:52)
[2024-02-01] MEDS: PROTONIX 40 MG PO ×2 (08:53→20:26)
[2024-02-01] MEDS: THERAGRAN 1 TABLET PO (08:53)
[2024-02-01] MEDS: MIRALAX 17 GRAMS PO (08:53)
[2024-02-01] MEDS: KEFLEX 500 MG PO ×4 (08:53→21:21)
--- NOTE | 2024-02-01 09:28 | W.PN.URO.CBU ---
Today's Communication / Plan
-
Home with Otto in next 24-48 hours
Continue to hold aspirin
Discussed with Hospitalist
Assessment / Plan
-
Urosepsis: petty-sensitive E. coli
Persistent leukocytosis: perhaps due to suspected CLL
Urinary retention: normal renal function
Hematuria w/ clot retention - secondary to distended bladder, decompression hematuria, and hemorrhagic cystitis: Hgb stable
Mild bilateral hydroureteronephrosis, low set kidneys and a pelvic calcification adjacent to the left UO which appears extra-vesical
Hematuria slowly clearing: catheter hand irrigated 01/29/24 with recovery of lysing clot: Hgb stable
Diagnosis
-
Date of Service: February 01, 2024
-
Patient Diagnosis:
Urosepsis
Urinary retention
Hematuria w/ clot retention - secondary to distended bladder, decompression hematuria, and hemorrhagic cystitis
Mild bilateral hydroureteronephrosis with near-pelvic kidneys bilaterally and a looping left ureter that appears to partially enter LIH. Ca++ at left UVJ appears extra-ureteral
Persistent leukocytosis perhaps due to pending diagnosis of CLL according to
Subjective
-
Comfortable
Fatigued
Objective
-
Vital Signs
Temp Pulse Resp BP Pulse Ox
98.0 F 87 17 108/64 98
02/01/24 07:00 02/01/24 07:00 02/01/24 07:00 02/01/24 07:00 02/01/24 07:00
Intake and Output
01/31/24 02/01/24 02/02/24
06:59 06:59 06:59
Intake Total 540 / 540 1020 / 1020
Output Total 1300 / 1300 85304 / 71227
Balance -760 / -760 -13197 / -36838
Intake:
Oral fluids 540 / 540 1020 / 1020
Output:
True Urine Output from CBI 1300 / 1300 35943 / 07239
Laboratory Results
01/31/24 06:36
01/31/24 06:36
Review of Systems
-
Constitutional: Fatigue
Respiratory: No Symptoms
Cardiac: No Symptoms
Abdomen/GI: No Symptoms
: Difficulty Voiding and Bleeding
Physical Exam
-
General - no acute distress
Abdomen - soft, non-tender
Genitalia - normal with Otto draining light punch urine off CBI
[2024-02-01 14:51] VITALS: BP 106/68
--- NOTE | 2024-02-01 15:38 | W.PN.ID1 ---
Date of Service
Date of Service: February 01, 2024
Today's Communication
- continue keflex through 02/04
Assessment / Plan
Known CLL
- follow up with hematology outpatient
- no new symptoms; if further specific symptoms will pursue additional cultures
Pyelonephritis - resolving
Bacteremia -resolved
Hematuria
BPH - chronic pringle
CLL
- blood cultures E coli, cleared on repeat
- urine culture 100K E coli
- three way pringle is new this admission
- continue keflex through 02/04
- follow clinically
Chief Complaint
-: Bacteremia and Other (pyelonephritis)
Subjective / Review of Systems
afebrile
bp stable
tolerating current therapies
no new complaints
Vital Signs / Physical Exam
Vital Signs
Vital Signs
Temp Pulse Resp BP Pulse Ox
98.3 F 86 18 106/68 98
02/01/24 14:51 02/01/24 14:51 02/01/24 14:51 02/01/24 14:51 02/01/24 14:51
Physical Exam
Constitutional: No Acute Distress and Chronically Ill
Cardiovascular: Regular Rate and S1/S2; Negative Murmur or Rub
Pulmonary: Clear and Symmetric; Negative Wheezes or Rales
Gastrointestinal: Soft, Non Tender, Non Distended and Normal Bowel Sounds
Skin: Warm and Dry; Negative Rash or Jaundice
Objective Data
Lab Data
Lab Results
01/31/24 06:36
01/31/24 06:36
PT 15.4 Sec (11.4-14.6) H 01/23/24 14:32
INR 1.21 01/23/24 14:32
APTT 33.3 Sec (23.4-35.0) 01/23/24 14:32
Estimated Creat Clear 80 ml/min 01/31/24 06:36
Lactic Acid 1.6 mmol/L (0.7-2.0) 01/23/24 14:32
Total Bilirubin 0.3 mg/dl (0.2-1.3) 01/31/24 06:36
AST 27 U/L (17-59) 01/31/24 06:36
ALT 31 U/L (0-50) 01/31/24 06:36
Alkaline Phosphatase 182 U/L (38-126) H 01/31/24 06:36
Most recent labs reviewed.
Micro Results:
01/24/24 10:22 Blood Culture - Final
Blood/Venous No Growth - Final Report
01/24/24 09:28 Blood Culture - Final
Blood/Venous No Growth - Final Report
01/23/24 08:55 Blood Culture - Final
Blood/Venous Escherichia coli
Gram Stain - Final
01/23/24 08:41 Blood Culture - Final
Blood/Venous Escherichia coli
Gram Stain - Final
01/23/24 08:41 Urine Culture - Final
Urine Escherichia coli
01/23/24 14:32 MRSA Screen - Final
Nose No Methicillin Resistant Staphylococcus aureus isolated.
01/23/24 08:41 Influenza Types A & B (KOFI) - Final
Nasal Swab Negative for Influenza A & B, NAAT
Negative results must be combined with clinical observations
and patient history.
Nucleic Acid Amplification test (NAAT)performed on the
[employer] platform.
--- NOTE | 2024-02-01 15:56 | CM ---
Received call from Leslye in admissions at the [facility] who confirmed that she can take patient over the w/e if he is stable #for report [phone].
No auth will be needed for transfer.
Covid test will be needed prior to transfer.
Plan: Case management will continue to follow and assist with discharge planning. The [facility] when stable.
[2024-02-01] MEDS: LIPITOR 10 MG PO (20:25)
[2024-02-01] MEDS: PROSCAR 5 MG PO (20:26)
[2024-02-01] MEDS: CARDURA 8 MG PO (20:29)
[2024-02-01 23:15] VITALS: BP 92/65
[2024-02-02 06:00] VITALS: BMI 28.5
[2024-02-02] MEDS: TYLENOL PO (06:16)
[2024-02-02 07:00] VITALS: BP 114/65
[2024-02-02] MEDS: KEFLEX 500 MG PO ×2 (08:08→12:59)
[2024-02-02] MEDS: PROTONIX 40 MG PO (08:08)
[2024-02-02] MEDS: THERAGRAN 1 TABLET PO (08:08)
[2024-02-02] MEDS: LIDOCAINE 4% PATCH 1 PATCH TOPICAL (08:08)
[2024-02-02] MEDS: MIRALAX 17 GRAMS PO (08:08)
--- NOTE | 2024-02-02 12:18 | CM ---
Chart reviewed. Patient is stable for discharge. Per Cheri in admissions at [facility], bed available this afternoon. BLS transport to be arranged. updated and in agreement with plan. COVID test pending. No precert required.
report [phone]
fax [phone]
PLAN: Discharge to SNF today.
[2024-02-02 12:21] LABS: COVID-19 Antigen Negative (Negative)
--- NOTE | 2024-02-02 12:51 | W.PN.HOSP.TC ---
Today's Communication/Plan
-
dc to [facility] now
Assessment / Plan
Assessment / Plan
01/24/24 10:22 Blood/Venous Blood Culture - Final
No Growth - Final Report
01/24/24 09:28 Blood/Venous Blood Culture - Final
No Growth - Final Report
01/23/24 08:55 Blood/Venous Blood Culture - Final
Escherichia coli
01/23/24 08:55 Blood/Venous Gram Stain - Final
01/23/24 08:41 Blood/Venous Blood Culture - Final
Escherichia coli
01/23/24 08:41 Blood/Venous Gram Stain - Final
01/23/24 08:41 Urine Urine Culture - Final
Escherichia coli
01/23/24 14:32 Nose MRSA Screen - Final
No Methicillin Resistant Staphylococcus aureus isolated.
01/23/24 08:41 Nasal Swab Influenza Types A & B (KOFI) - Final
Negative for Influenza A & B, NAAT
Negative results must be combined with clinical observations
and patient history.
Nucleic Acid Amplification test (NAAT)performed on the
[employer] ID NOW platform.
CT A/P:
1. Mild bilateral hydroureteronephrosis, new from prior and likely secondary to relative obstruction at the ureterovesical junctions bilaterally due to large amount of layering blood products/blood clot within the urinary bladder. The left ureter
also partially extends into a left inguinal hernia and there may be an additional component of partial obstruction at this site. Evaluation of the urinary bladder is limited due to streak artifact in the region.
2. Small amount of gas within the urinary bladder may reflect recent instrumentation. There is also bilateral perinephric stranding present and superimposed cystitis/urinary tract infection is not excluded.
Septic shock and hematuria (with acute blood loss anemia) due to acute UTI/cystitis/pyelonephritis:
-on admission the pt's UTI was likely relate to/due to Otto catheter that was POA (CAUTI)
-was on Levophed, now off
-Acute metabolic encephalopathy, POA, improved, approaching or at baseline status
-culture data above, currently on Keflex as per ID through 02/05/24. 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
-was on CBI, now off
-Lactic acidosis, resolved
-s/p 1U pRBCs on 01/27/24, Hb stable
Recent ER visit with suspicion of CVA:
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 Pt refused MRI brain.
-restart baby aspirin once OK with urology (won't be for a while). cont statin.
-PT/OT rec SNF; patient and family does not want to previous SNF
Other problems:
Mild hyponatremia
Recent SBO s/p laparoscopic SUSIE on 01/04/24
h/o GI bleed
Depression
CAD s/p stenting 2011: restart ASA once OK with urology
Hyperlipidemia: cont statin
Left Gluteal Cleft, Deep Tissue pressure Injury
BPH: cont doxazosin/finasteride
Spinal stenosis/chronic lower back pain: cont Lidocaine patch, Dilaudid PRN
Likely mild cognitive impairment
h/o RCC 2008
DNR, discussed with patient and family at bedside on admission
SCDs
dc now, cleared by urology to be discharged
More than 30 minutes spent in discharge including
Final examination of the patient
Summarizing hospital stay
Instructions for continuing care to all relevant caregivers
Preparation of discharge records, prescriptions, and referral forms
Total time spent (in minutes): 45 minutes
Anticipated Discharge: Today
Subjective/Interval History
-
Date of Service: February 02, 2024
In good spirits, anxiously awaiting dc
Objective Data
-
Vital Signs:
Vital Signs
Temp Pulse Resp BP Pulse Ox
97.9 F 83 16 114/65 97
02/02/24 07:00 02/02/24 07:00 02/02/24 07:00 02/02/24 07:00 02/02/24 07:00
I&O
02/01/24 02/02/24 02/03/24
06:59 06:59 06:59
Intake Total 1020 / 1020 1580 / 1580
Output Total 74018 / 90952 2800 / 2800
Balance -68723 / -02495 -1220 / -1220
Review of Systems
-
History Source: Patient and Coordinated Provider
Constitutional: Denies Fever
Abdomen/GI: Reports No Symptoms
Genitourinary: Reports Bleeding (still with hematuria, but has decreased)
Physical Exam
-
General: Well Developed, Well Nourished and No Apparent Distress
HEENT: Normocephalic, Atraumatic and Moist Mucous Membranes
Respiratory: Clear to Auscultation; Negative Wheezes, Rales or Rhonchi
Cardiac: Regular Rhythm and S1/S2
GI: Soft, Nontender and Nondistended
Genito-urinary: Bloody Urine and Otto
Musculoskeletal: No Clubbing, No Cyanosis and No Edema
[2024-02-02] MEDS: TYLENOL 1000 MG PO (13:00)
--- NOTE | 2024-02-02 13:13 | W.DS.TRANS ---
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
-
Discharge Instructions:
Discharge Diagnosis/Procedures Septic Shock due to UTI
Diet Regular
Activity With assistance
Driving Restrictions No driving
Bathing Restrictions None
Blood Work CBC, BMP, Urine with C&S in 5 days
Instructions:
Stand-Alone Forms:
Changes to Home Medications: Yes
Discharge Medications:
DC Medications w/original date entered in [facility]
finasteride 5 mg tablet 5 mg PO DAILY@1999 Urinary Issue 09/01/12
doxazosin 8 mg tablet 8 mg PO DAILY@1999 Urinary Issue 01/02/24
polyethylene glycol 3350 17 gram oral powder packet (HealthyLax) 17 g PO DAILY #30 ea 01/18/24
acetaminophen 500 mg tablet (Tylenol Extra Strength) 1,000 mg PO TID@0600,1400,2200 Pain 01/21/24
docusate sodium 100 mg capsule (Colace) 100 mg PO DAILYPRN PRN constipation 01/21/24
atorvastatin 10 mg tablet 10 mg PO DAILY@1999 High Cholesterol 01/23/24
coenzyme Q10 100 mg capsule (CoQ-10) 200 mg PO DAILY Supplement 01/23/24
nvbjvbni-hmw-tomhj acid 0.4 mg-lycopene 300 mcg-lutein 250 mcg tablet (Centrum Silver) 1 tab PO DAILY Supplement 01/23/24
pantoprazole 40 mg tablet,delayed release 40 mg PO BID@0800,1999 Gastrointestinal Issue 01/23/24
sennosides 8.6 mg tablet (Senokot) 8.6 mg PO DAILY PRN constipation 01/23/24
cephalexin 500 mg capsule 500 mg PO QID #14 caps 02/02/24
Home Medication Changes
Aspirin on hold
Keflex qid for 14 doses
Pending Results: No
--- NOTE | 2024-02-02 13:46 | W.PN.URO.CBU ---
Today's Communication / Plan
-
Okay for discharge from urology standpoint
Assessment / Plan
-
Urosepsis: petty-sensitive E. coli
Persistent leukocytosis: perhaps due to suspected CLL
Urinary retention: normal renal function, resolved with pringle
Hematuria w/ clot retention - secondary to distended bladder, decompression hematuria, and hemorrhagic cystitis: Hgb stable
Mild bilateral hydroureteronephrosis, low set kidneys and a pelvic calcification adjacent to the left UO which appears extra-vesical
Hematuria slowly clearing: catheter hand irrigated 01/29/24 with recovery of lysing clot
catheter draining spontaneously since then
Outpatient follow up in our office for further eval
Diagnosis
-
Date of Service: February 02, 2024
-
Patient Diagnosis:
Urosepsis
Urinary retention
Hematuria w/ clot retention - secondary to distended bladder, decompression hematuria, and hemorrhagic cystitis
Mild bilateral hydroureteronephrosis with near-pelvic kidneys bilaterally and a looping left ureter that appears to partially enter LIH. Ca++ at left UVJ appears extra-ureteral
Persistent leukocytosis perhaps due to pending diagnosis of CLL according to
Subjective
-
No issues overnight
Catheter draining
Objective
-
Vital Signs
Temp Pulse Resp BP Pulse Ox
97.9 F 83 16 114/65 97
02/02/24 07:00 02/02/24 07:00 02/02/24 07:00 02/02/24 07:00 02/02/24 07:00
Intake and Output
02/01/24 02/02/24 02/03/24
06:59 06:59 06:59
Intake Total 1020 / 1020 1580 / 1580
Output Total 97953 / 60444 2800 / 2800
Balance -69888 / -71406 -1220 / -1220
Intake:
Oral fluids 1020 / 1020 1580 / 1580
Output:
Urine, Pringle 2800 / 2800
True Urine Output from CBI 18535 / 08433
Laboratory Results
01/31/24 06:36
01/31/24 06:36
Physical Exam
-
General - well developed, well nourished, no acute distress
Chest - clear
Abdomen - soft, non-tender
Pringle in place, dark urine
Skin - warm & dry
[2024-02-02 14:30] VITALS: BP 112/68
--- NOTE | 2024-02-02 15:50 | PTCARENOTE ---
Called to give report to carlos cavazos. On the first call they stated they would call back- number given at 1230. Rn attempted again to call at 1500 with no answer. Rn attempted again at 1500 with no answer. pt discharged and picked up by acute
care at
--- NOTE | 2024-02-02 15:54 | PTCARENOTE ---
RN called to give report to carlos cavazos. On the first call they stated they would call back- number given at 1230. RN attempted again to call at 1500 with no answer. RN attempted again at 1540 with no answer. pt discharged and picked up by acute
care at 1600. RN will call again and leave message.
== END 2024-02-02 15:38 | DRG 698 ==
LOC: 3 WEST ACU 11:55
PROVIDERS: Physician Assistant; ADMITTING PHYSICIAN Internal Medicine; ATTENDING PHYSICIAN Internal Medicine; CONSULT PHYSICIAN Internal Medicine Critical Care Medicine; EMERGENCY PHYSICIAN Emergency Medicine; FAMILY PHYSICIAN Internal Medicine; OTHER PHYSICIAN Student in an Organized Health Care Education/Training Program
DX: T83.511A Infection and inflammatory reaction due to indwelling urethral catheter, initial encounter (principal); A41.51 Sepsis due to Escherichia coli [E. coli]; G92.8 Other toxic encephalopathy; R65.21 Severe sepsis with septic shock; E87.1 Hypo-osmolality and hyponatremia; N13.6 Pyonephrosis; D62 Acute posthemorrhagic anemia; E87.20 Acidosis, unspecified; J98.11 Atelectasis; R31.9 Hematuria, unspecified; E78.00 Pure hypercholesterolemia, unspecified; I25.10 Atherosclerotic heart disease of native coronary artery without angina pectoris; F32.A Depression, unspecified; N40.0 Benign prostatic hyperplasia without lower urinary tract symptoms; Y84.6 Urinary catheterization as the cause of abnormal reaction of the patient, or of later complication, without mention of misadventure at the time of the procedure; G31.84 Mild cognitive impairment of uncertain or unknown etiology; D72.820 Lymphocytosis (symptomatic); M54.50 Low back pain, unspecified; L89.326 Pressure-induced deep tissue damage of left buttock; G89.29 Other chronic pain; I10 Essential (primary) hypertension; M48.00 Spinal stenosis, site unspecified; Z87.891 Personal history of nicotine dependence; I25.2 Old myocardial infarction; Z79.82 Long term (current) use of aspirin; Z95.5 Presence of coronary angioplasty implant and graft; Z87.19 Personal history of other diseases of the digestive system; Z66 Do not resuscitate; Z85.528 Personal history of other malignant neoplasm of kidney; Z96.649 Presence of unspecified artificial hip joint
CPT/HCPCS: 51702; 51798; 70450; 71045; 74176; 80053; 81003; 81015; 82607; 82728; 82746; 83540; 83550; 83605; 84466; 84484; 85014; 85018; 85025; 85610; 85730; 86850; 86900; 86901; 86920; 87040; 87070; 87077; 87086; 87088; 87186; 87205; 87502; 87811; 92523; 93005; 96361; 96365; 96367; 96375; 97110; 97163; 97166; 97530; 99291; P9016

== ENCOUNTER 2024-03-01 12:07 | Inpatient (IN) | payer MEDICARE, OTHER, SELFPAY ==
[2024-03-01] VITALS (12 sets, daily range): BP systolic 95–136; BP diastolic 56–81; BMI 30.1
[2024-03-01] MEDS: TYLENOL 1000 MG PO ×3 (07:06→21:45)
[2024-03-01] MEDS: NSS 500 IV (07:06)
[2024-03-01 07:13] LABS: Urine Albumin 2+ (Neg - Trace); Urine Bilirubin Negative (Negative); Urine Character Very Cloudy (Clear); Urine Color Yellow; Urine Glucose Negative (Negative); Urine Ketone Negative (Negative); Urine Leukocyte 2+ (Negative); Urine Nitrite Negative (Negative); Urine Occult Blood 4+ (Negative); Urine Specific Gravity 1.015 (<1.030); Urine Urobilinogen Negative (Neg - 1+)
[2024-03-01 07:14] LABS: % Basophils 0.3 % (0-2); % Eosinophils 0.8 % (0-6); % Immature Granulocytes 0.4 % (0-0.5); % Lymphocytes 26.8 % (20.5-51.1); % Monocytes 4.2 % (1.7-9.3); % Neutrophils 67.5 % (42.2-75.2); Absolute Basophils 0.1 10^3/uL (0-0.2); Absolute Eosinophils 0.2 10^3/uL (0-0.7); Absolute Immature Granulocytes 0.1 10^3/uL (0-0.05); Absolute Lymphocytes 5.5 10^3/uL (1.2-3.4); Absolute Monocytes 0.9 10^3/uL (0.1-0.6); Absolute Neutrophils 13.7 10^3/uL (1.4-6.5); Hematocrit 30.4 % (39.0-52.0); Hemoglobin 9.9 g/dL (13.0-18.0); Mean Corp Hgb Conc. 32.6 g/dL (33.0-37.0); Mean Corpuscular Hgb 26.8 pg (27.0-31.0); Mean Corpuscular Volume 82.4 fL (80.0-94.0); Mean Platelet Volume 9.5 fL (7.4-10.4); Nucleated Red Blood Cells % 0 % (-); Platelet Count 363 10^3/uL (130-400); Red Blood Cell Count 3.69 10^6/uL (4.70-6.10); Red Cell Dist. Width 14.8 % (11.5-14.5); White Blood Cell Count 20.3 10^3/uL (4.8-10.8)
[2024-03-01 07:24] LABS: Lactic Acid 0.9 mmol/L (0.7-2.0)
[2024-03-01 07:26] LABS: ALT (SGPT) 15 U/L (0-50); AST (SGOT) 22 U/L (17-59); Alkaline Phosphatase 158 U/L (38-126); Blood Urea Nitrogen 19 mg/dl (9-20); Calcium 8.6 mg/dl (8.4-10.2); Carbon Dioxide 26 mmol/L (22-30); Chloride 101 mmol/L (98-107); Estimated Creatinine Clearance 80 ml/min; Glucose 119 mg/dl (70-99); Potassium 4.4 mmol/L (3.5-5.1); Sodium 133 mmol/L (135-145); Total Bilirubin 0.7 mg/dl (0.2-1.3); Total Protein 5.6 g/dl (6.3-8.2); eGFR > 60.00
[2024-03-01 07:33] LABS: Urine Bacteria Few (Negative); Urine Red Blood Cell 40-50 /HPF (0-2); Urine Squamous Cell 0-2 /LPF (Few); Urine White Cell >100 /HPF (0-5)
[2024-03-01 07:34] LABS: Urine Amorphous Seen
--- NOTE | 2024-03-01 07:36 | ED.GENMED ---
History of Present Illness
General
Chief Complaint: Urinary Symptoms
Source: patient and records
Exam Limitations: none
Time Seen by Provider: 03/01/24 06:09
Nursing documentation reviewed up to this point in time: agreed with
Travel History
Have you had any contact with someone who has COVID-19?: No
Do you have any symptoms of coronavirus? Fever > 100 degrees, chills, cough, shortness of breath, sore throat, loss of taste or smell, muscle aches, or headache?: No
History of Present Illness
History of Present Illness:
Patient is an 83-year-old male with a history of repeated Otto catheters due to urinary retention. Patient had hematuria after having the Otto catheter removed this morning. Patient denies fever or chills. Patient has not urinated since.
Patient does have some discomfort in the lower abdomen. Patient denies any nausea, vomiting or diarrhea. Patient denies fever or chills. Patient denies sweats. Patient denies chest pain, shortness of breath, cough
Past History
Past History
ED Past Medical History: CAD, Cancer (Renal clear-cell, CLL), Hypercholesterolemia, NC and Other (BPH, GI bleed, intra-abdominal adhesions with small bowel obstruction)
Social History
Tobacco: Former smoker
Review of Systems
Review of Systems
All Other Systems: ROS reviewed and negative except as documented in HPI and ROS
Constitutional: Reports fatigue; Denies fever or chills
EENT: Reports no symptoms
Respiratory: Reports no symptoms
Cardiac: Reports no symptoms
ABD/GI: Reports abdominal pain; Denies nausea, vomiting, diarrhea, constipated or anorexia
: Reports difficulty voiding and bleeding
Musculoskeletal: Denies edema
Skin: Reports no symptoms
Neurological: Reports no symptoms
Phy Exam
Physical Exam
Physical Exam:
Physical Exam
General: minimal distress, alert and appropriate, well nourished, mildly dry mucous membranes
HENT: Normocephalic, supple
Eyes: Clear sclera, conjuctiva without injection
Heart: Regular rhythm and rate. No S3, S4. No murmur.
Lungs: No respiratory distress, no stridor, lung sounds clear and equal bilaterally
Abdomen: Soft, mild diffuse lower abdominal tenderness without guarding or rebound, no organomegaly, BS good. Patient with large scrotal hernia and retraction of the prepuce but able to be exposed and with minimal bleeding
about the urethral meatus
Neuro: Alert and usual mental status, CN II - XII intact, no motor focality
Skin: no rash
Psychiatric: well kept. interactive and cooperative
Extremities: No edema, cyanosis, tenderness
Scores
Heart Failure Risk
Heart Failure Risk Score: Not Applicable
Heart Score for Chest Pain Patients
STEMI patient?: Not applicable
Withdrawal Assessment of Alcohol
Withdrawal Assessment Completed?: Not applicable
Course
Orders/Labs/Results
Orders:
Orders
03/01/24 06:44
Bladder Scan- Treatment ONCE
0.9% Sodium Chloride 500 ml [Nss] 500 ml IV BOLUS
Acetaminophen [Tylenol] 1,000 mg PO NOW STA
03/01/24 07:01
Complete Blood Count/With Diff Urgent
Comprehensive Metabolic Panel Urgent
Lactic Acid Q4H
Comment: CANCEL 2nd LACTIC ACID IF 1st LACTIC ACID IS LESS THAN 2
Blood Culture Q30M
CAMRYN Source: Blood/Venous
Specimen Description:
03/01/24 07:03
Urinalysis Reflex To Culture Urgent
Date Specimen was Collected: 03/01/24
Time Specimen was Collected: 07:02
Urine Microscopic Reflex Cult Urgent
Urine Culture Urgent
CAMRYN Source: U
Specimen Description:
Date Specimen was Collected: 03/01/24
Time Specimen was Collected: 07:02
03/01/24 07:27
Blood Culture Q30M
CAMRYN Source: Blood/Venous
Specimen Description:
03/01/24 10:45
Lactic Acid Q4H
Comment: CANCEL 2nd LACTIC ACID IF 1st LACTIC ACID IS LESS THAN 2
Abnormal Lab Results
03/01/24 03/01/24
07:01 07:03
WBC 20.3 H 10^3/uL
(4.8-10.8)
RBC 3.69 L 10^6/uL
(4.70-6.10)
Hgb 9.9 L g/dL
(13.0-18.0)
Hct 30.4 L %
(39.0-52.0)
MCH 26.8 L pg
(27.0-31.0)
MCHC 32.6 L g/dL
(33.0-37.0)
RDW 14.8 H %
(11.5-14.5)
Abs Immat Gran (auto) 0.1 H 10^3/uL
(0-0.05)
Absolute Neuts (auto) 13.7 H 10^3/uL
(1.4-6.5)
Absolute Lymphs (auto) 5.5 H 10^3/uL
(1.2-3.4)
Absolute Monos (auto) 0.9 H 10^3/uL
(0.1-0.6)
Sodium 133 L mmol/L
(135-145)
Glucose 119 H mg/dl
(70-99)
Alkaline Phosphatase 158 H U/L
(38-126)
Total Protein 5.6 L g/dl
(6.3-8.2)
Albumin 3.0 L g/dl
(3.5-5.0)
Ur Occult Blood Reflex 4+ A
(Negative)
Leukocyte Esterase Rfl 2+ A
(Negative)
Urine RBC 40-50 A /HPF
(0-2)
Urine WBC (Reflex) >100 A /HPF
(0-5)
Urine Bacteria (Reflex) Few A
(Negative)
Urine Albumin (Reflex) 2+ A
(Neg - Trace)
03/01/24 07:01
03/01/24 07:01
Vital Signs
Initial and Last Documented VS:
Initial Vital Signs
Temp Pulse Resp BP Pulse Ox
99.6 F 102 22 136/81 98
03/01/24 05:19 03/01/24 05:19 03/01/24 05:19 03/01/24 05:19 03/01/24 05:19
Last Documented Vital Signs
Temp Pulse Resp BP Pulse Ox
99.6 F 86 18 101/67 95
03/01/24 05:19 03/01/24 08:15 03/01/24 08:15 03/01/24 08:00 03/01/24 08:15
*Pulse Oximetry
Patient hypoxic: no
*EKG
Interpreted by ED Provider?: NA
*Spring Maker Interpretation
Rate: Spring Maker- N/A
*Critical Care Note
Total Time (30-74mins, 75-104mins- exclusive of procedures): Not Applicable
Update Note
Update Note:
Patient's Otto catheter was placed and about 4 50-500 of bloody urine and that the and what appeared to be very purulent urine. Patient was started on antibiotics and continued to drain. Patient given the size of the scrotal hernia and what
appears to be some excoriation of the scrotal skin secondary to catheter he may need a suprapubic tube at some point. However during discussions with the patient he wants to consider hospice. Patient will be admitted
ED Attending Note
-
Portions of this chart may have been created with voice recognition software.� Occasional wrong word or��sound alike� substitutions may have occurred due to the inherent limitations of voice recognition software.
Discharge Plan
Departure
Patient Disposition: Admit
Date of Disposition: 03/01/24
Time of Disposition: 08:34
Admit to: Med/Surg
Admit to doctor: Hospitalist
Presentation/result/management discussed w/ accepting MD/DO: Hospitalist
Patient with high blood pressure during this ER visit?: No
Condition: Serious
Covid-19: Not Applicable
Discharge Problem:
Acute UTI, Fever with leukocytosis and leukocyte count greater than or equal to 20,000, Urinary retention
Prescriptions:
No Action
finasteride 5 MG tablet
5 mg PO DAILY@1999
doxazosin 8 mg Tablet
8 mg PO DAILY@1999
polyethylene glycol 3350 [HealthyLax] 17 gram Powder In Packet
17 g PO DAILY Qty: 30 0RF
acetaminophen [Tylenol Extra Strength] 500 mg Tablet
1,000 mg PO TID@0600,1400,2200
docusate sodium [Colace] 100 mg Capsule
100 mg PO DAILYPRN PRN (Reason: constipation)
sennosides [Senokot] 8.6 mg Tablet
8.6 mg PO DAILY PRN (Reason: constipation)
atorvastatin 10 mg Tablet
10 mg PO DAILY@1999
coenzyme Q10 [CoQ-10] 100 mg Capsule
200 mg PO DAILY
Centrum Silver 0.4 mg-300 mcg- 250 mcg Tablet
1 tab PO DAILY
pantoprazole 40 mg tablet,delayed release (DR/EC)
40 mg PO BID@0800,1999
tramadol 25 mg Tablet
25 mg PO QID PRN (Reason: Pain)
Rx Instructions:
Moderate to severe pain
Referrals:
Leticia Ortega DO [Family Provider] -
Interventions
Interventions:
*Risk Screen - Suicide Last Done: 03/01/24 05:19
*General Assessment Last Done: 03/01/24 05:19
*Neglect/Abuse Screening Last Done: 03/01/24 05:19
*ED COVID-19 Vaccine History Last Done: 03/01/24 05:44
ED-Male Genitourinary Assessment Last Done: 03/01/24 05:44
Discharge Date and Time
Print Language: ANGUILLAN
--- NOTE | 2024-03-01 07:59 | EDRN ---
Pt was seen by the urologist, became agitated after the exam. Pt was disconnected from IV Vanc to go to the bathroom, refused to be re-connected, states 'I'm about to walk out of here'. Pt refused to participate in exam/history by the admitting
provider and for now, admission is on hold. Will follow up with ED MD
[2024-03-01] MEDS: MAXIPIME 2000 MG IV ×2 (08:39→21:45)
[2024-03-01] MEDS: GENTAMICIN 54.25 MG IV (09:18)
--- NOTE | 2024-03-01 11:16 | HPS.HSE ---
Family Physician
-
Family Physician: Leticia Ortega
Chief Complaint
-
acute urinary retention
History of Present Illness
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
of his Otto this morning prompting reinsertion with purulent urine return. Denies fevers chills coughing sneezing nausea vomiting diarrhea. Vital signs stable afebrile. Labs noted significant leukocytosis 20.3 but baseline compared to previous
values from January. Patient undergoing outpatient workup for CLL diagnosis confirmed. Patient himself lethargic but arousable oriented x 3 sometimes tangential speak flat affect. Reported interest in hospice. however reports that patient
never brought this up with her. She further reports patient has been severely depressed suicidal ideation due to frequent hospitalization and limited mobility as a result of medical condition. Patient himself denies depression any thoughts of
himself or anyone else but also reports that he doesn't 'want to live any longer.' Patient agreeable to active treatment at this time with antibiotics.
Medical History
Past Medical History
Past Medical History: Reports Other (as above)
Past Surgical History: Reports Other (as above)
Social History
Tobacco: Former Smoker
Alcohol: None
Drug: None
Personal:
Living: With Family
Employment: Retired
Family History
Family History: Not pertinent (reviewed)
Allergies / Home Medications
Allergies reflects when Allergies were last updated in [facility].
Home Medications with original date entered in [facility]
Allergy/Medication List:
Allergies
Allergy/AdvReac Type Severity Reaction Status Date / Time
walnut Allergy throat Verified 01/02/24 18:40
itching
Home Medications
finasteride 5 mg tablet 5 mg PO HS Urinary Issue 09/01/12
doxazosin 8 mg tablet 8 mg PO HS Urinary Issue 01/02/24
polyethylene glycol 3350 17 gram oral powder packet (HealthyLax) 17 g PO DAILY #30 ea 01/18/24
acetaminophen 500 mg tablet (Tylenol Extra Strength) 1,000 mg PO TID Pain 01/21/24
docusate sodium 100 mg capsule (Colace) 100 mg PO DAILY 01/21/24
atorvastatin 10 mg tablet 10 mg PO HS High Cholesterol 01/23/24
coenzyme Q10 100 mg capsule (CoQ-10) 200 mg PO DAILY Supplement 01/23/24
ajbcyehi-cko-mdvjh acid 0.4 mg-lycopene 300 mcg-lutein 250 mcg tablet (Centrum Silver) 1 tab PO DAILY Supplement 01/23/24
pantoprazole 40 mg tablet,delayed release 40 mg PO BID Gastrointestinal Issue 01/23/24
sennosides 8.6 mg tablet (Senokot) 8.6 mg PO QPM 01/23/24
tramadol 25 mg tablet 25 mg PO Q8HPRN PRN MILD Pain 03/01/24
Review of Systems
-
A 12 point ROS was completed and negative except as noted: Yes
Constitutional: Reports Other (as below)
Physical Exam
Vital Signs
Vital Signs
Temp Pulse Resp BP Pulse Ox
99.6 F 77 18 100/64 90
03/01/24 05:19 03/01/24 10:45 03/01/24 10:45 03/01/24 10:00 03/01/24 09:45
Physical Exam
General: Other (as below)
Laboratory Results
-
03/01/24 07:01
03/01/24 07:01
Laboratory Results
Lactic Acid Cancelled 03/01/24 10:45
Total Bilirubin 0.7 mg/dl (0.2-1.3) 03/01/24 07:01
AST 22 U/L (17-59) 03/01/24 07:01
ALT 15 U/L (0-50) 03/01/24 07:01
Alkaline Phosphatase 158 U/L (38-126) H 03/01/24 07:01
Impression/Plan
-
ROS
General: Denies fever chills night sweats unexpected weight loss
Neuro: Denies seizure shaking loss of consciousness dizziness vertigo
Psych: denies depression hallucinations confusion manic episodes
Endocrine: Denies polyuria polydipsia polyphagia heat/cold intolerance
HEENT: Denies blindness visual disturbances epistaxis
Pulmonary: denies coughing hemoptysis sneezing sob dyspnea on exertion
Cardiovascular: denies chest pain palpitations leg swelling
Hematology: denies signs symptoms of anemia easy bruising/bleeding
Gastrointestinal: denies nausea vomiting diarrhea constipation hematemesis hematochezia melena
Genito-Urinary: Reports urinary retention pain resolved with Otto
Musculoskeletal: denies current joint pain
Dermatology: denies rash laceration bruising
Physical Exam
General: No pallor, cyanosis, or jaundice.
HEENT: Throat clear. PERRLA Normocephalic atraumatic
NECK: Supple. No JVD Carotid Bruits
RESPIRATORY: Lungs clear to auscultation. No crackles wheezes stridor
CVS: S1, S2 normal. RRR. No murmur, rub or gallop.
ABDOMEN: Soft, non-tender. No distension. BS+/normal.
: Otto in place significant scrotal edema Hydrocele
EXTREMITIES: No peripheral cyanosis or edema.
SENIOR EXECUTIVE COMPENSATION ANALYST: Lethargic but arousable oriented x 3
IMPRESSION:
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
of his Otto this morning prompting reinsertion with purulent urine return. Denies fevers chills coughing sneezing nausea vomiting diarrhea. Vital signs stable afebrile. Labs noted significant leukocytosis 20.3 but baseline compared to previous
values from January. Patient undergoing outpatient workup for CLL diagnosis confirmed. Patient himself lethargic but arousable oriented x 3 sometimes tangential speak flat affect. Reported interest in hospice. however reports that patient
never brought this up with her. She further reports patient has been severely depressed suicidal ideation due to frequent hospitalization and limited mobility as a result of medical condition. Patient himself denies depression any thoughts of
himself or anyone else but also reports that he doesn't 'want to live any longer.' Patient agreeable to active treatment at this time with antibiotics.
PLAN:
#Acute/chronic urinary retention
#Pyuria/complicated UTI catheter associated without sepsis
Telemetry admit
received empiric cefipime and Gentamicin in ED
Continue cefepime
ID urology eval
Maintain Otto at this time
#Leukocytosis possible CLL
Baseline per values from January
Will continue to trend
#Possible severe depression suicidal ideation as per
Patient currently denies
reports ideation but denies any history of attempts
Patient agreeable to psych eval at this time before consideration hospice
Psych eval requested
DVT prophylaxis Lovenox
GI prophylaxis Protonix
Meds reconciled and resumed as appropriate
DNR as per patient and his
I spent a total of 80 minutes with the patient or on the floor. More than 50% of this time involved counseling and coordination of care.
--- NOTE | 2024-03-01 12:45 | CON.MD ---
Consultation - Medical
-
see dictated note
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
know large LIH with partial involvement of ureter
long hx of BPH
now cath dependent for a variety of reasons
recent admit for hematuria
apparently pringle was removed at assisted living- ? how long ago- this was NOT at the direction fo urologu
now readmitted with urinary retention/weakness, ? UTI
on exam- pt with enlarged scrotum- some edema but mostly due to LIH
buried penis- pringle in place- urine was originally very cloudy- but now clear yellow
plan
continue pringle
ucx- although pt does not appear toxic
urologic plan (per dr mckeon) was continued pringle cath exchanges
pt does express desire to discuss palliative care
will follow
--- NOTE | 2024-03-01 14:22 | PTCARENOTE ---
Rec'd Pt from ED to Room 434-1, [address]. Pt pulled from stretcher to bed. Wheelchair at baseline. Pt is AOOx3, oriented to room with call prabhakar in place.
--- NOTE | 2024-03-01 15:22 | W.PN.UPDATE ---
Update Note
Progress Note Update
Psychiatric Evaluation dictated.
83 yo man who admits to being depressed and wishing he ; he relates it to his physical problems, particularly pain in his legs and inability to walk. He denies hopelessness or active suicidal thoughts.
He has previous history of mental health treatment including being on antidepressants.
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
Would try Wellbutrin XL 150 daily given his hyponatremia.
--- NOTE | 2024-03-01 15:31 | CON.ID ---
Consultation
-
Date/Time Consultation Requested: 03/01/2024 1211
Date/Time Consultation Performed: 03/01/2024 1449
Requesting Provider: Dr. Wall
Performing Provider: Dr. Arvizu
Reason for Consultation: Urinary retention; leukocytosis
Chief Complaint / Past History
History of Present Illness
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 Wall in regards to possible urinary tract infection secondary to urinary retention. History is obtained from chart review, along with patient interview.
The patient presents to [facility] from a local care facility. He reports that he has had longstanding urinary catheter in place, but it was removed recently and since that time he has had an inability to urinate, with increasing abdominal
discomfort. No recent fevers or chills.
In the ER Pringle catheter was replaced, with recovery of approximately 500 cc of bloody urine. ER reports noted it to be 'very purulent'. Antibiotics were initiated in the ER.
Past History
Additional Past Medical History:
CAD
Renal cell carcinoma
CLL
Dyslipidemia
CAD/Hx CT
BPH
Allergy History:
walnut Allergy (Verified 01/02/24 18:40)
throat itching
Social History
Tobacco: Former Smoker
Alcohol: Occasional
Drug: None
Employment: Retired
Family History
Family History: Not Pertinent
Review of Systems
Vital Signs
Temp Pulse Resp BP Pulse Ox
98.4 F 82 16 106/64 97
03/01/24 14:20 03/01/24 14:20 03/01/24 14:20 03/01/24 14:20 03/01/24 14:20
Physical Exam
Physical Exam
Constitutional: No Acute Distress, Comfortable and Non-toxic
Eyes: No Conjunctival Hemorrhage and Sclera Anicteric
Oral: No Thrush and No Ulcers
Cardiovascular: S1/S2; Negative S3/S4
Pulmonary: Clear and Non Labored; Negative Wheezes or Rales
Gastrointestinal: Soft, Non Tender, Non Distended and Normal Bowel Sounds
Genito-Urinary: Pringle and Turbid Urine; Negative Hematuria
Extremities: Edema; Negative Cyanosis or Erythema
Neurological: Awake and Alert
Psychological: Calm
Lab / Diagnostic Study Results
03/01/24 07:01
03/01/24 07:01
Abs Immat Gran (auto) 0.1 10^3/uL (0-0.05) H 03/01/24 07:01
Absolute Neuts (auto) 13.7 10^3/uL (1.4-6.5) H 03/01/24 07:01
Absolute Lymphs (auto) 5.5 10^3/uL (1.2-3.4) H 03/01/24 07:01
Absolute Monos (auto) 0.9 10^3/uL (0.1-0.6) H 03/01/24 07:01
Absolute Basos (auto) 0.1 10^3/uL (0-0.2) 03/01/24 07:01
Immature Gran % 0.4 % (0-0.5) 03/01/24 07:01
Neutrophils % 67.5 % (42.2-75.2) 03/01/24 07:01
Lymphocytes % 26.8 % (20.5-51.1) 03/01/24 07:01
Monocytes % 4.2 % (1.7-9.3) 03/01/24 07:01
Eosinophils % 0.8 % (0-6) 03/01/24 07:01
Basophils % 0.3 % (0-2) 03/01/24 07:01
Lactic Acid Cancelled 03/01/24 10:45
Ur Squamous Epith Cells 0-2 /LPF (Few) 03/01/24 07:03
Microbiology Results
Micro:
03/01/24 07:27 Blood Culture - Pending
Blood/Venous
03/01/24 07:03 Urine Culture - Pending
Urine
03/01/24 07:01 Blood Culture - Pending
Blood/Venous
Assessment / Plan
Acute urinary retention
- pringle replaced in ER
Leukocytosis; likely secondary to underlying CLL
Hx renal cell carcinoma
Hx CAD
Dyslipidemia
CAD
BPH
Scrotal edema
Recommendations:
Continue with cefepime while cultures are pending.
Monitor temperature curve.
Repeat cultures for temperature greater than 101 F.
Further antibiotic recommendations with return of additional data.
[2024-03-01] MEDS: SENOKOT 8.59999999999999964 MG PO (16:23)
[2024-03-01] MEDS: LOVENOX 40 MG SC (16:23)
[2024-03-01] MEDS: STERILE WATER FOR INJECTION 10 ML IV (21:45)
[2024-03-01] MEDS: PROTONIX 40 MG PO (21:46)
[2024-03-01] MEDS: PROSCAR 5 MG PO (21:46)
[2024-03-01] MEDS: LIPITOR 10 MG PO (21:46)
[2024-03-01] MEDS: CARDURA 8 MG PO (23:16)
[2024-03-02 03:35] VITALS: BP 129/76
--- NOTE | 2024-03-02 06:36 | W.PN.HOSP.TC ---
Today's Communication/Plan
-
cont abx, follow cultures
maintain pringle
PT/OT
Hospice eval per pt's request
Wellbutrin as per psych
Assessment / Plan
Assessment / Plan
Physical Exam
General: No pallor, cyanosis, or jaundice.
HEENT: Throat clear. PERRLA Normocephalic atraumatic
NECK: Supple. No JVD Carotid Bruits
RESPIRATORY: Lungs clear to auscultation. No crackles wheezes stridor
CVS: S1, S2 normal. RRR. No murmur, rub or gallop.
ABDOMEN: Soft, non-tender. No distension. BS+/normal.
: Pringle in place significant scrotal swelling noted
EXTREMITIES: No peripheral cyanosis or edema.
TANK HOOP BENDER: AOx3
IMPRESSION:
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
pain since discontinuation of his Pringle this morning prompting reinsertion with purulent urine return. Denies fevers chills coughing sneezing nausea vomiting diarrhea. Vital signs stable afebrile. Labs noted significant leukocytosis 20.3 but
baseline compared to previous values from January. Patient undergoing outpatient workup for CLL diagnosis confirmed. Patient himself lethargic but arousable oriented x 3 sometimes tangential speak flat affect. Reported interest in hospice.
however reports that patient never brought this up with her. She further reports patient has been severely depressed suicidal ideation due to frequent hospitalization and limited mobility as a result of medical condition. Patient himself denies
depression any thoughts of himself or anyone else but also reports that he doesn't 'want to live any longer.' Patient agreeable to active treatment at this time with antibiotics.
PLAN:
#Acute/chronic urinary retention
#Pyuria/complicated UTI catheter associated without sepsis
Telemetry admit
received empiric cefipime and Gentamicin in ED
Continued cefepime
follow cx' prelim Urine cx positive for S aureus
ID urology eval appreciated
Maintain Pringle
#Leukocytosis possible CLL
Baseline per values from January
Will continue to trend
#Possible severe depression suicidal ideation as per
Patient currently denies
reports ideation but denies any history of attempts
Psych eval appreciated Wellbutrin started, continue
#Hx Spinal Stenosis
severe ambulatory dysfunction
[facility] resident
[facility] for transfers
Hospice eval requested as per patient's request.
DVT prophylaxis Lovenox
GI prophylaxis Protonix
DNR as per patient and his
I spent a total of 55 minutes with the patient or on the floor. More than 50% of this time involved counseling and coordination of care.
Anticipated Discharge: > 48 hours
Subjective/Interval History
-
Date of Service: March 02, 2024
No acute distress sitting up comfortably in bed. Reports overall feeling well. Denies new acute issues at this time. Continues to report his desire for hospice. Denies thoughts of harming himself or others.
Objective Data
-
Vital Signs:
Vital Signs
Temp Pulse Resp BP Pulse Ox
98.9 F 82 18 129/76 98
03/02/24 03:35 03/02/24 03:35 03/02/24 03:35 03/02/24 03:35 03/02/24 03:35
I&O
02/29/24 03/01/24 03/02/24
06:59 06:59 06:59
Output Total 800 / 800
Balance -800 / -800
[2024-03-02 07:57] VITALS: BP 97/61
[2024-03-02] MEDS: WELLBUTRIN XL (24 hour extended release) 150 MG PO (08:05)
[2024-03-02] MEDS: COLACE 100 MG PO (08:05)
[2024-03-02] MEDS: STERILE WATER FOR INJECTION 10 ML IV ×2 (08:05→20:42)
[2024-03-02] MEDS: THERAGRAN 1 TABLET PO (08:05)
[2024-03-02] MEDS: MIRALAX 17 GRAMS PO (08:05)
[2024-03-02] MEDS: MAXIPIME 2000 MG IV ×2 (08:05→20:41)
[2024-03-02] MEDS: TYLENOL 1000 MG PO ×2 (08:05→18:33)
[2024-03-02] MEDS: PROTONIX 40 MG PO ×2 (08:05→20:42)
--- NOTE | 2024-03-02 08:43 | W.PN.URO.CBU ---
Today's Communication / Plan
-
continue pringle
Assessment / Plan
-
chronic retention
chronic cystitis
await ucx
continue pringle
Diagnosis
-
Date of Service: March 02, 2024
-
Patient Diagnosis:
chronic urinary retention
Subjective
-
pt awake and alert
urine clear with sediment- no hematuria
wbc nl
blood cx's negative to date/ ucx pending
Objective
-
Vital Signs
Temp Pulse Resp BP Pulse Ox
98.5 F 82 16 97/61 97
03/02/24 07:57 03/02/24 07:57 03/02/24 07:57 03/02/24 07:57 03/02/24 07:57
Intake and Output
03/01/24 03/02/24 03/03/24
06:59 06:59 06:59
Intake Total 120 / 120
Output Total 800 / 800 1150 / 1150
Balance -800 / -800 -1030 / -1030
Intake:
Oral fluids 120 / 120
Output:
Urine, Pringle 800 / 800 1150 / 1150
Laboratory Results
03/01/24 07:01
03/01/24 07:01
Review of Systems
-
Constitutional: Fatigue
Respiratory: No Symptoms
Cardiac: No Symptoms
Abdomen/GI: No Symptoms
Physical Exam
-
General -no acute distress
Abdomen - soft, non-tender
Genitalia - buried penis/ pringle in place
[2024-03-02 11:00] LABS: Hematocrit 28.3 % (39.0-52.0); Mean Corp Hgb Conc. 31.8 g/dL (33.0-37.0); Mean Corpuscular Hgb 26.9 pg (27.0-31.0); Mean Corpuscular Volume 84.7 fL (80.0-94.0); Mean Platelet Volume 9.6 fL (7.4-10.4); Platelet Count 375 10^3/uL (130-400); Red Blood Cell Count 3.34 10^6/uL (4.70-6.10); Red Cell Dist. Width 14.9 % (11.5-14.5)
--- NOTE | 2024-03-02 11:24 | CM ---
CM following re: discharge planning.
Reviewed pt's chart, met with pt.
Pt is an 83 year old male, admitted with primary dx of acute urinary retention
Pt is well known to this CM from previous admission. Pt reports he lives at [facility] with his . He described himself as independent with his ADLs, personal care, dressing and bathing. 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
clean and do laundry. He uses a walker to assist with his ambulation.
Pt is admitted from [facility] where he was for a short term rehab for more than a month. pt stated he feels he cannot living independently being incontinent and needs someone to change his diapers, cannot walk at all and has to use a
wheelchair. Pt is requested to be evaluated for hospice care and pt preferred hospice. A referral to hospice made.
PCP: Dr. Leticia Ortega.
Pharmacy: [facility] on [address]
D/C plan: return back to [facility] to continue on a short term rehabilitation treatment vs home with hospice care if qualified for hospice.
CM will follow with discharge plan updates as hospitalization progresses
--- NOTE | 2024-03-02 11:37 | W.PN.ID1 ---
Date of Service
Date of Service: March 02, 2024
Today's Communication
Continue antibiotics.
Assessment / Plan
Acute urinary retention
- pringle replaced in ER
Leukocytosis; likely secondary to underlying CLL
Hx renal cell carcinoma
Hx CAD
Dyslipidemia
CAD
BPH
Scrotal edema
Recommendations:
Continue with cefepime while cultures are pending.
Monitor temperature curve.
Repeat cultures for temperature greater than 101 F.
Further antibiotic recommendations with return of additional data.
Patient for palliative care/hospice evaluation.
Chief Complaint
-: UTI
Subjective / Review of Systems
Review of Systems: No Fever
Vital Signs / Physical Exam
Vital Signs
Vital Signs
Temp Pulse Resp BP Pulse Ox
98.5 F 82 16 97/61 97
03/02/24 07:57 03/02/24 07:57 03/02/24 07:57 03/02/24 07:57 03/02/24 07:57
Physical Exam
Constitutional: Comfortable, Chronically Ill and Non-toxic
Eyes: Sclera Anicteric
Pulmonary: Non Labored
Genito-Urinary: Pringle and Clear Urine
Neurological: Awake and Alert
Psychological: Calm
Objective Data
Lab Data
Lab Results
03/02/24 10:45
Estimated Creat Clear 80 ml/min 03/01/24 07:01
Lactic Acid Cancelled 03/01/24 10:45
Total Bilirubin 0.7 mg/dl (0.2-1.3) 03/01/24 07:01
AST 22 U/L (17-59) 03/01/24 07:01
ALT 15 U/L (0-50) 03/01/24 07:01
Alkaline Phosphatase 158 U/L (38-126) H 03/01/24 07:01
Most recent labs reviewed.
Micro Results:
03/01/24 07:03 Urine Culture - Preliminary
Urine Staphylococcus aureus
03/01/24 07:27 Blood Culture - Preliminary
Blood/Venous No Growth in 24 hours- Final report to follow
03/01/24 07:01 Blood Culture - Preliminary
Blood/Venous No Growth in 24 hours- Final report to follow
03/01/24 20:14 MRSA Screen - Pending
Nose
[2024-03-02 11:47] VITALS: BP 102/64
[2024-03-02 11:54] LABS: Blood Urea Nitrogen 19 mg/dl (9-20); Calcium 8.6 mg/dl (8.4-10.2); Chloride 105 mmol/L (98-107); Estimated Creatinine Clearance 93 ml/min; Glucose 115 mg/dl (70-99); Magnesium 2.1 mg/dl (1.6-2.3); Phosphorus 4.3 mg/dl (2.5-4.5); Sodium 132 mmol/L (135-145); eGFR > 60.00
[2024-03-02 12:01] LABS: Potassium 4.2 mmol/L (3.5-5.1)
--- NOTE | 2024-03-02 12:07 | W.PN.UPDATE ---
Update Note
Progress Note Update
Patient is in better mood today but still questions his existence, particularly what purpose he has in this life as he compares things he was able to do in the past with his current physical limitations. At the [facility] time he acceps he has family he
cares about, enjoys reading and participates in online [employer] hoahaoism services. Denies active suicidal thoughts. Considering hospice treatment.
Started on Wellbutrin XL 150 mg daily, too early to assess response.
Continue F/U.
[2024-03-02 12:14] LABS: Carbon Dioxide 21 mmol/L (22-30)
[2024-03-02 15:15] VITALS: BP 119/63
--- NOTE | 2024-03-02 17:22 | HOSPNOTE ---
Spoke with the patients regarding Hospice services. She states she was not aware of the Hospice referral. She stated the patient is very forgetful and never mentioned Hospice to her. She was not prepared to talk today but was agreeable to a
Hospice conversation tomorrow.
[2024-03-02] MEDS: LOVENOX 40 MG SC (18:34)
[2024-03-02] MEDS: SENOKOT 8.59999999999999964 MG PO (18:37)
[2024-03-02 19:00] VITALS: BP 125/66
[2024-03-02] MEDS: PROSCAR 5 MG PO (21:44)
[2024-03-02] MEDS: CARDURA 8 MG PO (21:45)
[2024-03-02] MEDS: LIPITOR 10 MG PO (21:45)
[2024-03-02 23:00] VITALS: BP 103/61
[2024-03-03] VITALS (7 sets, daily range): BP systolic 101–122; BP diastolic 59–74; PULSE 72; O2SAT 99
[2024-03-03] MEDS: TYLENOL 1000 MG PO ×4 (00:12→21:41)
--- NOTE | 2024-03-03 06:43 | W.PN.URO.CBU ---
Today's Communication / Plan
-
uti treatment per id
continue pringle now and at time of discharge
Assessment / Plan
-
chronic retention
chronic cystitis
ID guiding antibx therapy- presentation more c/w retention than UTI/sepsis
continue pringle now and at time of discharge- should arrange outpt f/u with dr mckeon
fdc care goals being reviewed
call with any further questions
Diagnosis
-
Date of Service: March 03, 2024
-
Patient Diagnosis:
Post Op Day:
Patient Diagnosis:
chronic urinary retention
Subjective
-
pt feels good
urine yellow with less sediment
ucx + for staph
no fevers/nl wbc
Objective
-
Vital Signs
Temp Pulse Resp BP Pulse Ox
97.8 F 76 22 105/73 97
03/03/24 03:00 03/03/24 03:00 03/03/24 03:00 03/03/24 03:00 03/03/24 03:00
Intake and Output
03/01/24 03/02/24 03/03/24
06:59 06:59 06:59
Intake Total 1110 / 1110
Output Total 800 / 800 2400 / 2400
Balance -800 / -800 -1290 / -1290
Intake:
Oral fluids 1110 / 1110
Output:
Urine, Pringle 800 / 800 2400 / 2400
Other:
How many times incontinent 1
SATURATED amount urine
Physical Exam
-
General - no acute distress
[2024-03-03 08:15] LABS: Hematocrit 29.8 % (39.0-52.0); Hemoglobin 9.2 g/dL (13.0-18.0); Mean Corp Hgb Conc. 30.9 g/dL (33.0-37.0); Mean Corpuscular Hgb 26.1 pg (27.0-31.0); Mean Corpuscular Volume 84.4 fL (80.0-94.0); Mean Platelet Volume 9.9 fL (7.4-10.4); Platelet Count 404 10^3/uL (130-400); Red Blood Cell Count 3.53 10^6/uL (4.70-6.10); Red Cell Dist. Width 14.8 % (11.5-14.5); White Blood Cell Count 16.1 10^3/uL (4.8-10.8)
[2024-03-03] MEDS: COLACE 100 MG PO (08:33)
[2024-03-03] MEDS: THERAGRAN 1 TABLET PO (08:33)
[2024-03-03] MEDS: PROTONIX 40 MG PO ×2 (08:33→20:09)
[2024-03-03] MEDS: STERILE WATER FOR INJECTION 10 ML IV (08:33)
[2024-03-03] MEDS: MIRALAX 17 GRAMS PO (08:33)
[2024-03-03] MEDS: MAXIPIME 2000 MG IV (08:33)
[2024-03-03] MEDS: WELLBUTRIN XL (24 hour extended release) 150 MG PO (08:34)
[2024-03-03 09:02] LABS: Blood Urea Nitrogen 16 mg/dl (9-20); Calcium 8.4 mg/dl (8.4-10.2); Carbon Dioxide 26 mmol/L (22-30); Chloride 107 mmol/L (98-107); Estimated Creatinine Clearance 93 ml/min; Glucose 108 mg/dl (70-99); Potassium 4.2 mmol/L (3.5-5.1); Sodium 136 mmol/L (135-145); eGFR > 60.00
--- NOTE | 2024-03-03 11:41 | HOSPNOTE ---
Referral received. After review, patient is not hospice appropriate at this time. CM and attending updated. CM to sent palliative referral. Spoke to spouse Marian, she is in agreement with palliative referral. Asked CM to update her when patient will
be discharged, if possibly today even. Hospice will sign off at this time.
--- NOTE | 2024-03-03 12:44 | W.PN.ID1 ---
Date of Service
Date of Service: March 03, 2024
Today's Communication
Narrow to oral keflex.
Assessment / Plan
Acute urinary retention
- pringle replaced in ER
Leukocytosis; likely secondary to underlying CLL
Hx renal cell carcinoma
Hx CAD
Dyslipidemia
CAD
BPH
Scrotal edema
Recommendations:
Cultures with S. aureus (MSSA)
Transition to oral keflex for an additional 7 day therapy.
Patient for palliative care/hospice evaluation.
Chief Complaint
-: UTI
Subjective / Review of Systems
Review of Systems: No Fever
Vital Signs / Physical Exam
Vital Signs
Vital Signs
Temp Pulse Resp BP Pulse Ox
98.0 F 74 20 107/69 99
03/03/24 07:38 03/03/24 07:38 03/03/24 07:38 03/03/24 07:38 03/03/24 07:38
Physical Exam
Constitutional: No Acute Distress, Comfortable and Chronically Ill
Cardiovascular: S1/S2; Negative S3/S4
Pulmonary: Non Labored
Genito-Urinary: Pringle and Clear Urine
Psychological: Calm
Objective Data
Lab Data
Lab Results
03/03/24 07:24
03/03/24 07:24
Estimated Creat Clear 93 ml/min 03/03/24 07:24
Lactic Acid Cancelled 03/01/24 10:45
Total Bilirubin 0.7 mg/dl (0.2-1.3) 03/01/24 07:01
AST 22 U/L (17-59) 03/01/24 07:01
ALT 15 U/L (0-50) 03/01/24 07:01
Alkaline Phosphatase 158 U/L (38-126) H 03/01/24 07:01
Most recent labs reviewed.
Micro Results:
03/01/24 07:03 Urine Culture - Final
Urine S aureus-Methicillin Sensitive
03/01/24 20:14 MRSA Screen - Final
Nose No Methicillin Resistant Staphylococcus aureus isolated.
03/01/24 07:27 Blood Culture - Preliminary
Blood/Venous No Growth in 48 hours- Final report to follow
03/01/24 07:01 Blood Culture - Preliminary
Blood/Venous No Growth in 48 hours- Final report to follow
Care Review
Plan reviewed with: Physician (Hospitalist)
--- NOTE | 2024-03-03 13:59 | WOUNDNOTE ---
[facility] RN note: Patient admitted with arrhythmia. Patient is . He was admitted from [facility]. Hospice being considered.
See H&P for complete history.
PMH: BPH, spinal stenosis, BPH, renal cell ca, CAD, CLL, UTI, former smoker.
Wound Location and type/assessment: Patient admitted with: L sacral/buttocks evolving DTI vs deep dermal stage 2 pressure injury, skin firm around ulcer. R inner buttocks stage 2 pressure injury. L lower buttocks stage 2 pressure injury. L heel
blanchable red.
Appetite: poor.
Pressure redistribution devices in place: Advanta with Accumax mattress. Air chair cushion off loading heels.
Plan: Silicone border foam changed on sacral/buttocks and R inner buttocks. Silicone border foam maintained on L lower buttocks. Patient incontinent of smear of brown soft stool. Zully care given. Patient turned and air overlay applied with help
from SAHRA Rodriguez (SAHRA Smith unavailable currently). Heel elevation maintained.
Will confirm orders with hospitalist and will update nurse.
Care plan to be updated and will follow as needed.
Note to case management of equipment requested for discharge: air mattress.
--- NOTE | 2024-03-03 14:45 | WOUNDNOTE ---
WOC RN Note: Jesus Oneill, Insurance Coordinator re: Air mattress recommended; patient has sacral/buttocks pressure injuries.
[2024-03-03] MEDS: KEFLEX 500 MG PO ×3 (15:24→20:48)
--- NOTE | 2024-03-03 15:47 | CM ---
ict business development manager reviewed patient's chart and plan is for skilled placement at the [facility] tomorrow, referral faxed and bed is available tomorrow, patient will need air mattress and Leslye in admissions at [facility] made aware. Patient's spouse
has been updated on plan. patient will need COVID testing completed, physician made aware.
Plan; Patient to transfer to the [facility] tomorrow.
[facility]
Report [phone]
--- NOTE | 2024-03-03 16:38 | W.PN.HOSP.TC ---
Today's Communication/Plan
-
Transition to oral antibiotics
Maintain Otto catheter.
Wound care.
Physical therapy.
Discharge to snf facility
Assessment / Plan
Assessment / Plan
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
pain since discontinuation of his Otto this morning prompting reinsertion with purulent urine return. Denies fevers chills coughing sneezing nausea vomiting diarrhea. Vital signs stable afebrile. Labs noted significant leukocytosis 20.3 but
baseline compared to previous values from January. Patient undergoing outpatient workup for CLL diagnosis confirmed. Patient himself lethargic but arousable oriented x 3 sometimes tangential speak flat affect. Reported interest in hospice.
however reports that patient never brought this up with her. She further reports patient has been severely depressed suicidal ideation due to frequent hospitalization and limited mobility as a result of medical condition. Patient himself denies
depression any thoughts of himself or anyone else but also reports that he doesn't 'want to live any longer.' Patient agreeable to active treatment at this time with antibiotics.
PLAN:
#Acute/chronic urinary retention
#Pyuria/complicated UTI catheter associated without sepsis. Likely catheter associated UTI. Urine culture with MSSA
received empiric cefipime and Gentamicin in ED
Maintain Otto
Antibiotics narrowed to Keflex for additional 7 days.
Sacral wound, unstageable secondary to pressure.
Continue wound care
#Leukocytosis possible CLL
Baseline per values from January
Will continue to trend
#Possible severe depression suicidal ideation as per
Patient currently denies
reports ideation but denies any history of attempts
Psych eval appreciated Wellbutrin started, continue
#Hx Spinal Stenosis
severe ambulatory dysfunction
[facility] resident
[facility] for transfers
Hospice eval requested as per patient's request.
DVT prophylaxis Lovenox
GI prophylaxis Protonix
DNR as per patient and his
I spent a total of 55 minutes with the patient or on the floor. More than 50% of this time involved counseling and coordination of care.
Anticipated Discharge: Within 24 hours
Subjective/Interval History
-
Date of Service: March 03, 2024
Objective Data
-
Labs:
Laboratory Results
03/03/24
07:24
WBC 16.1 H
Hgb 9.2 L
Hct 29.8 L
Plt Count 404 H
Sodium 136
Potassium 4.2
Chloride 107
Carbon Dioxide 26
BUN 16
Creatinine 0.6 L
Glucose 108 H
Calcium 8.4
Vital Signs:
Vital Signs
Temp Pulse Resp BP Pulse Ox
97.9 F 74 18 107/69 99
03/03/24 13:15 03/03/24 07:38 03/03/24 13:15 03/03/24 07:38 03/03/24 07:38
I&O
03/02/24 03/03/24 03/04/24
06:59 06:59 06:59
Intake Total 1110 / 1110
Output Total 800 / 800 2400 / 2400
Balance -800 / -800 -1290 / -1290
Physical Exam
-
General: Well Developed and No Apparent Distress
HEENT: Normocephalic, Atraumatic and Moist Mucous Membranes
Respiratory: Clear to Auscultation
Cardiac: Regular Rhythm and S1/S2; Negative Murmur, Rub or Gallop
GI: Soft, Nontender, Nondistended and Normal Bowel Sounds; Negative Organomegaly
Rectal: Deferred by Provider
Musculoskeletal: No Clubbing, No Cyanosis and No Edema
Skin: Negative Rash
Neuro: Nonfocal/Grossly Intact
[2024-03-03] MEDS: LOVENOX 40 MG SC (17:52)
[2024-03-03] MEDS: SENOKOT 8.59999999999999964 MG PO (17:52)
[2024-03-03] MEDS: ULTRAM 25 MG PO (20:46)
[2024-03-03] MEDS: LIPITOR 10 MG PO (20:48)
[2024-03-03] MEDS: CARDURA 8 MG PO (20:48)
[2024-03-03] MEDS: PROSCAR 5 MG PO (20:48)
[2024-03-04 04:46] VITALS: BP 111/72
--- NOTE | 2024-03-04 07:41 | PN.CDI ---
CDI
- -
CDI:
Physician Documentation Request
Admit Date: 03/01/24 12:07
Dear Doctor Sandy,
Please review the following and provide your response in the progress notes.
Clinical Indicators:
Laboratory Tests
03/01/24 03/02/24 03/03/24
07:01 10:45 07:24
Sodium 133 L 132 L 136
Based on the above, please clarify in the progress notes, the appropriate diagnosis, if significant, that supports the above abnormalities and additional evaluation, monitoring and/or treatment rendered:
Hyponatremia, POA, now resolved
Abnormal lab value, clinically insignificant
Other
Use of terms such as suspected, likely, concern for, or probable (associated with a specific diagnosis that is being evaluated, monitored, or treated as if it exists) are acceptable and can be coded in the inpatient setting, when documented at the
time of discharge.
Thank you,
Cassidy Lyles RN BSN CCDS
CDI Specialist
please contact via tiger text
Please use your independent medical judgment in providing your response.
--- NOTE | 2024-03-04 07:43 | PN.CDI ---
CDI
- -
CDI:
Physician Documentation Request
Admit Date: 03/01/24 12:07
Dear Doctor Sandy,
Please review the following and provide your response in the progress notes.
Clinical Indicators:
03/03/24 13:59 - Wound Note....
#Patient admitted with:
#L sacral/buttocks evolving DTI vs deep dermal stage 2 pressure injury,
#...skin firm around ulcer.
#R inner buttocks stage 2 pressure injury.
#L lower buttocks stage 2 pressure injury.
PN, 03/03
#Sacral wound, unstageable secondary to pressure.
Physician documentation of the type and location of wounds is required for compliant documentation. Based on the above clinical findings and your assessment, please provide the following in your progress note:
PLEASE CLARIFY THE STAGE OF THE SACRAL AND BUTTOCKS PRESSURE INJURY...
Left sacral/buttocks DTI vs. stage 2 PI and right inner buttocks stage 2 PI and left lower buttocks stage 2 PI, POA
Other (please specify)
1. Location of the ulcer/wound, including laterality.
2. Type (etiology) of ulcer/wound:
- Diabetic ulcer
- Arterial (ischemic) ulcer
- Traumatic wound
- Venous stasis ulcer
- Pressure (decubitus) ulcer
3. If a pressure ulcer, please also include the stage* of the ulcer:
- Stage 1 - Skin intact, non-blanchable redness
- Stage 2 - Partial thickness loss of dermis, includes intact or open blister
- Stage 3 - Full thickness tissue not including bone, tendon or muscle
- Stage 4 - Full thickness tissue loss, including exposed bone, tendon or muscle
- Unstageable - Full thickness loss in which the base of the ulcer is covered by slough (yellow, rodriguez, capone, green or brown) and/or eschar (rodriguez, brown or black) in the wound bed.
Use of terms such as suspected, likely, concern for, or probable (associated with a specific diagnosis that is being evaluated, monitored, or treated as if it exists) are acceptable and can be coded in the inpatient setting, when documented at the
time of discharge.
Thank you,
Cassidy Lyles RN BSN CCDS
CDI Specialist
please contact via tiger text
Please use your independent medical judgment in providing your response.
*Source: National Pressure Ulcer Advisory Panel (NPUAP)
[2024-03-04 07:51] LABS: Hematocrit 29.5 % (39.0-52.0); Hemoglobin 9.3 g/dL (13.0-18.0); Mean Corp Hgb Conc. 31.5 g/dL (33.0-37.0); Mean Corpuscular Hgb 26.2 pg (27.0-31.0); Mean Corpuscular Volume 83.1 fL (80.0-94.0); Mean Platelet Volume 9.6 fL (7.4-10.4); Platelet Count 444 10^3/uL (130-400); Red Blood Cell Count 3.55 10^6/uL (4.70-6.10); Red Cell Dist. Width 14.8 % (11.5-14.5)
[2024-03-04 08:00] VITALS: BP 114/78
[2024-03-04 08:13] LABS: COVID-19 Antigen Negative (Negative)
[2024-03-04] MEDS: MIRALAX 17 GRAMS PO (09:00)
[2024-03-04] MEDS: KEFLEX 500 MG PO ×2 (09:01→12:01)
[2024-03-04] MEDS: WELLBUTRIN XL (24 hour extended release) 150 MG PO (09:01)
[2024-03-04] MEDS: TYLENOL 1000 MG PO (09:01)
[2024-03-04] MEDS: COLACE 100 MG PO (09:02)
[2024-03-04] MEDS: THERAGRAN 1 TABLET PO (09:02)
[2024-03-04] MEDS: PROTONIX 40 MG PO (09:02)
[2024-03-04] MEDS: DESENEX/MITRAZOL/ZEASORB 1 APPLIC TOPICAL (09:09)
[2024-03-04 09:21] LABS: Blood Urea Nitrogen 14 mg/dl (9-20); Calcium 8.5 mg/dl (8.4-10.2); Carbon Dioxide 24 mmol/L (22-30); Chloride 104 mmol/L (98-107); Estimated Creatinine Clearance 93 ml/min; Glucose 93 mg/dl (70-99); Magnesium 2.1 mg/dl (1.6-2.3); Phosphorus 3.7 mg/dl (2.5-4.5); Potassium 4.8 mmol/L (3.5-5.1); Sodium 135 mmol/L (135-145); eGFR > 60.00
[2024-03-04 10:49] VITALS: BP 136/85
--- NOTE | 2024-03-04 11:33 | W.PN.UPDATE ---
Update Note
Progress Note Update
Patient seen at bedside, chart reviewed, discussed with staff. Mr. Baxter is anticipated to return home today with with home health and PT/OT. He continues to c/o pain. He denies any side effects since Wellbutrin has been initiated including
restlessness or insomnia. He tells me 'maybe it is working because I did eat today'. He continues to feel down regarding his health but is 'trying to stay more positive and find reasons to want to be alive'. Specifically denies any SI/SB. Very
talkative, discusses his physical ailments, his concerns for returning home, his past, etc. He would benefit from psychotherapy.
Impression/Plan: Major depressive disorder, recurrent, moderate - Wellbutrin initiated, had been on Zoloft in past but had hyponatremia and this was discontinued. Continue with Wellbutrin at 150mg. Watch for HTN changes. Strongly recommend
outpatient psychotherapy.
--- NOTE | 2024-03-04 11:44 | W.DS.TRANS ---
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
-
Discharge Instructions:
Discharge Diagnosis/Procedures Chronic urinary retention with CAUTI
Diet Regular
Instructions:
Stand-Alone Forms:
Changes to Home Medications: No
Discharge Medications:
DC Medications w/original date entered in [employer]
finasteride 5 mg tablet 5 mg PO HS Urinary Issue 09/01/12
doxazosin 8 mg tablet 8 mg PO HS Urinary Issue 01/02/24
polyethylene glycol 3350 17 gram oral powder packet (HealthyLax) 17 g PO DAILY #30 ea 01/18/24
acetaminophen 500 mg tablet (Tylenol Extra Strength) 1,000 mg PO TID Pain 01/21/24
docusate sodium 100 mg capsule (Colace) 100 mg PO DAILY Constipation 01/21/24
atorvastatin 10 mg tablet 10 mg PO HS High Cholesterol 01/23/24
coenzyme Q10 100 mg capsule (CoQ-10) 200 mg PO DAILY Supplement 01/23/24
nksjidhg-xls-djyao acid 0.4 mg-lycopene 300 mcg-lutein 250 mcg tablet (Centrum Silver) 1 tab PO DAILY Supplement 01/23/24
pantoprazole 40 mg tablet,delayed release 40 mg PO BID Gastrointestinal Issue 01/23/24
sennosides 8.6 mg tablet (Senokot) 8.6 mg PO QPM Constipation 01/23/24
bupropion HCl 150 mg 24 hr tablet, extended release 150 mg PO DAILY #30 tabs 03/03/24
cephalexin 500 mg capsule 500 mg PO QID #28 caps 03/03/24
tramadol 25 mg tablet 25 mg PO Q8HPRN PRN MILD Pain #14 tabs 03/04/24
Home Medication Changes
Pending Results: No
[2024-03-04] MEDS: ULTRAM 25 MG PO (12:01)
--- NOTE | 2024-03-04 12:10 | CM ---
manager of sales reviewed patient's chart and met with patient and patient is for discharge today, patient is for transfer to the [facility], patient has been set up by ambulance with a 4:30pm tack picker, spouse has been notified.
COVID test has been completed.
Plan; Skilled placement at the [facility]
[place]
Report [phone]
[2024-03-04] MEDS: TYLENOL PO (14:27)
[2024-03-04 15:32] VITALS: BP 112/68
--- NOTE | 2024-03-04 17:39 | PTCARENOTE ---
Pt DC'd to [facility]. Transport by Acute Care.
== END 2024-03-04 17:51 | DRG 699 ==
LOC: 4 WEST ACU 12:07
PROVIDERS: ADMITTING PHYSICIAN Internal Medicine; ATTENDING PHYSICIAN Internal Medicine; CONSULT PHYSICIAN Internal Medicine Infectious Disease; CONSULT PHYSICIAN Psychiatry & Neurology Psychiatry; CONSULT PHYSICIAN Specialist; EMERGENCY PHYSICIAN Emergency Medicine; FAMILY PHYSICIAN Internal Medicine
PROC: 0T2BX0Z Change Drainage Device in Bladder, External Approach (ICD-10-PCS; 2024-03-01)
DX: T83.511A Infection and inflammatory reaction due to indwelling urethral catheter, initial encounter (principal); C91.10 Chronic lymphocytic leukemia of B-cell type not having achieved remission; R45.851 Suicidal ideations; E87.1 Hypo-osmolality and hyponatremia; F33.1 Major depressive disorder, recurrent, moderate; R31.9 Hematuria, unspecified; E78.00 Pure hypercholesterolemia, unspecified; I25.10 Atherosclerotic heart disease of native coronary artery without angina pectoris; K40.90 Unilateral inguinal hernia, without obstruction or gangrene, not specified as recurrent; R97.20 Elevated prostate specific antigen [PSA]; R33.8 Other retention of urine; I10 Essential (primary) hypertension; R26.2 Difficulty in walking, not elsewhere classified; N40.1 Benign prostatic hyperplasia with lower urinary tract symptoms; B95.61 Methicillin susceptible Staphylococcus aureus infection as the cause of diseases classified elsewhere; M48.00 Spinal stenosis, site unspecified; L89.312 Pressure ulcer of right buttock, stage 2; L89.322 Pressure ulcer of left buttock, stage 2; L89.152 Pressure ulcer of sacral region, stage 2; N39.0 Urinary tract infection, site not specified; Y84.6 Urinary catheterization as the cause of abnormal reaction of the patient, or of later complication, without mention of misadventure at the time of the procedure; Y92.9 Unspecified place or not applicable; Z66 Do not resuscitate; Z87.891 Personal history of nicotine dependence; I25.2 Old myocardial infarction; Z87.19 Personal history of other diseases of the digestive system; Z85.528 Personal history of other malignant neoplasm of kidney; Z87.440 Personal history of urinary (tract) infections; Z91.018 Allergy to other foods; Z11.52 Encounter for screening for COVID-19
CPT/HCPCS: 51702; 51798; 80048; 80053; 81003; 81015; 83605; 83735; 84100; 85025; 85027; 87040; 87070; 87086; 87147; 87186; 87811; 96374; 96375; 97163; 97167; 99285

== ENCOUNTER 2024-03-17 09:56 | Emergency (ER) | payer MEDICARE, OTHER, SELFPAY ==
[2024-03-17] VITALS (9 sets, daily range): BP systolic 92–124; BP diastolic 60–82; BMI 24.9
[2024-03-17] MEDS: NSS 500 IV (10:45)
[2024-03-17 10:53] LABS: % Basophils 0.4 % (0-2); % Eosinophils 1.5 % (0-6); % Immature Granulocytes 0.5 % (0-0.5); % Lymphocytes 40.3 % (20.5-51.1); % Neutrophils 53.3 % (42.2-75.2); Absolute Basophils 0.1 10^3/uL (0-0.2); Absolute Eosinophils 0.3 10^3/uL (0-0.7); Absolute Immature Granulocytes 0.1 10^3/uL (0-0.05); Absolute Monocytes 0.7 10^3/uL (0.1-0.6); Absolute Neutrophils 9.3 10^3/uL (1.4-6.5); Hematocrit 30.6 % (39.0-52.0); Hemoglobin 9.6 g/dL (13.0-18.0); Mean Corp Hgb Conc. 31.4 g/dL (33.0-37.0); Mean Corpuscular Hgb 25.5 pg (27.0-31.0); Mean Corpuscular Volume 81.4 fL (80.0-94.0); Mean Platelet Volume 9.4 fL (7.4-10.4); Nucleated Red Blood Cells % 0 % (-); Platelet Count 427 10^3/uL (130-400); Red Blood Cell Count 3.76 10^6/uL (4.70-6.10); Red Cell Dist. Width 15.5 % (11.5-14.5); White Blood Cell Count 17.4 10^3/uL (4.8-10.8)
[2024-03-17 11:05] LABS: ALT (SGPT) 23 U/L (0-50); AST (SGOT) 20 U/L (17-59); Albumin 3.1 g/dl (3.5-5.0); Alkaline Phosphatase 146 U/L (38-126); Blood Urea Nitrogen 11 mg/dl (9-20); Calcium 8.6 mg/dl (8.4-10.2); Carbon Dioxide 27 mmol/L (22-30); Chloride 102 mmol/L (98-107); Estimated Creatinine Clearance 81 ml/min; Glucose 92 mg/dl (70-99); Potassium 4.6 mmol/L (3.5-5.1); Sodium 133 mmol/L (135-145); Total Bilirubin 0.6 mg/dl (0.2-1.3); Total Protein 5.9 g/dl (6.3-8.2); eGFR > 60.00
[2024-03-17 11:20] LABS: Urine Albumin 3+ (Neg - Trace); Urine Bilirubin Negative (Negative); Urine Character Very Cloudy (Clear); Urine Glucose Negative (Negative); Urine Ketone 1+ (Negative); Urine Leukocyte 2+ (Negative); Urine Nitrite Negative (Negative); Urine Occult Blood 4+ (Negative); Urine Specific Gravity 1.015 (<1.030); Urine Urobilinogen Negative (Neg - 1+); Urine pH 6.5 (5.0-9.0)
[2024-03-17 11:30] LABS: Urine Color Brown
[2024-03-17 12:07] LABS: Urine Bacteria Many (Negative); Urine Red Blood Cell >100 /HPF (0-2); Urine White Cell 90-100 /HPF (0-5)
--- NOTE | 2024-03-17 12:11 | ED.GENMED ---
History of Present Illness
General
Chief Complaint: Urinary Symptoms
Source: patient, family (son) and previous hospital records
Exam Limitations: none
Time Seen by Provider: 03/17/24 10:22
Nursing documentation reviewed up to this point in time: agreed with
Travel History
Have you had any contact with someone who has COVID-19?: No
Do you have any symptoms of coronavirus? Fever > 100 degrees, chills, cough, shortness of breath, sore throat, loss of taste or smell, muscle aches, or headache?: No
History of Present Illness
History of Present Illness:
84-year-old male presents from [facility] rehab section with chronic Pringle catheter states he intermittently gets blood-tinged urine but it typically clears up, past few days he has noted blood-tinged urine but this morning it became 'really
dark.' He denies fever or chills. Denies abdominal pain.
Admitted 03/01/2024 to 03/04/2024 for
Acute on chronic urinary retention, Pyuria with likely catheter-associated urinary tract infection. L sacral/buttocks evolving DTI vs deep dermal stage 2 pressure injury, skin firm around ulcer. R inner buttocks stage 2 pressure injury. Left lower
buttocks stage 2 pressure injury.
Chronic lymphocytic leukemia with chronic leukocytosis.
Clinical depression.
Severe spinal stenosis with chronic ambulatory dysfunction.
Hyponatremia
Past History
Past History
ED Past Medical History: CAD, Cancer (Renal clear-cell, CLL), Hypercholesterolemia, MS and Other (BPH, GI bleed, intra-abdominal adhesions with small bowel obstruction)
Social History
Tobacco: Former smoker
Review of Systems
Review of Systems
Allergies reviewed?: Yes
All Other Systems: ROS reviewed and negative except as documented in HPI and ROS
Constitutional: Denies fever
Respiratory: Denies trouble breathing
Cardiac: Denies chest pain
ABD/GI: Denies abdominal pain, nausea or vomiting
: Reports dark urine (in chronic Pringle catheter)
Musculoskeletal: Reports other (non ambulatory)
Skin: Reports no symptoms
Phy Exam
Physical Exam
Physical Exam:
GENERAL: No acute distress. A&Ox3.
CONSTITUTIONAL: Afebrile.
EYES: conjunctivae normal
ENMT: moist mucus membranes, Pharynx nl
RESPIRATORY: Regular respirations, nonlabored, lungs clear.
CARDIOVASCULAR: Regular rate and rhythm, no murmurs, no rubs.
GI: Soft, nontender, normal BS
: Pringle catheter draining dark maroon urine, no clots.
MUSCULOSKELETAL: Well perfused.
SKIN: Warm, dry, pink
PSYCH: Normal mood and affect. Well kept, interactive and appropriate
NEUROLOGIC: Awake, alert and oriented. No focal neurological deficits
Course
Orders/Labs/Results
Orders:
Orders
03/17/24 10:23
0.9% Sodium Chloride 250 ml [Nss] 250 ml IV BOLUS
03/17/24 10:31
0.9% Sodium Chloride 500 ml [Nss] 500 ml IV BOLUS
03/17/24 10:34
Type+Screen Urgent
Complete Blood Count/With Diff Urgent
Comprehensive Metabolic Panel Urgent
Urinalysis Reflex To Culture Urgent
Date Specimen was Collected: 03/17/24
Time Specimen was Collected: 10:28
Urine Microscopic Reflex Cult Urgent
Urine Culture Urgent
CAMRYN Source: U
Specimen Description:
Date Specimen was Collected: 03/17/24
Time Specimen was Collected: 10:28
Abnormal Lab Results
03/17/24
10:34
WBC 17.4 H 10^3/uL
(4.8-10.8)
RBC 3.76 L 10^6/uL
(4.70-6.10)
Hgb 9.6 L g/dL
(13.0-18.0)
Hct 30.6 L %
(39.0-52.0)
MCH 25.5 L pg
(27.0-31.0)
MCHC 31.4 L g/dL
(33.0-37.0)
RDW 15.5 H %
(11.5-14.5)
Plt Count 427 H 10^3/uL
(130-400)
Abs Immat Gran (auto) 0.1 H 10^3/uL
(0-0.05)
Absolute Neuts (auto) 9.3 H 10^3/uL
(1.4-6.5)
Absolute Lymphs (auto) 7.0 H 10^3/uL
(1.2-3.4)
Absolute Monos (auto) 0.7 H 10^3/uL
(0.1-0.6)
Sodium 133 L mmol/L
(135-145)
Creatinine 0.5 L mg/dL
(0.7-1.3)
Alkaline Phosphatase 146 H U/L
(38-126)
Total Protein 5.9 L g/dl
(6.3-8.2)
Albumin 3.1 L g/dl
(3.5-5.0)
Urine Ketones 1+ A
(Negative)
Ur Occult Blood Reflex 4+ A
(Negative)
Leukocyte Esterase Rfl 2+ A
(Negative)
Urine RBC >100 A /HPF
(0-2)
Urine WBC (Reflex) 90-100 A /HPF
(0-5)
Urine Bacteria (Reflex) Many A
(Negative)
Urine Albumin (Reflex) 3+ A
(Neg - Trace)
03/17/24 10:34
03/17/24 10:34
Vital Signs
Initial and Last Documented VS:
Initial Vital Signs
Temp Pulse Resp BP Pulse Ox
98.1 F 80 14 110/80 99
03/17/24 09:59 03/17/24 09:59 03/17/24 09:59 03/17/24 09:59 03/17/24 09:59
Last Documented Vital Signs
Temp Pulse Resp BP Pulse Ox
98.1 F 80 14 124/77 98
03/17/24 09:59 03/17/24 09:59 03/17/24 09:59 03/17/24 16:00 03/17/24 11:14
MDM/Problems Addressed
Differential Diagnosis Includes:
urinary retention, UTI, hemorrhagic cystitis
MDM/Problems Addressed:
84-year-old male presents from [facility] rehab section with chronic Pringle catheter states he intermittently gets blood-tinged urine but it typically clears up, past few days he has noted blood-tinged urine but this morning it became 'really
dark.' He denies fever or chills. Denies abdominal pain. Was on Keflex x 7 days post discharge, last dose 03/11/24
Admitted 03/01/2024 to 03/04/2024 for:
Acute on chronic urinary retention, Pyuria with likely catheter-associated urinary tract infection. L sacral/buttocks evolving DTI vs deep dermal stage 2 pressure injury, skin firm around ulcer. R inner buttocks stage 2 pressure injury. Left lower
buttocks stage 2 pressure injury.
Chronic lymphocytic leukemia with chronic leukocytosis.
Clinical depression.
Severe spinal stenosis with chronic ambulatory dysfunction.
Hyponatremia
Pringle catheter with dark red urine otherwise physical exam is unremarkable. Afebrile, NAD.
Son at bedside providing some of the history
12:00 PM
No clinically significant abnormality in his CBC or CMP. Patient was CLL, his WBCs are 17.4 but this is his baseline, his chronic anemia remained stable
UA: Greater than 100 RBCs, 2+ leukocyte Estrace, WBCs 90-100, bacteria many, urine albumin 3+, nitrates negative
Bladder scan reveals no urine retention: 120 ml
1:[address] u[address] Goldman who recommends cephalosporin antibiotic and f/u as outpt.
Pt remains pain-free, pringle catheter irrigated with 400 ml of NSS to clear pink, then slowly turning a little darker, no clots, draining well
Pt comfortable going back to [facility] to f/u w Urology. Dr. Goldman will have someone from office call him for appointement
*Critical Care Note
Total Time (30-74mins, 75-104mins- exclusive of procedures): Not Applicable
ED Attending Note
-
Portions of this chart may have been created with voice recognition software.� Occasional wrong word or��sound alike� substitutions may have occurred due to the inherent limitations of voice recognition software.
Discharge Plan
Departure
Patient Disposition: Home (Routine Discharge)
Date of Disposition: 03/17/24
Time of Disposition: 14:07
Patient with high blood pressure during this ER visit?: No
Condition: Fair
Discharge Problem:
Hematuria, UTI (urinary tract infection)
Instructions: Urinary Tract Infection, Adult (DC), Blood in the Urine (Hematuria), Adult (DC)
Prescriptions:
New
cephalexin 500 mg capsule
500 mg PO QID 7 Days Qty: 28 0RF
No Action
finasteride 5 MG tablet
5 mg PO HS
doxazosin 8 mg Tablet
8 mg PO HS
polyethylene glycol 3350 [HealthyLax] 17 gram Powder In Packet
17 g PO DAILY Qty: 30 0RF
acetaminophen [Tylenol Extra Strength] 500 mg Tablet
1,000 mg PO TID
docusate sodium [Colace] 100 mg Capsule
100 mg PO DAILY
sennosides [Senokot] 8.6 mg Tablet
8.6 mg PO QPM
atorvastatin 10 mg Tablet
10 mg PO HS
coenzyme Q10 [CoQ-10] 100 mg Capsule
200 mg PO DAILY
Centrum Silver 0.4 mg-300 mcg- 250 mcg Tablet
1 tab PO DAILY
pantoprazole 40 mg tablet,delayed release (DR/EC)
40 mg PO BID
cephalexin 500 mg Capsule
500 mg PO QID Qty: 28 0RF
bupropion HCl 150 mg Tablet Extended Release 24 Hr
150 mg PO DAILY Qty: 30 0RF
tramadol 25 mg Tablet
25 mg PO Q8HPRN PRN (Reason: MILD Pain) Qty: 14 0RF
Rx Instructions:
Moderate to severe pain
Referrals:
Leticia Ortega DO [Family Provider] -
Alex Todd MD [Active] - Call in 1-3 days for appt
Activity Restrictions/Additional Instructions:
As we discussed, your urine shows infection.
I spoke with Dr. Todd' colleague Dr. Goldman.
He recommends Keflex again for another 7 days.
You were given a dose here today so take another one this evening
Call the Urology office tomorrow morning and make appointment for sometime within the next week
Interventions
Interventions:
*Risk Screen - Suicide Last Done: 03/17/24 09:59
*General Assessment Last Done: 03/17/24 09:59
*Neglect/Abuse Screening Last Done: 03/17/24 09:59
ED- Fall Risk Assessment Last Done: 03/17/24 10:13
*ED COVID-19 Vaccine History Last Done: 03/17/24 09:59
*Nursing Disposition Last Done: 03/17/24 16:49
ED-Male Genitourinary Assessment Last Done: 03/17/24 10:13
Discharge Date and Time
Discharge Date/Time: 03/17/24 16:50
Print Language: OMANI
== END 2024-03-17 16:50 | disposition home or self-care (01) ==
LOC: EMR 09:56
PROVIDERS: Registered Nurse; EMERGENCY PHYSICIAN Emergency Medicine; FAMILY PHYSICIAN Internal Medicine
DX: N39.0 Urinary tract infection, site not specified (principal); D64.9 Anemia, unspecified
CPT/HCPCS: 99284; 96360; 51798; 80053; 81003; 81015; 85025; 86850; 86900; 86901; 87077; 87086; 87186

== ENCOUNTER 2024-03-24 09:25 | Inpatient (IN) | payer MEDICARE, OTHER, SELFPAY ==
[2024-03-22] VITALS (7 sets, daily range): BP systolic 103–129; BP diastolic 66–93; BMI 26.1
--- NOTE | 2024-03-22 01:03 | EDRN ---
this RELIABILITY ENGINEER noted the pts existing pringle catheter collection bag had a small amount (approx 100ml) of gross bloody urine. This RELIABILITY ENGINEER removed this pts existing 14French indwelling pringle catheter and put in a 3-way 18 Mexican indwelling pringle catheter.
Initially drained 700ml of jesus dark red bloody urine via 18 ecuadorean pringle catheter and then the pringle catheter became clogged within minutes. manual irrigation was performed and got out a moderate amount of dark red clots before this RELIABILITY ENGINEER could no
longer manually irrigate the pringle. This RELIABILITY ENGINEER removed the 3-way 18 Mexican pringle catheter and placed a 22 Mexican 3-way indwelling pringle catheter. Again this RELIABILITY ENGINEER performed manually irrigation of the 22 Mexican 3-way pringle catheter, removed mulitple
large dark red blood clots before finally the pts pringle started draining and NSS IVF was infusing for irrigation without any difficulty. ER Dr Morocho was notified of above.
--- NOTE | 2024-03-22 01:17 | ED.GENMED ---
History of Present Illness
General
Chief Complaint: Male Genito-Urinary Symptoms
Source: patient and records
Exam Limitations: none
Time Seen by Provider: 03/22/24 01:04
Travel History
Have you had any contact with someone who has COVID-19?: No
Do you have any symptoms of coronavirus? Fever > 100 degrees, chills, cough, shortness of breath, sore throat, loss of taste or smell, muscle aches, or headache?: No
History of Present Illness
History of Present Illness:
Patient with a blocked Otto. Suprapubic pressure. Symptoms progressive throughout the day.
Past History
Past History
ED Past Medical History: CAD, Cancer (Renal clear-cell, CLL), Hypercholesterolemia, CO and Other (BPH, GI bleed, intra-abdominal adhesions with small bowel obstruction)
Social History
Tobacco: Former smoker
Review of Systems
Review of Systems
All Other Systems: Not applicable
Constitutional: Denies fever
Phy Exam
Physical Exam
Physical Exam:
GENERAL: Alert and oriented in no apparent distress
EYE: Orbits normal.
NECK: Supple, no significant adenopathy.
CARDIAC: Regular rate and rhythm with mild midsystolic murmur
LUNGS: Clear breath sounds,normal
ABDOMEN: Soft, without focal tenderness or distention
: Otto in place. Dark wine colored blood in the catheter. Multiple clots were irrigated by the RN.
NEUROLOGICAL: Alert and oriented , grossly non-focal
SKIN: Warm and dry, no rash or lesion, no discoloration, skin intact.
MUSCULOSKELETAL: No edema,no deformity.Good color
PSYCH: Normal and appropriate interaction.
Course
Orders/Labs/Results
Orders:
Orders
03/22/24 01:08
IV Insert/Care/Rem.- Treatment PRN
03/22/24 01:23
Type+Screen Urgent
Basic Metabolic Panel Urgent
Complete Blood Count/With Diff Urgent
Abnormal Lab Results
03/22/24
01:23
WBC 25.0 H 10^3/uL
(4.8-10.8)
RBC 3.73 L 10^6/uL
(4.70-6.10)
Hgb 9.5 L g/dL
(13.0-18.0)
Hct 29.6 L %
(39.0-52.0)
MCV 79.4 L fL
(80.0-94.0)
MCH 25.5 L pg
(27.0-31.0)
MCHC 32.1 L g/dL
(33.0-37.0)
RDW 15.4 H %
(11.5-14.5)
Plt Count 481 H 10^3/uL
(130-400)
Sodium 132 L mmol/L
(135-145)
Glucose 114 H mg/dl
(70-99)
03/22/24 01:23
03/22/24 01:23
Vital Signs
Initial and Last Documented VS:
Initial Vital Signs
Temp Pulse Resp BP Pulse Ox
98.1 F 91 20 129/93 99
03/22/24 00:11 03/22/24 00:11 03/22/24 00:11 03/22/24 00:11 03/22/24 00:11
Last Documented Vital Signs
Temp Pulse Resp BP Pulse Ox
98.1 F 92 18 120/66 98
03/22/24 00:11 03/22/24 01:11 03/22/24 01:11 03/22/24 01:11 03/22/24 01:11
MDM/Problems Addressed
Differential Diagnosis Includes:
It took significant irrigation and multiple catheters to clear the clots. Ongoing hematuria. Warrants inpatient management
*Pulse Oximetry
Patient hypoxic: no
*Critical Care Note
Total Time (30-74mins, 75-104mins- exclusive of procedures): Not Applicable
Data Reviewed
Review of Other/Old Records Reveals: Labs, Records and Discharge Summary
ED Attending Note
-
Portions of this chart may have been created with voice recognition software.� Occasional wrong word or��sound alike� substitutions may have occurred due to the inherent limitations of voice recognition software.
Discharge Plan
Departure
Patient Disposition: Admit
Date of Disposition: 03/22/24
Time of Disposition: 01:52
Presentation/result/management discussed w/ accepting MD/DO: Hospitalist
Discharge Problem:
Gross hematuria, Obstructed Otto secondary to clots
Prescriptions:
No Action
finasteride 5 MG tablet
5 mg PO HS
doxazosin 8 mg Tablet
8 mg PO HS
polyethylene glycol 3350 [HealthyLax] 17 gram Powder In Packet
17 g PO DAILY Qty: 30 0RF
acetaminophen [Tylenol Extra Strength] 500 mg Tablet
1,000 mg PO TID
docusate sodium [Colace] 100 mg Capsule
100 mg PO DAILY
sennosides [Senokot] 8.6 mg Tablet
8.6 mg PO QPM
atorvastatin 10 mg Tablet
10 mg PO HS
coenzyme Q10 [CoQ-10] 100 mg Capsule
200 mg PO DAILY
Centrum Silver 0.4 mg-300 mcg- 250 mcg Tablet
1 tab PO DAILY
pantoprazole 40 mg tablet,delayed release (DR/EC)
40 mg PO BID
cephalexin 500 mg Capsule
500 mg PO QID Qty: 28 0RF
bupropion HCl 150 mg Tablet Extended Release 24 Hr
150 mg PO DAILY Qty: 30 0RF
tramadol 25 mg Tablet
25 mg PO Q8HPRN PRN (Reason: MILD Pain) Qty: 14 0RF
Rx Instructions:
Moderate to severe pain
cephalexin 500 mg capsule
500 mg PO QID 7 Days Qty: 28 0RF
Referrals:
Leticia Ortega DO [Family Provider] -
Interventions
Interventions:
*Risk Screen - Suicide Last Done: 03/22/24 01:02
*General Assessment Last Done: 03/22/24 01:02
*Neglect/Abuse Screening Last Done: 03/22/24 01:02
Discharge Date and Time
Print Language: VINCENTIAN
[2024-03-22 01:30] LABS: % Basophils 0.5 % (0-2); % Eosinophils 2.6 % (0-6); % Immature Granulocytes 0.8 % (0-0.5); % Lymphocytes 53.6 % (20.5-51.1); % Monocytes 5.3 % (1.7-9.3); % Neutrophils 37.2 % (42.2-75.2); Absolute Basophils 0.1 10^3/uL (0-0.2); Absolute Eosinophils 0.7 10^3/uL (0-0.7); Absolute Immature Granulocytes 0.2 10^3/uL (0-0.05); Absolute Lymphocytes 13.4 10^3/uL (1.2-3.4); Absolute Monocytes 1.3 10^3/uL (0.1-0.6); Absolute Neutrophils 9.3 10^3/uL (1.4-6.5); Hematocrit 29.6 % (39.0-52.0); Hemoglobin 9.5 g/dL (13.0-18.0); Mean Corp Hgb Conc. 32.1 g/dL (33.0-37.0); Mean Corpuscular Hgb 25.5 pg (27.0-31.0); Mean Corpuscular Volume 79.4 fL (80.0-94.0); Mean Platelet Volume 9.4 fL (7.4-10.4); Nucleated Red Blood Cells % 0 % (-); Platelet Count 481 10^3/uL (130-400); Red Blood Cell Count 3.73 10^6/uL (4.70-6.10); Red Cell Dist. Width 15.4 % (11.5-14.5)
[2024-03-22 01:42] LABS: Blood Urea Nitrogen 18 mg/dl (9-20); Calcium 8.6 mg/dl (8.4-10.2); Carbon Dioxide 26 mmol/L (22-30); Chloride 103 mmol/L (98-107); Estimated Creatinine Clearance 77 ml/min; Glucose 114 mg/dl (70-99); Potassium 4.9 mmol/L (3.5-5.1); Sodium 132 mmol/L (135-145); eGFR > 60.00
--- NOTE | 2024-03-22 02:09 | HPS.HSE ---
Family Physician
-
Family Physician: Leticia Ortega
Chief Complaint
-
Gross hematuria with urinary retention
History of Present Illness
This is an 84-year-old male with a past medical history that is significant for CLL, BPH, CAD, hypertension, RCC, recurrent UTI, sacral decubitus ulcer who was recently admitted to the hospital with urinary retention and pyuria after failure of
voiding trial. Patient was seen in the ED about 5 days ago with hematuria. At that time his urine did clear spontaneously and without clots and was discharged home without further intervention. He was placed on Keflex. It appears that [facility] his K[facility] was changed to Levaquin based on blood cultures showing Pseudomonas that was generally sensitive. Patient now returns to the ED with development of pelvic discomfort and hematuria. On arrival in the ED he had a
urinary catheter change with flushes resulting in removal of significant quantities of blood clots. He was started on CBI and the output is now clear.
Patient himself denies fevers or chills. He denies new back pain. He denies any nausea or vomiting. He denies having any flank pain.
He was afebrile in the ED. Pressure was 120/61 pulse 92 respirate of 18 and oxygen saturation over 99% on room air. Leukocytosis of 25,000. Globin is stable at 9.5 which is baseline. Reticulocyte count was normal at 41. Chemistries were
unremarkable with a sodium 142 potassium 4.9 BUN of 18 and creatinine of 0.7. No imaging. CBI started as stated above.
Medical History
Past Medical History
Past Medical History: Reports CAD, Dementia and HTN
Additional Past Medical History:
CLL
Urinary retention
Chronic indwelling urinary catheter
Hematuria
Spinal stenosis
Renal cell cancer
Past Surgical History: Reports Other (Unknown)
Social History
Tobacco: Non-smoker
Alcohol: None
Drug: None
Personal:
Living: Halfway
Employment: Retired
Family History
Family History: Not pertinent
Allergies / Home Medications
Allergies reflects when Allergies were last updated in [employer].
Home Medications with original date entered in [employer]
Allergy/Medication List:
Allergies
Allergy/AdvReac Type Severity Reaction Status Date / Time
walnut Allergy throat Verified 03/22/24 00:11
itching
Home Medications
finasteride 5 mg tablet 5 mg PO HS Urinary Issue 09/01/12
doxazosin 8 mg tablet 8 mg PO HS Urinary Issue 01/02/24
polyethylene glycol 3350 17 gram oral powder packet (HealthyLax) 17 g PO DAILY #30 ea 01/18/24
acetaminophen 500 mg tablet (Tylenol Extra Strength) 1,000 mg PO TID Pain 01/21/24
docusate sodium 100 mg capsule (Colace) 100 mg PO DAILY Constipation 01/21/24
atorvastatin 10 mg tablet 10 mg PO HS High Cholesterol 01/23/24
coenzyme Q10 100 mg capsule (CoQ-10) 200 mg PO DAILY Supplement 01/23/24
pilldlrc-opb-bqeze acid 0.4 mg-lycopene 300 mcg-lutein 250 mcg tablet (Centrum Silver) 1 tab PO DAILY Supplement 01/23/24
pantoprazole 40 mg tablet,delayed release 40 mg PO BID Gastrointestinal Issue 01/23/24
sennosides 8.6 mg tablet (Senokot) 8.6 mg PO QPM Constipation 01/23/24
bupropion HCl 150 mg 24 hr tablet, extended release 150 mg PO DAILY #30 tabs 03/03/24
tramadol 25 mg tablet 25 mg PO Q8HPRN PRN MILD Pain #14 tabs 03/04/24
levofloxacin 250 mg tablet 250 mg PO DAILY 03/22/24
Review of Systems
-
Unable to obtain full review of systems at this time due to: Dementia
Constitutional: Reports No Symptoms
EENT: Reports No Symptoms
Respiratory: Reports No Symptoms
Cardiac: Reports No Symptoms
Abdomen/GI: Reports Abdominal Pain
: Reports Difficulty Voiding, Bleeding, Dark Urine and Otto
Musculoskeletal: Reports No Symptoms
Skin: Reports No Symptoms
Neurological: Reports No Symptoms
Endocrine: Reports No Symptoms
Hematologic/Lymphatic: Reports No Symptoms
Psych: Reports No Symptoms
Physical Exam
Vital Signs
Vital Signs
Temp Pulse Resp BP Pulse Ox
98.1 F 92 18 120/66 98
03/22/24 00:11 03/22/24 01:11 03/22/24 01:11 03/22/24 01:11 03/22/24 01:11
Physical Exam
General: Comfortable and Conversant
HEENT: NormoCephalic, Anicteric, Moist mucous membranes, Atraumatic and PERRLA
Respiratory: Clear
Cardiac: S1/S2 and Regular Rhythm
Breast: Deferred by me
GI: Soft, Non Tender, Non Distended and Normal Bowel Sounds
Rectal: Deferred by Provider
Genito-urinary: Bloody Urine and Continuous Bladder Irrigation
Musculoskeletal: No Clubbing, No Cyanosis and No Edema
Skin: Warm
Neuro: AO x 3
Hematologic/Lymphatic: No Lymphadenopathy
Psych: Calm
Laboratory Results
-
03/22/24 01:23
03/22/24 01:23
Data Reviewed
-
Lab Data: Labs Reviewed by me
Old Records: Reviewed
Impression/Plan
-
IMPRESSION:
PLAN:
Hematuria - Patient with chronic indwelling urinary catheter developing recurrent hematuria complicated by clots and obstruction. No renal failure. No infection at this time but on antibiotics from prior hematuria. Unclear etiology. No
anticoagulation, no history of bladder mass, no radiation history. Platelet count is normal despite CLL. Hemoglobin is unchanged from prior.
- admit to observation
- continue cbi
- complete levaquin to finish 7 -10 day course (started abx 03/17)
- continue finesteride and doxazosin
- type and screen
- urology consultation
CLL- Leukocytosis to 25K. Higher than prior peak levels. Hgb stable. Platelet stable. No evidence fo blast crises.
- urine cultures
- no indication to change abx
- check ldh and uric acid levels
- follow up as outpatient.
Hyponatremia - Na 132 which is similar to his baseline.
- monitoring, no acute intervention. he is on buproprion.
Decubitus ulcer - Stable. No signs of acute infection.
DVT PPX - SCDs due to hematuria
Code Status - DNR
--- NOTE | 2024-03-22 06:41 | PTCARENOTE ---
Receive pt from ER. Pt alert oriented X3. Pt states that he is bed/weelchair bound because of spinal stenosis. Pt pulled over to his bed from the stretcher. Pt oriented to the room, call prabhakar within reach. CBI is infusing wide open. Urine is
straw/pink color, no blood clots, and pt has no complaints of spasm, just soreness. VSS (T=97.9, HR=89, OL=628/75, SpO2=97% on RA). Will continue to monitor the pt.
--- NOTE | 2024-03-22 07:52 | W.PN.HOSP.TC ---
Today's Communication/Plan
-
Continue Otto Catheter and CBI
Assessment / Plan
Assessment / Plan
Physical Exam
General: Not in acute distress
HEENT: Normocephalic
Respiratory: Clear
Cardiac: S1/S2 and Regular Rhythm
GI: Soft, Non Tender, Non Distended and Normal Bowel Sounds
Genito-urinary: Continuous Bladder Irrigation
Musculoskeletal: No Cyanosis and No Edema
Skin: Warm. Dry.
Neuro: AAO x 3
Psych: Calm

Assessment/Plan
Hematuria - Patient with chronic indwelling urinary catheter developing recurrent hematuria complicated by clots and obstruction. No renal failure. No infection at this time but on antibiotics from prior hematuria. Unclear etiology. No
anticoagulation, no history of bladder mass, no radiation history. Platelet count is normal despite CLL. Hemoglobin is unchanged from prior.
BPH/Urinary Retention
- continue cbi
- complete levaquin to finish 7 -10 day course (started abx 03/17)
- continue finesteride and doxazosin
- type and screen
- urology consultation, recommendations appreciated
CLL- Leukocytosis to 25K. Higher than prior peak levels. Hgb stable. Platelet stable. No evidence fo blast crises.
- urine cultures
- no indication to change abx
- follow up as outpatient.
Hyponatremia - Na 132 which is similar to his baseline.
- monitoring, no acute intervention. he is on buproprion.
Decubitus ulcer - Stable. No signs of acute infection.
DVT PPX - SCDs due to hematuria
Code Status - DNR
Anticipated Discharge: 24 - 48 hours
Subjective/Interval History
-
Date of Service: March 22, 2024
Patient was seen and examined. He reported no new significant symptoms or complaints.
Objective Data
-
Labs:
Laboratory Results
03/22/24 03/22/24
01:23 07:44
WBC 25.0 H Pending
Hgb 9.5 L Pending
Hct 29.6 L Pending
Plt Count 481 H Pending
Sodium 132 L Pending
Potassium 4.9 Pending
Chloride 103 Pending
Carbon Dioxide 26 Pending
BUN 18 Pending
Creatinine 0.7 Pending
Glucose 114 H Pending
Calcium 8.6 Pending
Vital Signs:
Vital Signs
Temp Pulse Resp BP Pulse Ox
97.9 F 89 18 128/75 97
03/22/24 05:31 03/22/24 05:31 03/22/24 05:31 03/22/24 05:31 03/22/24 05:39
I&O
03/21/24 03/22/24 03/23/24
06:59 06:59 06:59
Output Total 2400 / 2400
Balance -2400 / -2400
[2024-03-22 08:27] LABS: Hematocrit 27.6 % (39.0-52.0); Hemoglobin 8.5 g/dL (13.0-18.0); Mean Corp Hgb Conc. 30.8 g/dL (33.0-37.0); Mean Corpuscular Hgb 24.9 pg (27.0-31.0); Mean Corpuscular Volume 80.7 fL (80.0-94.0); Mean Platelet Volume 9.7 fL (7.4-10.4); Platelet Count 445 10^3/uL (130-400); Red Blood Cell Count 3.42 10^6/uL (4.70-6.10); Red Cell Dist. Width 15.5 % (11.5-14.5); White Blood Cell Count 21.8 10^3/uL (4.8-10.8)
[2024-03-22 09:01] LABS: Blood Urea Nitrogen 17 mg/dl (9-20); Calcium 8.5 mg/dl (8.4-10.2); Carbon Dioxide 29 mmol/L (22-30); Chloride 103 mmol/L (98-107); Estimated Creatinine Clearance 77 ml/min; Glucose 101 mg/dl (70-99); Potassium 4.9 mmol/L (3.5-5.1); Sodium 134 mmol/L (135-145); eGFR > 60.00
[2024-03-22] MEDS: LEVAQUIN 250 MG PO (10:06)
[2024-03-22] MEDS: FLUSH (NSS) 1 FLUSH IV (10:07)
[2024-03-22] MEDS: WELLBUTRIN XL (24 hour extended release) 150 MG PO (10:07)
[2024-03-22] MEDS: PROTONIX 40 MG PO ×2 (10:07→20:26)
[2024-03-22] MEDS: MIRALAX 17 GRAMS PO (10:07)
--- NOTE | 2024-03-22 12:10 | CONS.URO ---
Consultation
-
Date/Time Consultation Performed: 03/22 1210
Performing Provider: Aayush
Medical History
History of Present Illness
Longstanding urology patient of Dr. Rajeev Mike and then
transferred his care within the last 2-[address] Johnson
Ruenes. He had a long history of BPH, elevated PSA, and voiding
dysfunction. His last outpatient
visit for regular check was in 04/2023.
The patient has had several hospital admits and hospital
admits/evaluations in 2023. He was evaluated for potential stroke,
but was not admitted. He underwent an abdominal exploration for
small bowel obstruction in 12/2023. He was readmitted later in
01/2024 with gross hematuria and retention, although notes indicate
that he was catheterized. He was living with a catheter in [facility]. His hematuria cleared without
intervention and he was treated for an E. coli UTI. A CAT scan
imaging at that time revealed mild bilateral hydronephrosis likely
due to long-standing retention.
He was again hospitalized during February and again now
Past Medical History
Past Medical History: Other (CLL, BPH, CAD, hypertension, RCC, h/o SBO)
Past Surgical History: Other ( Left hip replacement. 2. Laminectomy. 3. Partial right nephrectomy. 4. Laparoscopic lysis of adhesions for small-bowel obstruction.)
Social History
Living: Senior Living
Family History
Family History: Reviewed & Not Pertinent
Allergies/Home Medications
Allergies
Allergy/AdvReac Type Severity Reaction Status Date / Time
walnut Allergy throat Verified 03/22/24 00:11
itching
Home Medications
�Medication �Instructions �Recorded �Confirmed �Type
finasteride 5 mg tablet 5 mg PO HS Urinary Issue 09/01/12 03/22/24 History
doxazosin 8 mg tablet 8 mg PO HS Urinary Issue 01/02/24 03/22/24 History
polyethylene glycol 3350 17 gram 17 g PO DAILY #30 ea 01/18/24 03/22/24 Rx
oral powder packet (HealthyLax)
acetaminophen 500 mg tablet 1,000 mg PO TID Pain 01/21/24 03/22/24 History
(Tylenol Extra Strength)
docusate sodium 100 mg capsule 100 mg PO DAILY Constipation 01/21/24 03/22/24 History
(Colace)
atorvastatin 10 mg tablet 10 mg PO HS High Cholesterol 01/23/24 03/22/24 History
coenzyme Q10 100 mg capsule 200 mg PO DAILY Supplement 01/23/24 03/22/24 History
(CoQ-10)
vqahhzjl-twn-qmwmw acid 0.4 1 tab PO DAILY Supplement 01/23/24 03/22/24 History
mg-lycopene 300 mcg-lutein 250 mcg
tablet (Centrum Silver)
pantoprazole 40 mg tablet,delayed 40 mg PO BID Gastrointestinal Issue 01/23/24 03/22/24 History
release
sennosides 8.6 mg tablet (Senokot) 8.6 mg PO QPM Constipation 01/23/24 03/22/24 History
bupropion HCl 150 mg 24 hr tablet, 150 mg PO DAILY #30 tabs 03/03/24 03/22/24 Rx
extended release
tramadol 25 mg tablet 25 mg PO Q8HPRN PRN MILD Pain #14 03/04/24 03/22/24 Rx
tabs
levofloxacin 250 mg tablet 250 mg PO DAILY 03/22/24 03/22/24 History
Physical Exam
Vital Signs
Vital Signs
Temp Pulse Resp BP Pulse Ox
97.6 F 85 12 117/80 97
03/22/24 07:00 03/22/24 07:00 03/22/24 07:00 03/22/24 07:00 03/22/24 07:00
Lab / Testing Results
Laboratory Results
03/22/24 07:44
03/22/24 07:44
Physical Exam
elderly male in bed
General: No Apparent Distress
Genito-urinary: Pringle Catheter (3-way with CBI: pale red outflow)
Assessment / Plan
-
Impressions:
chronic urinary retention managed by indwelling Pringle
CAUTI --> gross hematuria
Rec:
continue pringle + CBI
abx per ID
urologic plan (per dr mckeon) was continued pringle cath exchanges
Data Reviewed
-
Old Records: Reviewed
--- NOTE | 2024-03-22 16:13 | CM ---
Initial assessment completed with pt at bedside.
Pt is an 84yr old admitted on OBS for Gross Hematuria
At baseline, pt lives in [facility] at [facility] where he receives total care. Pts lives in [place].
Pt will return back to [facility]
[2024-03-22] MEDS: CARDURA 8 MG PO (22:24)
[2024-03-22] MEDS: LIPITOR 10 MG PO (22:28)
[2024-03-22] MEDS: PROSCAR 5 MG PO (22:28)
[2024-03-23 00:05] VITALS: BP 96/64
[2024-03-23 07:12] VITALS: BP 113/73
--- NOTE | 2024-03-23 07:50 | W.PN.URO.CBU ---
Today's Communication / Plan
-
Rec:
stop CBI
continue foleyCBI
abx per ID
urologic plan (per dr mckeon) was continued pringle cath exchanges
Assessment / Plan
-
chronic urinary retention managed by indwelling Pringle
CAUTI --> gross hematuria: resolved
Diagnosis
-
Date of Service: March 23, 2024
-
Patient Diagnosis:
chronic urinary retention managed by indwelling Pringle
CAUTI --> gross hematuria
Objective
-
Vital Signs
Temp Pulse Resp BP Pulse Ox
98.2 F 87 18 96/64 97
03/23/24 00:05 03/23/24 00:05 03/23/24 00:05 03/23/24 00:05 03/23/24 00:05
Intake and Output
03/22/24 03/23/24 03/24/24
06:59 06:59 06:59
Intake Total 830 / 830
Output Total 2400 / 2400 4000 / 4000
Balance -2400 / -2400 -3170 / -3170
Intake:
Oral fluids 830 / 830
Output:
Urine, Pringle 450 / 450
Urine, Voided 300 / 300
True Urine Output from CBI 1950 / 1950 3700 / 3700
Laboratory Results
03/22/24 07:44
03/22/24 07:44
Physical Exam
-
General -asleep
Genitalia - Pringle with faintly pink outflow
[2024-03-23] MEDS: MIRALAX PO (09:44)
[2024-03-23] MEDS: LEVAQUIN 250 MG PO (09:44)
[2024-03-23] MEDS: PROTONIX 40 MG PO ×2 (09:44→20:54)
[2024-03-23] MEDS: WELLBUTRIN XL (24 hour extended release) 150 MG PO (09:45)
[2024-03-23] MEDS: FLUSH (NSS) 1 FLUSH IV ×2 (09:46→16:53)
[2024-03-23] MEDS: MIRALAX 17 GRAMS PO (12:26)
--- NOTE | 2024-03-23 14:48 | PTCARENOTE ---
Pt c/o pelvic discomfort; stated 'I feel like I have to urinate but nothing is coming out'. Small amts urine leakage around Otto noted; CBI's infusing slowly with good amts light punch-colored urine in Otto bag. Dr. Orr notified. Otto
irrigated with 100 ml sterile H2O without difficulty with full return of clear light pink urine; pt reports discomfort is 'much better'; no urine leakage noted after irrigation. CBI's maintained. Will continue to monitor.
[2024-03-23 15:04] VITALS: BP 92/62
[2024-03-23] MEDS: VALIUM INJECTION 5 MG IV (16:52)
--- NOTE | 2024-03-23 17:02 | PTCARENOTE ---
Pt AAO x3, moves arms well; legs with minimal movement. Q 2 hr turning schedule maintained. VSS. On room air- pulse ox 96%, no c/o SOB. Abd large, soft, higinio PO well,(+) flatus; (-) BM so far this shift. Otto P/I large amts light punch-colored
urine; CBI's infusing well; pt c/o occ discomfort; IV Valium 5 mg given with good effect. Resting in bed at present. Will continue to monitor.
--- NOTE | 2024-03-23 18:02 | W.PN.HOSP.TC ---
Today's Communication/Plan
-
Continue CBI
AM labs
Assessment / Plan
Assessment / Plan
Physical Exam
General: Not in acute distress
HEENT: Normocephalic
Respiratory: Clear
Cardiac: S1/S2 and Regular Rhythm
GI: Soft, Non Tender, Non Distended and Normal Bowel Sounds
Genito-urinary: Continuous Bladder Irrigation with pinkish-red urine
Musculoskeletal: No Cyanosis and No Edema
Skin: Warm. Dry.
Neuro: AAO x 3
Psych: Calm

Assessment/Plan
Hematuria - Patient with chronic indwelling urinary catheter developing recurrent hematuria complicated by clots and obstruction. No renal failure. No infection at this time but on antibiotics from prior hematuria. Unclear etiology. No
anticoagulation, no history of bladder mass, no radiation history. Platelet count is normal despite CLL. Hemoglobin is unchanged from prior.
BPH/Urinary Retention
- continue CBI -- urine still pinkish-red
- complete levaquin to finish 7 -10 day course (started abx 5/)
- continue finasteride and doxazosin
- type and screen
- urology consultation, recommendations appreciated
CLL- Leukocytosis to 25K. Higher than prior peak levels. Hgb stable. Platelet stable. No evidence fo blast crises.
- urine cultures
- no indication to change abx
- follow up as outpatient.
Hyponatremia - Low 130s which is similar to his baseline.
- monitoring, no acute intervention. he is on buproprion.
Decubitus ulcer - Stable. No signs of acute infection.
DVT PPX - SCDs due to hematuria
Code Status - DNR
Anticipated Discharge: 24 - 48 hours
Subjective/Interval History
-
Date of Service: March 23, 2024
Patient was seen and examined. He reported no new symptoms or complaints.
Objective Data
-
Vital Signs:
Vital Signs
Temp Pulse Resp BP Pulse Ox
97.4 F 95 16 92/62 96
03/23/24 15:04 03/23/24 15:04 03/23/24 15:04 03/23/24 15:04 03/23/24 16:49
I&O
03/22/24 03/23/24 03/24/24
06:59 06:59 06:59
Intake Total 830 / 830
Output Total 2400 / 2400 4000 / 4000
Balance -2400 / -2400 -3170 / -3170
[2024-03-23 20:51] LABS: Hematocrit 22.6 % (39.0-52.0); Hemoglobin 7.4 g/dL (13.0-18.0); Mean Corp Hgb Conc. 32.7 g/dL (33.0-37.0); Mean Corpuscular Hgb 25.6 pg (27.0-31.0); Mean Corpuscular Volume 78.2 fL (80.0-94.0); Mean Platelet Volume 9.3 fL (7.4-10.4); Platelet Count 350 10^3/uL (130-400); Red Blood Cell Count 2.89 10^6/uL (4.70-6.10); Red Cell Dist. Width 15.8 % (11.5-14.5); White Blood Cell Count 27.5 10^3/uL (4.8-10.8)
[2024-03-23] MEDS: LIPITOR 10 MG PO (21:04)
[2024-03-23] MEDS: CARDURA 8 MG PO (21:04)
[2024-03-23] MEDS: PROSCAR 5 MG PO (21:05)
[2024-03-23 23:45] VITALS: BP 100/64
--- NOTE | 2024-03-24 07:01 | W.PN.URO.CBU ---
Today's Communication / Plan
-
while patient is in hospital, keep CBI on at slow rate to expedite clearance of infection; upon discharge, infusion port to be plugged
Assessment / Plan
-
chronic urinary retention managed by indwelling Otto
CAUTI --> gross hematuria: resolved
Diagnosis
-
Date of Service: March 24, 2024
-
Patient Diagnosis:
chronic urinary retention managed by indwelling Otto
CAUTI --> gross hematuria
Objective
-
Vital Signs
Temp Pulse Resp BP Pulse Ox
98.1 F 87 18 100/64 96
03/23/24 23:45 03/23/24 23:45 03/23/24 23:45 03/23/24 23:45 03/23/24 23:45
Intake and Output
03/23/24 03/24/24 03/25/24
06:59 06:59 06:59
Intake Total 830 / 830 1140 / 1140
Output Total 4000 / 4000 2250 / 2250
Balance -3170 / -3170 -1110 / -1110
Intake:
Oral fluids 830 / 830 1140 / 1140
Output:
Urine, Voided 300 / 300
True Urine Output from CBI 3700 / 3700 2250 / 2250
Physical Exam
-
Genitalia - Otto with pale pink outflow
[2024-03-24 07:32] LABS: % Basophils 0.4 % (0-2); % Eosinophils 1.8 % (0-6); % Immature Granulocytes 0.9 % (0-0.5); % Lymphocytes 46.2 % (20.5-51.1); % Monocytes 4.8 % (1.7-9.3); % Neutrophils 45.9 % (42.2-75.2); Absolute Basophils 0.1 10^3/uL (0-0.2); Absolute Eosinophils 0.5 10^3/uL (0-0.7); Absolute Immature Granulocytes 0.2 10^3/uL (0-0.05); Absolute Lymphocytes 12.3 10^3/uL (1.2-3.4); Absolute Monocytes 1.3 10^3/uL (0.1-0.6); Absolute Neutrophils 12.2 10^3/uL (1.4-6.5); Hematocrit 24.4 % (39.0-52.0); Hemoglobin 7.5 g/dL (13.0-18.0); Mean Corp Hgb Conc. 30.7 g/dL (33.0-37.0); Mean Corpuscular Hgb 25.3 pg (27.0-31.0); Mean Corpuscular Volume 82.4 fL (80.0-94.0); Mean Platelet Volume 9.9 fL (7.4-10.4); Nucleated Red Blood Cells % 0 % (-); Platelet Count 343 10^3/uL (130-400); Red Blood Cell Count 2.96 10^6/uL (4.70-6.10); Red Cell Dist. Width 15.7 % (11.5-14.5); White Blood Cell Count 26.5 10^3/uL (4.8-10.8)
[2024-03-24 07:44] LABS: Blood Urea Nitrogen 17 mg/dl (9-20); Calcium 8.5 mg/dl (8.4-10.2); Carbon Dioxide 27 mmol/L (22-30); Chloride 100 mmol/L (98-107); Estimated Creatinine Clearance 90 ml/min; Glucose 95 mg/dl (70-99); Magnesium 2.1 mg/dl (1.6-2.3); Potassium 4.6 mmol/L (3.5-5.1); Sodium 136 mmol/L (135-145); eGFR > 60.00
[2024-03-24 07:55] VITALS: BP 118/64
[2024-03-24] MEDS: LEVAQUIN 250 MG PO (08:37)
[2024-03-24] MEDS: PROTONIX 40 MG PO ×2 (08:37→19:37)
[2024-03-24] MEDS: WELLBUTRIN XL (24 hour extended release) 150 MG PO (08:37)
[2024-03-24] MEDS: MIRALAX 17 GRAMS PO (08:38)
--- NOTE | 2024-03-24 09:52 | WOUNDNOTE ---
[facility] RN note: Patient admitted with hematuria
See H&P for complete history.
PMH: Spinal stenosis, wheelchair and bed bound, requires total care. Ex-smoker, HTN, CAD, BPH, arthritis
Wound Location and type/assessment: Patient admitted with: Unstageable sacral wound (likely stage 3 or 4). Necrotic area of wound is covered with thick adherent white and yellow slough. Some open areas are noted around wound, and surrounding skin
is fungal appearing. Mild odor noted. Patient states wound occurred as a result of becoming bedbound about 5 months ago. He resides at [facility] where he says wound is assessed weekly by FACTORY MANAGER. He thinks he has an air mattress at facility. Heels intact. Otto
intact for moisture management.
Appetite: Reports good appetite
Pressure redistribution devices in place: Versa Care Air
Plan: Local wound care with hydrogel and antifungal powder to surrounding wound. Adhesive foam and off-loading of heels, frequent repositioning. RN Miles given update. Will confirm orders with hospitalist.
Updated care plan and will follow as needed.
Note to case management of equipment requested for discharge: Air Mattress
[2024-03-24] MEDS: DESENEX/MITRAZOL/ZEASORB TOPICAL (10:22)
--- NOTE | 2024-03-24 12:00 | W.PN.HOSP.TC ---
Today's Communication/Plan
-
see bold
Assessment / Plan
Assessment / Plan
Gen: NAD, Awake and alert
Eyes: EOMI, PERRLA, no scleral icterus.
Neck: supple.
CV: RRR, +S1/S2, no m/r/g.
Resp: CTAB, no rales, wheezes, or rhonchi.
Abd: +BS, soft, NT, ND
Skin: No rashes.
Neuro: CN 2-12 intact, non-focal.
: pringle with minimally punch colored urine
Psych: Normal mood and affect.
Acute blood loss anemia due to hematuria:
-Patient with chronic indwelling urinary catheter (BPH causing chronic urinary retention) developing recurrent hematuria complicated by clots and obstruction. No renal failure. No infection at this time but on antibiotics from prior hematuria.
Unclear etiology. No anticoagulation, no history of bladder mass, no radiation history. Platelet count is normal despite CLL. Hemoglobin is unchanged from prior.
-Uro following
-cont CBI
-cont Levaquin to complete 7-10 days (started 03/17/24)
-continue finasteride and doxazosin
Other problems:
CLL (chronic)
Chronic Hyponatremia
Decubitus ulcer (unstageable sacral wound, likely stage 3 or 4), POA, wound care
DNR/SCDs
Anticipated Discharge: 24 - 48 hours
Subjective/Interval History
-
Date of Service: March 24, 2024
Denies CP/SOB.
Objective Data
-
Labs:
Laboratory Results
03/24/24
06:13
WBC 26.5 H
Hgb 7.5 L
Hct 24.4 L
Plt Count 343
Sodium 136
Potassium 4.6
Chloride 100
Carbon Dioxide 27
BUN 17
Creatinine 0.6 L
Glucose 95
Calcium 8.5
Vital Signs:
Vital Signs
Temp Pulse Resp BP Pulse Ox
98.0 F 85 18 118/64 99
03/24/24 07:55 03/24/24 07:55 03/24/24 07:55 03/24/24 07:55 03/24/24 07:55
I&O
03/23/24 03/24/24 03/25/24
06:59 06:59 06:59
Intake Total 830 / 830 1140 / 1140
Output Total 4000 / 4000 2250 / 2250
Balance -3170 / -3170 -1110 / -1110
[2024-03-24 12:07] VITALS: BP 94/59; O2SAT 95
[2024-03-24 12:08] VITALS: BP 94/59; PULSE 98; O2SAT 97
--- NOTE | 2024-03-24 12:19 | PTOTSP ---
Pt is dependent on Yuniel lift for transfers OOB to wheelchair at baseline. Punch-colored urine noted in tubing going into pringle bag when pt was sitting on EOB. RN was notified. Pt still hopes to return to [facility] today. No acute PT needs were
identified. PT will sign off. Nursing staff should use Yuniel lift for safest method to get pt OOB.
--- NOTE | 2024-03-24 12:22 | CM ---
Patient seen bedside, discussed switched to inpatient. IMM reviewed, signed, placed in chart. Patient reports he will need an ambulance transport upon discharge. CM spoke with Leslye from [facility], confirmed patient is LTC, able to return when
stable. Wound care recommending air mattress upon discharge, message sent to Leslye at [facility]. CM will continue to follow for discharge planning needs.
Plan; return to [facility] LT when stable.
[2024-03-24] MEDS: ULTRAM 25 MG PO ×2 (15:40→20:22)
[2024-03-24 15:55] VITALS: BP 105/75
[2024-03-24] MEDS: TYLENOL 650 MG PO (17:07)
[2024-03-24] MEDS: LIPITOR 10 MG PO (21:03)
[2024-03-24] MEDS: PROSCAR 5 MG PO (21:03)
[2024-03-24] MEDS: CARDURA 8 MG PO (21:03)
[2024-03-24 23:32] VITALS: BP 113/64
--- NOTE | 2024-03-25 07:13 | W.PN.URO.CBU ---
Today's Communication / Plan
-
discharge with Otto
outpatient f/u with Dr Todd
abx per ID
Assessment / Plan
-
chronic urinary retention managed by indwelling Otto
CAUTI --> gross hematuria: resolved
Diagnosis
-
Date of Service: March 25, 2024
-
Patient Diagnosis:
chronic urinary retention managed by indwelling Otto
CAUTI --> gross hematuria
Subjective
-
'the same'
Objective
-
Vital Signs
Temp Pulse Resp BP Pulse Ox
98.5 F 91 18 113/64 98
03/24/24 23:32 03/24/24 23:32 03/24/24 23:32 03/24/24 23:32 03/24/24 23:32
Intake and Output
03/24/24 03/25/24 03/26/24
06:59 06:59 06:59
Intake Total 1140 / 1140 1000 / 1000
Output Total 2250 / 2250 1500 / 1500
Balance -1110 / -1110 -500 / -500
Intake:
Oral fluids 1140 / 1140 1000 / 1000
Output:
True Urine Output from CBI 2250 / 2250 1500 / 1500
Physical Exam
-
Genitalia - sada urine per Otto
[2024-03-25 07:50] VITALS: BP 101/63
[2024-03-25 07:53] LABS: % Basophils 0.3 % (0-2); % Eosinophils 1.6 % (0-6); % Immature Granulocytes 0.8 % (0-0.5); % Lymphocytes 44.6 % (20.5-51.1); % Monocytes 2.3 % (1.7-9.3); % Neutrophils 50.4 % (42.2-75.2); Absolute Basophils 0.1 10^3/uL (0-0.2); Absolute Eosinophils 0.4 10^3/uL (0-0.7); Absolute Immature Granulocytes 0.2 10^3/uL (0-0.05); Absolute Lymphocytes 11.8 10^3/uL (1.2-3.4); Absolute Monocytes 0.6 10^3/uL (0.1-0.6); Absolute Neutrophils 13.3 10^3/uL (1.4-6.5); Hemoglobin 7.5 g/dL (13.0-18.0); Mean Corp Hgb Conc. 31.3 g/dL (33.0-37.0); Mean Platelet Volume 9.6 fL (7.4-10.4); Nucleated Red Blood Cells % 0 % (-); Platelet Count 331 10^3/uL (130-400); Red Cell Dist. Width 15.9 % (11.5-14.5); White Blood Cell Count 26.4 10^3/uL (4.8-10.8)
[2024-03-25 08:22] LABS: Blood Urea Nitrogen 19 mg/dl (9-20); Calcium 8.4 mg/dl (8.4-10.2); Carbon Dioxide 28 mmol/L (22-30); Chloride 101 mmol/L (98-107); Estimated Creatinine Clearance 90 ml/min; Glucose 97 mg/dl (70-99); Potassium 4.6 mmol/L (3.5-5.1); Sodium 134 mmol/L (135-145); eGFR > 60.00
[2024-03-25] MEDS: LEVAQUIN 250 MG PO (08:41)
[2024-03-25] MEDS: MIRALAX 17 GRAMS PO (08:41)
[2024-03-25] MEDS: PROTONIX 40 MG PO (08:41)
[2024-03-25] MEDS: WELLBUTRIN XL (24 hour extended release) 150 MG PO (08:41)
--- NOTE | 2024-03-25 11:24 | W.PN.HOSP.TC ---
Addendum entered and electronically signed by Les Frank MD 03/25/24 12:53:
Pt's PCP, Dr. Leticia Ortega, updated at length over the phone.
Total time spent on d/c = 42 min. This included today's physical exam, progress note, review of laboratory and diagnostic data, preparation of discharge documents and prescriptions, and discussions about the pt's hospital course and discharge plan
with the patient and other biomedical engineering aide involved in the patient's care.
Original Note:
Today's Communication/Plan
-
d/c after seen by ID
Assessment / Plan
Assessment / Plan
Gen: NAD, Awake and alert
Eyes: EOMI, PERRLA, no scleral icterus.
Neck: supple.
CV: remains RRR, +S1/S2, no m/r/g.
Resp: remains CTAB, no rales, wheezes, or rhonchi.
Abd: +BS, soft, NT, ND
Skin: No rashes.
Neuro: CN 2-12 intact, non-focal.
: pringle with clear urine
Psych: Normal mood and affect.
Acute blood loss anemia due to hematuria:
-Patient with chronic indwelling urinary catheter (BPH causing chronic urinary retention) developing recurrent hematuria complicated by clots and obstruction. No renal failure. No infection at this time but on antibiotics from prior hematuria.
Unclear etiology. No anticoagulation, no history of bladder mass, no radiation history. Platelet count is normal despite CLL. Hemoglobin is unchanged from prior.
-Uro following
-was on CBI, now off
-cont Levaquin to complete 7-10 days (started 03/17/24) for CAUTI. c/s ID for offical abx recs.
-continue finasteride and doxazosin
Other problems:
CLL (chronic)
Chronic Hyponatremia
Decubitus ulcer (unstageable sacral wound, likely stage 3 or 4), POA, wound care
Pt's son updated at bedside.
DNR/SCDs
Anticipated Discharge: Today
Subjective/Interval History
-
Date of Service: March 25, 2024
No new complaints.
Objective Data
-
Labs:
Laboratory Results
03/25/24
07:39
WBC 26.4 H
Hgb 7.5 L
Hct 24.0 L
Plt Count 331
Sodium 134 L
Potassium 4.6
Chloride 101
Carbon Dioxide 28
BUN 19
Creatinine 0.6 L
Glucose 97
Calcium 8.4
Vital Signs:
Vital Signs
Temp Pulse Resp BP Pulse Ox
98.7 F 85 18 101/63 95
03/25/24 07:50 03/25/24 07:50 03/25/24 07:50 03/25/24 07:50 03/25/24 10:06
I&O
03/24/24 03/25/24 03/26/24
06:59 06:59 06:59
Intake Total 1140 / 1140 1000 / 1000
Output Total 2250 / 2250 1500 / 1500
Balance -1110 / -1110 -500 / -500
--- NOTE | 2024-03-25 12:04 | CON.ID ---
Consultation
-
Date/Time Consultation Requested: 03/25/24 11:26
Date/Time Consultation Performed: 03/25/24 12:05
Requesting Provider: Dr Frank
Performing Provider: Dr Steiner
Reason for Consultation: CAUTI
Chief Complaint / Past History
Chief Complaint
hematuria, urinary retention
History of Present Illness
Mr Baxter is an 84 year old male wiht history of CLL, RCC BPH with chronic pringle, UTI, chronic sacral decubitus ulcer patient was admitted 03/22 for pelvic pain and hematuria. Of note 5 days before this he was seen in the ER for hematuria, urine
cleared spontaneously he was placed empirically on keflex, when blood culture later resulted with quinolone sensitive Pseudomonas he was switched to levaquin. The he developed the pelvic pain and hematuria again and returned. Clotting also
reoccurred. No dysuria, suprapubic tenderness. No fevers, chills, new back/flank pain, nausea or vomiting.
Since arrival here he has been afebrile BP stable, HR normal, wbc on arrival 25 and today it remains 26, hgb 7.5, plt 481 on arrival normalized 03/23, lymphocytosis noted on arrival - normalized since, cr 0.6, CXR: most likely
atelectasis/interstitial fibrosis, urine culture 03/17 100K pseudomonas, also note 03/01 urine culture MSSA - blood cultures x2 same day negative, no UA done this visit,
Past History
Additional Past Medical History:
CLL
Urinary retention
Chronic indwelling urinary catheter
Hematuria
Spinal stenosis
Renal cell cancer
Chronic Hyponatremia
Decubitus ulcer (unstageable sacral wound, likely stage 3 or 4), POA, wound care
Additional Past Surgical History:
Left hip replacement. 2. Laminectomy. 3. Partial right nephrectomy. 4. Laparoscopic lysis of adhesions for small-bowel obstruction
Allergy History:
walnut Allergy (Verified 03/22/24 00:11)
throat itching
Medications Reviewed: Yes
Social History
Personal:
Living: Detention
Family History
Family History: Not Pertinent
Review of Systems
Review of Systems
General: Negative Fever or Chills
All systems: All other systems were reviewed and were negative
Vital Signs
Temp Pulse Resp BP Pulse Ox
98.7 F 85 18 101/63 95
03/25/24 07:50 03/25/24 07:50 03/25/24 07:50 03/25/24 07:50 03/25/24 10:06
Physical Exam
Physical Exam
Constitutional: No Acute Distress
Cardiovascular: Regular Rate and S1/S2; Negative Murmur or Rub
Pulmonary: Clear and Symmetric; Negative Wheezes, Rales or Rhonchi
Gastrointestinal: Soft, Non Tender, Non Distended and Normal Bowel Sounds
Genito-Urinary: Clear Urine; Negative Suprapubic Tenderness or CVA Tenderness
Skin: Warm and Dry; Negative Rash or Jaundice
Lab / Diagnostic Study Results
03/25/24 07:39
03/25/24 07:39
Abs Immat Gran (auto) 0.2 10^3/uL (0-0.05) H 03/25/24 07:39
Absolute Neuts (auto) 13.3 10^3/uL (1.4-6.5) H 03/25/24 07:39
Absolute Lymphs (auto) 11.8 10^3/uL (1.2-3.4) H 03/25/24 07:39
Absolute Monos (auto) 0.6 10^3/uL (0.1-0.6) 03/25/24 07:39
Absolute Basos (auto) 0.1 10^3/uL (0-0.2) 03/25/24 07:39
Immature Gran % 0.8 % (0-0.5) H 03/25/24 07:39
Neutrophils % 50.4 % (42.2-75.2) 03/25/24 07:39
Lymphocytes % 44.6 % (20.5-51.1) 03/25/24 07:39
Monocytes % 2.3 % (1.7-9.3) 03/25/24 07:39
Eosinophils % 1.6 % (0-6) 03/25/24 07:39
Basophils % 0.3 % (0-2) 03/25/24 07:39
Microbiology Results
Micro:
03/22/24 08:33 MRSA Screen - Final
Nose No Methicillin Resistant Staphylococcus aureus isolated.
Assessment / Plan
UTI due to Pseudomonas
Chronic pringle
CLL
- CLL likely explains ongoing leukocytosis which seems to be stable
- recommend 14 day total course of levaquin - 03/17- 03/30
- qtc today 460 acceptable
- no on oral hypoglycemics
- follow up with urology for scheduled pringle exchanges as planned
Care Review
Plan reviewed with: Physician (Dr Frank - luis)
[2024-03-25] MEDS: DESENEX/MITRAZOL/ZEASORB 1 APPLIC TOPICAL (12:51)
--- NOTE | 2024-03-25 13:17 | CM ---
Addendum entered by Lexy Childers 03/25/24 13:59:
Ambulance transport scheduled for 3:00 p.m. Leslye at [facility] made aware.
Original Note:
Patient for discharge today, plan return to [facility], will need ambulance transport. Updated clinicals sent to [facility] in [facility]. Covid test requested prior to discharge.
Plan; Return to [facility], ambulance transport.
[facility]
Report: [phone]
[2024-03-25 13:33] LABS: COVID-19 Antigen Negative (Negative)
[2024-03-25 13:56] VITALS: BP 112/73
--- NOTE | 2024-03-25 13:59 | W.DCSUMMARY ---
Discharge Summary
Discharge Data
Date of Admission: 03/22/24
Date of Discharge: 03/25/24
-
Pending Results: No
Hospital Course
Primary diagnoses:
Acute blood loss anemia due to hematuria due to acute catheter associated urinary tract infection (present on admission)
Chronic urinary retention due to benign prostatic hypertrophy
Secondary diagnoses:
Chronic lymphocytic leukemia
Chronic hyponatremia
Decubitus ulcer (unstageable sacral wound, likely stage 3 or 4), present on admission
Consultants:
Urology
Infectious disease
Imaging:
None
Hospital course: 84-year-old male who presented with chief complaints of gross hematuria and urinary retention as outlined in the H&P done on admission. The patient had a chronic indwelling urinary catheter (BPH causing chronic urinary retention)
and developed recurrent hematuria complicated by clots and obstruction. He was seen in consultation by urology and placed on CBI. His urine cleared. The patient had been on antibiotics prior to admission, specifically Levaquin for Pseudomonas.
He was seen in consultation by infectious disease and it was recommended to continue Levaquin through March 30, 2024. The patient's finasteride and doxazosin were continued. He was discharged in medically stable condition.
Discharge Plan
-
Patient Disposition: Halfway/SNF
Discharge Diagnosis/Procedures: Acute blood loss anemia due to hematuria due to acute catheter associated urinary tract infection (present on admission)
Condition: Good
Diet: No restrictions
Activity: With assistance
Driving Restrictions: No driving
Blood Work: BMP and CBC in 3 days, script from PCP
Activity Restrictions/Additional Instructions:
Wound Care Instructions Sacral Wound- Clean wound with Vashe moistened gauze for 3-5 minutes. Apply Anti-fungal powder and blot with no-sting barrier around wound. Apply HYDROGEL to yellow necrotic areas. Cover with adaptic and dry dressing
(may add alginate for moderate to heavy drainage), Change daily and PRN if loose or soiled.
Air Mattress
Keep heels off-loaded with pillows or air cushion under calves or fiber filled boots
Turning schedule
Air or gel cushion to wheel chair
Referrals:
Leticia Ortega DO [Family Provider] - Immediately
Alex Todd MD [Active] - (call to make an appointment during next 3-4 weeks: Otto change, consideration of alternative plans)
Prescriptions:
New
levofloxacin 250 mg Tablet
250 mg PO DAILY Qty: 6 0RF
Rx Instructions:
through 03/30/24
Continued
finasteride 5 MG tablet
5 mg PO HS
doxazosin 8 mg Tablet
8 mg PO HS
polyethylene glycol 3350 [HealthyLax] 17 gram Powder In Packet
17 g PO DAILY Qty: 30 0RF
acetaminophen [Tylenol Extra Strength] 500 mg Tablet
1,000 mg PO TID
docusate sodium [Colace] 100 mg Capsule
100 mg PO DAILY
sennosides [Senokot] 8.6 mg Tablet
8.6 mg PO QPM
atorvastatin 10 mg Tablet
10 mg PO HS
coenzyme Q10 [CoQ-10] 100 mg Capsule
200 mg PO DAILY
Centrum Silver 0.4 mg-300 mcg- 250 mcg Tablet
1 tab PO DAILY
pantoprazole 40 mg tablet,delayed release (DR/EC)
40 mg PO BID
bupropion HCl 150 mg Tablet Extended Release 24 Hr
150 mg PO DAILY Qty: 30 0RF
tramadol 25 mg Tablet
25 mg PO Q8HPRN PRN (Reason: MILD Pain) Qty: 14 0RF
Rx Instructions:
Moderate to severe pain
Discontinued
levofloxacin [Levaquin] 250 mg Tablet
250 mg PO DAILY
Patient Comments:
Levaquin 250mg PO once daily for 7 days starting on 03/19/2024
Discharge Orders:
Discharge Patient (As Directed); Ordered 03/25/24
Ordered By: Les Frank
Discharge Date and Time
Print Language: BENGALI
--- NOTE | 2024-03-26 07:29 | W.PN.UPDATE ---
Update Note
Progress Note Update
I spoke with Dr Ortega, pt's PCP, to discuss recent hospitalization and potential urological options.
We agreed for now that Otto would be maintained and Methenamine hippurate would be initiated on terminal day of oral antibiotics.
Also, SNF staff can hand-irrigate Otto daily with 150-200 ml sterile solution.
== END 2024-03-25 15:41 | DRG 699 ==
LOC: 4 EAST ACU 09:25
PROVIDERS: Hospitalist; ADMITTING PHYSICIAN Internal Medicine; ATTENDING PHYSICIAN Internal Medicine; CONSULT PHYSICIAN Internal Medicine Infectious Disease; CONSULT PHYSICIAN Specialist; EMERGENCY PHYSICIAN Emergency Medicine; FAMILY PHYSICIAN Internal Medicine
DX: T83.518A Infection and inflammatory reaction due to other urinary catheter, initial encounter (principal); C91.10 Chronic lymphocytic leukemia of B-cell type not having achieved remission; D62 Acute posthemorrhagic anemia; N13.6 Pyonephrosis; E87.1 Hypo-osmolality and hyponatremia; R31.0 Gross hematuria; Y84.6 Urinary catheterization as the cause of abnormal reaction of the patient, or of later complication, without mention of misadventure at the time of the procedure; N40.1 Benign prostatic hyperplasia with lower urinary tract symptoms; R33.8 Other retention of urine; L89.150 Pressure ulcer of sacral region, unstageable; I25.10 Atherosclerotic heart disease of native coronary artery without angina pectoris; I10 Essential (primary) hypertension; F03.90 Unspecified dementia, unspecified severity, without behavioral disturbance, psychotic disturbance, mood disturbance, and anxiety
CPT/HCPCS: 51702; 80048; 83735; 85025; 85027; 86850; 86900; 86901; 87070; 87811; 93005; 97110; 97163; 97167; 99284

== ENCOUNTER 2024-07-16 11:33 | Emergency (ER) | payer MEDICARE, OTHER, SELFPAY ==
[2024-07-16 11:35] VITALS: BMI 30.3
--- NOTE | 2024-07-16 12:07 | ED.GENMED ---
History of Present Illness
General
Chief Complaint: Urinary Symptoms
Source: patient
Time Seen by Provider: 07/16/24 11:51
History of Present Illness
History of Present Illness:
84-year-old male with past medical history of hypertension, hyperlipidemia, CAD presenting from [facility] for evaluation of clogged Pringle catheter. Patient has no complaints other than he has not had much urine expressed from
the Pringle this morning. Denies fevers or infectious symptoms. No other concerns.
Past History
Past History
ED Past Medical History: CAD, Cancer (Renal clear-cell, CLL), Hypercholesterolemia, [place] and Other (BPH, GI bleed, intra-abdominal adhesions with small bowel obstruction)
Social History
Tobacco: Former smoker
Alcohol: None
Drug: None
Personal:
Living: retirement
Review of Systems
Review of Systems
All Other Systems: ROS reviewed and negative except as documented in HPI and ROS
Phy Exam
Physical Exam
Physical Exam:
GENERAL: Alert , in no apparent distress
EYE: conjunctiva clear
Head: Normocephalic atraumatic
NECK: Supple,
ENT: mmm.
LUNGS: no acute respiratory distress
NEUROLOGICAL: Alert and oriented
SKIN: Warm and dry, skin intact.
MUSCULOSKELETAL: well perfused.
PSYCH: Normal and appropriate interaction.
Scores
Heart Failure Risk
Heart Failure Risk Score: Not Applicable
Heart Score for Chest Pain Patients
STEMI patient?: Not applicable
Withdrawal Assessment of Alcohol
Withdrawal Assessment Completed?: Not applicable
MDM/Problems Addressed
Differential Diagnosis Includes:
clogged catheter, no concern for UTI given no symptoms
MDM/Problems Addressed:
Patient presenting to ED for evaluation of clogged pringle catheter. Unable to flush. Changed catheter to 16F pringle. Return of clear yellow urine. Will arrange for transport back to [facility]
*Pulse Oximetry
Patient hypoxic: no
*Critical Care Note
Total Time (30-74mins, 75-104mins- exclusive of procedures): Not Applicable
ED Attending Note
-
Portions of this chart may have been created with voice recognition software.� Occasional wrong word or��sound alike� substitutions may have occurred due to the inherent limitations of voice recognition software.
Discharge Plan
Departure
Patient Disposition: Jail/SNF
Date of Disposition: 07/16/24
Time of Disposition: 12:07
Patient with high blood pressure during this ER visit?: No
Discharge Problem:
Obstructed Pringle catheter
Instructions: How to Care for Your Pringle Catheter, Male
Prescriptions:
No Action
finasteride 5 MG tablet
5 mg PO HS
doxazosin 8 mg Tablet
8 mg PO HS
polyethylene glycol 3350 [HealthyLax] 17 gram Powder In Packet
17 g PO DAILY Qty: 30 0RF
acetaminophen [Tylenol Extra Strength] 500 mg Tablet
1,000 mg PO TID
docusate sodium [Colace] 100 mg Capsule
100 mg PO DAILY
sennosides [Senokot] 8.6 mg Tablet
8.6 mg PO QPM
atorvastatin 10 mg Tablet
10 mg PO HS
coenzyme Q10 [CoQ-10] 100 mg Capsule
200 mg PO DAILY
Centrum Silver 0.4 mg-300 mcg- 250 mcg Tablet
1 tab PO DAILY
pantoprazole 40 mg tablet,delayed release (DR/EC)
40 mg PO BID
bupropion HCl 150 mg Tablet Extended Release 24 Hr
150 mg PO DAILY Qty: 30 0RF
tramadol 25 mg Tablet
25 mg PO Q8HPRN PRN (Reason: MILD Pain) Qty: 14 0RF
Rx Instructions:
Moderate to severe pain
levofloxacin 250 mg Tablet
250 mg PO DAILY Qty: 6 0RF
Rx Instructions:
through 5/19/24
Interventions
Interventions:
*Risk Screen - Suicide Last Done: 07/16/24 11:35
*General Assessment Last Done: 07/16/24 11:35
*Neglect/Abuse Screening Last Done: 07/16/24 11:35
*ED COVID-19 Vaccine History Last Done: 07/16/24 11:45
ED-Male Genitourinary Assessment Last Done: 07/16/24 11:35
Discharge Date and Time
Print Language: PERSIAN
== END 2024-07-16 15:48 ==
LOC: EMR 11:33
PROVIDERS: EMERGENCY PHYSICIAN Emergency Medicine
DX: T83.091A Other mechanical complication of indwelling urethral catheter, initial encounter (principal); Y84.6 Urinary catheterization as the cause of abnormal reaction of the patient, or of later complication, without mention of misadventure at the time of the procedure; Y73.1 Therapeutic (nonsurgical) and rehabilitative gastroenterology and urology devices associated with adverse incidents; Z87.891 Personal history of nicotine dependence
CPT/HCPCS: 99283; 51702

== ENCOUNTER 2024-07-30 21:03 | Emergency (ER) | payer MEDICARE, OTHER, SELFPAY ==
[2024-07-30 21:05] VITALS: BP 121/88
[2024-07-30 21:07] VITALS: BP 121/88; BMI 31.9
[2024-07-30 22:00] VITALS: BP 123/70
[2024-07-30 22:34] LABS: Urine Albumin 2+ (Neg - Trace); Urine Bilirubin Negative (Negative); Urine Character Slightly Cloudy (Clear); Urine Glucose Negative (Negative); Urine Ketone Negative (Negative); Urine Leukocyte 2+ (Negative); Urine Nitrite Positive (Negative); Urine Occult Blood 4+ (Negative); Urine Urobilinogen Negative (Neg - 1+); Urine pH 6.5 (5.0-9.0)
--- NOTE | 2024-07-30 22:34 | ED.GENMED ---
History of Present Illness
<KARELY Carmichael - Last Filed: 07/30/24 22:43>
General
Chief Complaint: Catheter/Tube Problem
Source: patient and records
Exam Limitations: none
Time Seen by Provider: 07/30/24 22:06
Nursing documentation reviewed up to this point in time: agreed with
History of Present Illness
History of Present Illness:
Pt is an 84 y/o M with pmhx of BPH and CLL with complaints of a clogged pringle catheter and pressure in his bladder that started this afternoon. Per staff from [facility], his pringle catheter was changed this afternoon with minimal drainage and was
brought to the ED. Upon arrival to the ED, the pt's catheter was changed which immediately started draining and improved his bladder pressure. He was last seen here for a similar problem 2 weeks ago. Denies fever, dysuria, SOB, discharge, back pain,
or abdominal pain. He otherwise has no other complaints.
Past History
<KARELY Carmichael - Last Filed: 07/30/24 22:43>
Past History
ED Past Medical History: CAD, Cancer (Renal clear-cell, CLL), Hypercholesterolemia, [place] and Other (BPH, GI bleed, intra-abdominal adhesions with small bowel obstruction)
Social History
Tobacco: Former smoker
Alcohol: None
Drug: None
Personal:
Living[facility] jail
Review of Systems
<KARELY Carmichael - Last Filed: 07/30/24 22:43>
Review of Systems
All Other Systems: ROS reviewed and negative except as documented in HPI and ROS
: Reports difficulty voiding and dark urine
Phy Exam
<KARELY Carmichael - Last Filed: 07/30/24 22:43>
General Physical Exam
General Presentation: well appearing and no apparent distress
General age: appears stated age
General Skin: warm and dry
General Habitus: normal
General Mental: alert
General Hydration: appears well hydrated
ENT Exam
ENT Exam: neck supple
Eye Exam
Eye Exam: cornea clear and conjunctiva normal
Cardiovascular Exam
Cardiovascular Exam: tachycardia
Pulmonary Exam
Pulmonary Exam: lungs clear, no respiratory distress and chest non tender
Gastrointestinal Exam
Gastrointestinal Exam: non tender, soft and other
Genitourinary Exam Male
Exam Male: other (18g pringle catheter present)
Neurological Exam
Neurological Exam: alert and oriented x3
Skin Exam
Skin Exam: normal color and warm/dry
Psychiatric Exam
Psychiatric Exam: normal mood/affect
Course
<Yonatan Lainez [facility] - Last Filed: 07/30/24 22:43>
Orders/Labs/Results
Orders:
Orders
07/30/24 21:11
Lidocaine 2% [Lidocaine Uro-Jet 2%] 1 syringe .ROUTE .[facility]
07/30/24 21:34
Pringle [Pringle Placement- Treatment] ONCE
Reason for insertion: Chronic Pringle on Admit
07/30/24 22:27
Urinalysis Reflex To Culture Urgent
Date Specimen was Collected: 07/30/24
Time Specimen was Collected: 22:26
Urine Microscopic Reflex Cult Urgent
Urine Culture Urgent
CAMRYN Source: U
Specimen Description:
Date Specimen was Collected: 07/30/24
Time Specimen was Collected: 22:26
07/30/24 22:38
Fosfomycin [Monurol] 3 gm PO ONCE ONE
Abnormal Lab Results
07/30/24
22:27
Ur Occult Blood Reflex 4+ A
(Negative)
Urine Nitrite (Reflex) Positive A
(Negative)
Leukocyte Esterase Rfl 2+ A
(Negative)
Urine Albumin (Reflex) 2+ A
(Neg - Trace)
Vital Signs
Initial and Last Documented VS:
Initial Vital Signs
BP
121/88
07/30/24 21:05
Last Documented Vital Signs
Temp Pulse Resp BP Pulse Ox
98.2 F 99 30 123/70 97
07/30/24 21:07 07/30/24 22:00 07/30/24 22:00 07/30/24 22:00 07/30/24 22:00
<Shannen Jc, DO - Last Filed: 07/30/24 23:01>
Orders/Labs/Results
Orders:
Orders
07/30/24 21:11
Lidocaine 2% [Lidocaine Uro-Jet 2%] 1 syringe .ROUTE .[facility]
07/30/24 21:34
Pringle [Pringle Placement- Treatment] ONCE
Reason for insertion: Chronic Pringle on Admit
07/30/24 22:27
Urinalysis Reflex To Culture Urgent
Date Specimen was Collected: 07/30/24
Time Specimen was Collected: 22:26
Urine Microscopic Reflex Cult Urgent
Urine Culture Urgent
CAMRYN Source: U
Specimen Description:
Date Specimen was Collected: 07/30/24
Time Specimen was Collected: 22:26
07/30/24 22:38
Fosfomycin [Monurol] 3 gm PO ONCE ONE
Abnormal Lab Results
07/30/24
22:27
Ur Occult Blood Reflex 4+ A
(Negative)
Urine Nitrite (Reflex) Positive A
(Negative)
Leukocyte Esterase Rfl 2+ A
(Negative)
Urine Albumin (Reflex) 2+ A
(Neg - Trace)
Vital Signs
Initial and Last Documented VS:
Initial Vital Signs
BP
121/88
07/30/24 21:05
Last Documented Vital Signs
Temp Pulse Resp BP Pulse Ox
98.2 F 99 30 123/70 97
07/30/24 21:07 07/30/24 22:00 07/30/24 22:00 07/30/24 22:00 07/30/24 22:00
<KARELY Carmichael - Last Filed: 07/30/24 22:43>
*Critical Care Note
Total Time (30-74mins, 75-104mins- exclusive of procedures): Not Applicable
<Shannen Jc DO - Last Filed: 07/30/24 23:01>
*Pulse Oximetry
Patient hypoxic: no
ED Attending Note
<KARELY Carmichael - Last Filed: 07/30/24 22:43>
-
Portions of this chart may have been created with voice recognition software.� Occasional wrong word or��sound alike� substitutions may have occurred due to the inherent limitations of voice recognition software.
<Shannen Jc DO - Last Filed: 07/30/24 23:01>
ED Attending Note
Patient seen and examined by attending physician: Yes
I performed the substantive portion of visit, reviewed & personally made and approve the management plan that is documented in note by myself or SUNITA.: Yes
ED Attending Note:
This is an 84-year-old gentleman with history of CLL, CAD, hypertension, RCC, BPH with chronic indwelling Pringle catheter, spinal stenosis with chronic low back pain, wheelchair dependent. He is a chronic resident of [facility]
facility. He presents with complaints of suprapubic discomfort that began this afternoon, persistent throughout the day with decreased urine output from Pringle catheter since this afternoon.
He denies flank pain, has not had a fever no chills, no nausea or vomiting, no diarrhea or constipation.
Last hospitalized March of this year for treatment of UTI complicated by gross hematuria requiring CBI along with blood culture positive for Pseudomonas. Treated with 14-day course of Levaquin without recurrence.
He was last evaluated in this ED July 16 with complaints of blocked Pringle catheter. Pringle catheter changed without incident.
He follows with urology, Dr. Todd as an patient does note that Pringle catheter, ideally is [facility] every 5 [facility].
No recent Pringle catheter change no manipulation since the ED visit July 16.
Pringle catheter changed by ED nursing staff upon arrival, initial output 500 cc and reported initial drainage was clear yellow urine has since changed to blood-tinged urine without passage of clots.
Due to history of hematuria a three-way Pringle catheter placed by nursing staff without difficulty.
Patient reports complete relief of suprapubic discomfort since Pringle catheter change.
Currently comfortable, pain-free, without complaints.
GENERAL: 84-year-old gentleman appears his stated age, appears somewhat chronically debilitated, bedbound but bright and alert, pleasant, in no acute distress. Afebrile.
EYE: anicteric
NECK: Supple, nontender, no meningismus, no significant adenopathy.
ENT: oral mucosa is moist. No rhinorrhea.
CARDIAC: Regular rate and rhythm. no murmur.
LUNGS: Clear breath sounds bilaterally, no acute respiratory distress, no wheezes/rales/rhonchi
ABDOMEN: Soft, nondistended, without focal tenderness, bladder is not palpably distended, no r/g, no cvat. normoactive BS.
NEUROLOGICAL: Alert and oriented x3, no lateralizing weakness.
SKIN: Warm and dry, normal color, skin intact. No rash.
MUSCULOSKELETAL: No C/C/E. peripheral pulses are full and equal b/l. No palpable tenderness.
PSYCH: Normal and appropriate interaction.
Pringle catheter continues to drain mildly blood-tinged urine but no passage of clots and patient remains comfortable.
Chronically maintained on Hipprex for UTI prevention.
History of Pseudomonas UTI with Pseudomonas bacteremia March of this year.
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
Will check urinalysis and urine culture.
Will give a one-time dose of Monurol and await urine culture.
Will keep three-way Pringle catheter in place. A cap has been placed over irrigation port.
[facility].
Plan for follow-up with urology for continued Pringle catheter care.
Discharge Plan
Departure
Patient Disposition: Senior Living/SNF
Date of Disposition: 07/30/24
Time of Disposition: 22:54
Patient with high blood pressure during this ER visit?: No
Condition: Good
Discharge Problem:
Complication, blocked Pringle catheter, Hematuria
Instructions: How to Care for Your Pringle Catheter, Male
Prescriptions:
No Action
polyethylene glycol 3350 [HealthyLax] 17 gram Powder In Packet
17 g PO DAILY Qty: 30 0RF
acetaminophen [Tylenol Extra Strength] 500 mg Tablet
1,000 mg PO TID
docusate sodium [Colace] 100 mg Capsule
100 mg PO DAILY
sennosides [Senokot] 8.6 mg Tablet
8.6 mg PO HS
pantoprazole 40 mg tablet,delayed release (DR/EC)
40 mg PO BID
bupropion HCl 150 mg Tablet Extended Release 24 Hr
150 mg PO DAILY Qty: 30 0RF
methenamine hippurate [Hiprex] 1 gram Tablet
1 g PO BID
hydromorphone [Dilaudid] 2 mg Tablet
2 mg PO Q6HPRN PRN (Reason: moderate to severe pain)
doxazosin 4 mg Tablet
4 mg PO HS
nystatin 100,000 unit/gram Powder
1 applic TOPICAL BID
Patient Comments:
fungal rash sprinkle topically to groin/scrotum
Balmex Diaper Rash 11.3 % Cream
1 applic TOPICAL TID
Referrals:
Leticia Ortega DO [Family Provider] -
Alex Todd MD [Active] - Call in 1-3 days for appt
Activity Restrictions/Additional Instructions:
Pringle catheter changed to a three-way Pringle catheter due to history of hematuria.
Rajeev has been passing mildly blood-tinged urine without passage of clots. There is a cap over the irrigation port of the catheter. This is to remain in place.
Urine culture is pending.
He has been given a one-time dose of Monurol in the ED.
Follow-up with urology for Pringle catheter recheck, urine culture results.
Interventions
Interventions:
*Risk Screen - Suicide Last Done: 07/30/24 21:07
*General Assessment Last Done: 07/30/24 21:07
*Neglect/Abuse Screening Last Done: 07/30/24 21:07
*ED COVID-19 Vaccine History Last Done: 07/30/24 21:07
ZU-Gpeduw-Fjaezrexlx Assessment Last Done: 07/30/24 21:11
ED-Male Genitourinary Assessment Last Done: 07/30/24 21:11
Discharge Date and Time
Print Language: GREENLANDIC
[2024-07-30 22:35] LABS: Urine Color Pink
[2024-07-30 22:40] LABS: Urine Red Blood Cell >100 /HPF (0-2); Urine Squamous Cell 0-2 /LPF (Few)
[2024-07-30 22:42] LABS: Urine Bacteria Few (Negative); Urine White Cell 50-60 /HPF (0-5)
[2024-07-30 23:00] VITALS: BP 107/78
[2024-07-30] MEDS: MONUROL 3 GM PO (23:01)
== END 2024-07-31 00:05 ==
LOC: EMR 21:03
PROVIDERS: EMERGENCY PHYSICIAN Emergency Medicine; FAMILY PHYSICIAN Internal Medicine
DX: T83.091A Other mechanical complication of indwelling urethral catheter, initial encounter (principal); R31.9 Hematuria, unspecified; X58.XXXA Exposure to other specified factors, initial encounter; N40.0 Benign prostatic hyperplasia without lower urinary tract symptoms; C91.10 Chronic lymphocytic leukemia of B-cell type not having achieved remission; E78.00 Pure hypercholesterolemia, unspecified; I25.10 Atherosclerotic heart disease of native coronary artery without angina pectoris; Z85.528 Personal history of other malignant neoplasm of kidney; Z87.891 Personal history of nicotine dependence
CPT/HCPCS: 99282; 81003; 81015; 87086

== ENCOUNTER 2024-08-18 05:21 | Emergency (ER) | payer MEDICARE, OTHER, SELFPAY ==
[2024-08-18 05:22] VITALS: BP 120/82
[2024-08-18 05:23] VITALS: BP 120/82
--- NOTE | 2024-08-18 05:32 | ED.GENMED ---
History of Present Illness
General
Chief Complaint: Catheter/Tube Problem
Source: patient, ambulance crew, residential and previous hospital records (Previous ED visits for similar complaints, most recently July 30. Previous hospitalization March of this year for hemorrhagic UTI, bacteremia.)
Exam Limitations: none
Time Seen by Provider: 08/18/24 05:32
Nursing documentation reviewed up to this point in time: agreed with
History of Present Illness
History of Present Illness:
This is an 84-year-old gentleman with history of CLL, CAD, hypertension, RCC, BPH with chronic indwelling Otto catheter, spinal stenosis with chronic low back pain, wheelchair dependent. He is a long-term resident of [facility]
facility. He presents from residential with concern for potentially blocked Otto catheter. senior living staff had difficulty flushing his Otto catheter thus sent the patient for further evaluation. He denies suprapubic discomfort nor sense
that he needs to void.
There has been no report of decreased urine output from his Otto catheter. He has not had a fever nor chills, denies flank pain or back pain.
Patient generally complains of suprapubic discomfort, bladder pressure with episodes of blocked Otto catheter. He denies the symptoms currently.
Past History
Past History
ED Past Medical History: CAD, Cancer (Renal clear-cell, CLL), Hypercholesterolemia, [place] and Other (BPH, GI bleed, intra-abdominal adhesions with small bowel obstruction)
Social History
Tobacco: Former smoker
Alcohol: None
Drug: None
Personal:
Living: residential
Family History
Family History: Other (Noncontributory)
Phy Exam
Physical Exam
Physical Exam:
GENERAL: 84-year-old gentleman appears his stated age, appears somewhat chronically debilitated, bedbound but bright and alert, pleasant, easily communicative and in no acute distress. He is afebrile. Normotensive.
EYE: anicteric
NECK: Supple, nontender, no meningismus, no significant adenopathy.
ENT: oral mucosa is moist. No rhinorrhea.
CARDIAC: Regular rate and rhythm. no murmur.
LUNGS: Clear breath sounds bilaterally, no acute respiratory distress, no wheezes/rales/rhonchi
ABDOMEN: Rotund, soft, nondistended, without focal tenderness, no r/g, no cvat. normoactive BS. Three-way Otto catheter in place�drainage port is capped. There is small amount of pale yellow urine with in Otto catheter tube as well as small
amount of urine within the Otto catheter bag.
NEUROLOGICAL: Alert and oriented x3, no lateralizing weakness.
SKIN: Warm and dry, normal color, skin intact. No rash.
MUSCULOSKELETAL: No C/C/E. peripheral pulses are full and equal b/l. No palpable tenderness.
PSYCH: Normal and appropriate interaction.
Course
Vital Signs
Initial and Last Documented VS:
Initial Vital Signs
BP
120/82
08/18/24 05:22
Last Documented Vital Signs
Temp Pulse Resp BP Pulse Ox
98.2 F 83 18 120/82 97
08/18/24 05:23 08/18/24 05:23 08/18/24 05:23 08/18/24 05:23 08/18/24 05:30
MDM/Problems Addressed
Differential Diagnosis Includes:
Concern for blocked Otto catheter.
Bladder scan however reveals only 34 cc in the bladder and patient remains asymptomatic.
Current Otto catheter was changed during most recent ED visit July 30.
According to urology, recommend Otto catheter change ideally every 4 to 5 weeks.
Patient does have prior history of catheter related UTIs with hospitalization May of this year complicated by hemorrhagic cystitis and Pseudomonas bacteremia.
Chronically maintained on Hipprex.
Will trial trial Otto catheter flushing and if unsuccessful or if inconsistent drainage we will plan to change Otto catheter.
At this point nothing to indicate acute cystitis but patient is certainly at risk for UTI due to chronic indwelling Otto catheter and is immunosuppressed related to CLL.
Chronic conditions affecting care: Neurological disorder, Immunosuppressed, Cancer and Other (Chronic indwelling Otto catheter)
*Pulse Oximetry
Patient hypoxic: no
*Critical Care Note
Total Time (30-74mins, 75-104mins- exclusive of procedures): Not Applicable
Update Note
Update Note:
08/18/2024 0546 AM
Otto catheter successfully flushed with normal saline solution and is now draining pale yellow slightly cloudy urine.
Patient remains comfortable, asymptomatic.
At this point no indication for Otto catheter change and will discharge back to residential for continued care.
As he has remained asymptomatic, no indication for urinalysis/urine culture.
ED Attending Note
-
Portions of this chart may have been created with voice recognition software.� Occasional wrong word or��sound alike� substitutions may have occurred due to the inherent limitations of voice recognition software.
Discharge Plan
Departure
Patient Disposition: Longterm/SNF
Date of Disposition: 08/18/24
Time of Disposition: 05:47
Patient with high blood pressure during this ER visit?: No
Condition: Good
Discharge Problem:
Complication of Otto catheter
Instructions: How to Care for Your Otto Catheter, Male
Prescriptions:
No Action
polyethylene glycol 3350 [HealthyLax] 17 gram Powder In Packet
17 g PO DAILY Qty: 30 0RF
acetaminophen [Tylenol Extra Strength] 500 mg Tablet
1,000 mg PO TID
docusate sodium [Colace] 100 mg Capsule
100 mg PO DAILY
sennosides [Senokot] 8.6 mg Tablet
8.6 mg PO HS
pantoprazole 40 mg tablet,delayed release (DR/EC)
40 mg PO BID
bupropion HCl 150 mg Tablet Extended Release 24 Hr
150 mg PO DAILY Qty: 30 0RF
methenamine hippurate [Hiprex] 1 gram Tablet
1 g PO BID
hydromorphone [Dilaudid] 2 mg Tablet
2 mg PO Q6HPRN PRN (Reason: moderate to severe pain)
doxazosin 4 mg Tablet
4 mg PO HS
nystatin 100,000 unit/gram Powder
1 applic TOPICAL BID
Patient Comments:
fungal rash sprinkle topically to groin/scrotum
Balmex Diaper Rash 11.3 % Cream
1 applic TOPICAL TID
Referrals:
Leticia Ortega DO [Family Provider] - Call in 1-3 days for appt
Alex Todd MD [Active] - Follow up in 1 week
Interventions
Interventions:
*Risk Screen - Suicide Last Done: 08/18/24 05:23
*General Assessment Last Done: 08/18/24 05:23
*Neglect/Abuse Screening Last Done: 08/18/24 05:23
ED- Fall Risk Assessment Last Done: 08/18/24 05:28
*ED COVID-19 Vaccine History Last Done: 08/18/24 05:27
VP-Zjcqni-Ecudswuibu Assessment Last Done: 08/18/24 05:28
ED-Male Genitourinary Assessment Last Done: 08/18/24 05:28
Discharge Date and Time
Print Language: SAMI
[2024-08-18 06:00] VITALS: BP 117/77
[2024-08-18 07:00] VITALS: BP 127/93
[2024-08-18 08:45] VITALS: BP 119/76
== END 2024-08-18 09:35 ==
LOC: EMR 05:21
PROVIDERS: EMERGENCY PHYSICIAN Emergency Medicine; FAMILY PHYSICIAN Internal Medicine
DX: T83.9XXA Unspecified complication of genitourinary prosthetic device, implant and graft, initial encounter (principal); Y92.9 Unspecified place or not applicable; C91.10 Chronic lymphocytic leukemia of B-cell type not having achieved remission; I25.10 Atherosclerotic heart disease of native coronary artery without angina pectoris; I10 Essential (primary) hypertension; E78.00 Pure hypercholesterolemia, unspecified; N40.0 Benign prostatic hyperplasia without lower urinary tract symptoms; Z85.528 Personal history of other malignant neoplasm of kidney; Z87.440 Personal history of urinary (tract) infections; Z87.891 Personal history of nicotine dependence; Z99.3 Dependence on wheelchair
CPT/HCPCS: 99282

== ENCOUNTER 2024-09-05 20:31 | Emergency (ER) | payer MEDICARE, OTHER, SELFPAY ==
[2024-09-05 20:39] VITALS: BP 127/79
--- NOTE | 2024-09-05 21:04 | ED.GENMED ---
History of Present Illness
General
Chief Complaint: Catheter/Tube Problem
Source: patient and ambulance crew
Exam Limitations: none
Time Seen by Provider: 09/05/24 20:50
Nursing documentation reviewed up to this point in time: agreed with
History of Present Illness
History of Present Illness:
Patient presents to ED secondary to lower abdominal pain, with concern for recurrent blockage of his chronic Otto catheter, which unfortunately has had multiple times. Denies fever or chills. Denies nausea or vomiting. Denies trauma.
Past History
Past History
ED Past Medical History: CAD, Cancer (Renal clear-cell, CLL), Hypercholesterolemia, [place] and Other (BPH, GI bleed, intra-abdominal adhesions with small bowel obstruction)
Social History
Tobacco: Former smoker
Alcohol: None
Drug: None
Personal:
Living: detention
Family History
Family History: Other (Noncontributory)
Review of Systems
Review of Systems
Allergies reviewed?: Yes
All Other Systems: ROS reviewed and negative except as documented in HPI and ROS
Constitutional: Reports no symptoms
ABD/GI: Reports abdominal pain; Denies nausea or vomiting
: Reports difficulty voiding
Musculoskeletal: Reports no symptoms
Skin: Reports no symptoms
Neurological: Reports no symptoms
Phy Exam
Physical Exam
Physical Exam:
Physical Exam
General: mild distress, not acutely ill. afebrile
Head: nc/at. eomi
Neck: supple. no meningeal signs.
Abdomen: normal bowel sounds. not tender.
Neuro: alert and oriented. no focal neurological deficits
Skin: no rash
Psychiatric: well kept. interactive and cooperative
Extremities: no edema. no calf tenderness
Course
Orders/Labs/Results
Orders:
Orders
09/05/24 22:08
Lidocaine 2% [Lidocaine Uro-Jet 2%] 1 syringe .ROUTE .STK-MED ONE
09/05/24 22:09
Lidocaine 2% [Lidocaine Uro-Jet 2%] 1 syringe TOPICAL NOW STA
Vital Signs
Initial and Last Documented VS:
Initial Vital Signs
Temp Pulse Resp BP Pulse Ox
98.1 F 76 14 127/79 98
09/05/24 20:39 09/05/24 20:39 09/05/24 20:39 09/05/24 20:39 09/05/24 20:39
Last Documented Vital Signs
Temp Pulse Resp BP Pulse Ox
98.1 F 78 15 122/77 98
09/05/24 20:39 09/05/24 22:00 09/05/24 22:00 09/05/24 22:00 09/05/24 22:00
MDM/Problems Addressed
MDM/Problems Addressed:
Otto catheter successfully replaced in ED, with resolution of patient's presenting discomfort. Patient will be discharged back to nursing for continual care.
*Critical Care Note
Total Time (30-74mins, 75-104mins- exclusive of procedures): Not Applicable
ED Attending Note
-
Portions of this chart may have been created with voice recognition software.� Occasional wrong word or��sound alike� substitutions may have occurred due to the inherent limitations of voice recognition software.
Discharge Plan
Departure
Patient Disposition: [facility]/SNF
Date of Disposition: 09/05/24
Time of Disposition: 22:22
Patient with high blood pressure during this ER visit?: Yes
Discharge Problem:
Encounter for Otto catheter replacement
Instructions: How to Care for Your Otto Catheter, Male
Prescriptions:
No Action
polyethylene glycol 3350 [HealthyLax] 17 gram Powder In Packet
17 g PO DAILY Qty: 30 0RF
acetaminophen [Tylenol Extra Strength] 500 mg Tablet
1,000 mg PO TID
docusate sodium [Colace] 100 mg Capsule
100 mg PO DAILY
sennosides [Senokot] 8.6 mg Tablet
8.6 mg PO HS
pantoprazole 40 mg tablet,delayed release (DR/EC)
40 mg PO BID
bupropion HCl 150 mg Tablet Extended Release 24 Hr
150 mg PO DAILY Qty: 30 0RF
methenamine hippurate [Hiprex] 1 gram Tablet
1 g PO BID
hydromorphone [Dilaudid] 2 mg Tablet
2 mg PO Q6HPRN PRN (Reason: moderate to severe pain)
doxazosin 4 mg Tablet
4 mg PO HS
nystatin 100,000 unit/gram Powder
1 applic TOPICAL BID
Patient Comments:
fungal rash sprinkle topically to groin/scrotum
Balmex Diaper Rash 11.3 % Cream
1 applic TOPICAL TID
Referrals:
Leticia Ortega DO [Family Provider] -
Activity Restrictions/Additional Instructions:
As discussed, you are being discharged back to detention for continual care.
Interventions
Interventions:
*Risk Screen - Suicide Last Done: 09/05/24 20:39
*General Assessment Last Done: 09/05/24 20:39
*Neglect/Abuse Screening Last Done: 09/05/24 20:39
ED- Fall Risk Assessment Last Done: 09/05/24 20:39
*ED COVID-19 Vaccine History Last Done: 09/05/24 20:53
*Nursing Disposition Last Done: 09/06/24 01:46
DB-Kfadog-Nozzbouzft Assessment Last Done: 09/05/24 20:53
ED-Male Genitourinary Assessment Last Done: 09/05/24 20:53
Discharge Date and Time
Discharge Date/Time: 09/06/24 01:47
Print Language: PORTUGUESE
[2024-09-05 22:00] VITALS: BP 122/77
[2024-09-05] MEDS: LIDOCAINE URO-JET 2% 1 SYRINGE TOPICAL (22:10)
== END 2024-09-06 01:47 ==
LOC: EMR 20:31
PROVIDERS: EMERGENCY PHYSICIAN Emergency Medicine; FAMILY PHYSICIAN Internal Medicine
DX: Z46.6 Encounter for fitting and adjustment of urinary device (principal); R10.9 Unspecified abdominal pain; I25.10 Atherosclerotic heart disease of native coronary artery without angina pectoris; E78.00 Pure hypercholesterolemia, unspecified; N40.0 Benign prostatic hyperplasia without lower urinary tract symptoms; I10 Essential (primary) hypertension; M19.90 Unspecified osteoarthritis, unspecified site; F32.A Depression, unspecified; I25.2 Old myocardial infarction; Z85.528 Personal history of other malignant neoplasm of kidney; Z85.6 Personal history of leukemia; Z87.891 Personal history of nicotine dependence; Z96.641 Presence of right artificial hip joint
CPT/HCPCS: 99284; 51702

== ENCOUNTER 2024-10-31 18:11 | Emergency (ER) | payer MEDICARE, OTHER, SELFPAY ==
[2024-10-31 18:14] VITALS: BP 129/87
[2024-10-31 18:16] VITALS: BP 129/87
--- NOTE | 2024-10-31 18:39 | ED.GENMED ---
History of Present Illness
<Tawanda Dela Cruz PA-C - Last Filed: 10/31/24 21:52>
General
Chief Complaint: Catheter/Tube Problem
Source: patient
Exam Limitations: none
Time Seen by Provider: 10/31/24 18:30
History of Present Illness
History of Present Illness:
84-year-old male from [facility] via EMS with complaints of Otto catheter dysfunction. His catheter was exchanged this morning but has not been draining a significant mount and urine he does note some blood in the bag. He is not
anticoagulated. He denies abdominal pain. He had a large bowel movement on arrival. No other complaints
Past History
<Tawanda Dela Cruz PA-C - Last Filed: 10/31/24 21:52>
Past History
ED Past Medical History: CAD, Cancer (Renal clear-cell, CLL), Hypercholesterolemia, [place] and Other (BPH, GI bleed, intra-abdominal adhesions with small bowel obstruction)
Social History
Tobacco: Former smoker
Alcohol: None
Drug: None
Personal:
Living: [facility]
Family History
Family History: Other (Noncontributory)
Phy Exam
<Tawanda Dela Cruz PA-C - Last Filed: 10/31/24 21:52>
Physical Exam
Physical Exam:
General: Well-appearing male no acute respiratory distress
HEENT: Normocephalic atraumatic
Heart: Regular rate and rhythm no murmurs
Lungs: Clear no wheeze
Abdomen soft nontender nondistended guarding rebound
Otto catheter in place blood in the urine bag.
Extremities: No cyanosis
Course
<Tawanda Dela Cruz PA-C - Last Filed: 10/31/24 21:52>
Orders/Labs/Results
Orders:
Orders
10/31/24 20:26
CBI- Treatment PRN
Solution: saline
Irrigate to Clear?: Yes
10/31/24 22:00
Flush (0.9% Sodium Chloride) [Flush (Nss)] See Dose Instructions IV PER PROTOCOL
Vital Signs
Initial and Last Documented VS:
Initial Vital Signs
Temp Pulse Resp BP Pulse Ox
98.1 F 90 18 129/87 98
10/31/24 18:14 10/31/24 18:14 10/31/24 18:14 10/31/24 18:14 10/31/24 18:14
Last Documented Vital Signs
Temp Pulse Resp BP Pulse Ox
98.1 F 90 18 129/87 98
10/31/24 18:14 10/31/24 18:14 10/31/24 18:14 10/31/24 18:14 10/31/24 18:14
<Naldo Cole, DO - Last Filed: 10/31/24 22:07>
Orders/Labs/Results
Orders:
Orders
10/31/24 20:26
CBI- Treatment PRN
Solution: saline
Irrigate to Clear?: Yes
10/31/24 22:00
Flush (0.9% Sodium Chloride) [Flush (Nss)] See Dose Instructions IV PER PROTOCOL
Vital Signs
Initial and Last Documented VS:
Initial Vital Signs
Temp Pulse Resp BP Pulse Ox
98.1 F 90 18 129/87 98
10/31/24 18:14 10/31/24 18:14 10/31/24 18:14 10/31/24 18:14 10/31/24 18:14
Last Documented Vital Signs
Temp Pulse Resp BP Pulse Ox
98.1 F 90 18 129/87 98
10/31/24 18:14 10/31/24 18:14 10/31/24 18:14 10/31/24 18:14 10/31/24 18:14
<Tawanda Dela Cruz PA-C - Last Filed: 10/31/24 21:52>
MDM/Problems Addressed
Differential Diagnosis Includes:
Otto catheter dysfunction. Question clot or inserted in the wrong position. Will attempt to hand irrigate if unsuccessful will replace catheter
<Tawanda Dela Cruz PA-C - Last Filed: 10/31/24 21:52>
*Critical Care Note
Total Time (30-74mins, 75-104mins- exclusive of procedures): Not Applicable
<Tawanda Dela Cruz PA-C - Last Filed: 10/31/24 21:52>
Update Note
Update Note:
Initial exchange of catheter unsuccessful. Bladder scan demonstrates almost 500 mL of urine. He is likely in clot retention. He is not anticoagulated. Three-way catheter placed and CBI initiated. Discussed with urology.
After some adjustments of the catheter the urine started flowing and the urine cleared. At this point no indication for admission. Will discharge back with a 24 [place]ian catheter
ED Attending Note
<Tawanda Dela Cruz PA-C - Last Filed: 10/31/24 21:52>
-
Portions of this chart may have been created with voice recognition software.� Occasional wrong word or��sound alike� substitutions may have occurred due to the inherent limitations of voice recognition software.
<Naldo Cole DO - Last Filed: 10/31/24 22:07>
ED Attending Note
Patient seen and examined by attending physician: Yes
I performed the substantive portion of visit, reviewed & personally made and approve the management plan that is documented in note by myself or SUNITA.: Yes
ED Attending Note:
84-year-old male who presents with hematuria. On my assessment we were able to adjust catheter and deflate and reinflate balloon. Bleeding has since improved significantly. Exchanged for normal catheter but okay for discharge if bleeding remains
controlled. Likely from trauma of exchange of catheter
Discharge Plan
Departure
Patient Disposition: Home (Routine Discharge)
Date of Disposition: 10/31/24
Time of Disposition: :29
Admit to: Med/Surg
Patient with high blood pressure during this ER visit?: No
Discharge Problem:
Clot retention of urine
Instructions: How to Care for Your Otto Catheter, Male
Prescriptions:
No Action
acetaminophen [Tylenol Extra Strength] 500 mg Tablet
1,000 mg PO BID
docusate sodium [Colace] 100 mg Capsule
100 mg PO DAILY
sennosides [Senokot] 8.6 mg Tablet
8.6 mg PO DAILYPRN PRN (Reason: constipation)
pantoprazole 40 mg tablet,delayed release (DR/EC)
40 mg PO DAILY
bupropion HCl 150 mg Tablet Extended Release 24 Hr
150 mg PO DAILY Qty: 30 0RF
hydromorphone [Dilaudid] 2 mg Tablet
2 mg PO Q6HPRN PRN (Reason: moderate to severe pain)
doxazosin 4 mg Tablet
4 mg PO HS
Balmex Diaper Rash 11.3 % Cream
1 applic TOPICAL TID
methenamine hippurate [Hiprex] 1 gram Tablet
1 g PO BID
gabapentin 100 mg Capsule
200 mg PO BID
lidocaine HCl [Aspercreme (lidocaine HCl)] 4 % Cream
1 applic TOPICAL BID
polyethylene glycol 3350 [HealthyLax] 17 gram powder in packet
17 g PO Q48H
Referrals:
Leticia Ortega DO [Family Provider] -
Activity Restrictions/Additional Instructions:
Return if needed
Interventions
Interventions:
*Risk Screen - Suicide Last Done: 10/31/24 18:14
*General Assessment Last Done: 10/31/24 18:14
*Neglect/Abuse Screening Last Done: 10/31/24 18:14
RW-Hecesr-Jijqwpiggf Assessment Last Done: 10/31/24 19:24
ED-Male Genitourinary Assessment Last Done: 10/31/24 19:24
Discharge Date and Time
Print Language: IRISH
[2024-10-31 19:00] VITALS: BP 132/106
[2024-10-31 20:00] VITALS: BP 123/72
[2024-10-31 21:00] VITALS: BP 130/71
[2024-10-31 22:00] VITALS: BP 121/67
== END 2024-11-01 03:45 | disposition home or self-care (01) ==
LOC: EMR 18:11
PROVIDERS: EMERGENCY PHYSICIAN Emergency Medicine; FAMILY PHYSICIAN Internal Medicine
DX: R33.8 Other retention of urine (principal); I25.10 Atherosclerotic heart disease of native coronary artery without angina pectoris; C91.10 Chronic lymphocytic leukemia of B-cell type not having achieved remission; E78.00 Pure hypercholesterolemia, unspecified; N40.1 Benign prostatic hyperplasia with lower urinary tract symptoms; Z85.528 Personal history of other malignant neoplasm of kidney; Z87.891 Personal history of nicotine dependence
CPT/HCPCS: 99282